=== PATIENT | male | born 1940 | race Caucasian/White ===

== ENCOUNTER 2017-02-28 23:51 | Inpatient (IN) | payer MEDICARE, BC ==
[2017-03-01] MEDS: Albuterol 0.083% 2.5 MG/3 ML Neb Soln NEB ONE ×2 (00:55→13:23)
[2017-03-01] MEDS ORDERED: cefTRIAXone 2 GM in Sodium Chloride 0.9% 100 ML IV ONE (03:12)
[2017-03-01] MEDS ORDERED: Sodium Chloride 0.9%, Bacteriostatic 10 ML MDV IV SCH (03:15)
[2017-03-01] MEDS ORDERED: methylPREDNISolone Sodium Succinate 125 MG/2 ML SDV IVPUSH SCH (03:15)
[2017-03-01] MEDS ORDERED: Sodium Chloride 0.9% 10 ML Syringe FLUSH PRN (03:36)
--- NOTE | 2017-03-01 04:22 | EDM.PDOC ---
ED HPI GENERAL MEDICAL PROBLEM - General Chief Complaint: General Stated Complaint: COPD Time Seen by Provider: 03/01/17 00:05 Source of Information: Reports: Patient, Family History Limitations: Reports: No Limitations - History of Present Illness INITIAL COMMENTS - FREE TEXT/NARRATIVE: Patient is a 76 year old patient of Dr. Davidson who has COPD. He was hospitalized for 4 days earlier this year with a COPD exacerbation and in the last 24 hours prior to coming to the ED he has had worsening cough symptoms and his lungs have become tighter and harder for him to breathe. He has no pain but he is short of breath. His nebs help but his daughter is afraid he may be in the early part of a URI or pneumonia that may keep him in the ED for a prolonged period like happened last time. 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 Back Pain Score (Numeric/FACES): 2 - Related Data Allergies Allergy/AdvReac Type Severity Reaction Status Date / Time No Known Allergies Allergy Verified 01/22/16 14:43 Home Meds: Home Meds Fluticasone/Salmeterol [Advair 250-50 Diskus] 1 puff INH BID 01/22/16 [History] Lisinopril 20 mg PO DAILY 01/22/16 [History] Simvastatin 40 mg PO DAILY 01/22/16 [History] Albuterol/Ipratropium [Combivent Respimat] 1 inh PO QID #28 01/24/16 [Rx] Prednisone [IJD: Prednisone] 10 mg PO ASDIRECTED #105 tab 01/24/16 [Rx] guaiFENesin [Robitussin] 600 mg PO Q12HR #28 cup 01/24/16 [Rx] Past Medical History HEENT History: Reports: Hard of Hearing Cardiovascular History: Reports: High Cholesterol, Hypertension Respiratory History: Reports: COPD, Pneumonia, Recurrent Musculoskeletal History: Reports: Arthritis, Back Pain, Chronic - Infectious Disease History Infectious Disease History: Reports: Chicken Pox, Measles, Mumps, Rubella Social & Family History - Family History Family Medical History: Unobtainable - Tobacco Use Smoking Status *Q: Current Every Day Smoker Years of Tobacco use: 45 Packs/Tins Daily: 2 Used Tobacco, but Quit: No Second Hand Smoke Exposure: Yes - Caffeine Use Caffeine Use: Reports: Coffee - Alcohol Use Days Per Week of Alcohol Use: 1 Number of Drinks Per Day: 4 Total Drinks Per Week: 4 - Recreational Drug Use Recreational Drug Use: No ED ROS GENERAL - Review of Systems Review Of Systems: See Below Constitutional: Reports: Other (Breathing problems.) HEENT: Reports: No Symptoms Respiratory: Reports: Shortness of Breath, Cough Cardiovascular: Reports: No Symptoms Endocrine: Reports: No Symptoms GI/Abdominal: Reports: No Symptoms : Reports: No Symptoms Musculoskeletal: Reports: No Symptoms Skin: Reports: No Symptoms Neurological: Reports: No Symptoms Psychiatric: Reports: No Symptoms Hematologic/Lymphatic: Reports: No Symptoms ED EXAM, GENERAL - Physical Exam Exam: See Below Exam Limited By: No Limitations General Appearance: Alert, WD/WN, Mild Distress Eye Exam: Bilateral Eye: Normal Fundi, Normal Inspection, PERRL Ears: Normal External Exam, Normal Canal, Hearing Grossly Normal, Normal TMs Ear Exam: Bilateral Ear: Auricle Normal, Canal Normal, TM normal Nose: Normal Inspection, Normal Mucosa, No Blood Throat/Mouth: Normal Inspection, Normal Lips, Normal Teeth, Normal Gums, Normal Oropharynx, Normal Voice, No Airway Compromise Head: Atraumatic, Normocephalic Neck: Normal Inspection, Supple, Non-Tender, Full Range of Motion Respiratory/Chest: Lungs Clear, No Accessory Muscle Use, Chest Non-Tender, Respiratory Distress, Decreased Breath Sounds, Other ( Lungs sound tight on auscultation.) Cardiovascular: Normal Peripheral Pulses, Regular Rate, Rhythm, No Edema, No Gallop, No JVD, No Murmur, No Rub Peripheral Pulses: 2+: Posterior Tibial (L), Posterior Tibial (R), Dorsalis Pedis (L), Dorsalis Pedis (R) GI/Abdominal: Normal Bowel Sounds, Soft, Non-Tender, No Organomegaly, No Distention, No Abnormal Bruit, No Mass Extremities: Normal Inspection Neurological: Alert, Oriented, CN II-XII Intact, Normal Cognition, Normal Gait, Normal Reflexes, No Motor/Sensory Deficits Psychiatric: Normal Affect Skin Exam: Warm, Dry, Intact, Normal Color, No Rash Lymphatic: No Adenopathy EKG INTERPRETATION EKG Date: 03/01/17 Rhythm: NSR [place]: Normal P-Wave: Present QRS: Normal ST-T: Normal QT: Normal Course - Vital Signs Text/Narrative:: Patient had an uneventful ED course. He was given an Albuterol neb and was breathing better, though, even after the neb and being on 2 liters of O2 by nasal cannula his Oxygen at times dropped to 88% on the 2 liters. His WBC was elevated and the CXR showed emphysematous changes. It was decided to admit him to observation to give more intensive treatments with nebs, IV solumedrol, IV Rocephin and IV Zithromax. Dr. Joseph will assume care in the morning. Please use this ED note as the Admit H and P. Last Recorded V/S: Last Vital Signs Temp Pulse Resp BP Pulse Ox 94 L 03/01/17 01:53 - Orders/Labs/Meds Orders: Active Orders 24 hr Category Date Time Status EKG Documentation Completion [RC] ASDIRECTED Care 03/01/17 00:48 Active RT Aerosol Therapy [RC] ASDIRECTED Care 03/01/17 00:51 Active Chest 1V Frontal [CR] Stat Exams 03/01/17 00:47 Taken Medication Orders Albuterol/Ipratropium (Duoneb 3.0-0.5 Mg/3 Ml) 3 ml NEB Q6H PRN PRN Reason: Dyspnea Azithromycin 500 mg/ Sodium (Chloride) 250 mls @ 250 mls/hr IV Q24H [facility] Methylprednisolone Sodium Succinate (Solu-Medrol) 125 mg IVPUSH Q12H [facility] Last Admin: 03/01/17 03:35 Dose: 125 mg Sodium Chloride (Sodium Chloride 0.9%) 100 ml IV ASDIRECTED [facility] Sodium Chloride (Saline Flush) 10 ml FLUSH BID PRN PRN Reason: Other Labs: Laboratory Tests 03/01/17 03/01/17 03/01/17 Range/Units 00:45 00:45 00:45 WBC 14.8 H (4.0-11.0) K/uL RBC 4.91 (4.50-6.50) M/uL Hgb 14.3 (13.0-18.0) g/dL Hct 44.8 (40.0-54.0) % MCV 91 (76-96) fL MCH 29.1 (27.0-32.0) pg MCHC 31.9 (31.0-35.0) g/dL RDW 16.0 (11.0-16.0) % Plt Count 167 (150-400) K/uL MPV 9.6 (6.0-10.0) fL Neut % (Auto) 78.9 H (45.0-70.0) % Lymph % (Auto) 10.6 L (20.0-40.0) % [place] % (Auto) 9.5 (3.0-10.0) % Eos % (Auto) 0.8 L (1.0-5.0) % Baso % (Auto) 0.2 (0.0-0.5) % Neut # (Auto) 11.65 H (2.00-7.50) K/uL Lymph # (Auto) 1.56 (1.50-4.00) K/uL [place] # (Auto) 1.41 H (0.20-0.80) K/uL Eos # (Auto) 0.12 (0.04-0.40) K/uL Baso # (Auto) 0.03 (0.02-0.10) K/uL Sodium 138 (136-145) mmol/L Potassium 3.8 D (3.5-5.1) mmol/L Chloride 101 (98-107) mmol/L Carbon Dioxide 30.6 (21.0-32.0) mmol/L Anion Gap 10.2 (5.0-15.0) mmol/L BUN 13 D (8-26) mg/dL Creatinine 0.94 D (0.70-1.30) mg/dL Est Cr Clr Drug Dosing TNP Estimated GFR (MDRD) > 60 (>60) MLS/MIN BUN/Creatinine Ratio 13.8 (6-25) Glucose 125 H (74-100) mg/dL Calcium 8.7 (8.5-10.1) mg/dL Total Bilirubin 1.2 H (0.0-1.0) mg/dL AST 15 (15-37) U/L ALT 13 (12-78) U/L Alkaline Phosphatase 59 (46-116) U/L Troponin I < 0.017 (0.000-0.060) ng/mL Total Protein 8.4 H (6.4-8.2) g/dL Albumin 3.8 (3.4-5.0) g/dL Globulin 4.6 H (2.2-4.2) g/dL Albumin/Globulin Ratio 0.8 (0.8-2.0) Meds: Medications Generic Name Dose Route Start Last Admin Trade Name Freq PRN Reason Stop Dose Admin Albuterol/Ipratropium 3 ml 03/01/17 03:10 Duoneb 3.0-0.5 Mg/3 Ml NEB Q6H PRN Dyspnea Azithromycin 500 mg/ Sodium 250 mls @ 250 mls/hr 03/01/17 04:30 Chloride IV Q24H [facility] Methylprednisolone Sodium Succinate 125 mg 03/01/17 03:15 03/01/17 03:35 Solu-Medrol IVPUSH 125 mg Q12H [facility] Administration Sodium Chloride 100 ml 03/01/17 03:15 Sodium Chloride 0.9% IV ASDIRECTED [facility] Sodium Chloride 10 ml 03/01/17 03:36 Saline Flush FLUSH BID PRN Other Discontinued Medications Generic Name Dose Route Start Last Admin Trade Name Freq PRN Reason Stop Dose Admin Albuterol 2.5 mg 03/01/17 00:50 Proventil Neb Soln NEB 03/01/17 00:51 ONETIME ONE Ceftriaxone Sodium 2 gm/ 100 mls @ 100 mls/hr 03/01/17 03:12 Sodium Chloride IV 03/01/17 04:11 ONETIME ONE Departure - Departure Time of Disposition: 03:06 Disposition: Refer to Observation Condition: Fair Clinical Impression: COPD exacerbation - Discharge Information - My Orders Last 24 Hours: My Active Orders 03/01/17 00:47 Chest 1V Frontal [CR] Stat 03/01/17 00:48 EKG Documentation Completion [RC] ASDIRECTED 03/01/17 00:51 RT Aerosol Therapy [RC] ASDIRECTED - Assessment/Plan Last 24 Hours: My Active Orders 03/01/17 00:47 Chest 1V Frontal [CR] Stat 03/01/17 00:48 EKG Documentation Completion [RC] ASDIRECTED 03/01/17 00:51 RT Aerosol Therapy [RC] ASDIRECTED
[2017-03-01] MEDS: Albuterol/Ipratropium 3.0-0.5 MG/3 ML Neb Soln NEB PRN ×2 (04:25→09:46)
[2017-03-01] MEDS: Azithromycin 500 MG in Sodium Chloride 0.9% 250 ML IV SCH (04:54)
[2017-03-01] MEDS ORDERED: Sodium Chloride 0.9% 1,000 ML IV SCH ×2 (09:15→19:30)
--- NOTE | 2017-03-01 09:58 | PCM.PN ---
- General Info Date of Service: 03/01/17 Subjective Update: This is a 76yo M who was placed in observation for a COPD exacerbation. Patient states he is feeling a little better and breathing somewhat better during his nebulizer treatments. Patient denies any fever or chills or increasing sob. - Review of Systems General: Reports: No Symptoms HEENT: Reports: No Symptoms Pulmonary: Reports: Shortness of Breath, Wheezing Cardiovascular: Reports: No Symptoms Gastrointestinal: Reports: No Symptoms Genitourinary: Reports: No Symptoms Musculoskeletal: Reports: No Symptoms Skin: Reports: No Symptoms Neurological: Reports: No Symptoms - Patient Data Vitals - most recent: Last Vital Signs Temp 35.7 C 03/01/17 03:33 Pulse 116 H 03/01/17 03:33 Resp 20 03/01/17 03:33 BP 142/74 H 03/01/17 03:33 Pulse Ox 90 L 03/01/17 03:33 Weight - most recent: 113.398 kg I&O - last 24 hours: Intake & Output 02/28/17 03/01/17 03/01/17 22:59 06:59 14:59 Intake Total 200 Output Total 150 Balance 50 Med Orders - Current: Current Medications Albuterol/Ipratropium (Duoneb 3.0-0.5 Mg/3 Ml) 3 ml NEB Q6H PRN PRN Reason: Dyspnea Last Admin: 03/01/17 09:46 Dose: 3 ml Azithromycin 500 mg/ Sodium (Chloride) 250 mls @ 250 mls/hr IV Q24H [facility] Last Admin: 03/01/17 04:54 Dose: 250 mls/hr Sodium Chloride (Normal Saline) 1,000 mls @ 100 mls/hr IV ASDIRECTED [facility] Sodium Chloride (Saline Flush) 10 ml FLUSH BID PRN PRN Reason: Other Discontinued Medications Albuterol (Proventil Neb Soln) 2.5 mg NEB ONETIME ONE Stop: 03/01/17 00:51 Last Admin: 03/01/17 00:55 Dose: 2.5 mg Ceftriaxone Sodium 2 gm/ (Sodium Chloride) 100 mls @ 100 mls/hr IV ONETIME ONE Stop: 03/01/17 04:11 Last Admin: 03/01/17 03:37 Dose: 100 mls/hr Methylprednisolone Sodium Succinate (Solu-Medrol) 125 mg IVPUSH Q12H [facility] Last Admin: 03/01/17 03:35 Dose: 125 mg - Exam Quality Assessment: supplemental oxygen General: alert, oriented, cooperative HEENT: Pupils equal, Pupils reactive, EOMI Neck: supple Lungs: Decreased Breath Sounds, Rhonchi, Wheezing Cardiovascular: Regular Rhythm, Tachycardia GI/Abdominal Exam: Normal Bowel Sounds, Soft, Non-Tender Back Exam: Normal Inspection Extremities: Normal Inspection Peripheral Pulses: 2+: Dorsalis Pedis (L), Dorsalis Pedis (R) Skin: warm, dry, intact Neurological: no new focal deficit - Problem List & Annotations (1) COPD exacerbation SNOMED Code(s): 072138096, 869703072 Code(s): J44.1 - CHRONIC OBSTRUCTIVE PULMONARY DISEASE W (ACUTE) EXACERBATION Status: Acute Current Visit: Yes (2) Exertional shortness of breath SNOMED Code(s): 79807115 Code(s): R06.02 - SHORTNESS OF BREATH Status: Acute Priority: High Current Visit: No Onset Date: 01/22/16 (3) Shortness of breath at rest SNOMED Code(s): 826618763 Code(s): R06.02 - SHORTNESS OF BREATH Status: Acute Priority: High Current Visit: No Onset Date: 01/22/16 (4) Tachycardia SNOMED Code(s): 8380675 Code(s): R00.0 - TACHYCARDIA, UNSPECIFIED Status: Chronic Priority: Medium Current Visit: No Onset Date: 01/22/16 - Problem List Review Problem List Initiated/Reviewed/Updated: Yes - My Orders Last 24 Hours: My Active Orders 03/01/17 07:55 BASIC METABOLIC PANEL,BMP [CHEM] Routine CBC WITH AUTO DIFF [HEME] Routine 03/01/17 10:00 methylPREDNISolone Sod Succ [Solu-MEDROL] 125 mg IVPUSH Q8H - Assessment Assessment:: Patient will continue on scheduled nebulizers as this has shown improvement with patient symptoms and oxygenation. We will increase frequency of Solumedrol at this time due to persistent effort of breathing seen from mild retractions despite symptomatic improvement. We will closely monitor and f/u as needed and as routine.
[2017-03-01] MEDS ORDERED: Albuterol/Ipratropium 3.0-0.5 MG/3 ML Neb Soln NEB SCH (10:00)
--- NOTE | 2017-03-01 12:16 | CR ---
DATE OF SERVICE: 03/01/2017 CLINICAL DATA: COPD exacerbation. AP CHEST Comparison made to a prior exam dated 01/22/2016. The heart size is normal. There is a mass like density superior and lateral to the right hilum that was not present on the prior exam. There is stranding of this mass to the right hilum and to the pleura peripherally. A pulmonary malignancy is suspected. Chest CT is recommended. There are mild interstitial changes throughout both lungs. I do not see any other significant findings. IMPRESSION: Abnormal exam. See above. Chest CT is recommended. [id number] [facility]
[2017-03-01] MEDS: methylPREDNISolone Sodium Succinate 125 MG/2 ML SDV IVPUSH SCH ×2 (13:22→18:23)
[2017-03-01] MEDS ORDERED: Sodium Chloride 0.9% 50 ML SDV FLUSH ONE (13:23)
[2017-03-01] MEDS ORDERED: Albuterol 0.083% 2.5 MG/3 ML Neb Soln NEB ONE (13:24)
[2017-03-01] MEDS ORDERED: Iopamidol 612 MG/ML 100 ML Bottle IV SCH (13:30)
[2017-03-01] MEDS ORDERED: Morphine 2 MG/ML Syringe IVPUSH ONE (13:47)
[2017-03-01] MEDS ORDERED: Albuterol/Ipratropium 3.0-0.5 MG/3 ML Neb Soln INH SCH (16:00)
[2017-03-01] MEDS ORDERED: ALBUTEROL PO SCH (16:00)
[2017-03-01] MEDS ORDERED: IPRATROPIUM PO SCH (16:00)
[2017-03-01] MEDS: Albuterol/Ipratropium 3.0-0.5 MG/3 ML Neb Soln NEB SCH ×2 (17:21→19:59)
[2017-03-01] MEDS ORDERED: Aspirin 325 MG Tab.EC PO PRN (17:57)
[2017-03-01] MEDS: Formoterol/Mometasone 200-5 MCG 8.8 GM Inhaler IH SCH (19:53)
[2017-03-01] MEDS: Fish Oil/Omega-3 Fatty Acids 1 Gm Cap PO SCH (19:54)
[2017-03-01] MEDS: Simvastatin 40 MG Tab PO SCH (19:54)
[2017-03-01] MEDS: guaiFENesin 100 MG/5 ML Soln 10 ML UD Cup PO SCH (19:58)
[2017-03-01] MEDS ORDERED: ASPIRIN PO SCH (20:00)
[2017-03-01] MEDS ORDERED: Fluticasone/Salmeterol 250-50 MCG Inhalation Powder 14/Diskus INH SCH (20:00)
[2017-03-02] MEDS: methylPREDNISolone Sodium Succinate 125 MG/2 ML SDV IVPUSH SCH ×3 (02:02→21:30)
[2017-03-02] MEDS: Azithromycin 500 MG in Sodium Chloride 0.9% 250 ML IV SCH ×3 (05:01→23:55)
--- NOTE | 2017-03-02 07:49 | CT ---
DATE OF SERVICE: 03/01/17 CLINICAL DATA: SOB, abnormal CXR with mass lesion ENHANCED CHEST CT: Multislice acquisition through the chest with IV contrast was performed. No priors. There is an elongated pleural-based mass-like structure involving the right upper lobe that lies adjacent to the major fissure. It measures greater than 6 cm in its maximum dimension. It is largely soft tissue in density. It does contain some entrapped lung. There is stranding from this mass to the right hilum and to the pleura peripherally. There is also thickening of the adjacent pleura in the right hemithorax laterally and within the major fissure. Although this may be related to an infectious or inflammatory process, a malignancy cannot be excluded. There are emphysematous changes throughout both lungs. There is linear densities in the left apex and left lung base consistent with linear atelectasis or fibrosis. The lungs are otherwise clear. No pleural effusions. No hilar or mediastinal adenopathy. The heart size is normal. There is a very small pericardial effusion. There are coronary artery calcifications. There is mild mural thickening throughout the cervical esophagus. Esophagitis should be considered. There is diffuse fatty infiltration of the liver. I do not see any other significant findings. No lytic or blastic bone lesions. The thyroid gland is enlarged. Thyroid ultrasound is recommended. IMPRESSION: Mass-like structure in right lung as discussed above. Rule out malignancy. Other findings as discussed above. See above recommendation. [id number] [facility]
[2017-03-02] MEDS: Fish Oil/Omega-3 Fatty Acids 1 Gm Cap PO SCH ×2 (08:20→20:12)
[2017-03-02] MEDS: Albuterol/Ipratropium 3.0-0.5 MG/3 ML Neb Soln NEB SCH ×4 (08:20→20:12)
[2017-03-02] MEDS: Lisinopril 20 MG Tab PO SCH (08:20)
[2017-03-02] MEDS: Formoterol/Mometasone 200-5 MCG 8.8 GM Inhaler IH SCH ×2 (08:20→20:12)
[2017-03-02] MEDS: guaiFENesin 100 MG/5 ML Soln 10 ML UD Cup PO SCH ×2 (08:21→20:12)
--- NOTE | 2017-03-02 08:43 | PCM.PN ---
- General Info Date of Service: 03/02/17 Functional Status: Reports: Tolerating Diet - Review of Systems General: Reports: No Symptoms HEENT: Reports: No Symptoms Pulmonary: Reports: Shortness of Breath, Wheezing Cardiovascular: Reports: No Symptoms Gastrointestinal: Reports: No Symptoms Genitourinary: Reports: No Symptoms Musculoskeletal: Reports: Shoulder Pain, Back Pain Skin: Reports: No Symptoms Neurological: Reports: No Symptoms Psychiatric: Reports: No Symptoms - Patient Data Vitals - Most Recent: Last Vital Signs Temp 36.6 C 03/01/17 19:37 Pulse 112 H 03/01/17 19:37 Resp 24 H 03/01/17 19:37 BP 112/70 03/02/17 08:20 Pulse Ox 93 L 03/01/17 19:37 Weight - Most Recent: 102.875 kg I&O - Last 24 Hours: Intake & Output 03/01/17 03/02/17 03/02/17 22:59 06:59 14:59 Intake Total 2670 870 Output Total 250 775 Balance 2420 95 Lab Results Last 24 Hours: Laboratory Results - last 24 hr 03/02/17 03/02/17 Range/Units 07:15 07:15 WBC 14.4 H (4.0-11.0) K/uL RBC 4.70 (4.50-6.50) M/uL Hgb 13.8 (13.0-18.0) g/dL Hct 43.0 (40.0-54.0) % MCV 92 (76-96) fL MCH 29.4 (27.0-32.0) pg MCHC 32.1 (31.0-35.0) g/dL RDW 15.8 (11.0-16.0) % Plt Count 183 (150-400) K/uL MPV 9.8 (6.0-10.0) fL Neut % (Auto) 88.6 H (45.0-70.0) % Lymph % (Auto) 7.4 L (20.0-40.0) % [place] % (Auto) 3.8 (3.0-10.0) % Eos % (Auto) 0.1 L (1.0-5.0) % Baso % (Auto) 0.1 (0.0-0.5) % Neut # (Auto) 12.77 H (2.00-7.50) K/uL Lymph # (Auto) 1.06 L (1.50-4.00) K/uL [place] # (Auto) 0.55 (0.20-0.80) K/uL Eos # (Auto) 0.01 L (0.04-0.40) K/uL Baso # (Auto) 0.02 (0.02-0.10) K/uL Sodium 143 (136-145) mmol/L Potassium 4.5 (3.5-5.1) mmol/L Chloride 104 (98-107) mmol/L Carbon Dioxide 31.6 (21.0-32.0) mmol/L Anion Gap 11.9 (5.0-15.0) mmol/L BUN 19 D (8-26) mg/dL Creatinine 1.01 (0.70-1.30) mg/dL Est Cr Clr Drug Dosing 62.08 mL/min Estimated GFR (MDRD) > 60 (>60) MLS/MIN BUN/Creatinine Ratio 18.8 (6-25) Glucose 177 H (74-100) mg/dL Calcium 8.9 (8.5-10.1) mg/dL Med Orders - Current: Current Medications Albuterol (Proventil Neb Soln) 2.5 mg NEB Q2H PRN PRN Reason: Dyspnea Albuterol/Ipratropium (Duoneb 3.0-0.5 Mg/3 Ml) 3 ml NEB QID [facility] Last Admin: 03/02/17 08:20 Dose: 3 ml Aspirin (Ecotrin) 650 mg PO BID PRN PRN Reason: Pain Fish Oil (Fish Oil) 1 gm PO BID [facility] Last Admin: 03/02/17 08:20 Dose: 1 gm Guaifenesin (Robitussin) 600 mg PO Q12HR [facility] Last Admin: 03/02/17 08:21 Dose: 600 mg Azithromycin 500 mg/ Sodium (Chloride) 250 mls @ 250 mls/hr IV Q24H [facility] Last Admin: 03/02/17 05:01 Dose: 250 mls/hr Sodium Chloride (Normal Saline) 1,000 mls @ 25 mls/hr IV ASDIRECTED [facility] Last Admin: 03/02/17 05:03 Dose: 25 mls/hr Iopamidol (Isovue-300 (61%)) 100 ml IV ASDIRECTED [facility] Lisinopril (Prinivil) 20 mg PO DAILY [facility] Last Admin: 03/02/17 08:20 Dose: 20 mg Mometasone Furoate/Formoterol Fumar (Dulera 200-5 Mcg) 2 puff IH BID [facility] Last Admin: 03/02/17 08:20 Dose: 2 puff Simvastatin (Zocor) 40 mg PO BEDTIME [facility] Last Admin: 03/01/17 19:54 Dose: 40 mg Sodium Chloride (Saline Flush) 10 ml FLUSH BID PRN PRN Reason: Other Discontinued Medications Albuterol (Proventil Neb Soln) 2.5 mg NEB ONETIME ONE Stop: 03/01/17 00:51 Last Admin: 03/01/17 13:23 Dose: 2.5 mg Albuterol (Proventil Neb Soln) 2.5 mg NEB ONETIME ONE Stop: 03/01/17 13:25 Last Admin: 03/01/17 14:50 Dose: Not Given Albuterol/Ipratropium (Duoneb 3.0-0.5 Mg/3 Ml) 3 ml NEB Q6H PRN PRN Reason: Dyspnea Last Admin: 03/01/17 09:46 Dose: 3 ml Albuterol/Ipratropium (Duoneb 3.0-0.5 Mg/3 Ml) 3 ml NEB Q6H [facility] Last Admin: 03/01/17 10:00 Dose: 3 ml Ceftriaxone Sodium 2 gm/ (Sodium Chloride) 100 mls @ 100 mls/hr IV ONETIME ONE Stop: 03/01/17 04:11 Last Admin: 03/01/17 03:37 Dose: 100 mls/hr Sodium Chloride (Normal Saline) 1,000 mls @ 100 mls/hr IV ASDIRECTED [facility] Methylprednisolone Sodium Succinate (Solu-Medrol) 125 mg IVPUSH Q12H [facility] Last Admin: 03/01/17 03:35 Dose: 125 mg Methylprednisolone Sodium Succinate (Solu-Medrol) 125 mg IVPUSH Q8H [facility] Last Admin: 03/02/17 02:02 Dose: 125 mg Morphine Sulfate (Morphine) 1 mg IVPUSH ONETIME ONE Stop: 03/01/17 13:48 Last Admin: 03/01/17 14:50 Dose: Not Given Non-Formulary Medication (Aspirin [Aspirin]) 650 mg PO BID [facility] Sodium Chloride (Normal Saline) 50 ml FLUSH ONETIME ONE Stop: 03/01/17 13:24 Last Admin: 03/01/17 14:49 Dose: Not Given - Exam General: Alert, Oriented, Cooperative HEENT: Pupils Equal, Pupils Reactive, EOMI Neck: Supple Lungs: Decreased Breath Sounds, Wheezing Cardiovascular: Regular Rate, Regular Rhythm GI/Abdominal Exam: Normal Bowel Sounds, Soft, Non-Tender Back Exam: Normal Inspection, Full Range of Motion Extremities: Normal Inspection, Normal Range of Motion Skin: Warm, Dry, Intact Neurological: No New Focal Deficit Psy/Mental Status: Alert, Normal Affect, Normal Mood - Problem List & Annotations (1) COPD exacerbation SNOMED Code(s): 550044668, 299954214 Code(s): J44.1 - CHRONIC OBSTRUCTIVE PULMONARY DISEASE W (ACUTE) EXACERBATION Status: Acute Current Visit: Yes (2) Exertional shortness of breath SNOMED Code(s): 06501383 Code(s): R06.02 - SHORTNESS OF BREATH Status: Acute Priority: High Current Visit: No Onset Date: 01/22/16 (3) Shortness of breath at rest SNOMED Code(s): 778908973 Code(s): R06.02 - SHORTNESS OF BREATH Status: Acute Priority: High Current Visit: No Onset Date: 01/22/16 (4) Tachycardia SNOMED Code(s): 5011179 Code(s): R00.0 - TACHYCARDIA, UNSPECIFIED Status: Chronic Priority: Medium Current Visit: No Onset Date: 01/22/16 - Problem List Review Problem List Initiated/Reviewed/Updated: Yes - My Orders Last 24 Hours: My Active Orders 03/01/17 14:55 CULTURE MRSA SURVEY [RM] Routine 03/01/17 16:00 Albuterol/Ipratropium [DuoNeb 3.0-0.5 MG/3 ML] 3 ml NEB QID 03/01/17 17:57 Aspirin [Ecotrin] 650 mg PO BID PRN 03/01/17 19:12 Albuterol [Proventil Neb Soln] 2.5 mg NEB Q2H PRN 03/01/17 19:30 Sodium Chloride 0.9% [Normal Saline] 1,000 ml IV ASDIRECTED 03/01/17 20:00 Fish Oil/Felch-3 Fatty Acids [Fish Oil] 1 gm PO BID Mometasone/Formoterol [Dulera 200-5 MCG] 2 puff IH BID Simvastatin [Zocor] 40 mg PO BEDTIME guaiFENesin [Robitussin] 600 mg PO Q12HR 03/02/17 08:00 Lisinopril [Prinivil] 20 mg PO DAILY 03/02/17 08:45 methylPREDNISolone Sod Succ [Solu-MEDROL] 125 mg IVPUSH Q12H 03/02/17 Breakfast Regular Diet [DIET] - Assessment Assessment:: Patient will continue on scheduled nebulizers as this has shown improvement with patient symptoms and oxygenation. We will increase frequency of Solumedrol at this time due to persistent effort of breathing seen from mild retractions despite symptomatic improvement. We will closely monitor and f/u as needed and as routine. - Plan Plan:: 03/02/17 Patient will be continued on current medications and management. We will taper Methylprednisolone to 125mg Q12. Discussed finding of mass lesion in right lung with patient and discussed differential including infectious/inflammatory/ malignant processes. Discussed f/u CT for resolution and workup as needed. Patient understands.
[2017-03-02] MEDS: Simvastatin 40 MG Tab PO SCH (20:12)
[2017-03-03] MEDS: Albuterol 0.083% 2.5 MG/3 ML Neb Soln NEB PRN ×2 (02:18→20:07)
[2017-03-03] MEDS: Azithromycin 500 MG in Sodium Chloride 0.9% 250 ML IV SCH ×2 (05:25→20:06)
[2017-03-03] MEDS: Albuterol/Ipratropium 3.0-0.5 MG/3 ML Neb Soln NEB SCH ×5 (07:42→20:30)
[2017-03-03] MEDS: guaiFENesin 100 MG/5 ML Soln 10 ML UD Cup PO SCH ×2 (07:45→20:07)
[2017-03-03] MEDS: Fish Oil/Omega-3 Fatty Acids 1 Gm Cap PO SCH ×2 (07:49→20:07)
[2017-03-03] MEDS: Formoterol/Mometasone 200-5 MCG 8.8 GM Inhaler IH SCH ×2 (07:50→20:06)
[2017-03-03] MEDS: Lisinopril 20 MG Tab PO SCH (07:58)
[2017-03-03] MEDS: methylPREDNISolone Sodium Succinate 125 MG/2 ML SDV IVPUSH SCH ×2 (08:15→20:05)
--- NOTE | 2017-03-03 09:14 | PCM.PN ---
- General Info Date of Service: 03/03/17 Functional Status: Reports: Pain Controlled, Tolerating Diet - Review of Systems General: Reports: Weakness, Fatigue HEENT: Reports: No Symptoms Pulmonary: Reports: Shortness of Breath, Wheezing Cardiovascular: Reports: No Symptoms Gastrointestinal: Reports: No Symptoms Genitourinary: Reports: No Symptoms Musculoskeletal: Reports: No Symptoms Skin: Reports: No Symptoms Neurological: Reports: No Symptoms Psychiatric: Reports: No Symptoms - Patient Data Vitals - Most Recent: Last Vital Signs Temp 36.9 C 03/02/17 20:00 Pulse 105 H 03/02/17 20:00 Resp 16 03/02/17 20:00 BP 125/57 L 03/03/17 07:58 Pulse Ox 96 03/02/17 20:00 Weight - Most Recent: 103.238 kg I&O - Last 24 Hours: Intake & Output 03/02/17 03/03/17 03/03/17 22:59 06:59 14:59 Intake Total 425 Output Total 250 Balance -250 425 Lab Results Last 24 Hours: Laboratory Results - last 24 hr 03/03/17 03/03/17 Range/Units 07:40 07:40 WBC 17.4 H D (4.0-11.0) K/uL RBC 4.67 (4.50-6.50) M/uL Hgb 13.7 (13.0-18.0) g/dL Hct 43.1 (40.0-54.0) % MCV 92 (76-96) fL MCH 29.3 (27.0-32.0) pg MCHC 31.8 (31.0-35.0) g/dL RDW 16.2 H (11.0-16.0) % Plt Count 226 D (150-400) K/uL MPV 9.5 (6.0-10.0) fL Neut % (Auto) 87.5 H (45.0-70.0) % Lymph % (Auto) 7.9 L (20.0-40.0) % [place] % (Auto) 4.5 (3.0-10.0) % Eos % (Auto) 0.0 L (1.0-5.0) % Baso % (Auto) 0.1 (0.0-0.5) % Neut # (Auto) 15.19 H (2.00-7.50) K/uL Lymph # (Auto) 1.38 L (1.50-4.00) K/uL [place] # (Auto) 0.79 (0.20-0.80) K/uL Eos # (Auto) 0.00 L (0.04-0.40) K/uL Baso # (Auto) 0.01 L (0.02-0.10) K/uL Sodium 146 H (136-145) mmol/L Potassium 4.6 (3.5-5.1) mmol/L Chloride 105 (98-107) mmol/L Carbon Dioxide 31.6 (21.0-32.0) mmol/L Anion Gap 14.0 (5.0-15.0) mmol/L BUN 23 D (8-26) mg/dL Creatinine 0.96 (0.70-1.30) mg/dL Est Cr Clr Drug Dosing 65.31 mL/min Estimated GFR (MDRD) > 60 (>60) MLS/MIN BUN/Creatinine Ratio 24.0 (6-25) Glucose 145 H (74-100) mg/dL Calcium 8.9 (8.5-10.1) mg/dL Total Bilirubin 0.3 D (0.0-1.0) mg/dL AST 19 (15-37) U/L ALT 19 (12-78) U/L Alkaline Phosphatase 48 (46-116) U/L Total Protein 7.8 (6.4-8.2) g/dL Albumin 3.5 (3.4-5.0) g/dL Globulin 4.3 H (2.2-4.2) g/dL Albumin/Globulin Ratio 0.8 (0.8-2.0) TSH, Ultra Sensitive 8.399 H (0.358-3.740) uIU/mL Elijah Results Last 24 Hours: Microbiology 03/01/17 14:55 MRSA Surveillance Culture - Final Nares, Unspecified NO MRSA ISOLATED Med Orders - Current: Current Medications Albuterol (Proventil Neb Soln) 2.5 mg NEB Q2H PRN PRN Reason: Dyspnea Last Admin: 03/03/17 02:18 Dose: 2.5 mg Albuterol/Ipratropium (Duoneb 3.0-0.5 Mg/3 Ml) 3 ml NEB QID [facility] Last Admin: 03/03/17 07:42 Dose: 3 ml Aspirin (Ecotrin) 650 mg PO BID PRN PRN Reason: Pain Fish Oil (Fish Oil) [address] [facility] Last Admin: 03/03/17 07:49 Dose: 1 gm Guaifenesin (Robitussin) [address] [facility] Last Admin: 03/03/17 07:45 Dose: 600 mg Azithromycin 500 mg/ Sodium (Chloride) 250 mls @ 250 mls/hr IV Q24H [facility] Last Admin: 03/03/17 05:25 Dose: Not Given Sodium Chloride (Normal Saline) 1,000 mls @ 25 mls/hr IV ASDIRECTED [facility] Last Admin: 03/02/17 05:03 Dose: 25 mls/hr Lisinopril (Prinivil) [address] [facility] Last Admin: 03/03/17 07:58 Dose: 20 mg Methylprednisolone Sodium Succinate (Solu-Medrol) [address] [facility] Last Admin: 03/03/17 08:15 Dose: 125 mg Mometasone Furoate/Formoterol Fumar (Dulera 200-5 Mcg) [address] [facility] Last Admin: 03/03/17 07:50 Dose: 2 puff Simvastatin (Zocor) [address] [facility] Last Admin: 03/02/17 20:12 Dose: 40 mg Sodium Chloride (Saline Flush) 10 ml FLUSH BID PRN PRN Reason: Other Last Admin: 03/03/17 01:53 Dose: 10 ml Discontinued Medications Albuterol (Proventil Neb Soln) 2.5 mg NEB ONETIME ONE Stop: 03/01/17 00:51 Last Admin: 03/01/17 13:23 Dose: 2.5 mg Albuterol (Proventil Neb Soln) 2.5 mg NEB ONETIME ONE Stop: 03/01/17 13:25 Last Admin: 03/01/17 14:50 Dose: Not Given Albuterol/Ipratropium (Duoneb 3.0-0.5 Mg/3 Ml) 3 ml NEB Q6H PRN PRN Reason: Dyspnea Last Admin: 03/01/17 09:46 Dose: 3 ml Albuterol/Ipratropium (Duoneb 3.0-0.5 Mg/3 Ml) 3 ml NEB Q6H [facility] Last Admin: 03/01/17 10:00 Dose: 3 ml Ceftriaxone Sodium 2 gm/ (Sodium Chloride) 100 mls @ 100 mls/hr IV ONETIME ONE Stop: 03/01/17 04:11 Last Admin: 03/01/17 03:37 Dose: 100 mls/hr Sodium Chloride (Normal Saline) 1,000 mls @ 100 mls/hr IV ASDIRECTED [facility] Iopamidol (Isovue-300 (61%)) [address] [facility] Stop: 03/02/17 13:31 Methylprednisolone Sodium Succinate (Solu-Medrol) [address] [facility] Last Admin: 03/01/17 03:35 Dose: 125 mg Methylprednisolone Sodium Succinate (Solu-Medrol) [address] [facility] Last Admin: 03/02/17 02:02 Dose: 125 mg Morphine Sulfate (Morphine) 1 mg IVPUSH ONETIME ONE Stop: 03/01/17 13:48 Last Admin: 03/01/17 14:50 Dose: Not Given Non-Formulary Medication (Aspirin [Aspirin]) [address] [facility] Sodium Chloride (Normal Saline) 50 ml FLUSH ONETIME ONE Stop: 03/01/17 13:24 Last Admin: 03/01/17 14:49 Dose: Not Given - Exam Quality Assessment: Supplemental Oxygen General: Alert, Oriented, Cooperative HEENT: Pupils Equal, Pupils Reactive, EOMI, Mucous Membr. Moist/Laura Lungs: Decreased Breath Sounds, Wheezing Cardiovascular: Regular Rate, Regular Rhythm GI/Abdominal Exam: Normal Bowel Sounds, Soft, Non-Tender Back Exam: Normal Inspection Extremities: Normal Inspection Peripheral Pulses: 2+: Dorsalis Pedis (L), Dorsalis Pedis (R) Skin: Warm, Dry, Intact - Problem List & Annotations (1) COPD exacerbation SNOMED Code(s): 245055402, 635213831 Code(s): J44.1 - CHRONIC OBSTRUCTIVE PULMONARY DISEASE W (ACUTE) EXACERBATION Status: Acute Current Visit: Yes (2) Exertional shortness of breath SNOMED Code(s): 13630814 Code(s): R06.02 - SHORTNESS OF BREATH Status: Acute Priority: High Current Visit: No Onset Date: 01/22/16 (3) Shortness of breath at rest SNOMED Code(s): 379326928 Code(s): R06.02 - SHORTNESS OF BREATH Status: Acute Priority: High Current Visit: No Onset Date: 01/22/16 (4) Tachycardia SNOMED Code(s): 4251420 Code(s): R00.0 - TACHYCARDIA, UNSPECIFIED Status: Chronic Priority: Medium Current Visit: No Onset Date: 01/22/16 - Problem List Review Problem List Initiated/Reviewed/Updated: Yes - My Orders Last 24 Hours: My Active Orders 03/02/17 08:45 methylPREDNISolone Sod Succ [Solu-MEDROL] 125 mg IVPUSH Q12H 03/03/17 07:40 FREE T3 [REF] Routine FREE T4 [REF] Routine 03/04/17 12:04 Head Neck Soft Tissue Bi [US] Routine - Assessment Assessment:: Patient will continue on scheduled nebulizers as this has shown improvement with patient symptoms and oxygenation. We will increase frequency of Solumedrol at this time due to persistent effort of breathing seen from mild retractions despite symptomatic improvement. We will closely monitor and f/u as needed and as routine. - Plan Plan:: 03/02/17 Patient will be continued on current medications and management. We will taper Methylprednisolone to 125mg Q12. Discussed finding of mass lesion in right lung with patient and discussed differential including infectious/inflammatory/ malignant processes. Discussed f/u CT for resolution and workup as needed. Patient understands. 03/03/17 We will taper solumedrol. Discussed continued breathing treatments. Patient has improved and states he is about 60-80% back to normal whereas yesterday he was only 40-60%. Will monitor another day due to continued sob from baseline. Pulmonology consult to be setup. F/u T4,T3.
[2017-03-03] MEDS ORDERED: methylPREDNISolone Sodium Succinate 40 MG/1 ML SDV ONE (19:59)
[2017-03-03] MEDS: Simvastatin 40 MG Tab PO SCH (20:08)
--- NOTE | 2017-03-04 07:58 | PCM.PN ---
- General Info Date of Service: 03/04/17 Functional Status: Reports: Incentive Spirometry - Review of Systems General: Reports: Weakness HEENT: Reports: No Symptoms Pulmonary: Reports: Shortness of Breath Cardiovascular: Reports: No Symptoms Gastrointestinal: Reports: No Symptoms Genitourinary: Reports: No Symptoms Musculoskeletal: Reports: No Symptoms Skin: Reports: No Symptoms Neurological: Reports: No Symptoms - Patient Data Vitals - Most Recent: Last Vital Signs Temp 36.6 C 03/03/17 20:23 Pulse 100 03/03/17 20:23 Resp 18 03/03/17 20:23 BP 118/60 03/03/17 20:23 Pulse Ox 93 L 03/04/17 06:00 Weight - Most Recent: 103.238 kg I&O - Last 24 Hours: Intake & Output 03/03/17 03/04/17 03/04/17 22:59 06:59 14:59 Intake Total 1411 1317 Output Total 425 325 Balance 986 992 Lab Results Last 24 Hours: Laboratory Results - last 24 hr 03/03/17 03/03/17 Range/Units 07:40 07:40 WBC 17.4 H D (4.0-11.0) K/uL RBC 4.67 (4.50-6.50) M/uL Hgb 13.7 (13.0-18.0) g/dL Hct 43.1 (40.0-54.0) % MCV 92 (76-96) fL MCH 29.3 (27.0-32.0) pg MCHC 31.8 (31.0-35.0) g/dL RDW 16.2 H (11.0-16.0) % Plt Count 226 D (150-400) K/uL MPV 9.5 (6.0-10.0) fL Neut % (Auto) 87.5 H (45.0-70.0) % Lymph % (Auto) 7.9 L (20.0-40.0) % [place] % (Auto) 4.5 (3.0-10.0) % Eos % (Auto) 0.0 L (1.0-5.0) % Baso % (Auto) 0.1 (0.0-0.5) % Neut # (Auto) 15.19 H (2.00-7.50) K/uL Lymph # (Auto) 1.38 L (1.50-4.00) K/uL [place] # (Auto) 0.79 (0.20-0.80) K/uL Eos # (Auto) 0.00 L (0.04-0.40) K/uL Baso # (Auto) 0.01 L (0.02-0.10) K/uL Sodium 146 H (136-145) mmol/L Potassium 4.6 (3.5-5.1) mmol/L Chloride 105 (98-107) mmol/L Carbon Dioxide 31.6 (21.0-32.0) mmol/L Anion Gap 14.0 (5.0-15.0) mmol/L BUN 23 D (8-26) mg/dL Creatinine 0.96 (0.70-1.30) mg/dL Est Cr Clr Drug Dosing 65.31 mL/min Estimated GFR (MDRD) > 60 (>60) MLS/MIN BUN/Creatinine Ratio 24.0 (6-25) Glucose 145 H (74-100) mg/dL Calcium 8.9 (8.5-10.1) mg/dL Total Bilirubin 0.3 D (0.0-1.0) mg/dL AST 19 (15-37) U/L ALT 19 (12-78) U/L Alkaline Phosphatase 48 (46-116) U/L Total Protein 7.8 (6.4-8.2) g/dL Albumin 3.5 (3.4-5.0) g/dL Globulin 4.3 H (2.2-4.2) g/dL Albumin/Globulin Ratio 0.8 (0.8-2.0) TSH, Ultra Sensitive 8.399 H (0.358-3.740) uIU/mL Med Orders - Current: Current Medications Albuterol (Proventil Neb Soln) 2.5 mg NEB Q2H PRN PRN Reason: Dyspnea Last Admin: 03/03/17 20:07 Dose: 2.5 mg Albuterol/Ipratropium (Duoneb 3.0-0.5 Mg/3 Ml) 3 ml NEB QID [facility] Last Admin: 03/03/17 20:30 Dose: 3 ml Aspirin (Ecotrin) 650 mg PO BID PRN PRN Reason: Pain Fish Oil (Fish Oil) 1 gm PO BID [facility] Last Admin: 03/03/17 20:07 Dose: 1 gm Guaifenesin (Robitussin) 600 mg PO Q12HR [facility] Last Admin: 03/03/17 20:07 Dose: 600 mg Azithromycin 500 mg/ Sodium (Chloride) 250 mls @ 250 mls/hr IV Q24H [facility] Last Admin: 03/03/17 20:06 Dose: 250 mls/hr Sodium Chloride (Normal Saline) 1,000 mls @ 25 mls/hr IV ASDIRECTED [facility] Last Admin: 03/02/17 05:03 Dose: 25 mls/hr Ceftriaxone Sodium 1 gm/ (Sodium Chloride) 50 mls @ 100 mls/hr IV Q24H [facility] Lisinopril (Prinivil) 20 mg PO DAILY [facility] Last Admin: 03/03/17 07:58 Dose: 20 mg Methylprednisolone Sodium Succinate (Solu-Medrol) 80 mg IVPUSH Q12H [facility] Last Admin: 03/03/17 20:05 Dose: 80 mg Mometasone Furoate/Formoterol Fumar (Dulera 200-5 Mcg) 2 puff IH BID [facility] Last Admin: 03/03/17 20:06 Dose: 2 puff Simvastatin (Zocor) 40 mg PO BEDTIME [facility] Last Admin: 03/03/17 20:08 Dose: 40 mg Sodium Chloride (Saline Flush) 10 ml FLUSH BID PRN PRN Reason: Other Last Admin: 03/03/17 01:53 Dose: 10 ml Discontinued Medications Albuterol (Proventil Neb Soln) 2.5 mg NEB ONETIME ONE Stop: 03/01/17 00:51 Last Admin: 03/01/17 13:23 Dose: 2.5 mg Albuterol (Proventil Neb Soln) 2.5 mg NEB ONETIME ONE Stop: 03/01/17 13:25 Last Admin: 03/01/17 14:50 Dose: Not Given Albuterol/Ipratropium (Duoneb 3.0-0.5 Mg/3 Ml) 3 ml NEB Q6H PRN PRN Reason: Dyspnea Last Admin: 03/01/17 09:46 Dose: 3 ml Albuterol/Ipratropium (Duoneb 3.0-0.5 Mg/3 Ml) 3 ml NEB Q6H [facility] Last Admin: 03/01/17 10:00 Dose: 3 ml Ceftriaxone Sodium 2 gm/ (Sodium Chloride) 100 mls @ 100 mls/hr IV ONETIME ONE Stop: 03/01/17 04:11 Last Admin: 03/01/17 03:37 Dose: 100 mls/hr Sodium Chloride (Normal Saline) 1,000 mls @ 100 mls/hr IV ASDIRECTED [facility] Iopamidol (Isovue-300 (61%)) 100 ml IV ASDIRECTED [facility] Stop: 03/02/17 13:31 Methylprednisolone Sodium Succinate (Solu-Medrol) 125 mg IVPUSH Q12H [facility] Last Admin: 03/01/17 03:35 Dose: 125 mg Methylprednisolone Sodium Succinate (Solu-Medrol) 125 mg IVPUSH Q8H [facility] Last Admin: 03/02/17 02:02 Dose: 125 mg Methylprednisolone Sodium Succinate (Solu-Medrol) 125 mg IVPUSH Q12H [facility] Last Admin: 03/03/17 08:15 Dose: 125 mg Methylprednisolone Sodium Succinate (Solu-Medrol) Confirm Administered Dose 80 mg .ROUTE .STK-MED ONE Stop: 03/03/17 20:00 Last Admin: 03/03/17 20:14 Dose: Not Given Morphine Sulfate (Morphine) 1 mg IVPUSH ONETIME ONE Stop: 03/01/17 13:48 Last Admin: 03/01/17 14:50 Dose: Not Given Non-Formulary Medication (Aspirin [Aspirin]) 650 mg PO BID [facility] Sodium Chloride (Normal Saline) 50 ml FLUSH ONETIME ONE Stop: 03/01/17 13:24 Last Admin: 03/01/17 14:49 Dose: Not Given - Exam General: Alert, Oriented, Cooperative HEENT: Pupils Equal, Pupils Reactive Neck: Supple Lungs: Decreased Breath Sounds, Wheezing Cardiovascular: Regular Rate, Regular Rhythm GI/Abdominal Exam: Normal Bowel Sounds Back Exam: Normal Inspection Extremities: Normal Inspection Skin: Warm, Dry, Intact - Problem List & Annotations (1) COPD exacerbation SNOMED Code(s): 447242245, 536673007 Code(s): J44.1 - CHRONIC OBSTRUCTIVE PULMONARY DISEASE W (ACUTE) EXACERBATION Status: Acute Current Visit: Yes (2) Exertional shortness of breath SNOMED Code(s): 48600987 Code(s): R06.02 - SHORTNESS OF BREATH Status: Acute Priority: High Current Visit: No Onset Date: 01/22/16 (3) Shortness of breath at rest SNOMED Code(s): 167086807 Code(s): R06.02 - SHORTNESS OF BREATH Status: Acute Priority: High Current Visit: No Onset Date: 01/22/16 (4) Tachycardia SNOMED Code(s): 0911038 Code(s): R00.0 - TACHYCARDIA, UNSPECIFIED Status: Chronic Priority: Medium Current Visit: No Onset Date: 01/22/16 - Problem List Review Problem List Initiated/Reviewed/Updated: Yes - My Orders Last 24 Hours: My Active Orders 03/03/17 07:40 FREE T3 [REF] Routine FREE T4 [REF] Routine 03/03/17 20:00 methylPREDNISolone Sod Succ [Solu-MEDROL] 80 mg IVPUSH Q12H 03/04/17 05:11 BASIC METABOLIC PANEL,BMP [CHEM] AM CBC WITH AUTO DIFF [HEME] AM 03/04/17 08:00 cefTRIAXone [Rocephin] 1 gm Sodium Chloride 0.9% [Normal Saline] 50 ml IV Q24H 03/04/17 12:04 Head Neck Soft Tissue Bi [US] Routine 03/05/17 05:11 BASIC METABOLIC PANEL,BMP [CHEM] AM CBC WITH AUTO DIFF [HEME] AM - Assessment Assessment:: Patient will continue on scheduled nebulizers as this has shown improvement with patient symptoms and oxygenation. We will increase frequency of Solumedrol at this time due to persistent effort of breathing seen from mild retractions despite symptomatic improvement. We will closely monitor and f/u as needed and as routine. - Plan Plan:: 03/02/17 Patient will be continued on current medications and management. We will taper Methylprednisolone to 125mg Q12. Discussed finding of mass lesion in right lung with patient and discussed differential including infectious/inflammatory/ malignant processes. Discussed f/u CT for resolution and workup as needed. Patient understands. 03/03/17 We will taper solumedrol. Discussed continued breathing treatments. Patient has improved and states he is about 60-80% back to normal whereas yesterday he was only 40-60%. Will monitor another day due to continued sob from baseline. Pulmonology consult to be setup. F/u T4,T3. 03/04/17 Patient counseled on continued antibiotics at this time. He has improved greatly but still not 100% per patient. We have been weaning off solumedrol. Counseled on discharge planning for tomorrow. We will repeat CXR today. Counseled on following up Lung lesion again and f/u with Pulmonology.
[2017-03-04] MEDS: Fish Oil/Omega-3 Fatty Acids 1 Gm Cap PO SCH ×2 (08:22→20:20)
[2017-03-04] MEDS: methylPREDNISolone Sodium Succinate 125 MG/2 ML SDV IVPUSH SCH (08:23)
[2017-03-04] MEDS: Lisinopril 20 MG Tab PO SCH (08:23)
[2017-03-04] MEDS: Albuterol/Ipratropium 3.0-0.5 MG/3 ML Neb Soln NEB SCH ×4 (08:27→20:20)
[2017-03-04] MEDS: cefTRIAXone 1 GM in Sodium Chloride 0.9% 50 ML IV SCH (08:28)
[2017-03-04] MEDS: Formoterol/Mometasone 200-5 MCG 8.8 GM Inhaler IH SCH ×2 (08:30→20:41)
[2017-03-04] MEDS: guaiFENesin 100 MG/5 ML Soln 10 ML UD Cup PO SCH ×2 (14:09→20:21)
[2017-03-04] MEDS ORDERED: Azithromycin 500 MG Tab PO ONE (18:11)
[2017-03-04] MEDS ORDERED: methylPREDNISolone Sodium Succinate 125 MG/2 ML SDV IM ONE (20:00)
[2017-03-04] MEDS: Simvastatin 40 MG Tab PO SCH (20:21)
[2017-03-04] MEDS ORDERED: Azithromycin 500 MG Tab ONE (20:25)
[2017-03-04] MEDS: Azithromycin 500 MG in Sodium Chloride 0.9% 250 ML IV SCH (22:47)
[2017-03-05] MEDS: Fish Oil/Omega-3 Fatty Acids 1 Gm Cap PO SCH (08:56)
[2017-03-05] MEDS: Albuterol/Ipratropium 3.0-0.5 MG/3 ML Neb Soln NEB SCH (08:57)
[2017-03-05] MEDS: Lisinopril 20 MG Tab PO SCH (08:57)
[2017-03-05] MEDS: Formoterol/Mometasone 200-5 MCG 8.8 GM Inhaler IH SCH (08:58)
--- NOTE | 2017-03-05 09:01 | US ---
DATE OF SERVICE: 03/04/17 CLINICAL DATA: thyroid enlargement THYROID ULTRASOUND: Real-time examination of the thyroid was performed. The right lobe measures 6.3 x 2.9 x 2.4 cm. The left lobe measures 5.2 x 2.2 x 2.1 cm. Both lobes have mildly heterogeneous echotexture. I do not see any masses. No abnormal fluid collections. The exam is otherwise unremarkable. [id number] [facility]
--- NOTE | 2017-03-05 09:09 | CR ---
DATE OF SERVICE: 03/04/17 CLINICAL DATA: SOB, lung lesion AP AND LATERAL CHEST: The heart size is stable. There is a persistent mass-like density superior and lateral to the right hilum. There is stranding from the mass to the pleura peripherally and to the hilum. Again, a malignancy is suspected. There are atelectatic changes in both lung bases. The lungs are otherwise clear. No pleural effusions. No pneumothorax. [id number] [facility]
[2017-03-05] MEDS: guaiFENesin 100 MG/5 ML Soln 10 ML UD Cup PO SCH (09:26)
[2017-03-05] MEDS: cefTRIAXone 1 GM in Sodium Chloride 0.9% 50 ML IV SCH (09:26)
[2017-03-05 09:30] VITALS: BP 143/101
[2017-03-05] MEDS ORDERED: methylPREDNISolone Sodium Succinate 40 MG/1 ML SDV IM ONE (09:38)
[2017-03-05] MEDS ORDERED: cefTRIAXone 1 GM Vial IM ONE (09:38)
--- NOTE | 2017-03-05 10:31 | PCM.DCSUM1 ---
Discharge Summary - Discharge Data Discharge Date: 03/05/17 Discharge Disposition: Home, Self-Care 01 Condition: Stable - Discharge Diagnosis/Problem(s) (1) COPD exacerbation SNOMED Code(s): 809975583, 114244273 ICD Code: J44.1 - CHRONIC OBSTRUCTIVE PULMONARY DISEASE W (ACUTE) EXACERBATION Status: Acute Current Visit: Yes (2) Exertional shortness of breath SNOMED Code(s): 41667744 ICD Code: R06.02 - SHORTNESS OF BREATH Status: Acute Priority: High Current Visit: No Onset Date: 01/22/16 (3) Shortness of breath at rest SNOMED Code(s): 036211010 ICD Code: R06.02 - SHORTNESS OF BREATH Status: Acute Priority: High Current Visit: No Onset Date: 01/22/16 (4) Tachycardia SNOMED Code(s): 6770191 ICD Code: R00.0 - TACHYCARDIA, UNSPECIFIED Status: Chronic Priority: Medium Current Visit: No Onset Date: 01/22/16 - Patient Instructions Diet: Heart Healthy Diet Driving: Do Not Drive - Discharge Plan Prescriptions/Med Rec: Levofloxacin 750 mg PO DAILY #7 tablet Prednisone [IJD: Prednisone] 10 mg PO ASDIRECTED #75 tab Home Medications: Home Meds Fluticasone/Salmeterol [Advair 250-50 Diskus] 1 puff INH BID 01/22/16 [History] Simvastatin 40 mg PO DAILY 01/22/16 [History] Albuterol/Ipratropium [Combivent Respimat] 1 inh PO QID #28 01/24/16 [Rx] guaiFENesin [Robitussin] 600 mg PO Q12HR #28 cup 01/24/16 [Rx] Aspirin 650 mg PO BID 03/01/17 [History] Albuterol/Ipratropium [DuoNeb 3.0-0.5 MG/3 ML] 3 ml NEB QID neb 03/05/17 [Rx] Aspirin [Ecotrin] 650 mg PO BID PRN #0 tab.ec 03/05/17 [Rx] Fish Oil/[place]-3 Fatty Acids [Fish Oil 1,000 MG] 1 gm PO BID cap 03/05/17 [Rx] Levofloxacin 750 mg PO DAILY #7 tablet 03/05/17 [Rx] Lisinopril [Prinivil] 20 mg PO DAILY tablet 03/05/17 [Rx] Mometasone/Formoterol [Dulera 200-5 MCG] 2 puff IH BID inhaler 03/05/17 [Rx] Prednisone [IJD: Prednisone] 10 mg PO ASDIRECTED #75 tab 03/05/17 [Rx] Patient Handouts: Chronic Obstructive Pulmonary Disease Exacerbation, Easy-to- Read, Azithromycin tablets Forms: ED Department Discharge Referrals: PCP,None [Primary Care Provider] - - Discharge Summary/Plan Comment DC Time >30 min.: Yes Discharge Summary/Plan Comment: Counseled on discharge plan. Discussed medications and they have been sent to [facility]. F/u in clinic as directed. Obtain air conditioner for humid and warm air at home. Counseled on supportive/conservative care. - Patient Data Vitals - Most Recent: Last Vital Signs Temp 36.6 C 03/03/17 20:23 Pulse 100 03/03/17 20:23 Resp 18 03/03/17 20:23 BP 143/101 H 03/05/17 08:57 Pulse Ox 93 L 03/04/17 06:00 Weight - Most Recent: 103.238 kg I&O - Last 24 hours: Intake & Output 03/04/17 03/05/17 03/05/17 22:59 06:59 14:59 Intake Total 680 Balance 680 Lab Results - Last 24 hrs: Laboratory Results - last 24 hr 03/03/17 03/05/17 03/05/17 Range/Units 07:40 07:10 07:10 WBC 9.5 D (4.0-11.0) K/uL RBC 4.67 (4.50-6.50) M/uL Hgb 13.5 (13.0-18.0) g/dL Hct 42.7 (40.0-54.0) % MCV 91 (76-96) fL MCH 28.9 (27.0-32.0) pg MCHC 31.6 (31.0-35.0) g/dL RDW 16.1 H (11.0-16.0) % Plt Count 232 (150-400) K/uL MPV 9.3 (6.0-10.0) fL Neut % (Auto) 79.6 H (45.0-70.0) % Lymph % (Auto) 14.0 L (20.0-40.0) % [place] % (Auto) 6.3 (3.0-10.0) % Eos % (Auto) 0.0 L (1.0-5.0) % Baso % (Auto) 0.1 (0.0-0.5) % Neut # (Auto) 7.55 H (2.00-7.50) K/uL Lymph # (Auto) 1.33 L (1.50-4.00) K/uL [place] # (Auto) 0.60 (0.20-0.80) K/uL Eos # (Auto) 0.00 L (0.04-0.40) K/uL Baso # (Auto) 0.01 L (0.02-0.10) K/uL Sodium 144 (136-145) mmol/L Potassium 4.4 (3.5-5.1) mmol/L Chloride 104 (98-107) mmol/L Carbon Dioxide 31.7 (21.0-32.0) mmol/L Anion Gap 12.7 (5.0-15.0) mmol/L BUN 23 (8-26) mg/dL Creatinine 0.91 (0.70-1.30) mg/dL Est Cr Clr Drug Dosing 68.90 mL/min Estimated GFR (MDRD) > 60 (>60) MLS/MIN BUN/Creatinine Ratio 25.3 H (6-25) Glucose 163 H D (74-100) mg/dL Calcium 8.9 (8.5-10.1) mg/dL Free T4 0.29 L (0.93-1.70) ng/dL Free T3 1.1 L (2.0-4.4) pg/mL Med Orders - Current: Current Medications Albuterol (Proventil Neb Soln) 2.5 mg NEB Q2H PRN PRN Reason: Dyspnea Last Admin: 03/03/17 20:07 Dose: 2.5 mg Albuterol/Ipratropium (Duoneb 3.0-0.5 Mg/3 Ml) 3 ml NEB QID [facility] Last Admin: 03/05/17 08:57 Dose: 3 ml Aspirin (Ecotrin) 650 mg PO BID PRN PRN Reason: Pain Fish Oil (Fish Oil) 1 gm PO BID [facility] Last Admin: 03/05/17 08:56 Dose: 1 gm Guaifenesin (Robitussin) 600 mg PO Q12HR [facility] Last Admin: 03/05/17 09:26 Dose: 600 mg Sodium Chloride (Normal Saline) 1,000 mls @ 25 mls/hr IV ASDIRECTED [facility] Last Admin: 03/02/17 05:03 Dose: 25 mls/hr Lisinopril (Prinivil) 20 mg PO DAILY [facility] Last Admin: 03/05/17 08:57 Dose: 20 mg Mometasone Furoate/Formoterol Fumar (Dulera 200-5 Mcg) 2 puff IH BID [facility] Last Admin: 03/05/17 08:58 Dose: 2 puff Simvastatin (Zocor) 40 mg PO BEDTIME [facility] Last Admin: 03/04/17 20:21 Dose: 40 mg Sodium Chloride (Saline Flush) 10 ml FLUSH BID PRN PRN Reason: Other Last Admin: 03/03/17 01:53 Dose: 10 ml Discontinued Medications Albuterol (Proventil Neb Soln) 2.5 mg NEB ONETIME ONE Stop: 03/01/17 00:51 Last Admin: 03/01/17 13:23 Dose: 2.5 mg Albuterol (Proventil Neb Soln) 2.5 mg NEB ONETIME ONE Stop: 03/01/17 13:25 Last Admin: 03/01/17 14:50 Dose: Not Given Albuterol/Ipratropium (Duoneb 3.0-0.5 Mg/3 Ml) 3 ml NEB Q6H PRN PRN Reason: Dyspnea Last Admin: 03/01/17 09:46 Dose: 3 ml Albuterol/Ipratropium (Duoneb 3.0-0.5 Mg/3 Ml) 3 ml NEB Q6H [facility] Last Admin: 03/01/17 10:00 Dose: 3 ml Azithromycin (Zithromax) 500 mg PO ONETIME ONE Stop: 03/04/17 18:12 Last Admin: 03/04/17 20:28 Dose: 500 mg Azithromycin (Zithromax) Confirm Administered Dose 500 mg .ROUTE .STK-MED ONE Stop: 03/04/17 20:26 Last Admin: 03/04/17 20:42 Dose: Not Given Ceftriaxone Sodium (Rocephin) 1 gm IM ONETIME ONE Stop: 03/05/17 09:39 Ceftriaxone Sodium 2 gm/ (Sodium Chloride) 100 mls @ 100 mls/hr IV ONETIME ONE Stop: 03/01/17 04:11 Last Admin: 03/01/17 03:37 Dose: 100 mls/hr Azithromycin 500 mg/ Sodium (Chloride) 250 mls @ 250 mls/hr IV Q24H [facility] Last Admin: 03/04/17 22:47 Dose: Not Given Sodium Chloride (Normal Saline) 1,000 mls @ 100 mls/hr IV ASDIRECTED [facility] Ceftriaxone Sodium 1 gm/ (Sodium Chloride) 50 mls @ 100 mls/hr IV Q24H [facility] Last Admin: 03/05/17 09:26 Dose: 100 mls/hr Iopamidol (Isovue-300 (61%)) 100 ml IV ASDIRECTED [facility] Stop: 03/02/17 13:31 Methylprednisolone Sodium Succinate (Solu-Medrol) 125 mg IVPUSH Q12H [facility] Last Admin: 03/01/17 03:35 Dose: 125 mg Methylprednisolone Sodium Succinate (Solu-Medrol) 125 mg IVPUSH Q8H [facility] Last Admin: 03/02/17 02:02 Dose: 125 mg Methylprednisolone Sodium Succinate (Solu-Medrol) 125 mg IVPUSH Q12H [facility] Last Admin: 03/03/17 08:15 Dose: 125 mg Methylprednisolone Sodium Succinate (Solu-Medrol) Confirm Administered Dose 80 mg .ROUTE .STK-MED ONE Stop: 03/03/17 20:00 Last Admin: 03/03/17 20:14 Dose: Not Given Methylprednisolone Sodium Succinate (Solu-Medrol) 80 mg IVPUSH Q12H [facility] Last Admin: 03/04/17 08:23 Dose: 80 mg Methylprednisolone Sodium Succinate (Solu-Medrol) 80 mg IM ONETIME ONE Stop: 03/04/17 20:01 Last Admin: 03/04/17 20:28 Dose: 80 mg Methylprednisolone Sodium Succinate (Solu-Medrol) 40 mg IM ONETIME ONE Stop: 03/05/17 09:39 Morphine Sulfate (Morphine) 1 mg IVPUSH ONETIME ONE Stop: 03/01/17 13:48 Last Admin: 03/01/17 14:50 Dose: Not Given Non-Formulary Medication (Aspirin [Aspirin]) 650 mg PO BID [facility] Sodium Chloride (Normal Saline) 50 ml FLUSH ONETIME ONE Stop: 03/01/17 13:24 Last Admin: 03/01/17 14:49 Dose: Not Given *Q Meaningful Use (DIS) - VTE *Q VTE Criteria *Q: - Stroke *Q Stroke Criteria *Q: - AMI *Q AMI Criteria *Q:
== END 2017-03-05 12:10 | disposition home or self-care (01) | DRG 192 ==
LOC: LB.ED 23:51 → LB.MS 03-01 03:06 → OBSVTOIN 03-01 13:40
PROVIDERS: ADMIT Family Medicine; ATTEND Family Medicine
DX: J44.1 Chronic obstructive pulmonary disease with (acute) exacerbation (principal); I10 Essential (primary) hypertension; F17.210 Nicotine dependence, cigarettes, uncomplicated; R00.0 Tachycardia, unspecified; R06.02 Shortness of breath; R05 Cough; M19.90 Unspecified osteoarthritis, unspecified site; Z87.01 Personal history of pneumonia (recurrent); E78.00 Pure hypercholesterolemia, unspecified; H91.90 Unspecified hearing loss, unspecified ear; Z79.82 Long term (current) use of aspirin; Z79.52 Long term (current) use of systemic steroids; R91.8 Other nonspecific abnormal finding of lung field; E04.9 Nontoxic goiter, unspecified
CPT/HCPCS: 36415; 71010; 80048; 80053; 84484; 85025 ×2; 93005; 96374; 96375; G0378 ×4; J0456; J0696; J2930 ×2; J7030; J7050; J7620 ×3; 71020; 71260; 76536-50; 84439; 84443; 84481; 96365; 96367; 99220; 99285-25; A9270-GY; J2920; J7040

== ENCOUNTER 2018-10-17 12:15 | Emergency (ER) | payer MEDICARE, OTHER ==
--- NOTE | 2018-10-18 07:35 | CR ---
DATE OF SERVICE: 10/17/18 CLINICAL DATA: Coughing up blood. PA AND LATERAL CHEST: Comparison made to a prior exam dated 07/23/18. The heart size is stable. There is a persistent mass in the right suprahilar region that has increased in size from the prior exam. There is also mass-like soft tissue fullness in the superior mediastinum. No other interval changes. [id number] [facility]
--- NOTE | 2018-10-18 17:59 | EDM.PDOC ---
ED HPI GENERAL MEDICAL PROBLEM - General Stated Complaint: COUGHING UP BLOOD Time Seen by Provider: 10/17/18 12:15 Source of Information: Reports: Patient, Family History Limitations: Reports: No Limitations - History of Present Illness INITIAL COMMENTS - FREE TEXT/NARRATIVE: This is a pleasant 77yo M here for coughing up blood. He has coughed up minimal amounts of blood for the past year but for the past week has coughed up more dark clotted blood than before. He has a lung mass that was to be biopsied in [place] but patient refuses to return for biopsy and does understand the significance of the lung mass that is likely cancer. He denies any worsening shortness of breath but states he is here for the recent increase in blood in his sputum. He denies any lightheadedness or dizziness. Onset: Gradual Duration: Week(s): - Related Data Allergies Allergy/AdvReac Type Severity Reaction Status Date / Time No Known Allergies Allergy Verified 05/24/18 13:01 Home Meds: Home Meds Simvastatin 40 mg PO DAILY 01/22/16 [History] Albuterol/Ipratropium [DuoNeb 3.0-0.5 MG/3 ML] 3 ml NEB QID neb 03/05/17 [Rx] Albuterol/Ipratropium [Combivent Respimat] 1 inh PO QID PRN 05/24/18 [History] Albuterol/Ipratropium [DuoNeb 3.0-0.5 MG/3 ML] 3 ml NEB Q4H PRN neb 05/24/18 [ Rx] Budesonide [Pulmicort] 0.5 mg NEB BID neb 05/24/18 [Rx] Cyclobenzaprine [Flexeril] 10 mg PO BEDTIME PRN tablet 05/24/18 [Rx] Levothyroxine Sodium 88 mcg PO DAILY #90 tablet 05/24/18 [Rx] guaiFENesin [Mucinex] 600 mg PO BID tab.er 05/24/18 [Rx] Lisinopril [Prinivil] 10 mg PO DAILY 10/17/18 [History] Past Medical History HEENT History: Reports: Hard of Hearing Cardiovascular History: Reports: High Cholesterol, Hypertension Respiratory History: Reports: COPD, Pneumonia, Recurrent Musculoskeletal History: Reports: Arthritis, Back Pain, Chronic Psychiatric History: Reports: Anxiety Endocrine/Metabolic History: Reports: Hypothyroidism Immunologic History: Reports: None Oncologic (Cancer) History: Reports: None - Infectious Disease History Infectious Disease History: Reports: Chicken Pox, Measles, Mumps, Rubella - Past Surgical History Head Surgeries/Procedures: Reports: None Social & Family History - Family History Family Medical History: Noncontributory - Caffeine Use Caffeine Use: Reports: Coffee ED ROS GENERAL - Review of Systems Review Of Systems: ROS reveals no pertinent complaints other than HPI. ED EXAM, GENERAL - Physical Exam Exam: See Below Exam Limited By: No Limitations General Appearance: Alert, WD/WN, No Apparent Distress Eye Exam: Bilateral Eye: EOMI, PERRL Ears: Normal External Exam Nose: Normal Inspection Throat/Mouth: Normal Inspection Head: Atraumatic, Normocephalic Neck: Normal Inspection, Supple, Non-Tender Respiratory/Chest: Decreased Breath Sounds, Rales, Rhonchi, Wheezing Cardiovascular: Normal Peripheral Pulses, Regular Rate, Rhythm Peripheral Pulses: 2+: Dorsalis Pedis (L), Dorsalis Pedis (R) GI/Abdominal: Normal Bowel Sounds, Soft, Non-Tender Extremities: Normal Inspection Neurological: Alert, Oriented, CN II-XII Intact Psychiatric: Normal Affect, Normal Mood Course - Vital Signs Last Recorded V/S: Last Vital Signs Temp Pulse Resp BP Pulse Ox 96 10/17/18 12:15 - Orders/Labs/Meds Labs: Laboratory Tests 10/17/18 10/17/18 10/17/18 Range/Units 12:50 12:50 12:50 WBC 10.7 (4.0-11.0) K/uL RBC 4.55 (4.50-6.50) M/uL Hgb 12.6 L (13.0-18.0) g/dL Hct 41.4 (40.0-54.0) % MCV 91 (76-96) fL MCH 27.7 (27.0-32.0) pg MCHC 30.4 L (31.0-35.0) g/dL RDW 14.3 (11.0-16.0) % Plt Count 271 (150-400) K/uL MPV 8.6 (6.0-10.0) fL Neut % (Auto) 78.2 H (45.0-70.0) % Lymph % (Auto) 11.7 L (20.0-40.0) % [place] % (Auto) 8.6 (3.0-10.0) % Eos % (Auto) 1.2 (1.0-5.0) % Baso % (Auto) 0.3 (0.0-0.5) % Neut # (Auto) 8.39 H (2.00-7.50) K/uL Lymph # (Auto) 1.25 L (1.50-4.00) K/uL [place] # (Auto) 0.92 H (0.20-0.80) K/uL Eos # (Auto) 0.13 (0.04-0.40) K/uL Baso # (Auto) 0.03 (0.02-0.10) K/uL PT 10.5 (9.0-11.5) sec INR 1.1 (1.0-3.5) VBG pH (7.31-7.41) Sodium 140 (136-145) mmol/L Potassium 4.3 (3.5-5.1) mmol/L Chloride 98 (98-107) mmol/L Carbon Dioxide 35.8 H (21.0-32.0) mmol/L Anion Gap 10.5 (5.0-15.0) mmol/L BUN 15 D (8-26) mg/dL Creatinine 0.80 D (0.70-1.30) mg/dL Est Cr Clr Drug Dosing TNP Estimated GFR (MDRD) > 60 (>60) MLS/MIN BUN/Creatinine Ratio 18.8 (6-25) Glucose 113 H (74-100) mg/dL Calcium 8.6 (8.5-10.1) mg/dL Total Bilirubin 0.6 (0.0-1.0) mg/dL AST 18 (15-37) U/L ALT 20 (12-78) U/L Alkaline Phosphatase 58 (46-116) U/L Troponin I < 0.017 (0.000-0.060) ng/mL B-Natriuretic Peptide 63 D (0-450) pg/mL Total Protein 8.1 (6.4-8.2) g/dL Albumin 3.5 (3.4-5.0) g/dL Globulin 4.6 H (2.2-4.2) g/dL Albumin/Globulin Ratio 0.8 (0.8-2.0) TSH, Ultra Sensitive 3.356 D (0.358-3.740) uIU/mL 10/17/18 Range/Units 12:50 WBC (4.0-11.0) K/uL RBC (4.50-6.50) M/uL Hgb (13.0-18.0) g/dL Hct (40.0-54.0) % MCV (76-96) fL MCH (27.0-32.0) pg MCHC (31.0-35.0) g/dL RDW (11.0-16.0) % Plt Count (150-400) K/uL MPV (6.0-10.0) fL Neut % (Auto) (45.0-70.0) % Lymph % (Auto) (20.0-40.0) % [place] % (Auto) (3.0-10.0) % Eos % (Auto) (1.0-5.0) % Baso % (Auto) (0.0-0.5) % Neut # (Auto) (2.00-7.50) K/uL Lymph # (Auto) (1.50-4.00) K/uL [place] # (Auto) (0.20-0.80) K/uL Eos # (Auto) (0.04-0.40) K/uL Baso # (Auto) (0.02-0.10) K/uL PT (9.0-11.5) sec INR (1.0-3.5) VBG pH 7.35 (7.31-7.41) Sodium (136-145) mmol/L Potassium (3.5-5.1) mmol/L Chloride (98-107) mmol/L Carbon Dioxide (21.0-32.0) mmol/L Anion Gap (5.0-15.0) mmol/L BUN (8-26) mg/dL Creatinine (0.70-1.30) mg/dL Est Cr Clr Drug Dosing Estimated GFR (MDRD) (>60) MLS/MIN BUN/Creatinine Ratio (6-25) Glucose (74-100) mg/dL Calcium (8.5-10.1) mg/dL Total Bilirubin (0.0-1.0) mg/dL AST (15-37) U/L ALT (12-78) U/L Alkaline Phosphatase (46-116) U/L Troponin I (0.000-0.060) ng/mL B-Natriuretic Peptide (0-450) pg/mL Total Protein (6.4-8.2) g/dL Albumin (3.4-5.0) g/dL Globulin (2.2-4.2) g/dL Albumin/Globulin Ratio (0.8-2.0) TSH, Ultra Sensitive (0.358-3.740) uIU/mL Departure - Departure Time of Disposition: 14:00 Disposition: Home, Self-Care 01 Condition: Poor Clinical Impression: Hemoptysis, Mass of lung, Shortness of breath at rest - Discharge Information Referrals: PCP,None [Primary Care Provider] - - Problem List & Annotations (1) Mass of lung SNOMED Code(s): 165943972 Code(s): R91.8 - OTHER NONSPECIFIC ABNORMAL FINDING OF LUNG FIELD Status: Chronic Priority: High Annotation/Comment:: Patient refuses further workup or referral to pulmonology. (2) Hemoptysis SNOMED Code(s): 73944709 Code(s): R04.2 - HEMOPTYSIS Status: Chronic Priority: High - Problem List Review Problem List Initiated/Reviewed/Updated: Yes - Assessment/Plan Plan: Counseled on chronic blood in sputum. Discussed prognosis of likely cancer of the lung and options for further care. Patient and daughter understand the nature of the lung mass and likely cancer and patient refuses for further workup or transfer. Patient discharged for further f/u in clinic or ER as needed. Counseled on supportive and conservative care and f/u.
== END 2018-10-17 14:00 | disposition home or self-care (01) ==
LOC: LB.ED 12:15
DX: R91.8 Other nonspecific abnormal finding of lung field (principal); R04.2 Hemoptysis; R06.02 Shortness of breath
CPT/HCPCS: 36415; 71045; 80053; 82800; 83880; 84443; 84484; 85025; 85610; 87070; 87077; 87186; 87205; 99284-25

== ENCOUNTER 2019-01-14 20:21 | Inpatient (IN) | payer MEDICARE, OTHER ==
[2019-01-14] MEDS ORDERED: Albuterol 0.083% 2.5 MG/3 ML Neb Soln NEB ONE (21:15)
[2019-01-14] MEDS ORDERED: Albuterol 0.083% 2.5 MG/3 ML Neb Soln ONE (21:20)
[2019-01-14] MEDS ORDERED: LORazepam 2 MG/ML SDV IVPUSH PRN (23:00)
[2019-01-14] MEDS: Sodium Chloride 0.9% 1,000 ML IV SCH (23:15)
[2019-01-14] MEDS ORDERED: LORazepam 2 MG/ML SDV ONE (23:24)
[2019-01-14] MEDS: methylPREDNISolone Sodium Succinate 125 MG/2 ML SDV IVPUSH SCH (23:27)
[2019-01-14] MEDS: Albuterol/Ipratropium 3.0-0.5 MG/3 ML Neb Soln NEB PRN (23:31)
--- NOTE | 2019-01-14 23:32 | PCM.HP ---
H&P History of Present Illness - General Date of Service: 01/14/19 Admit Problem/Dx: Admission Diagnosis/Problem Admission Diagnosis/Problem Respiratory failure Source of Information: Patient, Family History Limitations: Reports: Respiratory Distress - History of Present Illness Initial Comments - Free Text/Narative: This is a 78yo M here for shortness of breath and respiratory distress. He has been having increasing difficulty with breathing over the past 2-3 days. He appears slightly cyanotic and pale. He refuses any transfer and would like medical management and CPR if life saving with quality of life but no intubation. He would like everything done only if he will have a quality of life. He denies fever or shortness of breath but his house has been humid and warm with fans but no air conditioning. He has a history of a right upper lobe lung mass with hemoptysis occasionally. He understands that the lung lesion may be cancer but has decided not to further work up and treat the lung mass. Onset of Symptoms: Reports: Gradual Duration of Symptoms: Reports: Day(s):, Getting Worse Location: Reports: Chest Severity: Severe Improves with: Reports: None Worsens with: Reports: Movement Associated Symptoms: Reports: Shortness of Breath, Weakness - Related Data Allergies/Adverse Reactions: Allergies Allergy/AdvReac Type Severity Reaction Status Date / Time No Known Allergies Allergy Verified 05/24/18 13:01 Home Medications: Home Meds Simvastatin 40 mg PO DAILY 01/22/16 [History] Albuterol/Ipratropium [DuoNeb 3.0-0.5 MG/3 ML] 3 ml NEB QID neb 03/05/17 [Rx] Albuterol/Ipratropium [Combivent Respimat] 1 inh PO QID PRN 05/24/18 [History] Albuterol/Ipratropium [DuoNeb 3.0-0.5 MG/3 ML] 3 ml NEB Q4H PRN neb 05/24/18 [ Rx] Budesonide [Pulmicort] 0.5 mg NEB BID neb 05/24/18 [Rx] Cyclobenzaprine [Flexeril] 10 mg PO BEDTIME PRN tablet 05/24/18 [Rx] Levothyroxine Sodium 88 mcg PO DAILY #90 tablet 05/24/18 [Rx] guaiFENesin [Mucinex] 600 mg PO BID tab.er 05/24/18 [Rx] Lisinopril [Prinivil] 10 mg PO DAILY 10/17/18 [History] Past Medical History HEENT History: Reports: Hard of Hearing Cardiovascular History: Reports: High Cholesterol, Hypertension Respiratory History: Reports: COPD, Pneumonia, Recurrent Musculoskeletal History: Reports: Arthritis, Back Pain, Chronic Psychiatric History: Reports: Anxiety Endocrine/Metabolic History: Reports: Hypothyroidism Immunologic History: Reports: None Oncologic (Cancer) History: Reports: None - Infectious Disease History Infectious Disease History: Reports: Acinetobacter (MDRA), Chicken Pox, Measles , Mumps, Rubella - Past Surgical History Head Surgeries/Procedures: Reports: None Social & Family History - Family History Family Medical History: Noncontributory - Caffeine Use Caffeine Use: Reports: Coffee H&P Review of Systems - Review of Systems: Review Of Systems: ROS reveals no pertinent complaints other than HPI. Exam - Exam Exam: See Below - Exam Quality Assessment: Supplemental Oxygen General: Alert, Oriented, Cooperative, Moderate Distress HEENT: PERRLA, Conjunctiva Clear, EACs Clear, EOMI Neck: Supple, Trachea Midline Lungs: Decreased Breath Sounds, Rhonchi Cardiovascular: Regular Rhythm, Tachycardia GI/Abdominal Exam: Normal Bowel Sounds, Soft, Non-Tender Back Exam: Muscle Spasm, Paraspinal Tenderness Extremities: Normal Inspection, Normal Range of Motion Peripheral Pulses: 2+: Dorsalis Pedis (L), Dorsalis Pedis (R) Skin: Warm, Dry, Intact Neurological: Cranial Nerves Intact, Reflexes Equal Bilateral - Patient Data Lab Results Last 24 hrs: Laboratory Results - last 24 hr 01/14/19 01/14/19 01/14/19 Range/Units 21:15 21:15 21:15 WBC 16.8 H D (4.0-11.0) K/uL RBC 4.36 L (4.50-6.50) M/uL Hgb 11.7 L (13.0-18.0) g/dL Hct 37.5 L (40.0-54.0) % MCV 86 (76-96) fL MCH 26.8 L (27.0-32.0) pg MCHC 31.2 (31.0-35.0) g/dL RDW 15.4 (11.0-16.0) % Plt Count 402 H D (150-400) K/uL MPV 8.2 (6.0-10.0) fL Neut % (Auto) 86.8 H (45.0-70.0) % Lymph % (Auto) 4.8 L (20.0-40.0) % [place] % (Auto) 8.0 (3.0-10.0) % Eos % (Auto) 0.2 L (1.0-5.0) % Baso % (Auto) 0.2 (0.0-0.5) % Neut # (Auto) 14.56 H (2.00-7.50) K/uL Lymph # (Auto) 0.81 L (1.50-4.00) K/uL [place] # (Auto) 1.35 H (0.20-0.80) K/uL Eos # (Auto) 0.04 (0.04-0.40) K/uL Baso # (Auto) 0.03 (0.02-0.10) K/uL VBG pH 7.53 H* (7.31-7.41) Sodium 133 L (136-145) mmol/L Potassium 4.3 (3.5-5.1) mmol/L Chloride 95 L (98-107) mmol/L Carbon Dioxide 31.9 (21.0-32.0) mmol/L Anion Gap 10.4 (5.0-15.0) mmol/L BUN 16 (8-26) mg/dL Creatinine 0.99 D (0.70-1.30) mg/dL Est Cr Clr Drug Dosing TNP Estimated GFR (MDRD) > 60 (>60) MLS/MIN BUN/Creatinine Ratio 16.2 (6-25) Glucose 145 H (74-100) mg/dL Calcium 8.8 (8.5-10.1) mg/dL Total Bilirubin 1.1 H D (0.0-1.0) mg/dL AST 39 H (15-37) U/L ALT 48 (12-78) U/L Alkaline Phosphatase 146 H (46-116) U/L Total Protein 7.5 (6.4-8.2) g/dL Albumin 2.4 L (3.4-5.0) g/dL Globulin 5.1 H (2.2-4.2) g/dL Albumin/Globulin Ratio 0.5 L (0.8-2.0) Result Diagrams: 01/14/19 21:15 01/14/19 21:15 - Problem List (1) Respiratory failure SNOMED Code(s): 721006033 ICD Code: J96.90 - RESPIRATORY FAILURE, UNSP, UNSP W HYPOXIA OR HYPERCAPNIA Status: Acute Priority: High Current Visit: Yes Qualifiers: Chronicity: acute on chronic (2) COPD exacerbation SNOMED Code(s): 232672363, 835641851 ICD Code: J44.1 - CHRONIC OBSTRUCTIVE PULMONARY DISEASE W (ACUTE) EXACERBATION Status: Acute Priority: High Current Visit: Yes (3) Shortness of breath at rest SNOMED Code(s): 476554575 ICD Code: R06.02 - SHORTNESS OF BREATH Status: Acute Priority: High Current Visit: Yes Onset Date: 01/22/16 (4) Weakness SNOMED Code(s): 04105275 ICD Code: R53.1 - WEAKNESS Status: Acute Priority: [facility] Current Visit: Yes (5) Mass of lung SNOMED Code(s): 578017336 ICD Code: R91.8 - OTHER NONSPECIFIC ABNORMAL FINDING OF LUNG FIELD Status: Chronic Priority: High Current Visit: Yes Problem Details: Patient refuses further workup or referral to pulmonology. (6) Tachycardia SNOMED Code(s): 5609030 ICD Code: R00.0 - TACHYCARDIA, UNSPECIFIED Status: Chronic Priority: High Current Visit: Yes Onset Date: 01/22/16 (7) Palliative care patient SNOMED Code(s): 693183821 ICD Code: Z51.5 - ENCOUNTER FOR PALLIATIVE CARE Status: Acute Current Visit: Yes (8) Elevated WBC count SNOMED Code(s): 337477261, 840675488 ICD Code: D72.829 - ELEVATED WHITE BLOOD CELL COUNT, UNSPECIFIED Status: Acute Current Visit: Yes (9) Fever SNOMED Code(s): 481171726 ICD Code: R50.9 - FEVER, UNSPECIFIED Status: Acute Current Visit: Yes (10) SIRS (systemic inflammatory response syndrome) SNOMED Code(s): 523254898 ICD Code: R65.10 - SIRS OF NON-INFECTIOUS ORIGIN W/O ACUTE ORGAN DYSFUNCTION Status: Acute Current Visit: Yes Problem List Initiated/Reviewed/Updated: Yes Orders Last 24hrs: Active Orders 24 hr Category Date Time Status Patient Status [ADT] Routine ADT 01/14/19 21:49 Active EKG Documentation Completion [RC] ASDIRECTED Care 01/14/19 21:07 Active Oxygen Therapy [RC] PRN Care 01/14/19 21:49 Active RT Aerosol Therapy [RC] ASDIRECTED Care 01/14/19 21:47 Active Vital Signs [RC] Q4H Care 01/14/19 21:49 Active Chest 1V Frontal [CR] Stat Exams 01/14/19 21:06 Taken BASIC METABOLIC PANEL,BMP [CHEM] AM Lab 01/15/19 05:11 Ordered BASIC METABOLIC PANEL,BMP [CHEM] AM Lab 01/16/19 05:11 Ordered BASIC METABOLIC PANEL,BMP [CHEM] AM Lab 01/17/19 05:11 Ordered CBC WITH AUTO DIFF [HEME] AM Lab 01/15/19 05:11 Ordered CBC WITH AUTO DIFF [HEME] AM Lab 01/16/19 05:11 Ordered CBC WITH AUTO DIFF [HEME] AM Lab 01/17/19 05:11 Ordered CBC WITH AUTO DIFF [HEME] AM Lab 01/18/19 05:11 Ordered CBC WITH AUTO DIFF [HEME] AM Lab 01/19/19 05:11 Ordered CBC WITH AUTO DIFF [HEME] AM Lab 01/20/19 05:11 Ordered Albuterol/Ipratropium [DuoNeb 3.0-0.5 MG/3 ML] Med 01/14/19 21:47 Active 3 ml NEB Q2H PRN Sodium Chloride 0.9% [Normal Saline] 1,000 ml Med 01/14/19 22:00 Active IV ASDIRECTED Sodium Chloride 0.9% [Saline Flush] Med 01/14/19 21:47 Active 10 ml FLUSH ASDIRECTED PRN methylPREDNISolone Sod Succ [Solu-MEDROL] Med 01/14/19 22:00 Active 125 mg IVPUSH Q12H Peripheral IV Insertion Adult [OM.PC] Routine Oth 01/14/19 21:47 Ordered Medication Orders Albuterol/Ipratropium (Duoneb 3.0-0.5 Mg/3 Ml) 3 ml NEB Q2H PRN PRN Reason: Shortness of Breath Sodium Chloride (Normal Saline) 1,000 mls @ 150 mls/hr IV ASDIRECTED SAMMY Last Admin: 01/14/19 23:15 Dose: 150 mls/hr Methylprednisolone Sodium Succinate (Solu-Medrol) 125 mg IVPUSH Q12H SAMMY Sodium Chloride (Saline Flush) 10 ml FLUSH ASDIRECTED PRN PRN Reason: Keep Vein Open Assessment/Plan Comment:: Patient will be admitted for respiratory failure and management of COPD exacerbation. He is palliative care status due to the lung mass as well. Patient to be started on solumedrol 125mg q12 and duoneb q2prn but prefer at q4. He is on 2-3 L at home all the time. We will continue at that rate once his oxygen saturation stabilizes. He did respond to albuterol nebs and supportive care. We will order PT/OT for his extreme weakness. He is unable to move without feeling very weak and very short of breath. There are multiple factors regarding his weakness which makes this patient complicated. He has an elevated WBC. His last prednisone use was 2 weeks ago per patient. Recheck labs in AM. We will start IVF and antibiotics for his elevated WBC and COPD exacerbation/ SIRS.
[2019-01-14] MEDS ORDERED: Azithromycin 500 MG AdvVial IV SCH (23:45)
[2019-01-15] MEDS: Azithromycin 500 MG in Sodium Chloride 0.9% 250 ML IV SCH ×2 (00:45→23:13)
[2019-01-15] MEDS: cefTRIAXone 1 GM in Sodium Chloride 0.9% 50 ML IV SCH (01:56)
[2019-01-15] MEDS: Levothyroxine 88 MCG Tab PO SCH (06:48)
[2019-01-15] MEDS: Sodium Chloride 0.9% 1,000 ML IV SCH (07:12)
[2019-01-15] MEDS: Lisinopril 10 MG Tab PO SCH (08:44)
[2019-01-15] MEDS: Albuterol/Ipratropium 3.0-0.5 MG/3 ML Neb Soln NEB PRN ×5 (08:44→23:13)
[2019-01-15] MEDS: methylPREDNISolone Sodium Succinate 125 MG/2 ML SDV IVPUSH SCH ×2 (09:34→21:30)
--- NOTE | 2019-01-15 15:39 | PCM.PN ---
- General Info Date of Service: 01/15/19 Subjective Update: Patient continues to have severe shortness of breath but does feel some improvement. He has difficulty with movement as he does get very short of breath with minimal movement. He is unable to get out of bed at this time due to multiple factors including breathing with shortness of breath, back pain, leg inability to move and weakness. Functional Status: Reports: Tolerating Diet. Denies: Ambulating - Review of Systems General: Reports: Weakness, Fatigue HEENT: Reports: No Symptoms Pulmonary: Reports: Shortness of Breath, Wheezing Cardiovascular: Reports: No Symptoms Gastrointestinal: Reports: No Symptoms Musculoskeletal: Reports: Back Pain, Leg Pain Skin: Reports: No Symptoms Neurological: Reports: Weakness Psychiatric: Reports: No Symptoms - Patient Data Vitals - Most Recent: Last Vital Signs Temp 36.5 C 01/15/19 12:00 Pulse 113 H 01/15/19 12:00 Resp 17 01/15/19 06:44 BP 109/55 L 01/15/19 12:00 Pulse Ox 94 L 01/15/19 12:00 I&O - Last 24 Hours: Intake & Output 01/15/19 01/15/19 01/15/19 06:59 14:59 22:59 Intake Total 2625 Output Total 850 Balance 1775 Lab Results Last 24 Hours: Laboratory Results - last 24 hr 01/14/19 01/14/19 01/14/19 Range/Units 21:15 21:15 21:15 WBC 16.8 H D (4.0-11.0) K/uL RBC 4.36 L (4.50-6.50) M/uL Hgb 11.7 L (13.0-18.0) g/dL Hct 37.5 L (40.0-54.0) % MCV 86 (76-96) fL MCH 26.8 L (27.0-32.0) pg MCHC 31.2 (31.0-35.0) g/dL RDW 15.4 (11.0-16.0) % Plt Count 402 H D (150-400) K/uL MPV 8.2 (6.0-10.0) fL Neut % (Auto) 86.8 H (45.0-70.0) % Lymph % (Auto) 4.8 L (20.0-40.0) % [place] % (Auto) 8.0 (3.0-10.0) % Eos % (Auto) 0.2 L (1.0-5.0) % Baso % (Auto) 0.2 (0.0-0.5) % Neut # (Auto) 14.56 H (2.00-7.50) K/uL Lymph # (Auto) 0.81 L (1.50-4.00) K/uL [place] # (Auto) 1.35 H (0.20-0.80) K/uL Eos # (Auto) 0.04 (0.04-0.40) K/uL Baso # (Auto) 0.03 (0.02-0.10) K/uL VBG pH 7.53 H* (7.31-7.41) Sodium 133 L (136-145) mmol/L Potassium 4.3 (3.5-5.1) mmol/L Chloride 95 L (98-107) mmol/L Carbon Dioxide 31.9 (21.0-32.0) mmol/L Anion Gap 10.4 (5.0-15.0) mmol/L BUN 16 (8-26) mg/dL Creatinine 0.99 D (0.70-1.30) mg/dL Est Cr Clr Drug Dosing TNP Estimated GFR (MDRD) > 60 (>60) MLS/MIN BUN/Creatinine Ratio 16.2 (6-25) Glucose 145 H (74-100) mg/dL Calcium 8.8 (8.5-10.1) mg/dL Total Bilirubin 1.1 H D (0.0-1.0) mg/dL AST 39 H (15-37) U/L ALT 48 (12-78) U/L Alkaline Phosphatase 146 H (46-116) U/L Total Protein 7.5 (6.4-8.2) g/dL Albumin 2.4 L (3.4-5.0) g/dL Globulin 5.1 H (2.2-4.2) g/dL Albumin/Globulin Ratio 0.5 L (0.8-2.0) 01/15/19 01/15/19 Range/Units 09:45 09:45 WBC 18.2 H (4.0-11.0) K/uL RBC 4.34 L (4.50-6.50) M/uL Hgb 11.7 L (13.0-18.0) g/dL Hct 37.9 L (40.0-54.0) % MCV 87 (76-96) fL MCH 27.0 (27.0-32.0) pg MCHC 30.9 L (31.0-35.0) g/dL RDW 15.4 (11.0-16.0) % Plt Count 379 (150-400) K/uL MPV 8.4 (6.0-10.0) fL Neut % (Auto) 92.6 H (45.0-70.0) % Lymph % (Auto) 4.5 L (20.0-40.0) % [place] % (Auto) 2.8 L (3.0-10.0) % Eos % (Auto) 0.0 L (1.0-5.0) % Baso % (Auto) 0.1 (0.0-0.5) % Neut # (Auto) 16.83 H (2.00-7.50) K/uL Lymph # (Auto) 0.82 L (1.50-4.00) K/uL [place] # (Auto) 0.50 (0.20-0.80) K/uL Eos # (Auto) 0.00 L (0.04-0.40) K/uL Baso # (Auto) 0.02 (0.02-0.10) K/uL VBG pH (7.31-7.41) Sodium 137 (136-145) mmol/L Potassium 4.5 (3.5-5.1) mmol/L Chloride 98 (98-107) mmol/L Carbon Dioxide 32.7 H (21.0-32.0) mmol/L Anion Gap 10.8 (5.0-15.0) mmol/L BUN 17 (8-26) mg/dL Creatinine 0.97 (0.70-1.30) mg/dL Est Cr Clr Drug Dosing TNP Estimated GFR (MDRD) > 60 (>60) MLS/MIN BUN/Creatinine Ratio 17.5 (6-25) Glucose 248 H D (74-100) mg/dL Calcium 9.0 (8.5-10.1) mg/dL Total Bilirubin (0.0-1.0) mg/dL AST (15-37) U/L ALT (12-78) U/L Alkaline Phosphatase (46-116) U/L Total Protein (6.4-8.2) g/dL Albumin (3.4-5.0) g/dL Globulin (2.2-4.2) g/dL Albumin/Globulin Ratio (0.8-2.0) Med Orders - Current: Current Medications Albuterol/Ipratropium (Duoneb 3.0-0.5 Mg/3 Ml) 3 ml NEB Q2H PRN PRN Reason: Shortness of Breath Last Admin: 01/15/19 12:54 Dose: 3 ml Sodium Chloride (Normal Saline) 1,000 mls @ 150 mls/hr IV ASDIRECTED SAMMY Last Admin: 01/15/19 07:12 Dose: 150 mls/hr Ceftriaxone Sodium 1 gm/ (Sodium Chloride) 50 mls @ 200 mls/hr IV Q24H SAMMY Last Admin: 01/15/19 01:56 Dose: 200 mls/hr Azithromycin 500 mg/ Sodium (Chloride) 250 mls @ 250 mls/hr IV Q24H SAMMY Last Admin: 01/15/19 00:45 Dose: 250 mls/hr Levothyroxine Sodium (Synthroid) 88 mcg PO DAILY SAMMY Last Admin: 01/15/19 06:48 Dose: 88 mcg Lisinopril (Prinivil) 10 mg PO DAILY [facility] Last Admin: 01/15/19 08:44 Dose: 10 mg Lorazepam (Ativan) 0.5 mg IVPUSH Q4H PRN PRN Reason: Anxiety Methylprednisolone Sodium Succinate (Solu-Medrol) 125 mg IVPUSH Q12H [facility] Last Admin: 01/15/19 09:34 Dose: 125 mg Simvastatin (Zocor) 40 mg PO BEDTIME [facility] Sodium Chloride (Saline Flush) 10 ml FLUSH ASDIRECTED PRN PRN Reason: Keep Vein Open Discontinued Medications Albuterol (Proventil Neb Soln) 2.5 mg NEB ONETIME ONE Stop: 01/14/19 21:16 Last Admin: 01/14/19 21:23 Dose: 2.5 mg Lorazepam (Ativan) Confirm Administered Dose 2 mg .ROUTE .STK-MED ONE Stop: 01/14/19 23:25 Last Admin: 01/14/19 23:46 Dose: Not Given - Exam Quality Assessment: Supplemental Oxygen General: Alert, Oriented, Cooperative HEENT: Pupils Equal, Pupils Reactive, EOMI Neck: Supple Lungs: Normal Respiratory Effort, Decreased Breath Sounds, Rales, Wheezing Cardiovascular: Regular Rhythm, Tachycardia GI/Abdominal Exam: Normal Bowel Sounds, Soft, Non-Tender Extremities: Leg Pain, Other (difficulty with knees and movement) - Problem List & Annotations (1) Respiratory failure SNOMED Code(s): 677172559 Code(s): J96.90 - RESPIRATORY FAILURE, UNSP, UNSP W HYPOXIA OR HYPERCAPNIA Status: Acute Priority: High Current Visit: Yes Qualifiers: Chronicity: acute on chronic (2) COPD exacerbation SNOMED Code(s): 730891758, 666364463 Code(s): J44.1 - CHRONIC OBSTRUCTIVE PULMONARY DISEASE W (ACUTE) EXACERBATION Status: Acute Priority: High Current Visit: Yes (3) Shortness of breath at rest SNOMED Code(s): 206305194 Code(s): R06.02 - SHORTNESS OF BREATH Status: Acute Priority: High Current Visit: Yes Onset Date: 01/22/16 (4) Weakness SNOMED Code(s): 54185386 Code(s): R53.1 - WEAKNESS Status: Acute Priority: High Current Visit: Yes (5) Mass of lung SNOMED Code(s): 191371081 Code(s): R91.8 - OTHER NONSPECIFIC ABNORMAL FINDING OF LUNG FIELD Status: Chronic Priority: High Current Visit: Yes Annotation/Comment:: Patient refuses further workup or referral to pulmonology. (6) Tachycardia SNOMED Code(s): 3512628 Code(s): R00.0 - TACHYCARDIA, UNSPECIFIED Status: Chronic Priority: High Current Visit: Yes Onset Date: 01/22/16 (7) Palliative care patient SNOMED Code(s): 607523763 Code(s): Z51.5 - ENCOUNTER FOR PALLIATIVE CARE Status: Acute Current Visit: Yes (8) Elevated WBC count SNOMED Code(s): 951115878, 411574521 Code(s): D72.829 - ELEVATED WHITE BLOOD CELL COUNT, UNSPECIFIED Status: Acute Current Visit: Yes (9) Fever SNOMED Code(s): 589255929 Code(s): R50.9 - FEVER, UNSPECIFIED Status: Acute Current Visit: Yes (10) SIRS (systemic inflammatory response syndrome) SNOMED Code(s): 613087733 Code(s): R65.10 - SIRS OF NON-INFECTIOUS ORIGIN W/O ACUTE ORGAN DYSFUNCTION Status: Acute Current Visit: Yes - Problem List Review Problem List Initiated/Reviewed/Updated: Yes - My Orders Last 24 Hours: My Active Orders 01/14/19 21:06 Chest 1V Frontal [CR] Stat 01/14/19 21:47 RT Aerosol Therapy [RC] ASDIRECTED Albuterol/Ipratropium [DuoNeb 3.0-0.5 MG/3 ML] 3 ml NEB Q2H PRN Sodium Chloride 0.9% [Saline Flush] 10 ml FLUSH ASDIRECTED PRN Peripheral IV Insertion Adult [OM.PC] Routine 01/14/19 21:49 Patient Status [ADT] Routine Oxygen Therapy [RC] 2200 Vital Signs [RC] Q4H 01/14/19 22:00 Insert Urinary Catheter [OM.PC] Q24H Urinary Catheter Assessment [RC] 18 Sodium Chloride 0.9% [Normal Saline] 1,000 ml IV ASDIRECTED methylPREDNISolone Sod Succ [Solu-MEDROL] 125 mg IVPUSH Q12H 01/14/19 23:00 Azithromycin [Zithromax] 500 mg Sodium Chloride 0.9% [Normal Saline] 250 ml IV Q24H LORazepam [Ativan] 0.5 mg IVPUSH Q4H PRN 01/14/19 23:38 Consult to Occupational Therapy [OT Evaluation and Treatment] [CONS] Routine Consult to Physical Therapy [PT Evaluation and Treatment] [CONS] Routine 01/15/19 00:00 cefTRIAXone [Rocephin] 1 gm Sodium Chloride 0.9% [Normal Saline] 50 ml IV Q24H 01/15/19 07:00 Levothyroxine [Synthroid] 88 mcg PO DAILY 01/15/19 08:00 Lisinopril [Prinivil] 10 mg PO DAILY 01/15/19 20:00 Simvastatin [Zocor] 40 mg PO BEDTIME 01/15/19 Breakfast Heart Healthy Diet [DIET] 01/16/19 05:11 BASIC METABOLIC PANEL,BMP [CHEM] AM CBC WITH AUTO DIFF [HEME] AM 01/17/19 05:11 BASIC METABOLIC PANEL,BMP [CHEM] AM CBC WITH AUTO DIFF [HEME] AM 01/18/19 05:11 CBC WITH AUTO DIFF [HEME] AM 01/19/19 05:11 CBC WITH AUTO DIFF [HEME] AM 01/20/19 05:11 CBC WITH AUTO DIFF [HEME] AM - Plan Plan:: Patient will be admitted for respiratory failure and management of COPD exacerbation. He is palliative care status due to the lung mass as well. Patient to be started on solumedrol 125mg q12 and duoneb q2prn but prefer at q4. He is on 2-3 L at home all the time. We will continue at that rate once his oxygen saturation stabilizes. He did respond to albuterol nebs and supportive care. We will order PT/OT for his extreme weakness. He is unable to move without feeling very weak and very short of breath. There are multiple factors regarding his weakness which makes this patient complicated. He has an elevated WBC. His last prednisone use was 2 weeks ago per patient. Recheck labs in AM. We will start IVF and antibiotics for his elevated WBC and COPD exacerbation/ SIRS. 01/15/19 Patient will continue current medications and breathing treatments. Patient is stable and we will continue solumedrol at 125 q12. Pending PT/OT on Wednesday for ambulation and strength. He will be a difficult case as he cannot even move out of bed himself. We have discussed his code status and we will agree to try everything but if he will not recover or have a quality of life then he does not want any further CPR or interventions.
[2019-01-15] MEDS: Simvastatin 40 MG Tab PO SCH (19:17)
[2019-01-15] MEDS: Sodium Chloride 0.9% 10 ML Syringe FLUSH PRN (19:25)
[2019-01-15] MEDS: Methocarbamol 500 MG Tab PO PRN (21:17)
[2019-01-15] MEDS: Ondansetron 4 MG/2 ML SDV IVPUSH SCH (23:12)
[2019-01-16] MEDS: cefTRIAXone 1 GM in Sodium Chloride 0.9% 50 ML IV SCH (00:24)
--- NOTE | 2019-01-16 00:56 | CR ---
DATE OF SERVICE: 01/14/2019 CLINICAL DATA: Chest pain and shortness of breath. AP PORTABLE CHEST: Comparison is made to a prior exam dated 10/17/18. 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 It has increased in size from the prior study. There is adjacent infiltrate and consolidation within the right upper lobe. Pneumonia should be considered. The left lung remains clear. The exam is otherwise unchanged from the prior. [id number] [facility]
[2019-01-16] MEDS: Ondansetron 4 MG/2 ML SDV IVPUSH SCH (04:06)
[2019-01-16] MEDS ORDERED: Ondansetron 4 MG/2 ML SDV IVPUSH PRN (04:08)
[2019-01-16] MEDS: Levothyroxine 88 MCG Tab PO SCH (07:22)
[2019-01-16] MEDS: Lisinopril 10 MG Tab PO SCH (07:28)
[2019-01-16] MEDS ORDERED: Azithromycin 500 MG in Sodium Chloride 0.9% 250 ML IV SCH (08:27)
[2019-01-16] MEDS ORDERED: cefTRIAXone 1 GM in Sodium Chloride 0.9% 50 ML IV SCH (09:00)
[2019-01-16] MEDS: methylPREDNISolone Sodium Succinate 125 MG/2 ML SDV IVPUSH SCH (10:28)
[2019-01-16] MEDS ORDERED: Levofloxacin/Dextrose 5%-Water 750 MG in Premix Bag 1 BAG IV SCH (10:30)
[2019-01-16] MEDS: LORazepam 0.5 MG Tab PO PRN ×2 (11:36→20:56)
--- NOTE | 2019-01-16 11:55 | CR ---
DATE OF SERVICE: 01/16/19 CLINICAL DATA: PAIN IN LOWER LUMBAR REGION OF BACK LUMBAR SPINE: No priors. There is diffuse osteopenia. The vertebral bodies are of average height and in good alignment. No acute fracture or dislocation. No lytic or blastic bone lesions. There are disc margin spurs throughout the lumbar spine. The disc spaces are relatively intact. There is mild facet joint hypertrophy in the lower lumbar spine. There is calcification of the abdominal aorta. There is a large amount of gas and stool present in the visualized colon. [id number] [facility]
[2019-01-16] MEDS ORDERED: Levofloxacin/Dextrose 5%-Water 150 ML IV ONE (13:43)
--- NOTE | 2019-01-16 13:53 | PCM.PN ---
- General Info Date of Service: 01/16/19 Subjective Update: Patient has some improvement in breathing. He remains very weak and short of breath. He denies any fever or chills but has a history of A Baumanii. Patient unable to expectorate sputum at this time. Functional Status: Reports: Pain Controlled, Tolerating Diet - Review of Systems General: Reports: Weakness HEENT: Reports: No Symptoms Pulmonary: Reports: Shortness of Breath, Cough Cardiovascular: Reports: No Symptoms Gastrointestinal: Reports: No Symptoms Musculoskeletal: Reports: No Symptoms Skin: Reports: No Symptoms Neurological: Reports: Weakness - Patient Data Vitals - Most Recent: Last Vital Signs Temp 36.9 C 01/16/19 11:00 Pulse 86 01/16/19 11:00 Resp 16 01/16/19 11:00 BP 102/62 01/16/19 11:00 Pulse Ox 95 01/16/19 11:00 Weight - Most Recent: 95.889 kg I&O - Last 24 Hours: Intake & Output 01/15/19 01/16/19 01/16/19 22:59 06:59 14:59 Intake Total 2100 900 Output Total 950 775 Balance 1150 125 Lab Results Last 24 Hours: Laboratory Results - last 24 hr 01/16/19 01/16/19 Range/Units 07:20 07:20 WBC 22.5 H* D (4.0-11.0) K/uL RBC 3.85 L (4.50-6.50) M/uL Hgb 10.4 L (13.0-18.0) g/dL Hct 34.2 L (40.0-54.0) % MCV 89 (76-96) fL MCH 27.0 (27.0-32.0) pg MCHC 30.4 L (31.0-35.0) g/dL RDW 15.5 (11.0-16.0) % Plt Count 397 (150-400) K/uL MPV 8.6 (6.0-10.0) fL Neut % (Auto) 91.1 H (45.0-70.0) % Lymph % (Auto) 3.6 L (20.0-40.0) % [place] % (Auto) 5.2 (3.0-10.0) % Eos % (Auto) 0.0 L (1.0-5.0) % Baso % (Auto) 0.1 (0.0-0.5) % Neut # (Auto) 20.49 H (2.00-7.50) K/uL Lymph # (Auto) 0.82 L (1.50-4.00) K/uL [place] # (Auto) 1.17 H (0.20-0.80) K/uL Eos # (Auto) 0.00 L (0.04-0.40) K/uL Baso # (Auto) 0.02 (0.02-0.10) K/uL Sodium 140 (136-145) mmol/L Potassium 4.7 (3.5-5.1) mmol/L Chloride 100 (98-107) mmol/L Carbon Dioxide 33.4 H (21.0-32.0) mmol/L Anion Gap 11.3 (5.0-15.0) mmol/L BUN 21 D (8-26) mg/dL Creatinine 0.77 D (0.70-1.30) mg/dL Est Cr Clr Drug Dosing 78.96 mL/min Estimated GFR (MDRD) > 60 (>60) MLS/MIN BUN/Creatinine Ratio 27.3 H (6-25) Glucose 173 H D (74-100) mg/dL Calcium 8.7 (8.5-10.1) mg/dL Elijah Results Last 24 Hours: Microbiology 01/14/19 09:45 MRSA Surveillance Culture - Final Nares, Left NO MRSA ISOLATED Med Orders - Current: Current Medications Albuterol/Ipratropium (Duoneb 3.0-0.5 Mg/3 Ml) 3 ml NEB Q2H PRN PRN Reason: Shortness of Breath Last Admin: 01/15/19 23:13 Dose: 3 ml Levofloxacin/Dextrose 750 mg/ (Premix) 150 mls @ 100 mls/hr IV Q24H [facility] Meropenem 1 gm/ Sodium (Chloride) 100 mls @ 33 mls/hr IV Q8H [facility] Levothyroxine Sodium (Synthroid) 88 mcg PO DAILY [facility] Last Admin: 01/16/19 07:22 Dose: 88 mcg Lisinopril (Prinivil) 10 mg PO DAILY [facility] Last Admin: 01/16/19 07:28 Dose: 10 mg Lorazepam (Ativan) 0.5 mg PO Q4H PRN PRN Reason: Anxiety Last Admin: 01/16/19 11:36 Dose: 0.5 mg Methocarbamol (Robaxin) 500 mg PO TID PRN PRN Reason: Spasms Last Admin: 01/15/19 21:17 Dose: 500 mg Methylprednisolone Sodium Succinate (Solu-Medrol) 125 mg IVPUSH DAILY [facility] Ondansetron HCl (Zofran) 4 mg IVPUSH Q4H PRN PRN Reason: Nausea Simvastatin (Zocor) 40 mg PO BEDTIME [facility] Last Admin: 01/15/19 19:17 Dose: 40 mg Sodium Chloride (Saline Flush) 10 ml FLUSH ASDIRECTED PRN PRN Reason: Keep Vein Open Last Admin: 01/15/19 19:25 Dose: 10 ml Discontinued Medications Albuterol (Proventil Neb Soln) 2.5 mg NEB ONETIME ONE Stop: 01/14/19 21:16 Last Admin: 01/14/19 21:23 Dose: 2.5 mg Albuterol (Proventil Neb Soln) 2.5 mg .ROUTE .STK-MED ONE Stop: 01/14/19 21:21 Sodium Chloride (Normal Saline) 1,000 mls @ 150 mls/hr IV ASDIRECTED [facility] Last Admin: 01/15/19 07:12 Dose: 150 mls/hr Ceftriaxone Sodium 1 gm/ (Sodium Chloride) 50 mls @ 200 mls/hr IV Q24H [facility] Last Admin: 01/16/19 00:24 Dose: 200 mls/hr Azithromycin 500 mg/ Sodium (Chloride) 250 mls @ 250 mls/hr IV Q24H [facility] Last Admin: 01/15/19 23:13 Dose: 250 mls/hr Azithromycin 500 mg/ Sodium (Chloride) 250 mls @ 250 mls/hr IV Q24H [facility] Ceftriaxone Sodium 1 gm/ (Sodium Chloride) 50 mls @ 200 mls/hr IV Q24H [facility] Levofloxacin/Dextrose (Levaquin In D5w 750 Mg/150 Ml) Confirm Administered Dose 150 mls @ as directed IV .STK-MED ONE Stop: 01/16/19 13:44 Lorazepam (Ativan) Confirm Administered Dose 2 mg .ROUTE .STK-MED ONE Stop: 01/14/19 23:25 Last Admin: 01/14/19 23:46 Dose: Not Given Lorazepam (Ativan) 0.5 mg IVPUSH Q4H PRN PRN Reason: Anxiety Last Admin: 01/15/19 21:30 Dose: 0.5 mg Methylprednisolone Sodium Succinate (Solu-Medrol) 125 mg IVPUSH Q12H [facility] Last Admin: 01/16/19 10:28 Dose: 125 mg Ondansetron HCl (Zofran) 4 mg IVPUSH Q4H [facility] Last Admin: 01/16/19 04:06 Dose: Not Given - Exam Quality Assessment: Supplemental Oxygen General: Alert, Oriented, Cooperative HEENT: Pupils Equal, Pupils Reactive, EOMI Neck: Supple Lungs: Decreased Breath Sounds, Rales, Rhonchi Cardiovascular: Regular Rate, Regular Rhythm GI/Abdominal Exam: Normal Bowel Sounds, Soft, Non-Tender Back Exam: Paraspinal Tenderness, Vertebral Tenderness Extremities: Normal Inspection, Normal Range of Motion, Joint Swelling, Leg Pain Peripheral Pulses: 2+: Dorsalis Pedis (L), Dorsalis Pedis (R) Skin: Warm, Dry, Intact Neurological: No New Focal Deficit, Cranial Nerves Intact Psy/Mental Status: Alert, Normal Affect, Normal Mood - Problem List & Annotations (1) Respiratory failure SNOMED Code(s): 180635032 Code(s): J96.90 - RESPIRATORY FAILURE, UNSP, UNSP W HYPOXIA OR HYPERCAPNIA Status: Acute Priority: High Current Visit: Yes Qualifiers: Chronicity: acute on chronic (2) COPD exacerbation SNOMED Code(s): 892901449, 249243418 Code(s): J44.1 - CHRONIC OBSTRUCTIVE PULMONARY DISEASE W (ACUTE) EXACERBATION Status: Acute Priority: High Current Visit: Yes (3) Shortness of breath at rest SNOMED Code(s): 718860321 Code(s): R06.02 - SHORTNESS OF BREATH Status: Acute Priority: High Current Visit: Yes Onset Date: 01/22/16 (4) Weakness SNOMED Code(s): 39845147 Code(s): R53.1 - WEAKNESS Status: Acute Priority: High Current Visit: Yes (5) Mass of lung SNOMED Code(s): 951807080 Code(s): R91.8 - OTHER NONSPECIFIC ABNORMAL FINDING OF LUNG FIELD Status: Chronic Priority: High Current Visit: Yes Annotation/Comment:: Patient refuses further workup or referral to pulmonology. (6) Tachycardia SNOMED Code(s): 5507879 Code(s): R00.0 - TACHYCARDIA, UNSPECIFIED Status: Chronic Priority: High Current Visit: Yes Onset Date: 01/22/16 (7) Palliative care patient SNOMED Code(s): 248354715 Code(s): Z51.5 - ENCOUNTER FOR PALLIATIVE CARE Status: Acute Current Visit: Yes (8) Elevated WBC count SNOMED Code(s): 764990844, 505509393 Code(s): D72.829 - ELEVATED WHITE BLOOD CELL COUNT, UNSPECIFIED Status: Acute Current Visit: Yes (9) Fever SNOMED Code(s): 601683681 Code(s): R50.9 - FEVER, UNSPECIFIED Status: Acute Current Visit: Yes (10) SIRS (systemic inflammatory response syndrome) SNOMED Code(s): 453168839 Code(s): R65.10 - SIRS OF NON-INFECTIOUS ORIGIN W/O ACUTE ORGAN DYSFUNCTION Status: Acute Current Visit: Yes (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 SNOMED Code(s): 226982085 Code(s): Z86.19 - PERSONAL HISTORY OF OTHER INFECTIOUS AND PARASITIC DISEASES Status: Suspected Priority: High Current Visit: Yes - Problem List Review Problem List Initiated/Reviewed/Updated: Yes - My Orders Last 24 Hours: My Active Orders 01/15/19 20:00 Simvastatin [Zocor] 40 mg PO BEDTIME 01/15/19 20:49 Methocarbamol [Robaxin] 500 mg PO TID PRN 01/15/19 21:01 Cooling Warming Measures [RC] ASDIRECTED Ice Pack [Ice Therapy] [OM.PC] Routine 01/15/19 23:53 Resuscitation Status Routine 01/16/19 04:08 Ondansetron [Zofran] 4 mg IVPUSH Q4H PRN 01/16/19 10:30 Levofloxacin/Dextrose 5%-Water [Levaquin in D5W 750 MG/150 ML] 750 mg Premix Bag 1 bag IV Q24H 01/16/19 10:47 LORazepam [Ativan] 0.5 mg PO Q4H PRN 01/16/19 11:30 CULTURE SPUTUM + SMEAR [RM] Stat 01/16/19 12:10 CULTURE BLOOD [BC] Routine 01/16/19 13:45 Meropenem [Merrem] 1 gm Sodium Chloride 0.9% [Normal Saline] 100 ml IV Q8H 01/17/19 05:11 BASIC METABOLIC PANEL,BMP [CHEM] AM CBC WITH AUTO DIFF [HEME] AM 01/17/19 08:00 methylPREDNISolone Sod Succ [Solu-MEDROL] 125 mg IVPUSH DAILY 01/18/19 05:11 CBC WITH AUTO DIFF [HEME] AM 01/19/19 05:11 CBC WITH AUTO DIFF [HEME] AM 01/20/19 05:11 CBC WITH AUTO DIFF [HEME] AM - Plan Plan:: Patient will be admitted for respiratory failure and management of COPD exacerbation. He is palliative care status due to the lung mass as well. Patient to be started on solumedrol 125mg q12 and duoneb q2prn but prefer at q4. He is on 2-3 L at home all the time. We will continue at that rate once his oxygen saturation stabilizes. He did respond to albuterol nebs and supportive care. We will order PT/OT for his extreme weakness. He is unable to move without feeling very weak and very short of breath. There are multiple factors regarding his weakness which makes this patient complicated. He has an elevated WBC. His last prednisone use was 2 weeks ago per patient. Recheck labs in AM. We will start IVF and antibiotics for his elevated WBC and COPD exacerbation/ SIRS. 01/15/19 Patient will continue current medications and breathing treatments. Patient is stable and we will continue solumedrol at 125 q12. Pending PT/OT on Wednesday for ambulation and strength. He will be a difficult case as he cannot even move out of bed himself. We have discussed his code status and we will agree to try everything but if he will not recover or have a quality of life then he does not want any further CPR or interventions. 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 Due to current SIRS and possible reinfection we will start Levofloxacin and Meropenum for coverage and repeat labs in am. Patient counseled on antibiotics and agrees with plan of care. He refuses to go anywhere else and would rather go comfort cares here in [place]. He is currently full code but refuses intubation. Solumedrol decreased to daily.
[2019-01-16] MEDS: Meropenem 1 GM in Sodium Chloride 0.9% 100 ML IV SCH ×2 (14:25→22:19)
[2019-01-16] MEDS: Levofloxacin/Dextrose 5%-Water 750 MG in Premix Bag 1 BAG IV SCH (17:20)
[2019-01-16] MEDS: Simvastatin 40 MG Tab PO SCH (20:54)
[2019-01-16] MEDS: Methocarbamol 500 MG Tab PO PRN (20:55)
[2019-01-16] MEDS: Albuterol/Ipratropium 3.0-0.5 MG/3 ML Neb Soln NEB PRN ×2 (20:55→23:03)
[2019-01-17] MEDS: Albuterol/Ipratropium 3.0-0.5 MG/3 ML Neb Soln NEB PRN ×5 (05:42→20:54)
[2019-01-17] MEDS: Methocarbamol 500 MG Tab PO PRN ×2 (07:11→20:54)
[2019-01-17] MEDS: Meropenem 1 GM in Sodium Chloride 0.9% 100 ML IV SCH ×3 (07:33→22:24)
[2019-01-17] MEDS: Levothyroxine 88 MCG Tab PO SCH (07:42)
[2019-01-17] MEDS: Lisinopril 10 MG Tab PO SCH (07:43)
[2019-01-17] MEDS: methylPREDNISolone Sodium Succinate 125 MG/2 ML SDV IVPUSH SCH (07:44)
[2019-01-17] MEDS ORDERED: Sodium Chloride 0.9% 50 ML SDV FLUSH ONE (11:44)
[2019-01-17] MEDS ORDERED: Iopamidol 612 MG/ML 100 ML Bottle IV SCH (11:45)
[2019-01-17] MEDS: Levofloxacin/Dextrose 5%-Water 750 MG in Premix Bag 1 BAG IV SCH (17:43)
--- NOTE | 2019-01-17 19:44 | PCM.PN ---
- General Info Date of Service: 01/17/19 Subjective Update: Patient has seen some improvement in breathing. He does continue to cough regularly and deep. He has coughed up sputum in the past few days. He is working with physical therapy and with assistance he is able to transfer and get out of bed. He feels ok today but continues to have shortness of breath that is worse than his baseline. Functional Status: Reports: Pain Controlled, Tolerating Diet - Review of Systems General: Reports: Weakness HEENT: Reports: No Symptoms Pulmonary: Reports: Shortness of Breath Cardiovascular: Reports: No Symptoms Gastrointestinal: Reports: No Symptoms Genitourinary: Reports: Frequency Musculoskeletal: Reports: Back Pain, Joint Pain Skin: Reports: No Symptoms Neurological: Reports: Weakness Psychiatric: Reports: No Symptoms - Patient Data Vitals - Most Recent: Last Vital Signs Temp 36.9 C 01/17/19 12:35 Pulse 118 H 01/17/19 12:35 Resp 24 H 01/17/19 12:35 BP 132/67 01/17/19 12:35 Pulse Ox 94 L 01/17/19 16:00 Weight - Most Recent: 95.889 kg I&O - Last 24 Hours: Intake & Output 01/17/19 01/17/19 01/17/19 06:59 14:59 22:59 Intake Total 610 0814 Output Total 4788 73690 Balance -3920 -11763 Lab Results Last 24 Hours: Laboratory Results - last 24 hr 01/17/19 01/17/19 Range/Units 07:55 07:55 WBC 19.1 H (4.0-11.0) K/uL RBC 3.86 L (4.50-6.50) M/uL Hgb 10.4 L (13.0-18.0) g/dL Hct 34.8 L (40.0-54.0) % MCV 90 (76-96) fL MCH 26.9 L (27.0-32.0) pg MCHC 29.9 L (31.0-35.0) g/dL RDW 15.8 (11.0-16.0) % Plt Count 475 H (150-400) K/uL MPV 8.5 (6.0-10.0) fL Neut % (Auto) 85.5 H (45.0-70.0) % Lymph % (Auto) 7.2 L (20.0-40.0) % [place] % (Auto) 7.2 (3.0-10.0) % Eos % (Auto) 0.0 L (1.0-5.0) % Baso % (Auto) 0.1 (0.0-0.5) % Neut # (Auto) 16.33 H (2.00-7.50) K/uL Lymph # (Auto) 1.38 L (1.50-4.00) K/uL [place] # (Auto) 1.37 H (0.20-0.80) K/uL Eos # (Auto) 0.00 L (0.04-0.40) K/uL Baso # (Auto) 0.01 L (0.02-0.10) K/uL Sodium 143 (136-145) mmol/L Potassium 4.2 (3.5-5.1) mmol/L Chloride 100 (98-107) mmol/L Carbon Dioxide 38.7 H (21.0-32.0) mmol/L Anion Gap 8.5 (5.0-15.0) mmol/L BUN 18 (8-26) mg/dL Creatinine 0.78 (0.70-1.30) mg/dL Est Cr Clr Drug Dosing 77.95 mL/min Estimated GFR (MDRD) > 60 (>60) MLS/MIN BUN/Creatinine Ratio 23.1 (6-25) Glucose 137 H (74-100) mg/dL Calcium 8.4 L (8.5-10.1) mg/dL Elijah Results Last 24 Hours: Microbiology 01/16/19 12:10 Aerobic Blood Culture - Preliminary Blood NO GROWTH AFTER 1 DAY Anaerobic Blood Culture - Preliminary NO GROWTH AFTER 1 DAY 01/16/19 11:30 Gram Stain - Final Sputum - Expectorated Med Orders - Current: Current Medications Albuterol/Ipratropium (Duoneb 3.0-0.5 Mg/3 Ml) 3 ml NEB Q2H PRN PRN Reason: Shortness of Breath Last Admin: 01/17/19 18:36 Dose: 3 ml Meropenem 1 gm/ Sodium (Chloride) 100 mls @ 33 mls/hr IV Q8H [facility] Last Admin: 01/17/19 14:38 Dose: 33 mls/hr Levofloxacin/Dextrose 750 mg/ (Premix) 150 mls @ 100 mls/hr IV Q24H [facility] Last Admin: 01/17/19 17:43 Dose: 100 mls/hr Iopamidol (Isovue-300 (61%)) 100 ml IV ASDIRECTED [facility] Stop: 01/17/19 23:59 Levothyroxine Sodium (Synthroid) 88 mcg PO DAILY [facility] Last Admin: 01/17/19 07:42 Dose: 88 mcg Lisinopril (Prinivil) 10 mg PO DAILY [facility] Last Admin: 01/17/19 07:43 Dose: 10 mg Lorazepam (Ativan) 0.5 mg PO Q4H PRN PRN Reason: Anxiety Last Admin: 01/16/19 20:56 Dose: 0.5 mg Methocarbamol (Robaxin) 500 mg PO TID PRN PRN Reason: Spasms Last Admin: 01/17/19 07:11 Dose: 500 mg Methylprednisolone Sodium Succinate (Solu-Medrol) 125 mg IVPUSH DAILY [facility] Last Admin: 01/17/19 07:44 Dose: 125 mg Ondansetron HCl (Zofran) 4 mg IVPUSH Q4H PRN PRN Reason: Nausea Simvastatin (Zocor) 40 mg PO BEDTIME [facility] Last Admin: 01/16/19 20:54 Dose: 40 mg Sodium Chloride (Saline Flush) 10 ml FLUSH ASDIRECTED PRN PRN Reason: Keep Vein Open Last Admin: 01/15/19 19:25 Dose: 10 ml Discontinued Medications Albuterol (Proventil Neb Soln) 2.5 mg NEB ONETIME ONE Stop: 01/14/19 21:16 Last Admin: 01/14/19 21:23 Dose: 2.5 mg Albuterol (Proventil Neb Soln) 2.5 mg .ROUTE .STK-MED ONE Stop: 01/14/19 21:21 Sodium Chloride (Normal Saline) 1,000 mls @ 150 mls/hr IV ASDIRECTED [facility] Last Admin: 01/15/19 07:12 Dose: 150 mls/hr Ceftriaxone Sodium 1 gm/ (Sodium Chloride) 50 mls @ 200 mls/hr IV Q24H [facility] Last Admin: 01/16/19 00:24 Dose: 200 mls/hr Azithromycin 500 mg/ Sodium (Chloride) 250 mls @ 250 mls/hr IV Q24H [facility] Last Admin: 01/15/19 23:13 Dose: 250 mls/hr Azithromycin 500 mg/ Sodium (Chloride) 250 mls @ 250 mls/hr IV Q24H [facility] Ceftriaxone Sodium 1 gm/ (Sodium Chloride) 50 mls @ 200 mls/hr IV Q24H [facility] Levofloxacin/Dextrose 750 mg/ (Premix) 150 mls @ 100 mls/hr IV Q24H [facility] Levofloxacin/Dextrose (Levaquin In D5w 750 Mg/150 Ml) Confirm Administered Dose 150 mls @ as directed IV .STK-MED ONE Stop: 01/16/19 13:44 Last Admin: 01/16/19 20:55 Dose: Not Given Lorazepam (Ativan) Confirm Administered Dose 2 mg .ROUTE .STK-MED ONE Stop: 01/14/19 23:25 Last Admin: 01/14/19 23:46 Dose: Not Given Lorazepam (Ativan) 0.5 mg IVPUSH Q4H PRN PRN Reason: Anxiety Last Admin: 01/15/19 21:30 Dose: 0.5 mg Methylprednisolone Sodium Succinate (Solu-Medrol) 125 mg IVPUSH Q12H [facility] Last Admin: 01/16/19 10:28 Dose: 125 mg Ondansetron HCl (Zofran) 4 mg IVPUSH Q4H [facility] Last Admin: 01/16/19 04:06 Dose: Not Given Sodium Chloride (Normal Saline) 50 ml FLUSH ONETIME ONE Stop: 01/17/19 11:45 Last Admin: 01/17/19 14:25 Dose: 50 ml - Exam Quality Assessment: Supplemental Oxygen General: Alert, Oriented, Cooperative HEENT: Pupils Equal, Pupils Reactive, EOMI, Mucous Membr. Moist/[place] Neck: Supple Lungs: Decreased Breath Sounds, Rhonchi, Wheezing Cardiovascular: Regular Rhythm, Tachycardia GI/Abdominal Exam: Normal Bowel Sounds, Soft, Non-Tender Extremities: Normal Inspection Peripheral Pulses: 2+: Dorsalis Pedis (L), Dorsalis Pedis (R) Skin: Warm, Dry, Intact Neurological: No New Focal Deficit Psy/Mental Status: Alert, Normal Affect, Normal Mood - Problem List & Annotations (1) Respiratory failure SNOMED Code(s): 481476506 Code(s): J96.90 - RESPIRATORY FAILURE, UNSP, UNSP W HYPOXIA OR HYPERCAPNIA Status: Acute Priority: High Current Visit: Yes Qualifiers: Chronicity: acute on chronic (2) COPD exacerbation SNOMED Code(s): 317261930, 988133225 Code(s): J44.1 - CHRONIC OBSTRUCTIVE PULMONARY DISEASE W (ACUTE) EXACERBATION Status: Acute Priority: High Current Visit: Yes (3) Shortness of breath at rest SNOMED Code(s): 444610903 Code(s): R06.02 - SHORTNESS OF BREATH Status: Acute Priority: High Current Visit: Yes Onset Date: 01/22/16 (4) Weakness SNOMED Code(s): 09531173 Code(s): R53.1 - WEAKNESS Status: Acute Priority: High Current Visit: Yes (5) Mass of lung SNOMED Code(s): 442676716 Code(s): R91.8 - OTHER NONSPECIFIC ABNORMAL FINDING OF LUNG FIELD Status: Chronic Priority: High Current Visit: Yes Annotation/Comment:: Patient refuses further workup or referral to pulmonology. (6) Tachycardia SNOMED Code(s): 5715533 Code(s): R00.0 - TACHYCARDIA, UNSPECIFIED Status: Chronic Priority: High Current Visit: Yes Onset Date: 01/22/16 (7) Palliative care patient SNOMED Code(s): 138919791 Code(s): Z51.5 - ENCOUNTER FOR PALLIATIVE CARE Status: Acute Current Visit: Yes (8) Elevated WBC count SNOMED Code(s): 185024723, 162903642 Code(s): D72.829 - ELEVATED WHITE BLOOD CELL COUNT, UNSPECIFIED Status: Acute Current Visit: Yes (9) Fever SNOMED Code(s): 420460456 Code(s): R50.9 - FEVER, UNSPECIFIED Status: Acute Current Visit: Yes (10) SIRS (systemic inflammatory response syndrome) SNOMED Code(s): 265878646 Code(s): R65.10 - SIRS OF NON-INFECTIOUS ORIGIN W/O ACUTE ORGAN DYSFUNCTION Status: Acute Current Visit: Yes (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 SNOMED Code(s): 415124245 Code(s): Z86.19 - PERSONAL HISTORY OF OTHER INFECTIOUS AND PARASITIC DISEASES Status: Suspected Priority: High Current Visit: Yes (12) Mass of right lung SNOMED Code(s): 318804331 Code(s): R91.8 - OTHER NONSPECIFIC ABNORMAL FINDING OF LUNG FIELD Status: Acute Current Visit: Yes - Problem List Review Problem List Initiated/Reviewed/Updated: Yes - My Orders Last 24 Hours: My Active Orders 01/17/19 08:00 methylPREDNISolone Sod Succ [Solu-MEDROL] 125 mg IVPUSH DAILY 01/17/19 09:54 Chest w wo Cont [CT] Routine 01/17/19 11:45 Iopamidol [Isovue-300 (61%)] 100 ml IV ASDIRECTED 01/18/19 05:11 CBC WITH AUTO DIFF [HEME] AM 01/19/19 05:11 CBC WITH AUTO DIFF [HEME] AM 01/20/19 05:11 CBC WITH AUTO DIFF [HEME] AM - Plan Plan:: Patient will be admitted for respiratory failure and management of COPD exacerbation. He is palliative care status due to the lung mass as well. Patient to be started on solumedrol 125mg q12 and duoneb q2prn but prefer at q4. He is on 2-3 L at home all the time. We will continue at that rate once his oxygen saturation stabilizes. He did respond to albuterol nebs and supportive care. We will order PT/OT for his extreme weakness. He is unable to move without feeling very weak and very short of breath. There are multiple factors regarding his weakness which makes this patient complicated. He has an elevated WBC. His last prednisone use was 2 weeks ago per patient. Recheck labs in AM. We will start IVF and antibiotics for his elevated WBC and COPD exacerbation/ SIRS. 01/15/19 Patient will continue current medications and breathing treatments. Patient is stable and we will continue solumedrol at 125 q12. Pending PT/OT on Wednesday for ambulation and strength. He will be a difficult case as he cannot even move out of bed himself. We have discussed his code status and we will agree to try everything but if he will not recover or have a quality of life then he does not want any further CPR or interventions. 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 Due to current SIRS and possible reinfection we will start Levofloxacin and Meropenum for coverage and repeat labs in am. Patient counseled on antibiotics and agrees with plan of care. He refuses to go anywhere else and would rather go comfort cares here in [place]. He is currently full code but refuses intubation. Solumedrol decreased to daily. 01/17/19 Patient WBC improve slightly. 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 Patient understands that cancer is the most likely diagnosis but refuses any transfer or other treatment at this time. He would like to stay at this facility or at home only. There are no other options the patient would agree to. We will continue course of antibiotics and f/u labs in am.
[2019-01-17] MEDS: Simvastatin 40 MG Tab PO SCH (20:54)
[2019-01-17] MEDS: LORazepam 0.5 MG Tab PO PRN (20:54)
[2019-01-18] MEDS: Albuterol/Ipratropium 3.0-0.5 MG/3 ML Neb Soln NEB PRN ×7 (01:00→19:17)
[2019-01-18] MEDS: Meropenem 1 GM in Sodium Chloride 0.9% 100 ML IV SCH ×3 (05:51→22:34)
[2019-01-18] MEDS: Lisinopril 10 MG Tab PO SCH (07:49)
[2019-01-18] MEDS: Levothyroxine 88 MCG Tab PO SCH (07:50)
[2019-01-18] MEDS: Sodium Chloride 0.9% 10 ML Syringe FLUSH PRN ×4 (07:55→22:28)
[2019-01-18] MEDS: methylPREDNISolone Sodium Succinate 125 MG/2 ML SDV IVPUSH SCH (07:56)
[2019-01-18] MEDS: LORazepam 0.5 MG Tab PO PRN (09:29)
--- NOTE | 2019-01-18 10:06 | CT ---
Date of Service: 01/17/19 Clinical Data: lung mass UNENHANCED CHEST CT: Multislice acquisition through the chest without and with IV contrast was performed. Comparison is made to a prior unenhanced chest CT dated 05/27/18. 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 It has significantly increased in size from the prior study. It measures greater than 6 cm in its maximal axial dimension. It also contains gas and fluid density consistent with tumor necrosis or abscess. It does encase and markedly compresses the right upper lobe bronchus. There is extensive infiltrate and consolidation within the right upper lobe most likely representing post-obstructive pneumonia. Addition tumor within the right upper lobe cannot be excluded. There is also a mass like area of consolidation within the right middle lobe anteriorly and medially. There is a 7 mm pleural based nodule adjacent to the major fissure on the right and another 8 mm pleural based nodule in the right middle lobe on the right. These were not present on the prior exam and metastatic disease should be considered. The left lung is clear. No mediastinal adenopathy. The remainder of the exam is unchanged from the prior. [id number] [facility]
--- NOTE | 2019-01-18 10:48 | PCM.PN ---
- General Info Date of Service: 01/18/19 Subjective Update: Patient feeling increasing shortness of breath this am. He denies any fever or chills but notes he feels like he needs a breathing treatment. He is trying to move and transfer out of bed but still requires assistance. Functional Status: Reports: Pain Controlled, Tolerating Diet - Review of Systems General: Reports: Weakness HEENT: Reports: No Symptoms Pulmonary: Reports: Shortness of Breath, Wheezing Cardiovascular: Reports: Other (tachycardia) Gastrointestinal: Reports: No Symptoms Genitourinary: Reports: No Symptoms Musculoskeletal: Reports: No Symptoms Skin: Reports: No Symptoms Neurological: Reports: Weakness Psychiatric: Reports: No Symptoms - Patient Data Vitals - Most Recent: Last Vital Signs Temp 36.9 C 01/18/19 08:00 Pulse 124 H 01/18/19 08:00 Resp 18 01/18/19 04:00 BP 118/68 01/18/19 08:00 Pulse Ox 95 01/18/19 04:00 Weight - Most Recent: 95.889 kg I&O - Last 24 Hours: Intake & Output 01/17/19 01/18/19 01/18/19 22:59 06:59 14:59 Intake Total 2514 400 Output Total 33898 1000 Balance -31651 -600 Lab Results Last 24 Hours: Laboratory Results - last 24 hr 01/18/19 Range/Units 07:20 WBC 15.8 H (4.0-11.0) K/uL RBC 4.16 L (4.50-6.50) M/uL Hgb 11.1 L (13.0-18.0) g/dL Hct 36.9 L (40.0-54.0) % MCV 89 (76-96) fL MCH 26.7 L (27.0-32.0) pg MCHC 30.1 L (31.0-35.0) g/dL RDW 15.9 (11.0-16.0) % Plt Count 496 H (150-400) K/uL MPV 8.1 (6.0-10.0) fL Neut % (Auto) 81.9 H (45.0-70.0) % Lymph % (Auto) 10.7 L (20.0-40.0) % [place] % (Auto) 7.2 (3.0-10.0) % Eos % (Auto) 0.1 L (1.0-5.0) % Baso % (Auto) 0.1 (0.0-0.5) % Neut # (Auto) 12.91 H (2.00-7.50) K/uL Lymph # (Auto) 1.69 (1.50-4.00) K/uL [place] # (Auto) 1.14 H (0.20-0.80) K/uL Eos # (Auto) 0.02 L (0.04-0.40) K/uL Baso # (Auto) 0.02 (0.02-0.10) K/uL Elijah Results Last 24 Hours: Microbiology 01/16/19 12:10 Aerobic Blood Culture - Preliminary Blood NO GROWTH AFTER 1 DAY Anaerobic Blood Culture - Preliminary NO GROWTH AFTER 1 DAY 01/16/19 11:30 Gram Stain - Final Sputum - Expectorated Med Orders - Current: Current Medications Albuterol/Ipratropium (Duoneb 3.0-0.5 Mg/3 Ml) 3 ml NEB Q2H PRN PRN Reason: Shortness of Breath Last Admin: 01/18/19 10:06 Dose: 3 ml Meropenem 1 gm/ Sodium (Chloride) 100 mls @ 33 mls/hr IV Q8H [facility] Last Admin: 01/18/19 05:51 Dose: 33 mls/hr Levofloxacin/Dextrose 750 mg/ (Premix) 150 mls @ 100 mls/hr IV Q24H [facility] Last Admin: 01/17/19 17:43 Dose: 100 mls/hr Levothyroxine Sodium (Synthroid) 88 mcg PO DAILY [facility] Last Admin: 01/18/19 07:50 Dose: 88 mcg Lisinopril (Prinivil) 10 mg PO DAILY [facility] Last Admin: 01/18/19 07:49 Dose: 10 mg Lorazepam (Ativan) 0.5 mg PO Q4H PRN PRN Reason: Anxiety Last Admin: 01/18/19 09:29 Dose: 0.5 mg Methocarbamol (Robaxin) 500 mg PO TID PRN PRN Reason: Spasms Last Admin: 01/17/19 20:54 Dose: 500 mg Methylprednisolone Sodium Succinate (Solu-Medrol) 125 mg IVPUSH DAILY [facility] Last Admin: 01/18/19 07:56 Dose: 125 mg Ondansetron HCl (Zofran) 4 mg IVPUSH Q4H PRN PRN Reason: Nausea Simvastatin (Zocor) 40 mg PO BEDTIME [facility] Last Admin: 01/17/19 20:54 Dose: 40 mg Sodium Chloride (Saline Flush) 10 ml FLUSH ASDIRECTED PRN PRN Reason: Keep Vein Open Last Admin: 01/15/19 19:25 Dose: 10 ml Discontinued Medications Albuterol (Proventil Neb Soln) 2.5 mg NEB ONETIME ONE Stop: 01/14/19 21:16 Last Admin: 01/14/19 21:23 Dose: 2.5 mg Albuterol (Proventil Neb Soln) 2.5 mg .ROUTE .STK-MED ONE Stop: 01/14/19 21:21 Sodium Chloride (Normal Saline) 1,000 mls @ 150 mls/hr IV ASDIRECTED [facility] Last Admin: 01/15/19 07:12 Dose: 150 mls/hr Ceftriaxone Sodium 1 gm/ (Sodium Chloride) 50 mls @ 200 mls/hr IV Q24H [facility] Last Admin: 01/16/19 00:24 Dose: 200 mls/hr Azithromycin 500 mg/ Sodium (Chloride) 250 mls @ 250 mls/hr IV Q24H [facility] Last Admin: 01/15/19 23:13 Dose: 250 mls/hr Azithromycin 500 mg/ Sodium (Chloride) 250 mls @ 250 mls/hr IV Q24H [facility] Last Admin: 01/18/19 01:00 Dose: Not Given Ceftriaxone Sodium 1 gm/ (Sodium Chloride) 50 mls @ 200 mls/hr IV Q24H [facility] Last Admin: 01/18/19 01:00 Dose: Not Given Levofloxacin/Dextrose 750 mg/ (Premix) 150 mls @ 100 mls/hr IV Q24H [facility] Last Admin: 01/18/19 01:00 Dose: Not Given Levofloxacin/Dextrose (Levaquin In D5w 750 Mg/150 Ml) Confirm Administered Dose 150 mls @ as directed IV .STK-MED ONE Stop: 01/16/19 13:44 Last Admin: 01/16/19 20:55 Dose: Not Given Iopamidol (Isovue-300 (61%)) 100 ml IV ASDIRECTED [facility] Stop: 01/17/19 23:59 Lorazepam (Ativan) Confirm Administered Dose 2 mg .ROUTE .STK-MED ONE Stop: 01/14/19 23:25 Last Admin: 01/14/19 23:46 Dose: Not Given Lorazepam (Ativan) 0.5 mg IVPUSH Q4H PRN PRN Reason: Anxiety Last Admin: 01/15/19 21:30 Dose: 0.5 mg Methylprednisolone Sodium Succinate (Solu-Medrol) 125 mg IVPUSH Q12H [facility] Last Admin: 01/16/19 10:28 Dose: 125 mg Ondansetron HCl (Zofran) 4 mg IVPUSH Q4H [facility] Last Admin: 01/16/19 04:06 Dose: Not Given Sodium Chloride (Normal Saline) 50 ml FLUSH ONETIME ONE Stop: 01/17/19 11:45 Last Admin: 01/17/19 14:25 Dose: 50 ml - Exam Quality Assessment: Supplemental Oxygen General: Alert, Oriented, Cooperative HEENT: Pupils Equal, Pupils Reactive, EOMI Neck: Supple Lungs: Decreased Breath Sounds, Wheezing GI/Abdominal Exam: Normal Bowel Sounds, Soft, Non-Tender Extremities: Normal Inspection Peripheral Pulses: 2+: Dorsalis Pedis (L), Dorsalis Pedis (R) Skin: Warm, Dry, Intact Neurological: No New Focal Deficit - Problem List & Annotations (1) Respiratory failure SNOMED Code(s): 759020904 Code(s): J96.90 - RESPIRATORY FAILURE, UNSP, UNSP W HYPOXIA OR HYPERCAPNIA Status: Acute Priority: High Current Visit: Yes Qualifiers: Chronicity: acute on chronic (2) COPD exacerbation SNOMED Code(s): 103811292, 381484389 Code(s): J44.1 - CHRONIC OBSTRUCTIVE PULMONARY DISEASE W (ACUTE) EXACERBATION Status: Acute Priority: High Current Visit: Yes (3) Shortness of breath at rest SNOMED Code(s): 672431023 Code(s): R06.02 - SHORTNESS OF BREATH Status: Acute Priority: High Current Visit: Yes Onset Date: 01/22/16 (4) Weakness SNOMED Code(s): 17696190 Code(s): R53.1 - WEAKNESS Status: Acute Priority: High Current Visit: Yes (5) Mass of lung SNOMED Code(s): 409534128 Code(s): R91.8 - OTHER NONSPECIFIC ABNORMAL FINDING OF LUNG FIELD Status: Chronic Priority: High Current Visit: Yes Annotation/Comment:: Patient refuses further workup or referral to pulmonology. (6) Tachycardia SNOMED Code(s): 6766242 Code(s): R00.0 - TACHYCARDIA, UNSPECIFIED Status: Chronic Priority: High Current Visit: Yes Onset Date: 01/22/16 (7) Palliative care patient SNOMED Code(s): 195959419 Code(s): Z51.5 - ENCOUNTER FOR PALLIATIVE CARE Status: Acute Current Visit: Yes (8) Elevated WBC count SNOMED Code(s): 179128760, 101447954 Code(s): D72.829 - ELEVATED WHITE BLOOD CELL COUNT, UNSPECIFIED Status: Acute Current Visit: Yes (9) Fever SNOMED Code(s): 748204931 Code(s): R50.9 - FEVER, UNSPECIFIED Status: Acute Current Visit: Yes (10) SIRS (systemic inflammatory response syndrome) SNOMED Code(s): 108029207 Code(s): R65.10 - SIRS OF NON-INFECTIOUS ORIGIN W/O ACUTE ORGAN DYSFUNCTION Status: Acute Current Visit: Yes (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 SNOMED Code(s): 096188133 Code(s): Z86.19 - PERSONAL HISTORY OF OTHER INFECTIOUS AND PARASITIC DISEASES Status: Suspected Priority: High Current Visit: Yes (12) Mass of right lung SNOMED Code(s): 713879363 Code(s): R91.8 - OTHER NONSPECIFIC ABNORMAL FINDING OF LUNG FIELD Status: Acute Current Visit: Yes - Problem List Review Problem List Initiated/Reviewed/Updated: Yes - My Orders Last 24 Hours: My Active Orders 01/19/19 05:11 CBC WITH AUTO DIFF [HEME] AM 01/20/19 05:11 CBC WITH AUTO DIFF [HEME] AM - Plan Plan:: Patient will be admitted for respiratory failure and management of COPD exacerbation. He is palliative care status due to the lung mass as well. Patient to be started on solumedrol 125mg q12 and duoneb q2prn but prefer at q4. He is on 2-3 L at home all the time. We will continue at that rate once his oxygen saturation stabilizes. He did respond to albuterol nebs and supportive care. We will order PT/OT for his extreme weakness. He is unable to move without feeling very weak and very short of breath. There are multiple factors regarding his weakness which makes this patient complicated. He has an elevated WBC. His last prednisone use was 2 weeks ago per patient. Recheck labs in AM. We will start IVF and antibiotics for his elevated WBC and COPD exacerbation/ SIRS. 01/15/19 Patient will continue current medications and breathing treatments. Patient is stable and we will continue solumedrol at 125 q12. Pending PT/OT on Wednesday for ambulation and strength. He will be a difficult case as he cannot even move out of bed himself. We have discussed his code status and we will agree to try everything but if he will not recover or have a quality of life then he does not want any further CPR or interventions. 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 Due to current SIRS and possible reinfection we will start Levofloxacin and Meropenum for coverage and repeat labs in am. Patient counseled on antibiotics and agrees with plan of care. He refuses to go anywhere else and would rather go comfort cares here in [place]. He is currently full code but refuses intubation. Solumedrol decreased to daily. 01/17/19 Patient WBC improve slightly. 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 Patient understands that cancer is the most likely diagnosis but refuses any transfer or other treatment at this time. He would like to stay at this facility or at home only. There are no other options the patient would agree to. We will continue course of antibiotics and f/u labs in am. 01/18/19 Patient has consistent improvement of his WBC. He remains very short of breath and is adjusted between 2-3 L - we will try to maintain his oxygen at 2 L. Repeat labs in am and f/u wbc. Will repeat lactic acid and venous pH. Continue current nebs as scheduled. We will adjust solumedrol to BID but lower doses from 125 to 80. F/u in AM for improvements/changes. Patient remains complicated with his lung mass, superimposed lung infection with likely resistant Acinetobacter, severe COPD, severe body deconditioning and dependent oxygen from respiratory failure.
[2019-01-18] MEDS ORDERED: Furosemide 20 MG/2 ML VIAL IVPUSH ONE (13:39)
[2019-01-18] MEDS ORDERED: Furosemide 40 MG/4 ML VIAL ONE (13:43)
[2019-01-18] MEDS: Levofloxacin/Dextrose 5%-Water 750 MG in Premix Bag 1 BAG IV SCH (17:12)
[2019-01-18] MEDS: Simvastatin 40 MG Tab PO SCH (19:19)
[2019-01-18] MEDS ORDERED: methylPREDNISolone Sodium Succinate 125 MG/2 ML SDV IVPUSH SCH (20:00)
[2019-01-18] MEDS: Methocarbamol 500 MG Tab PO PRN (21:06)
[2019-01-19] MEDS: LORazepam 0.5 MG Tab PO PRN ×2 (00:49→22:00)
[2019-01-19] MEDS: Albuterol/Ipratropium 3.0-0.5 MG/3 ML Neb Soln NEB PRN ×6 (00:51→19:17)
[2019-01-19] MEDS: Sodium Chloride 0.9% 10 ML Syringe FLUSH PRN ×2 (05:45→19:19)
[2019-01-19] MEDS: Meropenem 1 GM in Sodium Chloride 0.9% 100 ML IV SCH ×3 (05:48→21:44)
[2019-01-19] MEDS: Levothyroxine 88 MCG Tab PO SCH (06:13)
[2019-01-19] MEDS: Lisinopril 10 MG Tab PO SCH (08:38)
[2019-01-19] MEDS: methylPREDNISolone Sodium Succinate 40 MG/1 ML SDV IV SCH ×2 (08:39→19:31)
--- NOTE | 2019-01-19 10:50 | CR ---
Date of Service: 01/19/19 Clinical Data: lung mass with superimposed infection AP PORTABLE CHEST: Comparison is made to a prior exam dated 01/14/19. 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 The extensive infiltrate and consolidation within the adjacent right upper lobe has improved. The exam is otherwise unchanged. No new abnormalities. [id number] [facility]
--- NOTE | 2019-01-19 13:41 | PCM.PN ---
- General Info Date of Service: 01/19/19 Subjective Update: Patient is slightly improved. He continues to require assistance with transfers but able to do more himself daily. He still feels short of breath and congested. He continues to cough and feel that there is phlegm present that can' t be expectorated. He denies any fever or chills. Denies any chest pain. - Review of Systems General: Reports: Weakness HEENT: Reports: No Symptoms Pulmonary: Reports: Shortness of Breath, Wheezing Cardiovascular: Reports: No Symptoms Gastrointestinal: Reports: No Symptoms Genitourinary: Reports: No Symptoms Musculoskeletal: Reports: Back Pain, Joint Pain Skin: Reports: No Symptoms Neurological: Reports: Weakness Psychiatric: Reports: No Symptoms - Patient Data Vitals - Most Recent: Last Vital Signs Temp 36.4 C 01/19/19 08:00 Pulse 117 H 01/19/19 08:00 Resp 18 01/19/19 04:00 BP 119/68 01/19/19 08:38 Pulse Ox 93 L 01/19/19 08:00 Weight - Most Recent: 209.8 kg I&O - Last 24 Hours: Intake & Output 01/18/19 01/19/19 01/19/19 22:59 06:59 14:59 Intake Total 1650 880 Output Total 2100 1900 Balance -450 -1020 Lab Results Last 24 Hours: Laboratory Results - last 24 hr 01/19/19 01/19/19 Range/Units 07:45 07:45 WBC 15.5 H (4.0-11.0) K/uL RBC 4.17 L (4.50-6.50) M/uL Hgb 11.2 L (13.0-18.0) g/dL Hct 36.9 L (40.0-54.0) % MCV 89 (76-96) fL MCH 26.9 L (27.0-32.0) pg MCHC 30.4 L (31.0-35.0) g/dL RDW 16.2 H (11.0-16.0) % Plt Count 540 H (150-400) K/uL MPV 8.5 (6.0-10.0) fL Neut % (Auto) 86.8 H (45.0-70.0) % Lymph % (Auto) 7.0 L (20.0-40.0) % [place] % (Auto) 6.0 (3.0-10.0) % Eos % (Auto) 0.1 L (1.0-5.0) % Baso % (Auto) 0.1 (0.0-0.5) % Neut # (Auto) 13.47 H (2.00-7.50) K/uL Lymph # (Auto) 1.08 L (1.50-4.00) K/uL [place] # (Auto) 0.93 H (0.20-0.80) K/uL Eos # (Auto) 0.01 L (0.04-0.40) K/uL Baso # (Auto) 0.02 (0.02-0.10) K/uL Sodium 140 (136-145) mmol/L Potassium 5.0 (3.5-5.1) mmol/L Chloride 98 (98-107) mmol/L Carbon Dioxide 39.8 H (21.0-32.0) mmol/L Anion Gap 7.2 (5.0-15.0) mmol/L BUN 17 (8-26) mg/dL Creatinine 0.85 (0.70-1.30) mg/dL Est Cr Clr Drug Dosing 71.53 mL/min Estimated GFR (MDRD) > 60 (>60) MLS/MIN BUN/Creatinine Ratio 20.0 (6-25) Glucose 203 H D (74-100) mg/dL Calcium 8.6 (8.5-10.1) mg/dL Elijah Results Last 24 Hours: Microbiology 01/16/19 12:10 Aerobic Blood Culture - Preliminary Blood NO GROWTH AFTER 3 DAYS Anaerobic Blood Culture - Preliminary NO GROWTH AFTER 3 DAYS 01/16/19 11:30 Gram Stain - Final Sputum - Expectorated Sputum Culture - Final Acinetobacter Lwoffii Group Med Orders - Current: Current Medications Albuterol/Ipratropium (Duoneb 3.0-0.5 Mg/3 Ml) 3 ml NEB Q2H PRN PRN Reason: Shortness of Breath Last Admin: 01/19/19 09:28 Dose: 3 ml Meropenem 1 gm/ Sodium (Chloride) 100 mls @ 33 mls/hr IV Q8H [facility] Last Admin: 01/19/19 05:48 Dose: 33 mls/hr Levofloxacin/Dextrose 750 mg/ (Premix) 150 mls @ 100 mls/hr IV Q24H [facility] Last Admin: 01/18/19 17:12 Dose: 100 mls/hr Levothyroxine Sodium (Synthroid) 88 mcg PO 0700 [facility] Last Admin: 01/19/19 06:13 Dose: 88 mcg Lisinopril (Prinivil) 10 mg PO DAILY [facility] Last Admin: 01/19/19 08:38 Dose: 10 mg Lorazepam (Ativan) 0.5 mg PO Q4H PRN PRN Reason: Anxiety Last Admin: 01/19/19 00:49 Dose: 0.5 mg Methocarbamol (Robaxin) 500 mg PO TID PRN PRN Reason: Spasms Last Admin: 01/18/19 21:06 Dose: 500 mg Methylprednisolone Sodium Succinate (Solu-Medrol) 80 mg IV BID [facility] Stop: 01/23/19 08:01 Last Admin: 01/19/19 08:39 Dose: 80 mg Ondansetron HCl (Zofran) 4 mg IVPUSH Q4H PRN PRN Reason: Nausea Simvastatin (Zocor) 40 mg PO BEDTIME [facility] Last Admin: 01/18/19 19:19 Dose: 40 mg Sodium Chloride (Saline Flush) 10 ml FLUSH ASDIRECTED PRN PRN Reason: Keep Vein Open Last Admin: 01/19/19 05:45 Dose: 10 ml Discontinued Medications Albuterol (Proventil Neb Soln) 2.5 mg NEB ONETIME ONE Stop: 01/14/19 21:16 Last Admin: 01/14/19 21:23 Dose: 2.5 mg Albuterol (Proventil Neb Soln) 2.5 mg .ROUTE .STK-MED ONE Stop: 01/14/19 21:21 Furosemide (Lasix) 20 mg IVPUSH ONETIME ONE Stop: 01/18/19 13:40 Last Admin: 01/18/19 14:00 Dose: 20 mg Furosemide (Lasix) Confirm Administered Dose 40 mg .ROUTE .STK-MED ONE Stop: 01/18/19 13:44 Last Admin: 01/18/19 13:55 Dose: Not Given Sodium Chloride (Normal Saline) 1,000 mls @ 150 mls/hr IV ASDIRECTED [facility] Last Admin: 01/15/19 07:12 Dose: 150 mls/hr Ceftriaxone Sodium 1 gm/ (Sodium Chloride) 50 mls @ 200 mls/hr IV Q24H [facility] Last Admin: 01/16/19 00:24 Dose: 200 mls/hr Azithromycin 500 mg/ Sodium (Chloride) 250 mls @ 250 mls/hr IV Q24H [facility] Last Admin: 01/15/19 23:13 Dose: 250 mls/hr Azithromycin 500 mg/ Sodium (Chloride) 250 mls @ 250 mls/hr IV Q24H [facility] Last Admin: 01/18/19 01:00 Dose: Not Given Ceftriaxone Sodium 1 gm/ (Sodium Chloride) 50 mls @ 200 mls/hr IV Q24H [facility] Last Admin: 01/18/19 01:00 Dose: Not Given Levofloxacin/Dextrose 750 mg/ (Premix) 150 mls @ 100 mls/hr IV Q24H [facility] Last Admin: 01/18/19 01:00 Dose: Not Given Levofloxacin/Dextrose (Levaquin In D5w 750 Mg/150 Ml) Confirm Administered Dose 150 mls @ as directed IV .STK-MED [facility] Stop: 01/16/19 13:44 Last Admin: 01/16/19 20:55 Dose: Not Given Iopamidol (Isovue-300 (61%)) 100 ml IV ASDIRECTED [facility] Stop: 01/17/19 23:59 Levothyroxine Sodium (Synthroid) 88 mcg PO DAILY [facility] Last Admin: 01/18/19 07:50 Dose: 88 mcg Lorazepam (Ativan) Confirm Administered Dose 2 mg .ROUTE .STK-MED ONE Stop: 01/14/19 23:25 Last Admin: 01/14/19 23:46 Dose: Not Given Lorazepam (Ativan) 0.5 mg IVPUSH Q4H PRN PRN Reason: Anxiety Last Admin: 01/15/19 21:30 Dose: 0.5 mg Methylprednisolone Sodium Succinate (Solu-Medrol) 125 mg IVPUSH Q12H [facility] Last Admin: 01/16/19 10:28 Dose: 125 mg Methylprednisolone Sodium Succinate (Solu-Medrol) 125 mg IVPUSH DAILY [facility] Last Admin: 01/18/19 07:56 Dose: 125 mg Methylprednisolone Sodium Succinate (Solu-Medrol) 80 mg IVPUSH BID [facility] Stop: 01/23/19 08:01 Last Admin: 01/18/19 19:26 Dose: 80 mg Ondansetron HCl (Zofran) 4 mg IVPUSH Q4H [facility] Last Admin: 01/16/19 04:06 Dose: Not Given Sodium Chloride (Normal Saline) 50 ml FLUSH ONETIME ONE Stop: 01/17/19 11:45 Last Admin: 01/17/19 14:25 Dose: 50 ml - Exam Quality Assessment: Supplemental Oxygen General: Alert, Oriented, Cooperative HEENT: Pupils Equal, Pupils Reactive, EOMI Neck: Supple Lungs: Decreased Breath Sounds, Wheezing Cardiovascular: Regular Rhythm, Tachycardia GI/Abdominal Exam: Normal Bowel Sounds, Soft, Non-Tender Back Exam: Paraspinal Tenderness, Vertebral Tenderness Extremities: Normal Inspection Peripheral Pulses: 2+: Dorsalis Pedis (L), Dorsalis Pedis (R) Skin: Warm, Dry, Intact Neurological: No New Focal Deficit Psy/Mental Status: Alert, Normal Affect, Normal Mood - Problem List & Annotations (1) Respiratory failure SNOMED Code(s): 101094171 Code(s): J96.90 - RESPIRATORY FAILURE, UNSP, UNSP W HYPOXIA OR HYPERCAPNIA Status: Acute Priority: High Current Visit: Yes Qualifiers: Chronicity: acute on chronic (2) COPD exacerbation SNOMED Code(s): 453388476, 733580838 Code(s): J44.1 - CHRONIC OBSTRUCTIVE PULMONARY DISEASE W (ACUTE) EXACERBATION Status: Acute Priority: High Current Visit: Yes (3) Shortness of breath at rest SNOMED Code(s): 212551558 Code(s): R06.02 - SHORTNESS OF BREATH Status: Acute Priority: High Current Visit: Yes Onset Date: 01/22/16 (4) Weakness SNOMED Code(s): 54180842 Code(s): R53.1 - WEAKNESS Status: Acute Priority: High Current Visit: Yes (5) Mass of lung SNOMED Code(s): 526488555 Code(s): R91.8 - OTHER NONSPECIFIC ABNORMAL FINDING OF LUNG FIELD Status: Chronic Priority: High Current Visit: Yes Annotation/Comment:: Patient refuses further workup or referral to pulmonology. (6) Tachycardia SNOMED Code(s): 1601815 Code(s): R00.0 - TACHYCARDIA, UNSPECIFIED Status: Chronic Priority: High Current Visit: Yes Onset Date: 01/22/16 (7) Palliative care patient SNOMED Code(s): 447603476 Code(s): Z51.5 - ENCOUNTER FOR PALLIATIVE CARE Status: Acute Current Visit: Yes (8) Elevated WBC count SNOMED Code(s): 628769319, 918866527 Code(s): D72.829 - ELEVATED WHITE BLOOD CELL COUNT, UNSPECIFIED Status: Acute Current Visit: Yes (9) Fever SNOMED Code(s): 905067031 Code(s): R50.9 - FEVER, UNSPECIFIED Status: Acute Current Visit: Yes (10) SIRS (systemic inflammatory response syndrome) SNOMED Code(s): 832318017 Code(s): R65.10 - SIRS OF NON-INFECTIOUS ORIGIN W/O ACUTE ORGAN DYSFUNCTION Status: Acute Current Visit: Yes (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 SNOMED Code(s): 766435738 Code(s): Z86.19 - PERSONAL HISTORY OF OTHER INFECTIOUS AND PARASITIC DISEASES Status: Suspected Priority: High Current Visit: Yes (12) Mass of right lung SNOMED Code(s): 730280255 Code(s): R91.8 - OTHER NONSPECIFIC ABNORMAL FINDING OF LUNG FIELD Status: Acute Current Visit: Yes - Problem List Review Problem List Initiated/Reviewed/Updated: Yes - My Orders Last 24 Hours: My Active Orders 01/19/19 07:00 Levothyroxine [Synthroid] 88 mcg PO 0700 01/19/19 08:00 methylPREDNISolone Sod Succ [Solu-MEDROL] 80 mg IV BID 01/20/19 05:11 CBC WITH AUTO DIFF [HEME] AM - Plan Plan:: Patient will be admitted for respiratory failure and management of COPD exacerbation. He is palliative care status due to the lung mass as well. Patient to be started on solumedrol 125mg q12 and duoneb q2prn but prefer at q4. He is on 2-3 L at home all the time. We will continue at that rate once his oxygen saturation stabilizes. He did respond to albuterol nebs and supportive care. We will order PT/OT for his extreme weakness. He is unable to move without feeling very weak and very short of breath. There are multiple factors regarding his weakness which makes this patient complicated. He has an elevated WBC. His last prednisone use was 2 weeks ago per patient. Recheck labs in AM. We will start IVF and antibiotics for his elevated WBC and COPD exacerbation/ SIRS. 01/15/19 Patient will continue current medications and breathing treatments. Patient is stable and we will continue solumedrol at 125 q12. Pending PT/OT on Wednesday for ambulation and strength. He will be a difficult case as he cannot even move out of bed himself. We have discussed his code status and we will agree to try everything but if he will not recover or have a quality of life then he does not want any further CPR or interventions. 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 Due to current SIRS and possible reinfection we will start Levofloxacin and Meropenum for coverage and repeat labs in am. Patient counseled on antibiotics and agrees with plan of care. He refuses to go anywhere else and would rather go comfort cares here in [place]. He is currently full code but refuses intubation. Solumedrol decreased to daily. 01/17/19 Patient WBC improve slightly. 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 Patient understands that cancer is the most likely diagnosis but refuses any transfer or other treatment at this time. He would like to stay at this facility or at home only. There are no other options the patient would agree to. We will continue course of antibiotics and f/u labs in am. 01/18/19 Patient has consistent improvement of his WBC. He remains very short of breath and is adjusted between 2-3 L - we will try to maintain his oxygen at 2 L. Repeat labs in am and f/u wbc. Will repeat lactic acid and venous pH. Continue current nebs as scheduled. We will adjust solumedrol to BID but lower doses from 125 to 80. F/u in AM for improvements/changes. Patient remains complicated with his lung mass, superimposed lung infection with likely resistant Acinetobacter, severe COPD, severe body deconditioning and dependent oxygen from respiratory failure. 01/19/19 Patient has a slightly improve WBC. We have lowered his oxygen to baseline at 2L at home. He continues to be very short of breath and congested with wheezing which is abnormal for him being all the time but we are able to taper to 2L which is an improvement. Patient will likely require IV antibiotics for multiple weeks due to concerns of a resistant bacterial abscess/infection of the right lung that is superimposed on his lung mass. Patient stable but continues to be very complicated and fragile. We will continue to monitor his vitals and symptoms closely.F/u labs in am. Start guaifenesin for chest sputum build up.
[2019-01-19] MEDS ORDERED: Furosemide 40 MG/4 ML VIAL IVPUSH ONE (15:47)
[2019-01-19] MEDS ORDERED: Levofloxacin/Dextrose 5%-Water 150 ML IV ONE (17:36)
[2019-01-19] MEDS: Levofloxacin/Dextrose 5%-Water 750 MG in Premix Bag 1 BAG IV SCH (18:30)
[2019-01-19] MEDS: guaiFENesin 600 MG Tab.ER PO SCH (19:16)
[2019-01-19] MEDS: Simvastatin 40 MG Tab PO SCH (19:16)
[2019-01-20] MEDS: Albuterol/Ipratropium 3.0-0.5 MG/3 ML Neb Soln NEB PRN ×5 (01:56→20:27)
[2019-01-20] MEDS: Meropenem 1 GM in Sodium Chloride 0.9% 100 ML IV SCH ×5 (06:03→22:33)
[2019-01-20] MEDS: Pantoprazole 40 MG Tab.CR PO SCH (06:07)
[2019-01-20] MEDS: Levothyroxine 88 MCG Tab PO SCH (06:08)
[2019-01-20] MEDS: methylPREDNISolone Sodium Succinate 40 MG/1 ML SDV IV SCH ×2 (07:43→19:45)
[2019-01-20] MEDS: guaiFENesin 600 MG Tab.ER PO SCH ×2 (07:44→19:46)
[2019-01-20] MEDS: Lisinopril 10 MG Tab PO SCH (07:44)
--- NOTE | 2019-01-20 15:04 | PCM.PN ---
- General Info Date of Service: 01/20/19 Subjective Update: Patient has improvement of breathing likely due to increasing Solumedrol again. He states he feels that he is breathing better and working with Physical therapy has improved his strength a little. He continues to have severe short of breath but is down to his 2L oxygen all the time. He continues to cough but denies any sputum production at this time. Functional Status: Reports: Pain Controlled, Tolerating Diet - Review of Systems General: Reports: Weakness HEENT: Reports: No Symptoms Pulmonary: Reports: Shortness of Breath Cardiovascular: Reports: No Symptoms Gastrointestinal: Reports: No Symptoms Genitourinary: Reports: No Symptoms Musculoskeletal: Reports: Back Pain Skin: Reports: No Symptoms Neurological: Reports: Weakness Psychiatric: Reports: No Symptoms - Patient Data Vitals - Most Recent: Last Vital Signs Temp 36.8 C 01/20/19 11:39 Pulse 113 H 01/20/19 11:39 Resp 22 H 01/20/19 11:39 BP 108/55 L 01/20/19 11:39 Pulse Ox 96 01/20/19 11:39 Weight - Most Recent: 93.44 kg I&O - Last 24 Hours: Intake & Output 01/19/19 01/20/19 01/20/19 22:59 06:59 14:59 Intake Total 1000 580 Output Total 2700 1250 Balance -1700 -670 Lab Results Last 24 Hours: Laboratory Results - last 24 hr 01/20/19 Range/Units 07:15 WBC 19.0 H D (4.0-11.0) K/uL RBC 4.51 (4.50-6.50) M/uL Hgb 12.0 L (13.0-18.0) g/dL Hct 39.3 L (40.0-54.0) % MCV 87 (76-96) fL MCH 26.6 L (27.0-32.0) pg MCHC 30.5 L (31.0-35.0) g/dL RDW 16.3 H (11.0-16.0) % Plt Count 601 H* (150-400) K/uL MPV 8.6 (6.0-10.0) fL Neut % (Auto) 85.4 H (45.0-70.0) % Lymph % (Auto) 8.7 L (20.0-40.0) % [place] % (Auto) 5.7 (3.0-10.0) % Eos % (Auto) 0.1 L (1.0-5.0) % Baso % (Auto) 0.1 (0.0-0.5) % Neut # (Auto) 16.26 H (2.00-7.50) K/uL Lymph # (Auto) 1.66 (1.50-4.00) K/uL [place] # (Auto) 1.09 H (0.20-0.80) K/uL Eos # (Auto) 0.01 L (0.04-0.40) K/uL Baso # (Auto) 0.02 (0.02-0.10) K/uL [place] Results Last 24 Hours: Microbiology 01/16/19 12:10 Aerobic Blood Culture - Preliminary Blood NO GROWTH AFTER 4 DAYS Anaerobic Blood Culture - Preliminary NO GROWTH AFTER 4 DAYS 01/16/19 11:30 Gram Stain - Final Sputum - Expectorated Sputum Culture - Final Acinetobacter Lwoffii Group Med Orders - Current: Current Medications Albuterol/Ipratropium (Duoneb 3.0-0.5 Mg/3 Ml) 3 ml NEB Q2H PRN PRN Reason: Shortness of Breath Last Admin: 01/20/19 11:15 Dose: 3 ml Guaifenesin (Mucinex) 600 mg PO BID [facility] Last Admin: 01/20/19 07:44 Dose: 600 mg Levofloxacin/Dextrose 750 mg/ (Premix) 150 mls @ 100 mls/hr IV Q24H [facility] Last Admin: 01/19/19 18:30 Dose: 100 mls/hr Meropenem 1 gm/ Sodium (Chloride) 100 mls @ 33 mls/hr IV DAILY@0600,1400,2200 [facility] Last Admin: 01/20/19 13:59 Dose: 33 mls/hr Levothyroxine Sodium (Synthroid) 88 mcg PO 0700 [facility] Last Admin: 01/20/19 06:08 Dose: 88 mcg Lisinopril (Prinivil) 10 mg PO DAILY [facility] Last Admin: 01/20/19 07:44 Dose: 10 mg Lorazepam (Ativan) 0.5 mg PO Q4H PRN PRN Reason: Anxiety Last Admin: 01/19/19 22:00 Dose: 0.5 mg Methocarbamol (Robaxin) 500 mg PO TID PRN PRN Reason: Spasms Last Admin: 01/18/19 21:06 Dose: 500 mg Methylprednisolone Sodium Succinate (Solu-Medrol) 80 mg IV BID [facility] Stop: 01/23/19 08:01 Last Admin: 01/20/19 07:43 Dose: 80 mg Ondansetron HCl (Zofran) 4 mg IVPUSH Q4H PRN PRN Reason: Nausea Pantoprazole Sodium (Protonix) 40 mg PO ACBREAKFAST [facility] Last Admin: 01/20/19 06:07 Dose: 40 mg Simvastatin (Zocor) 40 mg PO BEDTIME [facility] Last Admin: 01/19/19 19:16 Dose: 40 mg Sodium Chloride (Saline Flush) 10 ml FLUSH ASDIRECTED PRN PRN Reason: Keep Vein Open Last Admin: 01/19/19 19:19 Dose: 10 ml Discontinued Medications Albuterol (Proventil Neb Soln) 2.5 mg NEB ONETIME ONE Stop: 01/14/19 21:16 Last Admin: 01/14/19 21:23 Dose: 2.5 mg Albuterol (Proventil Neb Soln) 2.5 mg .ROUTE .STK-MED ONE Stop: 01/14/19 21:21 Furosemide (Lasix) 20 mg IVPUSH ONETIME ONE Stop: 01/18/19 13:40 Last Admin: 01/18/19 14:00 Dose: 20 mg Furosemide (Lasix) Confirm Administered Dose 40 mg .ROUTE .STK-MED ONE Stop: 01/18/19 13:44 Last Admin: 01/18/19 13:55 Dose: Not Given Furosemide (Lasix) 20 mg IVPUSH NOW ONE Stop: 01/19/19 15:48 Last Admin: 01/19/19 16:12 Dose: 20 mg Sodium Chloride (Normal Saline) 1,000 mls @ 150 mls/hr IV ASDIRECTED [facility] Last Admin: 01/15/19 07:12 Dose: 150 mls/hr Ceftriaxone Sodium 1 gm/ (Sodium Chloride) 50 mls @ 200 mls/hr IV Q24H [facility] Last Admin: 01/16/19 00:24 Dose: 200 mls/hr Azithromycin 500 mg/ Sodium (Chloride) 250 mls @ 250 mls/hr IV Q24H [facility] Last Admin: 01/15/19 23:13 Dose: 250 mls/hr Azithromycin 500 mg/ Sodium (Chloride) 250 mls @ 250 mls/hr IV Q24H [facility] Last Admin: 01/18/19 01:00 Dose: Not Given Ceftriaxone Sodium 1 gm/ (Sodium Chloride) 50 mls @ 200 mls/hr IV Q24H [facility] Last Admin: 01/18/19 01:00 Dose: Not Given Levofloxacin/Dextrose 750 mg/ (Premix) 150 mls @ 100 mls/hr IV Q24H [facility] Last Admin: 01/18/19 01:00 Dose: Not Given Meropenem 1 gm/ Sodium (Chloride) 100 mls @ 33 mls/hr IV Q8H [facility] Last Admin: 01/20/19 06:03 Dose: 33.3 mls/hr Levofloxacin/Dextrose (Levaquin In D5w 750 Mg/150 Ml) Confirm Administered Dose 150 mls @ as directed IV .STK-MED ONE Stop: 01/16/19 13:44 Last Admin: 01/16/19 20:55 Dose: Not Given Levofloxacin/Dextrose (Levaquin In D5w 750 Mg/150 Ml) Confirm Administered Dose 150 mls @ as directed IV .STK-MED ONE Stop: 01/19/19 17:37 Last Admin: 01/19/19 17:42 Dose: 100 mls/hr Meropenem 1 gm/ Sodium (Chloride) 100 mls @ 33 mls/hr IV Q8H [facility] Last Admin: 01/20/19 14:09 Dose: Not Given Iopamidol (Isovue-300 (61%)) 100 ml IV ASDIRECTED [facility] Stop: 01/17/19 23:59 Levothyroxine Sodium (Synthroid) 88 mcg PO DAILY [facility] Last Admin: 01/18/19 07:50 Dose: 88 mcg Lorazepam (Ativan) Confirm Administered Dose 2 mg .ROUTE .STK-MED ONE Stop: 01/14/19 23:25 Last Admin: 01/14/19 23:46 Dose: Not Given Lorazepam (Ativan) 0.5 mg IVPUSH Q4H PRN PRN Reason: Anxiety Last Admin: 01/15/19 21:30 Dose: 0.5 mg Methylprednisolone Sodium Succinate (Solu-Medrol) 125 mg IVPUSH Q12H [facility] Last Admin: 01/16/19 10:28 Dose: 125 mg Methylprednisolone Sodium Succinate (Solu-Medrol) 125 mg IVPUSH DAILY [facility] Last Admin: 01/18/19 07:56 Dose: 125 mg Methylprednisolone Sodium Succinate (Solu-Medrol) 80 mg IVPUSH BID [facility] Stop: 01/23/19 08:01 Last Admin: 01/18/19 19:26 Dose: 80 mg Ondansetron HCl (Zofran) 4 mg IVPUSH Q4H [facility] Last Admin: 01/16/19 04:06 Dose: Not Given Sodium Chloride (Normal Saline) 50 ml FLUSH ONETIME ONE Stop: 01/17/19 11:45 Last Admin: 01/17/19 14:25 Dose: 50 ml - Exam Quality Assessment: Supplemental Oxygen General: Alert, Oriented, Cooperative HEENT: Pupils Equal, Pupils Reactive, EOMI, Mucous Membr. Moist/[place] Neck: Supple Lungs: Decreased Breath Sounds, Wheezing Cardiovascular: Regular Rhythm, Tachycardia GI/Abdominal Exam: Normal Bowel Sounds, Soft, Non-Tender Back Exam: Normal Inspection Extremities: Normal Inspection Peripheral Pulses: 2+: Dorsalis Pedis (L), Dorsalis Pedis (R) Skin: Warm, Dry, Intact Neurological: No New Focal Deficit Psy/Mental Status: Alert, Normal Affect, Normal Mood - Problem List & Annotations (1) Respiratory failure SNOMED Code(s): 877543580 Code(s): J96.90 - RESPIRATORY FAILURE, UNSP, UNSP W HYPOXIA OR HYPERCAPNIA Status: Acute Priority: High Current Visit: Yes Qualifiers: Chronicity: acute on chronic (2) COPD exacerbation SNOMED Code(s): 978501723, 214597295 Code(s): J44.1 - CHRONIC OBSTRUCTIVE PULMONARY DISEASE W (ACUTE) EXACERBATION Status: Acute Priority: High Current Visit: Yes (3) Shortness of breath at rest SNOMED Code(s): 362809766 Code(s): R06.02 - SHORTNESS OF BREATH Status: Acute Priority: High Current Visit: Yes Onset Date: 01/22/16 (4) Weakness SNOMED Code(s): 24166939 Code(s): R53.1 - WEAKNESS Status: Acute Priority: High Current Visit: Yes (5) Mass of lung SNOMED Code(s): 477086232 Code(s): R91.8 - OTHER NONSPECIFIC ABNORMAL FINDING OF LUNG FIELD Status: Chronic Priority: High Current Visit: Yes Annotation/Comment:: Patient refuses further workup or referral to pulmonology. (6) Tachycardia SNOMED Code(s): 5812477 Code(s): R00.0 - TACHYCARDIA, UNSPECIFIED Status: Chronic Priority: High Current Visit: Yes Onset Date: 01/22/16 (7) Palliative care patient SNOMED Code(s): 435667267 Code(s): Z51.5 - ENCOUNTER FOR PALLIATIVE CARE Status: Acute Current Visit: Yes (8) Elevated WBC count SNOMED Code(s): 912590659, 064049085 Code(s): D72.829 - ELEVATED WHITE BLOOD CELL COUNT, UNSPECIFIED Status: Acute Current Visit: Yes (9) Fever SNOMED Code(s): 411804337 Code(s): R50.9 - FEVER, UNSPECIFIED Status: Resolved Current Visit: Yes (10) SIRS (systemic inflammatory response syndrome) SNOMED Code(s): 415738078 Code(s): R65.10 - SIRS OF NON-INFECTIOUS ORIGIN W/O ACUTE ORGAN DYSFUNCTION Status: Acute Current Visit: Yes (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 SNOMED Code(s): 123499708 Code(s): Z86.19 - PERSONAL HISTORY OF OTHER INFECTIOUS AND PARASITIC DISEASES Status: Suspected Priority: High Current Visit: Yes (12) Mass of right lung SNOMED Code(s): 418119867 Code(s): R91.8 - OTHER NONSPECIFIC ABNORMAL FINDING OF LUNG FIELD Status: Acute Current Visit: Yes - Problem List Review Problem List Initiated/Reviewed/Updated: Yes - My Orders Last 24 Hours: My Active Orders 01/19/19 20:00 guaiFENesin [Mucinex] 600 mg PO BID 01/20/19 07:00 Pantoprazole [ProTONIX] 40 mg PO ACBREAKFAST 01/20/19 14:00 Meropenem [Merrem] 1 gm Sodium Chloride 0.9% [Normal Saline] 100 ml IV DAILY@ 0600,1400,2200 - Plan Plan:: Patient will be admitted for respiratory failure and management of COPD exacerbation. He is palliative care status due to the lung mass as well. Patient to be started on solumedrol 125mg q12 and duoneb q2prn but prefer at q4. He is on 2-3 L at home all the time. We will continue at that rate once his oxygen saturation stabilizes. He did respond to albuterol nebs and supportive care. We will order PT/OT for his extreme weakness. He is unable to move without feeling very weak and very short of breath. There are multiple factors regarding his weakness which makes this patient complicated. He has an elevated WBC. His last prednisone use was 2 weeks ago per patient. Recheck labs in AM. We will start IVF and antibiotics for his elevated WBC and COPD exacerbation/ SIRS. 01/15/19 Patient will continue current medications and breathing treatments. Patient is stable and we will continue solumedrol at 125 q12. Pending PT/OT on Wednesday for ambulation and strength. He will be a difficult case as he cannot even move out of bed himself. We have discussed his code status and we will agree to try everything but if he will not recover or have a quality of life then he does not want any further CPR or interventions. 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 Due to current SIRS and possible reinfection we will start Levofloxacin and Meropenum for coverage and repeat labs in am. Patient counseled on antibiotics and agrees with plan of care. He refuses to go anywhere else and would rather go comfort cares here in [place]. He is currently full code but refuses intubation. Solumedrol decreased to daily. 01/17/19 Patient WBC improve slightly. 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 Patient understands that cancer is the most likely diagnosis but refuses any transfer or other treatment at this time. He would like to stay at this facility or at home only. There are no other options the patient would agree to. We will continue course of antibiotics and f/u labs in am. 01/18/19 Patient has consistent improvement of his WBC. He remains very short of breath and is adjusted between 2-3 L - we will try to maintain his oxygen at 2 L. Repeat labs in am and f/u wbc. Will repeat lactic acid and venous pH. Continue current nebs as scheduled. We will adjust solumedrol to BID but lower doses from 125 to 80. F/u in AM for improvements/changes. Patient remains complicated with his lung mass, superimposed lung infection with likely resistant Acinetobacter, severe COPD, severe body deconditioning and dependent oxygen from respiratory failure. 01/19/19 Patient has a slightly improve WBC. We have lowered his oxygen to baseline at 2L at home. He continues to be very short of breath and congested with wheezing which is abnormal for him being all the time but we are able to taper to 2L which is an improvement. Patient will likely require IV antibiotics for multiple weeks due to concerns of a resistant bacterial abscess/infection of the right lung that is superimposed on his lung mass. Patient stable but continues to be very complicated and fragile. We will continue to monitor his vitals and symptoms closely.F/u labs in am. Start guaifenesin for chest sputum build up. 01/20/19 Patient's WBC elevated today. We will need to monitor for sensitivities of meropenum. If not sensitive we should switch to bactrim. Patient overall has improved greatly but still very short of breath and the concern of worsening infection is very high. He needs continued IV antibiotics and management daily. We can consider swing bed if he will continue to receive his antibiotics. Physical therapy and Occupational therapy are improving his ADL's and strength for ambulation gradually and he could benefit greatly if continued.
[2019-01-20] MEDS ORDERED: Levofloxacin/Dextrose 5%-Water 150 ML IV ONE (16:04)
[2019-01-20] MEDS: Levofloxacin/Dextrose 5%-Water 750 MG in Premix Bag 1 BAG IV SCH (17:13)
[2019-01-20] MEDS: Methocarbamol 500 MG Tab PO PRN (18:02)
[2019-01-20] MEDS: Simvastatin 40 MG Tab PO SCH (19:44)
[2019-01-20] MEDS: LORazepam 0.5 MG Tab PO PRN (22:45)
[2019-01-21] MEDS: Methocarbamol 500 MG Tab PO PRN ×2 (02:43→20:34)
[2019-01-21] MEDS: Pantoprazole 40 MG Tab.CR PO SCH (06:23)
[2019-01-21] MEDS: Levothyroxine 88 MCG Tab PO SCH (06:23)
[2019-01-21] MEDS: Meropenem 1 GM in Sodium Chloride 0.9% 100 ML IV SCH ×3 (06:24→22:19)
[2019-01-21] MEDS: Albuterol/Ipratropium 3.0-0.5 MG/3 ML Neb Soln NEB PRN ×4 (06:31→20:07)
[2019-01-21] MEDS: methylPREDNISolone Sodium Succinate 40 MG/1 ML SDV IV SCH ×2 (08:30→20:08)
[2019-01-21] MEDS: guaiFENesin 600 MG Tab.ER PO SCH ×2 (08:30→20:06)
[2019-01-21] MEDS: Lisinopril 10 MG Tab PO SCH (08:30)
--- NOTE | 2019-01-21 12:47 | PCM.PN ---
- General Info Date of Service: 01/21/19 Subjective Update: Pt claims he feels better today. HAs been coughing and gets very minimal sputum and sometimes there is streaks of blood in the sputum. No fever or chills. No concerns from patient. Functional Status: Reports: Pain Controlled, Tolerating Diet, Ambulating, Urinating - Review of Systems General: Denies: Fever, Weakness, Fatigue HEENT: Denies: Headaches, Sinus Congestion Pulmonary: Reports: Cough, Sputum, Hemoptysis. Denies: Shortness of Breath, Wheezing Cardiovascular: Denies: Chest Pain, Lightheadedness Gastrointestinal: Denies: Abdominal Pain, Melena, Nausea, Vomiting Genitourinary: Denies: Dysuria, Frequency Musculoskeletal: Denies: Joint Pain, Joint Swelling Skin: Denies: Bruising, Pruritis, Rash Neurological: Denies: Dizziness, Headache, Numbness Psychiatric: Denies: Confusion, Depression - Patient Data Vitals - Most Recent: Last Vital Signs Temp 97.3 F 01/21/19 08:00 Pulse 110 H 01/21/19 08:00 Resp 18 01/21/19 08:00 BP 119/69 01/21/19 08:30 Pulse Ox 95 01/21/19 08:00 Weight - Most Recent: 203 kg I&O - Last 24 Hours: Intake & Output 01/20/19 01/21/19 01/21/19 22:59 06:59 14:59 Intake Total 700 950 Output Total 1700 2000 Balance -1000 -1050 Elijah Results Last 24 Hours: Microbiology 01/16/19 12:10 Aerobic Blood Culture - Final Blood NO GROWTH AFTER 5 DAYS Anaerobic Blood Culture - Final NO GROWTH AFTER 5 DAYS Med Orders - Current: Current Medications Albuterol/Ipratropium (Duoneb 3.0-0.5 Mg/3 Ml) 3 ml NEB Q2H PRN PRN Reason: Shortness of Breath Last Admin: 01/21/19 10:54 Dose: 3 ml Guaifenesin (Mucinex) 600 mg PO BID [facility] Last Admin: 01/21/19 08:30 Dose: 600 mg Levofloxacin/Dextrose 750 mg/ (Premix) 150 mls @ 100 mls/hr IV Q24H [facility] Last Admin: 01/20/19 17:13 Dose: 100 mls/hr Meropenem 1 gm/ Sodium (Chloride) 100 mls @ 33 mls/hr IV DAILY@0600,1400,2200 [facility] Last Admin: 01/21/19 06:24 Dose: 33 mls/hr Levothyroxine Sodium (Synthroid) 88 mcg PO 0700 [facility] Last Admin: 01/21/19 06:23 Dose: 88 mcg Lisinopril (Prinivil) 10 mg PO DAILY [facility] Last Admin: 01/21/19 08:30 Dose: 10 mg Lorazepam (Ativan) 0.5 mg PO Q4H PRN PRN Reason: Anxiety Last Admin: 01/20/19 22:45 Dose: 0.5 mg Methocarbamol (Robaxin) 500 mg PO TID PRN PRN Reason: Spasms Last Admin: 01/21/19 02:43 Dose: 500 mg Methylprednisolone Sodium Succinate (Solu-Medrol) 80 mg IV BID [facility] Stop: 01/23/19 08:01 Last Admin: 01/21/19 08:30 Dose: 80 mg Ondansetron HCl (Zofran) 4 mg IVPUSH Q4H PRN PRN Reason: Nausea Pantoprazole Sodium (Protonix) 40 mg PO ACBREAKFAST [facility] Last Admin: 01/21/19 06:23 Dose: 40 mg Simvastatin (Zocor) 40 mg PO BEDTIME [facility] Last Admin: 01/20/19 19:44 Dose: 40 mg Sodium Chloride (Saline Flush) 10 ml FLUSH ASDIRECTED PRN PRN Reason: Keep Vein Open Last Admin: 01/19/19 19:19 Dose: 10 ml Discontinued Medications Albuterol (Proventil Neb Soln) 2.5 mg NEB ONETIME ONE Stop: 01/14/19 21:16 Last Admin: 01/14/19 21:23 Dose: 2.5 mg Albuterol (Proventil Neb Soln) 2.5 mg .ROUTE .STK-MED ONE Stop: 01/14/19 21:21 Furosemide (Lasix) 20 mg IVPUSH ONETIME ONE Stop: 01/18/19 13:40 Last Admin: 01/18/19 14:00 Dose: 20 mg Furosemide (Lasix) Confirm Administered Dose 40 mg .ROUTE .STK-MED ONE Stop: 01/18/19 13:44 Last Admin: 01/18/19 13:55 Dose: Not Given Furosemide (Lasix) 20 mg IVPUSH NOW ONE Stop: 01/19/19 15:48 Last Admin: 01/19/19 16:12 Dose: 20 mg Sodium Chloride (Normal Saline) 1,000 mls @ 150 mls/hr IV ASDIRECTED [facility] Last Admin: 01/15/19 07:12 Dose: 150 mls/hr Ceftriaxone Sodium 1 gm/ (Sodium Chloride) 50 mls @ 200 mls/hr IV Q24H [facility] Last Admin: 01/16/19 00:24 Dose: 200 mls/hr Azithromycin 500 mg/ Sodium (Chloride) 250 mls @ 250 mls/hr IV Q24H [facility] Last Admin: 01/15/19 23:13 Dose: 250 mls/hr Azithromycin 500 mg/ Sodium (Chloride) 250 mls @ 250 mls/hr IV Q24H [facility] Last Admin: 01/18/19 01:00 Dose: Not Given Ceftriaxone Sodium 1 gm/ (Sodium Chloride) 50 mls @ 200 mls/hr IV Q24H [facility] Last Admin: 01/18/19 01:00 Dose: Not Given Levofloxacin/Dextrose 750 mg/ (Premix) 150 mls @ 100 mls/hr IV Q24H [facility] Last Admin: 01/18/19 01:00 Dose: Not Given Meropenem 1 gm/ Sodium (Chloride) 100 mls @ 33 mls/hr IV Q8H [facility] Last Admin: 01/20/19 06:03 Dose: 33.3 mls/hr Levofloxacin/Dextrose (Levaquin In D5w 750 Mg/150 Ml) Confirm Administered Dose 150 mls @ as directed IV .STK-MED ONE Stop: 01/16/19 13:44 Last Admin: 01/16/19 20:55 Dose: Not Given Levofloxacin/Dextrose (Levaquin In D5w 750 Mg/150 Ml) Confirm Administered Dose 150 mls @ as directed IV .STK-MED ONE Stop: 01/19/19 17:37 Last Admin: 01/19/19 17:42 Dose: 100 mls/hr Meropenem 1 gm/ Sodium (Chloride) 100 mls @ 33 mls/hr IV Q8H [facility] Last Admin: 01/20/19 14:09 Dose: Not Given Levofloxacin/Dextrose (Levaquin In D5w 750 Mg/150 Ml) Confirm Administered Dose 150 mls @ as directed IV .STK-MED ONE Stop: 01/20/19 16:05 Last Admin: 01/20/19 18:18 Dose: Not Given Iopamidol (Isovue-300 (61%)) 100 ml IV ASDIRECTED [facility] Stop: 01/17/19 23:59 Levothyroxine Sodium (Synthroid) 88 mcg PO DAILY [facility] Last Admin: 01/18/19 07:50 Dose: 88 mcg Lorazepam (Ativan) Confirm Administered Dose 2 mg .ROUTE .STK-MED ONE Stop: 01/14/19 23:25 Last Admin: 01/14/19 23:46 Dose: Not Given Lorazepam (Ativan) 0.5 mg IVPUSH Q4H PRN PRN Reason: Anxiety Last Admin: 01/15/19 21:30 Dose: 0.5 mg Methylprednisolone Sodium Succinate (Solu-Medrol) 125 mg IVPUSH Q12H [facility] Last Admin: 01/16/19 10:28 Dose: 125 mg Methylprednisolone Sodium Succinate (Solu-Medrol) 125 mg IVPUSH DAILY [facility] Last Admin: 01/18/19 07:56 Dose: 125 mg Methylprednisolone Sodium Succinate (Solu-Medrol) 80 mg IVPUSH BID [facility] Stop: 01/23/19 08:01 Last Admin: 01/18/19 19:26 Dose: 80 mg Ondansetron HCl (Zofran) 4 mg IVPUSH Q4H [facility] Last Admin: 01/16/19 04:06 Dose: Not Given Sodium Chloride (Normal Saline) 50 ml FLUSH ONETIME ONE Stop: 01/17/19 11:45 Last Admin: 01/17/19 14:25 Dose: 50 ml - Exam Quality Assessment: Urine Catheter (miramontes in place) General: Alert, Oriented HEENT: Pupils Equal, Pupils Reactive, EOMI, Mucous Membr. Moist/[place] Neck: Supple Lungs: Decreased Breath Sounds (b/l , few scatterred rales heard) Cardiovascular: Regular Rate, Regular Rhythm GI/Abdominal Exam: Normal Bowel Sounds, Soft, Non-Tender, No Organomegaly, No Distention, No Abnormal Bruit, No Mass, Pelvis Stable Extremities: Normal Inspection, Normal Range of Motion, Non-Tender, No Pedal Edema, Normal Capillary Refill Skin: Warm, Intact Neurological: No New Focal Deficit - Problem List & Annotations (1) COPD exacerbation SNOMED Code(s): 168038338, 414003929 Code(s): J44.1 - CHRONIC OBSTRUCTIVE PULMONARY DISEASE W (ACUTE) EXACERBATION Status: Chronic Priority: High Current Visit: No Onset Date : 01/22/16 (2) Mass of right lung SNOMED Code(s): 068131850 Code(s): R91.8 - OTHER NONSPECIFIC ABNORMAL FINDING OF LUNG FIELD Status: Acute Current Visit: Yes - Problem List Review Problem List Initiated/Reviewed/Updated: Yes - My Orders Last 24 Hours: My Active Orders 01/21/19 12:28 CBC WITH AUTO DIFF [HEME] Stat - Plan Plan:: Patient will be admitted for respiratory failure and management of COPD exacerbation. He is palliative care status due to the lung mass as well. Patient to be started on solumedrol 125mg q12 and duoneb q2prn but prefer at q4. He is on 2-3 L at home all the time. We will continue at that rate once his oxygen saturation stabilizes. He did respond to albuterol nebs and supportive care. We will order PT/OT for his extreme weakness. He is unable to move without feeling very weak and very short of breath. There are multiple factors regarding his weakness which makes this patient complicated. He has an elevated WBC. His last prednisone use was 2 weeks ago per patient. Recheck labs in AM. We will start IVF and antibiotics for his elevated WBC and COPD exacerbation/ SIRS. 01/15/19 Patient will continue current medications and breathing treatments. Patient is stable and we will continue solumedrol at 125 q12. Pending PT/OT on Wednesday for ambulation and strength. He will be a difficult case as he cannot even move out of bed himself. We have discussed his code status and we will agree to try everything but if he will not recover or have a quality of life then he does not want any further CPR or interventions. 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 Due to current SIRS and possible reinfection we will start Levofloxacin and Meropenum for coverage and repeat labs in am. Patient counseled on antibiotics and agrees with plan of care. He refuses to go anywhere else and would rather go comfort cares here in [place]. He is currently full code but refuses intubation. Solumedrol decreased to daily. 01/17/19 Patient WBC improve slightly. 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 Patient understands that cancer is the most likely diagnosis but refuses any transfer or other treatment at this time. He would like to stay at this facility or at home only. There are no other options the patient would agree to. We will continue course of antibiotics and f/u labs in am. 01/18/19 Patient has consistent improvement of his WBC. He remains very short of breath and is adjusted between 2-3 L - we will try to maintain his oxygen at 2 L. Repeat labs in am and f/u wbc. Will repeat lactic acid and venous pH. Continue current nebs as scheduled. We will adjust solumedrol to BID but lower doses from 125 to 80. F/u in AM for improvements/changes. Patient remains complicated with his lung mass, superimposed lung infection with likely resistant Acinetobacter, severe COPD, severe body deconditioning and dependent oxygen from respiratory failure. 01/19/19 Patient has a slightly improve WBC. We have lowered his oxygen to baseline at 2L at home. He continues to be very short of breath and congested with wheezing which is abnormal for him being all the time but we are able to taper to 2L which is an improvement. Patient will likely require IV antibiotics for multiple weeks due to concerns of a resistant bacterial abscess/infection of the right lung that is superimposed on his lung mass. Patient stable but continues to be very complicated and fragile. We will continue to monitor his vitals and symptoms closely.F/u labs in am. Start guaifenesin for chest sputum build up. 01/20/19 Patient's WBC elevated today. We will need to monitor for sensitivities of meropenum. If not sensitive we should switch to bactrim. Patient overall has improved greatly but still very short of breath and the concern of worsening infection is very high. He needs continued IV antibiotics and management daily. We can consider swing bed if he will continue to receive his antibiotics. Physical therapy and Occupational therapy are improving his ADL's and strength for ambulation gradually and he could benefit greatly if continued. 01/21/19 Pt claims he has been feeling better then yesterday. He is not short of breath. Feels more energetic. Tolerating diet well. His CBC has not been done today. I have ordered BC , will followup with the results. His elevated White count might be related to his Daily solumedrol induced inflammatory response. He is afebrile.Will keep him on present medication regime.Appears from discussing with nursing staff, pt has very minimal mobility and is not motivated to do much. I have talked to him. he does prefer to try Physical therapy.
[2019-01-21] MEDS ORDERED: Levofloxacin/Dextrose 5%-Water 150 ML IV ONE (16:47)
[2019-01-21] MEDS: Levofloxacin/Dextrose 5%-Water 750 MG in Premix Bag 1 BAG IV SCH (16:51)
[2019-01-21] MEDS: Simvastatin 40 MG Tab PO SCH (20:06)
[2019-01-21] MEDS: LORazepam 0.5 MG Tab PO PRN (22:18)
[2019-01-22] MEDS: Albuterol/Ipratropium 3.0-0.5 MG/3 ML Neb Soln NEB PRN ×6 (00:08→20:07)
[2019-01-22] MEDS: LORazepam 0.5 MG Tab PO PRN ×2 (02:40→22:11)
[2019-01-22] MEDS: Levothyroxine 88 MCG Tab PO SCH (06:06)
[2019-01-22] MEDS: Pantoprazole 40 MG Tab.CR PO SCH (06:06)
[2019-01-22] MEDS: Meropenem 1 GM in Sodium Chloride 0.9% 100 ML IV SCH ×3 (06:08→22:11)
[2019-01-22] MEDS: guaiFENesin 600 MG Tab.ER PO SCH ×2 (07:45→20:06)
[2019-01-22] MEDS: Lisinopril 10 MG Tab PO SCH (07:46)
[2019-01-22] MEDS: methylPREDNISolone Sodium Succinate 40 MG/1 ML SDV IV SCH (07:46)
--- NOTE | 2019-01-22 10:41 | PCM.PN ---
- General Info Date of Service: 01/22/19 Subjective Update: Pt claims he is feeling better today. He claims he has been coughing a lot and coughed all night yesterday. No bloody sputum. HE claims he get very little sputum. Good Appetite. HE is still on IV solumedrol BID. On IV meropenem and Levaquin. Functional Status: Reports: Pain Controlled, Tolerating Diet, Ambulating, Urinating, Incentive Spirometry - Review of Systems General: Reports: Weakness. Denies: Fever, Chills HEENT: Denies: Ear Pain, Headaches, Sore Throat Pulmonary: Reports: Cough, Sputum. Denies: Shortness of Breath, Hemoptysis Cardiovascular: Denies: Chest Pain, Lightheadedness Gastrointestinal: Denies: Abdominal Pain, Nausea, Vomiting Genitourinary: Denies: Burning, Urgency Musculoskeletal: Denies: Joint Pain, Joint Swelling Skin: Denies: Bruising, Pruritis, Rash Neurological: Reports: No Symptoms - Patient Data Vitals - Most Recent: Last Vital Signs Temp 98.3 F 01/22/19 08:01 Pulse 116 H 01/22/19 08:01 Resp 20 01/22/19 08:01 BP 116/89 01/22/19 08:01 Pulse Ox 95 01/22/19 08:01 Weight - Most Recent: 203.8 kg I&O - Last 24 Hours: Intake & Output 01/21/19 01/22/19 01/22/19 22:59 06:59 14:59 Intake Total 100 850 Output Total 500 1000 Balance -400 -150 Lab Results Last 24 Hours: Laboratory Results - last 24 hr 01/21/19 Range/Units 17:00 WBC 20.3 H* (4.0-11.0) K/uL RBC 4.56 (4.50-6.50) M/uL Hgb 12.3 L (13.0-18.0) g/dL Hct 39.8 L (40.0-54.0) % MCV 87 (76-96) fL MCH 27.0 (27.0-32.0) pg MCHC 30.9 L (31.0-35.0) g/dL RDW 16.1 H (11.0-16.0) % Plt Count 606 H* (150-400) K/uL MPV 8.6 (6.0-10.0) fL Neut % (Auto) 88.7 H (45.0-70.0) % Lymph % (Auto) 6.2 L (20.0-40.0) % [place] % (Auto) 5.1 (3.0-10.0) % Eos % (Auto) 0.0 L (1.0-5.0) % Baso % (Auto) 0.0 (0.0-0.5) % Neut # (Auto) 17.97 H (2.00-7.50) K/uL Lymph # (Auto) 1.25 L (1.50-4.00) K/uL [place] # (Auto) 1.04 H (0.20-0.80) K/uL Eos # (Auto) 0.01 L (0.04-0.40) K/uL Baso # (Auto) 0.01 L (0.02-0.10) K/uL [place] Results Last 24 Hours: Microbiology 01/16/19 12:10 Aerobic Blood Culture - Final Blood NO GROWTH AFTER 5 DAYS Anaerobic Blood Culture - Final NO GROWTH AFTER 5 DAYS Med Orders - Current: Current Medications Albuterol/Ipratropium (Duoneb 3.0-0.5 Mg/3 Ml) 3 ml NEB Q2H PRN PRN Reason: Shortness of Breath Last Admin: 01/22/19 09:37 Dose: 3 ml Guaifenesin (Mucinex) 600 mg PO BID [facility] Last Admin: 01/22/19 07:45 Dose: 600 mg Levofloxacin/Dextrose 750 mg/ (Premix) 150 mls @ 100 mls/hr IV Q24H [facility] Last Admin: 01/21/19 16:51 Dose: 100 mls/hr Meropenem 1 gm/ Sodium (Chloride) 100 mls @ 33 mls/hr IV DAILY@0600,1400,2200 [facility] Last Admin: 01/22/19 06:08 Dose: 33 mls/hr Levothyroxine Sodium (Synthroid) 88 mcg PO 0700 [facility] Last Admin: 01/22/19 06:06 Dose: 88 mcg Lisinopril (Prinivil) 10 mg PO DAILY [facility] Last Admin: 01/22/19 07:46 Dose: 10 mg Lorazepam (Ativan) 0.5 mg PO Q4H PRN PRN Reason: Anxiety Last Admin: 01/22/19 02:40 Dose: 0.5 mg Methocarbamol (Robaxin) 500 mg PO TID PRN PRN Reason: Spasms Last Admin: 01/21/19 20:34 Dose: 500 mg Methylprednisolone Sodium Succinate (Solu-Medrol) 80 mg IV BID [facility] Stop: 01/23/19 08:01 Last Admin: 01/22/19 07:46 Dose: 80 mg Ondansetron HCl (Zofran) 4 mg IVPUSH Q4H PRN PRN Reason: Nausea Pantoprazole Sodium (Protonix) 40 mg PO ACBREAKFAST [facility] Last Admin: 01/22/19 06:06 Dose: 40 mg Simvastatin (Zocor) 40 mg PO BEDTIME [facility] Last Admin: 01/21/19 20:06 Dose: 40 mg Sodium Chloride (Saline Flush) 10 ml FLUSH ASDIRECTED PRN PRN Reason: Keep Vein Open Last Admin: 01/19/19 19:19 Dose: 10 ml Discontinued Medications Albuterol (Proventil Neb Soln) 2.5 mg NEB ONETIME ONE Stop: 01/14/19 21:16 Last Admin: 01/14/19 21:23 Dose: 2.5 mg Albuterol (Proventil Neb Soln) 2.5 mg .ROUTE .STK-MED ONE Stop: 01/14/19 21:21 Furosemide (Lasix) 20 mg IVPUSH ONETIME ONE Stop: 01/18/19 13:40 Last Admin: 01/18/19 14:00 Dose: 20 mg Furosemide (Lasix) Confirm Administered Dose 40 mg .ROUTE .STK-MED ONE Stop: 01/18/19 13:44 Last Admin: 01/18/19 13:55 Dose: Not Given Furosemide (Lasix) 20 mg IVPUSH NOW ONE Stop: 01/19/19 15:48 Last Admin: 01/19/19 16:12 Dose: 20 mg Sodium Chloride (Normal Saline) 1,000 mls @ 150 mls/hr IV ASDIRECTED SAMMY Last Admin: 01/15/19 07:12 Dose: 150 mls/hr Ceftriaxone Sodium 1 gm/ (Sodium Chloride) 50 mls @ 200 mls/hr IV Q24H [facility] Last Admin: 01/16/19 00:24 Dose: 200 mls/hr Azithromycin 500 mg/ Sodium (Chloride) 250 mls @ 250 mls/hr IV Q24H [facility] Last Admin: 01/15/19 23:13 Dose: 250 mls/hr Azithromycin 500 mg/ Sodium (Chloride) 250 mls @ 250 mls/hr IV Q24H [facility] Last Admin: 01/18/19 01:00 Dose: Not Given Ceftriaxone Sodium 1 gm/ (Sodium Chloride) 50 mls @ 200 mls/hr IV Q24H [facility] Last Admin: 01/18/19 01:00 Dose: Not Given Levofloxacin/Dextrose 750 mg/ (Premix) 150 mls @ 100 mls/hr IV Q24H [facility] Last Admin: 01/18/19 01:00 Dose: Not Given Meropenem 1 gm/ Sodium (Chloride) 100 mls @ 33 mls/hr IV Q8H [facility] Last Admin: 01/20/19 06:03 Dose: 33.3 mls/hr Levofloxacin/Dextrose (Levaquin In D5w 750 Mg/150 Ml) Confirm Administered Dose 150 mls @ as directed IV .STK-MED ONE Stop: 01/16/19 13:44 Last Admin: 01/16/19 20:55 Dose: Not Given Levofloxacin/Dextrose (Levaquin In D5w 750 Mg/150 Ml) Confirm Administered Dose 150 mls @ as directed IV .STK-MED ONE Stop: 01/19/19 17:37 Last Admin: 01/19/19 17:42 Dose: 100 mls/hr Meropenem 1 gm/ Sodium (Chloride) 100 mls @ 33 mls/hr IV Q8H [facility] Last Admin: 01/20/19 14:09 Dose: Not Given Levofloxacin/Dextrose (Levaquin In D5w 750 Mg/150 Ml) Confirm Administered Dose 150 mls @ as directed IV .STK-MED ONE Stop: 01/20/19 16:05 Last Admin: 01/20/19 18:18 Dose: Not Given Levofloxacin/Dextrose (Levaquin In D5w 750 Mg/150 Ml) Confirm Administered Dose 150 mls @ as directed IV .STK-MED ONE Stop: 01/21/19 16:48 Last Admin: 01/21/19 16:52 Dose: Not Given Iopamidol (Isovue-300 (61%)) 100 ml IV ASDIRECTED [facility] Stop: 01/17/19 23:59 Levothyroxine Sodium (Synthroid) 88 mcg PO DAILY [facility] Last Admin: 01/18/19 07:50 Dose: 88 mcg Lorazepam (Ativan) Confirm Administered Dose 2 mg .ROUTE .STK-MED ONE Stop: 01/14/19 23:25 Last Admin: 01/14/19 23:46 Dose: Not Given Lorazepam (Ativan) 0.5 mg IVPUSH Q4H PRN PRN Reason: Anxiety Last Admin: 01/15/19 21:30 Dose: 0.5 mg Methylprednisolone Sodium Succinate (Solu-Medrol) 125 mg IVPUSH Q12H [facility] Last Admin: 01/16/19 10:28 Dose: 125 mg Methylprednisolone Sodium Succinate (Solu-Medrol) 125 mg IVPUSH DAILY [facility] Last Admin: 01/18/19 07:56 Dose: 125 mg Methylprednisolone Sodium Succinate (Solu-Medrol) 80 mg IVPUSH BID [facility] Stop: 01/23/19 08:01 Last Admin: 01/18/19 19:26 Dose: 80 mg Ondansetron HCl (Zofran) 4 mg IVPUSH Q4H [facility] Last Admin: 01/16/19 04:06 Dose: Not Given Sodium Chloride (Normal Saline) 50 ml FLUSH ONETIME ONE Stop: 01/17/19 11:45 Last Admin: 01/17/19 14:25 Dose: 50 ml - Exam General: Alert, Oriented HEENT: Pupils Equal, Pupils Reactive, EOMI, Mucous Membr. Moist/[place] Neck: Supple Lungs: Normal Respiratory Effort, Decreased Breath Sounds Cardiovascular: Regular Rate, Regular Rhythm GI/Abdominal Exam: Normal Bowel Sounds, Soft, Non-Tender, No Organomegaly, No Distention, No Abnormal Bruit, No Mass, Pelvis Stable - Problem List & Annotations (1) COPD exacerbation SNOMED Code(s): 146781394, 753276760 Code(s): J44.1 - CHRONIC OBSTRUCTIVE PULMONARY DISEASE W (ACUTE) EXACERBATION Status: Chronic Priority: High Current Visit: No Onset Date : 01/22/16 (2) Mass of right lung SNOMED Code(s): 388939511 Code(s): R91.8 - OTHER NONSPECIFIC ABNORMAL FINDING OF LUNG FIELD Status: Acute Current Visit: Yes - Problem List Review Problem List Initiated/Reviewed/Updated: Yes - My Orders Last 24 Hours: My Active Orders 01/22/19 10:30 CBC WITH AUTO DIFF [HEME] Routine - Plan Plan:: Patient will be admitted for respiratory failure and management of COPD exacerbation. He is palliative care status due to the lung mass as well. Patient to be started on solumedrol 125mg q12 and duoneb q2prn but prefer at q4. He is on 2-3 L at home all the time. We will continue at that rate once his oxygen saturation stabilizes. He did respond to albuterol nebs and supportive care. We will order PT/OT for his extreme weakness. He is unable to move without feeling very weak and very short of breath. There are multiple factors regarding his weakness which makes this patient complicated. He has an elevated WBC. His last prednisone use was 2 weeks ago per patient. Recheck labs in AM. We will start IVF and antibiotics for his elevated WBC and COPD exacerbation/ SIRS. 01/15/19 Patient will continue current medications and breathing treatments. Patient is stable and we will continue solumedrol at 125 q12. Pending PT/OT on Wednesday for ambulation and strength. He will be a difficult case as he cannot even move out of bed himself. We have discussed his code status and we will agree to try everything but if he will not recover or have a quality of life then he does not want any further CPR or interventions. 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 Due to current SIRS and possible reinfection we will start Levofloxacin and Meropenum for coverage and repeat labs in am. Patient counseled on antibiotics and agrees with plan of care. He refuses to go anywhere else and would rather go comfort cares here in [place]. He is currently full code but refuses intubation. Solumedrol decreased to daily. 01/17/19 Patient WBC improve slightly. 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 Patient understands that cancer is the most likely diagnosis but refuses any transfer or other treatment at this time. He would like to stay at this facility or at home only. There are no other options the patient would agree to. We will continue course of antibiotics and f/u labs in am. 01/18/19 Patient has consistent improvement of his WBC. He remains very short of breath and is adjusted between 2-3 L - we will try to maintain his oxygen at 2 L. Repeat labs in am and f/u wbc. Will repeat lactic acid and venous pH. Continue current nebs as scheduled. We will adjust solumedrol to BID but lower doses from 125 to 80. F/u in AM for improvements/changes. Patient remains complicated with his lung mass, superimposed lung infection with likely resistant Acinetobacter, severe COPD, severe body deconditioning and dependent oxygen from respiratory failure. 01/19/19 Patient has a slightly improve WBC. We have lowered his oxygen to baseline at 2L at home. He continues to be very short of breath and congested with wheezing which is abnormal for him being all the time but we are able to taper to 2L which is an improvement. Patient will likely require IV antibiotics for multiple weeks due to concerns of a resistant bacterial abscess/infection of the right lung that is superimposed on his lung mass. Patient stable but continues to be very complicated and fragile. We will continue to monitor his vitals and symptoms closely.F/u labs in am. Start guaifenesin for chest sputum build up. 01/20/19 Patient's WBC elevated today. We will need to monitor for sensitivities of meropenum. If not sensitive we should switch to bactrim. Patient overall has improved greatly but still very short of breath and the concern of worsening infection is very high. He needs continued IV antibiotics and management daily. We can consider swing bed if he will continue to receive his antibiotics. Physical therapy and Occupational therapy are improving his ADL's and strength for ambulation gradually and he could benefit greatly if continued. 01/21/19 Pt claims he has been feeling better then yesterday. He is not short of breath. Feels more energetic. Tolerating diet well. His CBC has not been done today. I have ordered BC , will followup with the results. His elevated White count might be related to his Daily solumedrol induced inflammatory response. He is afebrile.Will keep him on present medication regime.Appears from discussing with nursing staff, pt has very minimal mobility and is not motivated to do much. I have talked to him. he does prefer to try Physical therapy. 01/22/19 Pt has been on meropenem and levaquin since 01/16/19 for possible A Baumanii infection, but not confirmed with cultures. Today patient claims he feels better and has been coughing sputum. tolerating diet well. The cavitary lesion might have opened into the bronchus and draining in the form of cough( my assumption). His CBC show white count of 20K. Unchanged form yesterday. Pt is afebrile and doing well, no physical complaints form him He is on palliative care. I do not know if there is any reason to repeat Ct chest on him, as even if the tumour has increased in size or the pneumonia has increased in size, there might not be much option here other then keeping the patient comfortable, and presently patient is not in any discomfort. Will repeat CBC in Am. Also will start OT and PT to work with patient to get strength to do his ADls. I have discontinue IV soluemdrol and started patient on prednisone 40mg daily for his COPD.
[2019-01-22] MEDS ORDERED: predniSONE 20 MG Tab ONE (10:51)
[2019-01-22] MEDS: predniSONE 20 MG Tab PO SCH (10:55)
[2019-01-22] MEDS ORDERED: Levofloxacin/Dextrose 5%-Water 150 ML IV ONE (16:58)
[2019-01-22] MEDS: Levofloxacin/Dextrose 5%-Water 750 MG in Premix Bag 1 BAG IV SCH (17:01)
[2019-01-22] MEDS: Simvastatin 40 MG Tab PO SCH (20:06)
[2019-01-23] MEDS: Albuterol/Ipratropium 3.0-0.5 MG/3 ML Neb Soln NEB PRN ×6 (00:22→16:49)
[2019-01-23] MEDS: predniSONE 20 MG Tab PO SCH (06:25)
[2019-01-23] MEDS: Pantoprazole 40 MG Tab.CR PO SCH (06:25)
[2019-01-23] MEDS: Levothyroxine 88 MCG Tab PO SCH (06:25)
[2019-01-23] MEDS: Meropenem 1 GM in Sodium Chloride 0.9% 100 ML IV SCH ×2 (06:26→14:02)
[2019-01-23] MEDS: guaiFENesin 600 MG Tab.ER PO SCH (07:26)
[2019-01-23] MEDS: Lisinopril 10 MG Tab PO SCH (07:26)
[2019-01-23] MEDS ORDERED: Non-Formulary Medication 1 Each TOP PRN ×2 (14:19→14:21)
[2019-01-23 16:49] VITALS: BP 123/71
[2019-01-23] MEDS ORDERED: Levofloxacin/Dextrose 5%-Water 100 ML IV ONE (16:54)
--- NOTE | 2019-01-23 17:01 | PCM.DCSUM1 ---
Discharge Summary - Hospital Course Free Text/Narrative:: Pt is a 78 year old male with right lung mass, presented with acute respiratory distress. Pt was diagnosed with COPD exacerbation with post obstructive pneumonia. He was started on Solumedrol and duonebs and also as he has had previous Acinetobacter infection, started on meropenem and Levaquin IV. Pt has had elevated whit count on and off , but his breathing has improved. Over the past 2 days his breathing has improved and is not Short of breath, and also has been having increased cough and clearing up his airway. Pt's white count today is down form 20.6K to 16K. Pt is clinically improving. Pt is on palliative care as far as his lung mass is concerned. He is not interested in any further workup. His sputum culture does show Acinetobacter sensitive to Bactrim and Levaquin. His blood pressure has been slightly on the lower end, will hold of his lisinopril and see if he really need the medication, if his BP raises over 140/90mmhg, will restart the medications. Pt over the period of his hospital stay gone fatigue and tired. HE does need significant help with his general care and mobility. Unfortunately we do not have home health service or hospice in our community. Plan is to change patient to swing bed as there is nothing much to offer other than antibiotic therapy for his post obstructive pneumonia. Will have him on IV levaquin 500mg daily and bactrim DS 800mg BID. Will have OT and PT consult for strengthening and to see if he can get strong enough to do his ADLS with minimal help. Kindly use this as H&P for Swing bed admission. Diagnosis: Stroke: No - Discharge Data Discharge Date: 01/23/19 Discharge Disposition: Home, Self-Care 01 Condition: Fair - Discharge Diagnosis/Problem(s) (1) COPD exacerbation SNOMED Code(s): 883888113, 056223305 ICD Code: J44.1 - CHRONIC OBSTRUCTIVE PULMONARY DISEASE W (ACUTE) EXACERBATION Status: Chronic Priority: High Current Visit: No Onset Date : 01/22/16 (2) Mass of right lung SNOMED Code(s): 579616695 ICD Code: R91.8 - OTHER NONSPECIFIC ABNORMAL FINDING OF LUNG FIELD Status: Acute Current Visit: Yes - Patient Summary/Data Consults: Consultations 01/14/19 23:38 Consult to Occupational Therapy [OT Evaluation and Treatment] [CONS] Routine Please Evaluate and Treat. OT Reason for Consult: ADL's This query below is only for informational purposes and is not editable. Admission Diagnosis/Problem: Respiratory failure Consult to Physical Therapy [PT Evaluation and Treatment] [CONS] Routine Please Evaluate and Treat. PT Reason for Consult: Strengthening This query below is only for informational purposes and is not editable. Admission Diagnosis/Problem: Respiratory failure - Patient Instructions Diet: Regular Diet as Tolerated Fluid Restriction: 1500 mL Activity: As Tolerated Showering/Bathing: May Shower - Discharge Plan *PRESCRIPTION DRUG MONITORING PROGRAM REVIEWED*: Not Applicable *COPY OF PRESCRIPTION DRUG MONITORING REPORT IN PATIENT TRISTAN: Not Applicable Home Medications: Home Meds Simvastatin 40 mg PO DAILY 01/22/16 [History] Albuterol/Ipratropium [DuoNeb 3.0-0.5 MG/3 ML] 3 ml NEB Q4H PRN neb 05/24/18 [ Rx] Levothyroxine Sodium 88 mcg PO DAILY #90 tablet 05/24/18 [Rx] Albuterol/Ipratropium [Combivent Respimat] 1 puff INH BID 01/15/19 [History] Fluticasone/Salmeterol [Advair 500-50] 1 puff INH DAILY 01/15/19 [History] Tiotropium [Spiriva Handihaler] 1 puff INH DAILY 01/15/19 [History] Albuterol/Ipratropium [DuoNeb 3.0-0.5 MG/3 ML] 3 ml NEB Q2H PRN neb 01/23/19 [ Rx] Methocarbamol [Robaxin] 500 mg PO TID PRN tablet 01/23/19 [Rx] Ondansetron [Zofran] 4 mg IVPUSH Q4H PRN vial 01/23/19 [Rx] Pantoprazole [ProTONIX] 40 mg PO ACBREAKFAST tab.cr 01/23/19 [Rx] guaiFENesin [Mucinex] 600 mg PO BID tab.er 01/23/19 [Rx] predniSONE 40 mg PO WITHBREAKFAST tablet 01/23/19 [Rx] Oxygen Therapy Mode: Nasal Cannula Oxygen Flow Rate (L/min): 2 Forms: ED Department Discharge Referrals: PCP,None [Primary Care Provider] - - Discharge Summary/Plan Comment DC Time >30 min.: Yes - General Info Date of Service: 01/23/19 Subjective Update: Pt claims he feels better, has been coughing, breathing has improved. He does have good appetite. White count is down to 16K. No complaints form patient. Functional Status: Reports: Pain Controlled, Tolerating Diet, Ambulating, Urinating - Review of Systems General: Denies: Fever, Weakness HEENT: Denies: Sore Throat, Rhinitis Pulmonary: Reports: Cough, Sputum. Denies: Shortness of Breath, Hemoptysis Cardiovascular: Denies: Chest Pain, Lightheadedness Gastrointestinal: Denies: Abdominal Pain, Nausea, Vomiting Genitourinary: Denies: Dysuria, Frequency Musculoskeletal: Denies: Joint Pain, Joint Swelling Skin: Denies: Bruising, Pruritis, Rash - Patient Data Vitals - Most Recent: Last Vital Signs Temp 97.5 F 01/23/19 08:05 Pulse 117 H 01/23/19 16:00 Resp 22 H 01/23/19 08:05 BP 123/71 01/23/19 16:00 Pulse Ox 97 01/23/19 16:00 Weight - Most Recent: 92.986 kg I&O - Last 24 hours: Intake & Output 01/23/19 01/23/19 01/23/19 06:59 14:59 22:59 Intake Total 500 Output Total 1650 Balance -1150 Lab Results - Last 24 hrs: Laboratory Results - last 24 hr 01/23/19 Range/Units 07:15 WBC 16.8 H (4.0-11.0) K/uL RBC 4.45 L (4.50-6.50) M/uL Hgb 11.8 L (13.0-18.0) g/dL Hct 38.8 L (40.0-54.0) % MCV 87 (76-96) fL MCH 26.5 L (27.0-32.0) pg MCHC 30.4 L (31.0-35.0) g/dL RDW 16.2 H (11.0-16.0) % Plt Count 525 H (150-400) K/uL MPV 8.4 (6.0-10.0) fL Neut % (Auto) 78.8 H (45.0-70.0) % Lymph % (Auto) 13.4 L (20.0-40.0) % [place] % (Auto) 7.5 (3.0-10.0) % Eos % (Auto) 0.1 L (1.0-5.0) % Baso % (Auto) 0.2 (0.0-0.5) % Neut # (Auto) 13.28 H (2.00-7.50) K/uL Lymph # (Auto) 2.25 (1.50-4.00) K/uL [place] # (Auto) 1.27 H (0.20-0.80) K/uL Eos # (Auto) 0.01 L (0.04-0.40) K/uL Baso # (Auto) 0.03 (0.02-0.10) K/uL Med Orders - Current: Current Medications Albuterol/Ipratropium (Duoneb 3.0-0.5 Mg/3 Ml) 3 ml NEB Q2H PRN PRN Reason: Shortness of Breath Last Admin: 01/23/19 14:16 Dose: 3 ml Guaifenesin (Mucinex) 600 mg PO BID [facility] Last Admin: 01/23/19 07:26 Dose: 600 mg Levothyroxine Sodium (Synthroid) 88 mcg PO 0700 [facility] Last Admin: 01/23/19 06:25 Dose: 88 mcg Lisinopril (Prinivil) 10 mg PO DAILY [facility] Last Admin: 01/23/19 07:26 Dose: 10 mg Lorazepam (Ativan) 0.5 mg PO Q4H PRN PRN Reason: Anxiety Last Admin: 01/22/19 22:11 Dose: 0.5 mg Methocarbamol (Robaxin) 500 mg PO TID PRN PRN Reason: Spasms Last Admin: 01/21/19 20:34 Dose: 500 mg Non-Formulary Medication (Nf Drug) 1 each TOP QID PRN PRN Reason: pain Non-Formulary Medication (Nf Drug) 1 each TOP QID PRN PRN Reason: Pain Ondansetron HCl (Zofran) 4 mg IVPUSH Q4H PRN PRN Reason: Nausea Pantoprazole Sodium (Protonix) 40 mg PO ACBREAKFAST [facility] Last Admin: 01/23/19 06:25 Dose: 40 mg Prednisone (Prednisone) 40 mg PO WITHBREAKFAST [facility] Last Admin: 01/23/19 06:25 Dose: 40 mg Simvastatin (Zocor) 40 mg PO BEDTIME [facility] Last Admin: 01/22/19 20:06 Dose: 40 mg Sodium Chloride (Saline Flush) 10 ml FLUSH ASDIRECTED PRN PRN Reason: Keep Vein Open Last Admin: 01/19/19 19:19 Dose: 10 ml Discontinued Medications Albuterol (Proventil Neb Soln) 2.5 mg NEB ONETIME ONE Stop: 01/14/19 21:16 Last Admin: 01/14/19 21:23 Dose: 2.5 mg Albuterol (Proventil Neb Soln) 2.5 mg .ROUTE .STK-MED ONE Stop: 01/14/19 21:21 Furosemide (Lasix) 20 mg IVPUSH ONETIME ONE Stop: 01/18/19 13:40 Last Admin: 01/18/19 14:00 Dose: 20 mg Furosemide (Lasix) Confirm Administered Dose 40 mg .ROUTE .STK-MED ONE Stop: 01/18/19 13:44 Last Admin: 01/18/19 13:55 Dose: Not Given Furosemide (Lasix) 20 mg IVPUSH NOW ONE Stop: 01/19/19 15:48 Last Admin: 01/19/19 16:12 Dose: 20 mg Sodium Chloride (Normal Saline) 1,000 mls @ 150 mls/hr IV ASDIRECTED [facility] Last Admin: 01/15/19 07:12 Dose: 150 mls/hr Ceftriaxone Sodium 1 gm/ (Sodium Chloride) 50 mls @ 200 mls/hr IV Q24H [facility] Last Admin: 01/16/19 00:24 Dose: 200 mls/hr Azithromycin 500 mg/ Sodium (Chloride) 250 mls @ 250 mls/hr IV Q24H [facility] Last Admin: 01/15/19 23:13 Dose: 250 mls/hr Azithromycin 500 mg/ Sodium (Chloride) 250 mls @ 250 mls/hr IV Q24H [facility] Last Admin: 01/18/19 01:00 Dose: Not Given Ceftriaxone Sodium 1 gm/ (Sodium Chloride) 50 mls @ 200 mls/hr IV Q24H [facility] Last Admin: 01/18/19 01:00 Dose: Not Given Levofloxacin/Dextrose 750 mg/ (Premix) 150 mls @ 100 mls/hr IV Q24H [facility] Last Admin: 01/18/19 01:00 Dose: Not Given Meropenem 1 gm/ Sodium (Chloride) 100 mls @ 33 mls/hr IV Q8H [facility] Last Admin: 01/20/19 06:03 Dose: 33.3 mls/hr Levofloxacin/Dextrose (Levaquin In D5w 750 Mg/150 Ml) Confirm Administered Dose 150 mls @ as directed IV .STK-MED ONE Stop: 01/16/19 13:44 Last Admin: 01/16/19 20:55 Dose: Not Given Levofloxacin/Dextrose 750 mg/ (Premix) 150 mls @ 100 mls/hr IV Q24H [facility] Last Admin: 01/22/19 17:01 Dose: 100 mls/hr Levofloxacin/Dextrose (Levaquin In D5w 750 Mg/150 Ml) Confirm Administered Dose 150 mls @ as directed IV .STK-MED ONE Stop: 01/19/19 17:37 Last Admin: 01/19/19 17:42 Dose: 100 mls/hr Meropenem 1 gm/ Sodium (Chloride) 100 mls @ 33 mls/hr IV Q8H [facility] Last Admin: 01/20/19 14:09 Dose: Not Given Meropenem 1 gm/ Sodium (Chloride) 100 mls @ 33 mls/hr IV DAILY@0600,1400,2200 [facility] Last Admin: 01/23/19 14:02 Dose: Not Given Levofloxacin/Dextrose (Levaquin In D5w 750 Mg/150 Ml) Confirm Administered Dose 150 mls @ as directed IV .STK-MED ONE Stop: 01/20/19 16:05 Last Admin: 01/20/19 18:18 Dose: Not Given Levofloxacin/Dextrose (Levaquin In D5w 750 Mg/150 Ml) Confirm Administered Dose 150 mls @ as directed IV .STK-MED ONE Stop: 01/21/19 16:48 Last Admin: 01/21/19 16:52 Dose: Not Given Levofloxacin/Dextrose (Levaquin In D5w 750 Mg/150 Ml) Confirm Administered Dose 150 mls @ as directed IV .STK-MED ONE Stop: 01/22/19 16:59 Last Admin: 01/22/19 18:05 Dose: Not Given Iopamidol (Isovue-300 (61%)) 100 ml IV ASDIRECTED [facility] Stop: 01/17/19 23:59 Levothyroxine Sodium (Synthroid) 88 mcg PO DAILY [facility] Last Admin: 01/18/19 07:50 Dose: 88 mcg Lorazepam (Ativan) Confirm Administered Dose 2 mg .ROUTE .STK-MED ONE Stop: 01/14/19 23:25 Last Admin: 01/14/19 23:46 Dose: Not Given Lorazepam (Ativan) 0.5 mg IVPUSH Q4H PRN PRN Reason: Anxiety Last Admin: 01/15/19 21:30 Dose: 0.5 mg Methylprednisolone Sodium Succinate (Solu-Medrol) 125 mg IVPUSH Q12H [facility] Last Admin: 01/16/19 10:28 Dose: 125 mg Methylprednisolone Sodium Succinate (Solu-Medrol) 125 mg IVPUSH DAILY [facility] Last Admin: 01/18/19 07:56 Dose: 125 mg Methylprednisolone Sodium Succinate (Solu-Medrol) 80 mg IVPUSH BID [facility] Stop: 01/23/19 08:01 Last Admin: 01/18/19 19:26 Dose: 80 mg Methylprednisolone Sodium Succinate (Solu-Medrol) 80 mg IV BID [facility] Stop: 01/23/19 08:01 Last Admin: 01/22/19 07:46 Dose: 80 mg Ondansetron HCl (Zofran) 4 mg IVPUSH Q4H [facility] Last Admin: 01/16/19 04:06 Dose: Not Given Prednisone (Prednisone) Confirm Administered Dose 40 mg .ROUTE .STK-MED ONE Stop: 01/22/19 10:52 Last Admin: 01/22/19 11:01 Dose: Not Given Sodium Chloride (Normal Saline) 50 ml FLUSH ONETIME ONE Stop: 01/17/19 11:45 Last Admin: 01/17/19 14:25 Dose: 50 ml - Exam General: Reports: Alert, Oriented HEENT: Reports: Pupils Equal, Pupils Reactive, EOMI, Mucous Membr. Moist/[place] Neck: Reports: Supple Lungs: Reports: Decreased Breath Sounds (b/l , significant decrease in right upper lobe) Cardiovascular: Reports: Regular Rate, Regular Rhythm GI/Abdominal Exam: Normal Bowel Sounds, Soft, Non-Tender, No Organomegaly, No Distention, No Abnormal Bruit, No Mass, Pelvis Stable Back Exam: Reports: Normal Inspection, Full Range of Motion Skin: Reports: Warm, Intact
[2019-01-24] MEDS ORDERED: Sulfamethoxazole/Trimethoprim 800-160 MG Tab ONE (00:40)
== END 2019-01-23 16:30 | disposition swing bed (61) | DRG 189 ==
LOC: LB.ED 20:21 → LB.MS 21:49 → UNDOADMIN 22:10
PROVIDERS: ADMIT Family Medicine; ATTEND Family Medicine
DX: J96.20 Acute and chronic respiratory failure, unspecified whether with hypoxia or hypercapnia (principal); R65.11 Systemic inflammatory response syndrome (SIRS) of non-infectious origin with acute organ dysfunction; J18.8 Other pneumonia, unspecified organism; R06.02 Shortness of breath; J44.0 Chronic obstructive pulmonary disease with (acute) lower respiratory infection; J44.1 Chronic obstructive pulmonary disease with (acute) exacerbation; R04.2 Hemoptysis; C34.91 Malignant neoplasm of unspecified part of right bronchus or lung; C78.00 Secondary malignant neoplasm of unspecified lung; Z51.5 Encounter for palliative care; I10 Essential (primary) hypertension; Z87.01 Personal history of pneumonia (recurrent); E03.9 Hypothyroidism, unspecified; R91.8 Other nonspecific abnormal finding of lung field; R53.1 Weakness; R00.0 Tachycardia, unspecified; D72.829 Elevated white blood cell count, unspecified; Z86.19 Personal history of other infectious and parasitic diseases; Z99.81 Dependence on supplemental oxygen; H91.90 Unspecified hearing loss, unspecified ear; E78.00 Pure hypercholesterolemia, unspecified; M19.90 Unspecified osteoarthritis, unspecified site; M54.5 Low back pain; G89.29 Other chronic pain; F41.9 Anxiety disorder, unspecified
CPT/HCPCS: 36415; 71045; 80053; 82800; 85025; 93005; 99285; A0425; A0429; 51702; 71270; 72100; 80048; 87040; 87070; 87186; 87205; 97110-GO; 97110-GP; 97161-GP; 97165-GO; 97530-GO; 97530-GP; 97535-GO; A9270-GY; J0456; J0696; J1940; J1956; J2060; J2185; J2405; J2920; J2930; J7030; J7050; J7620-GY

== ENCOUNTER 2019-01-23 09:41 | Inpatient (IN) | payer MEDICARE ==
[2019-01-23] MEDS ORDERED: Tuberculin, PPD 5 Units/0.1 ML 1 ML MDV IDERM ONE (16:41)
[2019-01-23] MEDS ORDERED: Levofloxacin/Dextrose 5%-Water 500 MG in Premix Bag 1 BAG IV ONE (16:45)
[2019-01-23] MEDS: Albuterol/Ipratropium 3.0-0.5 MG/3 ML Neb Soln INH SCH (19:42)
[2019-01-23] MEDS: Simvastatin 40 MG Tab PO SCH (20:00)
[2019-01-23] MEDS: LORazepam 0.5 MG Tab PO PRN (22:00)
[2019-01-23] MEDS: Albuterol/Ipratropium 3.0-0.5 MG/3 ML Neb Soln NEB PRN (22:00)
[2019-01-23] MEDS: Sulfamethoxazole/Trimethoprim 800-160 MG Tab PO SCH (23:05)
[2019-01-24] MEDS: LORazepam 0.5 MG Tab PO PRN ×2 (02:35→22:12)
[2019-01-24] MEDS: Albuterol/Ipratropium 3.0-0.5 MG/3 ML Neb Soln NEB PRN ×4 (04:00→18:46)
[2019-01-24] MEDS: Levothyroxine 88 MCG Tab PO SCH (06:11)
[2019-01-24] MEDS ORDERED: predniSONE 20 MG Tab PO SCH (07:00)
[2019-01-24] MEDS: Formoterol/Mometasone 200-5 MCG 8.8 GM Inhaler IH SCH (07:56)
[2019-01-24] MEDS: Albuterol/Ipratropium 3.0-0.5 MG/3 ML Neb Soln INH SCH ×4 (07:56→20:15)
[2019-01-24] MEDS: Tiotropium Inhaler 18 MCG Inhalation Powder Cap Kit of 5 INH SCH (07:56)
[2019-01-24] MEDS: guaiFENesin 600 MG Tab.ER PO SCH ×2 (07:57→20:14)
[2019-01-24] MEDS: Sulfamethoxazole/Trimethoprim 800-160 MG Tab PO SCH ×2 (07:57→20:15)
[2019-01-24] MEDS ORDERED: Lisinopril 10 MG Tab PO SCH (08:00)
[2019-01-24] MEDS ORDERED: Pantoprazole 40 MG Tab.CR PO SCH (08:00)
[2019-01-24] MEDS ORDERED: [UNRECOGNIZED DRUG - OTHER] TOP PRN (08:00)
[2019-01-24] MEDS: BIOFREEZE TOPICAL TOP PRN ×2 (08:30→22:08)
[2019-01-24] MEDS: Levofloxacin/Dextrose 5%-Water 500 MG in Premix Bag 1 BAG IV SCH (16:52)
[2019-01-24] MEDS: Simvastatin 40 MG Tab PO SCH (20:15)
[2019-01-24] MEDS: Sodium Chloride 0.9% 10 ML Syringe FLUSH SCH (20:45)
[2019-01-25] MEDS: LORazepam 0.5 MG Tab PO PRN ×3 (02:57→22:24)
[2019-01-25] MEDS: Albuterol/Ipratropium 3.0-0.5 MG/3 ML Neb Soln NEB PRN ×3 (02:58→13:58)
[2019-01-25] MEDS: Pantoprazole 40 MG Tab.CR PO SCH (06:07)
[2019-01-25] MEDS: Levothyroxine 88 MCG Tab PO SCH (06:07)
[2019-01-25] MEDS: predniSONE 20 MG Tab PO SCH (07:22)
[2019-01-25] MEDS: Albuterol/Ipratropium 3.0-0.5 MG/3 ML Neb Soln INH SCH ×4 (07:22→19:26)
[2019-01-25] MEDS: Formoterol/Mometasone 200-5 MCG 8.8 GM Inhaler IH SCH (07:23)
[2019-01-25] MEDS: Sulfamethoxazole/Trimethoprim 800-160 MG Tab PO SCH ×2 (07:23→19:25)
[2019-01-25] MEDS: guaiFENesin 600 MG Tab.ER PO SCH ×2 (07:23→19:24)
[2019-01-25] MEDS: Tiotropium Inhaler 18 MCG Inhalation Powder Cap Kit of 5 INH SCH (07:23)
[2019-01-25] MEDS: Sodium Chloride 0.9% 10 ML Syringe FLUSH SCH ×2 (07:26→19:25)
[2019-01-25] MEDS ORDERED: Levofloxacin/Dextrose 5%-Water 100 ML IV ONE (16:52)
[2019-01-25] MEDS: Levofloxacin/Dextrose 5%-Water 500 MG in Premix Bag 1 BAG IV SCH (16:58)
[2019-01-25] MEDS: Simvastatin 40 MG Tab PO SCH (19:25)
[2019-01-26] MEDS: Albuterol/Ipratropium 3.0-0.5 MG/3 ML Neb Soln NEB PRN ×2 (02:45→06:13)
[2019-01-26] MEDS: Pantoprazole 40 MG Tab.CR PO SCH (06:13)
[2019-01-26] MEDS: Levothyroxine 88 MCG Tab PO SCH (06:13)
[2019-01-26] MEDS: Albuterol/Ipratropium 3.0-0.5 MG/3 ML Neb Soln INH SCH ×4 (07:50→20:27)
[2019-01-26] MEDS: Sodium Chloride 0.9% 10 ML Syringe FLUSH SCH ×2 (07:59→20:35)
[2019-01-26] MEDS: guaiFENesin 600 MG Tab.ER PO SCH ×2 (07:59→20:28)
[2019-01-26] MEDS: Formoterol/Mometasone 200-5 MCG 8.8 GM Inhaler IH SCH (07:59)
[2019-01-26] MEDS: predniSONE 20 MG Tab PO SCH (07:59)
[2019-01-26] MEDS: Sulfamethoxazole/Trimethoprim 800-160 MG Tab PO SCH ×2 (07:59→20:27)
[2019-01-26] MEDS: Tiotropium Inhaler 18 MCG Inhalation Powder Cap Kit of 5 INH SCH (08:00)
[2019-01-26] MEDS: Levofloxacin/Dextrose 5%-Water 500 MG in Premix Bag 1 BAG IV SCH (18:14)
[2019-01-26] MEDS: Simvastatin 40 MG Tab PO SCH (20:27)
[2019-01-26] MEDS: LORazepam 0.5 MG Tab PO PRN (23:50)
[2019-01-27] MEDS: Albuterol/Ipratropium 3.0-0.5 MG/3 ML Neb Soln INH SCH ×6 (02:15→20:41)
[2019-01-27] MEDS: Levothyroxine 88 MCG Tab PO SCH (06:38)
[2019-01-27] MEDS: Pantoprazole 40 MG Tab.CR PO SCH (06:38)
[2019-01-27] MEDS: Formoterol/Mometasone 200-5 MCG 8.8 GM Inhaler IH SCH (07:44)
[2019-01-27] MEDS: guaiFENesin 600 MG Tab.ER PO SCH ×2 (07:45→20:41)
[2019-01-27] MEDS: predniSONE 20 MG Tab PO SCH (07:45)
[2019-01-27] MEDS: Sodium Chloride 0.9% 10 ML Syringe FLUSH SCH ×2 (07:45→20:42)
[2019-01-27] MEDS: Tiotropium Inhaler 18 MCG Inhalation Powder Cap Kit of 5 INH SCH (07:45)
[2019-01-27] MEDS: Sulfamethoxazole/Trimethoprim 800-160 MG Tab PO SCH ×2 (07:45→20:41)
[2019-01-27] MEDS: Albuterol/Ipratropium 3.0-0.5 MG/3 ML Neb Soln NEB PRN (09:17)
[2019-01-27] MEDS: BIOFREEZE TOPICAL TOP PRN (11:30)
--- NOTE | 2019-01-27 11:52 | PCM.PN ---
- General Info Date of Service: 01/27/19 Subjective Update: Pt claims he feels fine. He does have mild cough which has been persistent. No fever or chills. No loss of appetite. He does get short of breath with exertion. Can walk about 15-20 feet with walker. No chest pain, of chest discomfort. Functional Status: Reports: Pain Controlled, Tolerating Diet, Ambulating, Urinating - Review of Systems General: Denies: Fever, Weakness, Appetite HEENT: Denies: Headaches, Sore Throat Pulmonary: Reports: Shortness of Breath, Cough, Sputum. Denies: Hemoptysis, Wheezing Cardiovascular: Denies: Chest Pain, Lightheadedness Gastrointestinal: Denies: Abdominal Pain, Diarrhea, Nausea, Vomiting Genitourinary: Denies: Dysuria, Frequency Musculoskeletal: Denies: Joint Pain, Joint Swelling Skin: Denies: Bruising, Pruritis, Rash Neurological: Denies: Confusion, Dizziness, Headache, Numbness, Tingling - Patient Data Vitals - Most Recent: Last Vital Signs Temp 98.3 F 01/27/19 08:00 Pulse 106 H 01/27/19 08:00 Resp 24 H 01/27/19 08:00 BP 115/68 01/27/19 08:00 Pulse Ox 94 L 01/27/19 08:00 Weight - Most Recent: 92.986 kg Lab Results Last 24 Hours: Laboratory Results - last 24 hr 01/27/19 Range/Units 07:20 WBC 16.6 H (4.0-11.0) K/uL RBC 4.17 L (4.50-6.50) M/uL Hgb 11.0 L (13.0-18.0) g/dL Hct 35.6 L (40.0-54.0) % MCV 85 (76-96) fL MCH 26.4 L (27.0-32.0) pg MCHC 30.9 L (31.0-35.0) g/dL RDW 16.2 H (11.0-16.0) % Plt Count 332 D (150-400) K/uL MPV 9.3 (6.0-10.0) fL Neut % (Auto) 77.0 H (45.0-70.0) % Lymph % (Auto) 14.3 L (20.0-40.0) % [place] % (Auto) 8.3 (3.0-10.0) % Eos % (Auto) 0.2 L (1.0-5.0) % Baso % (Auto) 0.2 (0.0-0.5) % Neut # (Auto) 12.74 H (2.00-7.50) K/uL Lymph # (Auto) 2.36 (1.50-4.00) K/uL [place] # (Auto) 1.37 H (0.20-0.80) K/uL Eos # (Auto) 0.04 (0.04-0.40) K/uL Baso # (Auto) 0.04 (0.02-0.10) K/uL Med Orders - Current: Current Medications Albuterol/Ipratropium (Duoneb 3.0-0.5 Mg/3 Ml) 3 ml INH QID [facility] Last Admin: 01/27/19 08:19 Dose: Not Given Albuterol/Ipratropium (Duoneb 3.0-0.5 Mg/3 Ml) 3 ml NEB Q4H PRN PRN Reason: Shortness of Breath Last Admin: 01/27/19 09:17 Dose: 3 ml Guaifenesin (Mucinex) 600 mg PO BID [facility] Last Admin: 01/27/19 07:45 Dose: 600 mg Levofloxacin/Dextrose 500 mg/ (Premix) 100 mls @ 100 mls/hr IV Q24H [facility] Stop: 01/30/19 18:00 Last Admin: 01/26/19 18:14 Dose: 100 mls/hr Levothyroxine Sodium (Synthroid) 88 mcg PO ACBREAKFAST [facility] Last Admin: 01/27/19 06:38 Dose: 88 mcg Lisinopril (Prinivil) 10 mg PO DAILY [facility] Last Admin: 01/24/19 08:30 Dose: Not Given Lorazepam (Ativan) 0.5 mg PO Q4H PRN PRN Reason: Anxiety Last Admin: 01/26/19 23:50 Dose: 0.5 mg Mometasone Furoate/Formoterol Fumar (Dulera 200-5 Mcg) 1 puff IH DAILY [facility] Last Admin: 01/27/19 07:44 Dose: 1 puff Biofreeze Topical 1 each TOP QID PRN PRN Reason: BACK PAIN Last Admin: 01/24/19 22:08 Dose: 1 each [place] 1 each TOP QID PRN PRN Reason: KNEE PAIN Pantoprazole Sodium (Protonix) 40 mg PO DAILY@0700 [facility] Last Admin: 01/27/19 06:38 Dose: 40 mg Prednisone (Prednisone) 40 mg PO DAILY [facility] Last Admin: 01/27/19 07:45 Dose: 40 mg Simvastatin (Zocor) 40 mg PO BEDTIME [facility] Last Admin: 01/26/19 20:27 Dose: 40 mg Sodium Chloride (Saline Flush) 10 ml FLUSH BID [facility] Last Admin: 01/27/19 07:45 Dose: 10 ml Tiotropium [place] (Spiriva Handihaler) 18 mcg INH DAILY [facility] Last Admin: 01/27/19 07:45 Dose: 18 mcg Trimethoprim/Sulfamethoxazole (Septra Ds) 1 tab PO BID [facility] Last Admin: 01/27/19 07:45 Dose: 1 tab Discontinued Medications Levofloxacin/Dextrose 500 mg/ (Premix) 100 mls @ 100 mls/hr IV ONETIME ONE Stop: 01/23/19 17:44 Last Admin: 01/23/19 17:30 Dose: 100 mls/hr Levofloxacin/Dextrose (Levaquin In D5w 500 Mg/100 Ml) Confirm Administered Dose 100 mls @ as directed IV .STK-MED ONE Stop: 01/25/19 16:53 Last Admin: 01/25/19 17:04 Dose: Not Given Pantoprazole Sodium (Protonix) 40 mg PO DAILY [facility] Last Admin: 01/24/19 08:31 Dose: 40 mg Prednisone (Prednisone) 40 mg PO WITHBREAKFAST [facility] Last Admin: 01/24/19 08:31 Dose: 40 mg Tuberculin PPD (Aplisol) 5 unit IDERM ONETIME ONE Stop: 01/23/19 16:42 Last Admin: 01/24/19 18:02 Dose: 5 unit - Exam General: Alert, Oriented, Cooperative HEENT: Pupils Equal, Pupils Reactive, EOMI, Mucous Membr. Moist/[place] Neck: Supple Lungs: Decreased Breath Sounds (B/l , more so in the right infraclavicular region) Cardiovascular: Regular Rhythm, Tachycardia GI/Abdominal Exam: Normal Bowel Sounds, Soft, Non-Tender, No Distention Extremities: Normal Inspection, Normal Range of Motion, Non-Tender, No Pedal Edema, Normal Capillary Refill Peripheral Pulses: 2+: Radial (L), Radial (R), Femoral (L), Femoral (R) Skin: Warm, Intact - Problem List & Annotations (1) Pneumonia SNOMED Code(s): 811885942 Code(s): J18.9 - PNEUMONIA, UNSPECIFIED ORGANISM Status: Acute Current Visit: Yes (2) COPD (chronic obstructive pulmonary disease) SNOMED Code(s): 31089929 Code(s): J44.9 - CHRONIC OBSTRUCTIVE PULMONARY DISEASE, UNSPECIFIED Status : Acute Current Visit: No - Problem List Review Problem List Initiated/Reviewed/Updated: Yes - Assessment Assessment:: 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 He was started on meropenem and Levaquin for Acinetobacter infection initially , which he has had for 7 days , once the culture results were available, antibiotic was changed to Bactrim DS PO bid and IV Levaquin on 01/24/19. Pt 's white count was 16K on Wednesday and has remained the same today. Clinically there is no deterioration in patient condition over the past 3 days. His CBC today is 16 K. His stable elevated white count is related to his high dose prednisone therapy for his COPD. I have contacted ID specialist, Dr Hunter, And the ID pharmacist was consulted to check on the length of therapy. Dr. Hunter recommendation if total of 2 wks of antibiotics, should be good enough to treat Acinetobacter infection. He does agree with elevated white count is probably steroid induced leucocytosis, and not form infection as clinically patient's condition has not deteriorated. Coming to his mobility. Patient claims that he could only walk 25 feet at a time at home using his crutches. He uses crutches because he gets better support of his body with crutches then walker as he has truncal obesity. Presently he can walk 15-20 feet according to patient. Which is close to his baseline. Therapy does want to try crutches before sending patient home. I do agree with therapy, to make sure that there is no risk of fall and he has enough mobility to ADLs in the house, once discharged. Also patient does understand that his lung or pulmonary symptoms are only going to get worse as the lung mass disease process progresses in future. He might be a candidate for home health set up.
[2019-01-27] MEDS: Levofloxacin/Dextrose 5%-Water 500 MG in Premix Bag 1 BAG IV SCH (16:46)
[2019-01-27] MEDS: Simvastatin 40 MG Tab PO SCH (20:41)
[2019-01-27] MEDS: LORazepam 0.5 MG Tab PO PRN (22:37)
[2019-01-28] MEDS: Albuterol/Ipratropium 3.0-0.5 MG/3 ML Neb Soln INH SCH ×5 (04:44→20:15)
[2019-01-28] MEDS: Albuterol/Ipratropium 3.0-0.5 MG/3 ML Neb Soln NEB PRN (04:45)
[2019-01-28] MEDS: Levothyroxine 88 MCG Tab PO SCH (06:58)
[2019-01-28] MEDS: Pantoprazole 40 MG Tab.CR PO SCH (06:59)
[2019-01-28] MEDS: Sulfamethoxazole/Trimethoprim 800-160 MG Tab PO SCH ×2 (07:49→20:14)
[2019-01-28] MEDS: predniSONE 20 MG Tab PO SCH (07:49)
[2019-01-28] MEDS: guaiFENesin 600 MG Tab.ER PO SCH ×2 (07:49→20:15)
[2019-01-28] MEDS: Tiotropium Inhaler 18 MCG Inhalation Powder Cap Kit of 5 INH SCH (07:50)
[2019-01-28] MEDS: Formoterol/Mometasone 200-5 MCG 8.8 GM Inhaler IH SCH (07:50)
[2019-01-28] MEDS: Sodium Chloride 0.9% 10 ML Syringe FLUSH SCH (08:06)
[2019-01-28] MEDS: LORazepam 0.5 MG Tab PO PRN (13:41)
[2019-01-28] MEDS ORDERED: Morphine 10 MG/ML Syringe ONE (15:09)
[2019-01-28] MEDS: Morphine 2 MG/ML Syringe IM PRN (15:12)
[2019-01-28] MEDS ORDERED: LORazepam 2 MG/ML SDV IM PRN (15:44)
--- NOTE | 2019-01-28 16:09 | PCM.PN ---
- General Info Date of Service: 01/28/19 Subjective Update: Nurse called around 3 pm, as patient breathing has got worse and has been having some distress with breathing. No fever or chills. Pt is slightly short of breath even at rest and minimal activity. But his breathing has got faster. He is very anxious. Pt claims any time her tries to urinate, even the act of urination makes him get short of breath. Functional Status: Reports: Pain Controlled, Tolerating Diet, Ambulating, Urinating - Review of Systems General: Denies: Fever, Weakness HEENT: Denies: Headaches, Sore Throat, Rhinitis Pulmonary: Reports: Shortness of Breath, Cough, Sputum, Hemoptysis Cardiovascular: Denies: Chest Pain, Lightheadedness Gastrointestinal: Denies: Abdominal Pain, Nausea, Vomiting Genitourinary: Denies: Dysuria, Frequency Musculoskeletal: Denies: Joint Pain, Joint Swelling Skin: Denies: Bruising, Pruritis, Rash Neurological: Denies: Confusion, Dizziness Psychiatric: Reports: Anxiety. Denies: Confusion - Patient Data Vitals - Most Recent: Last Vital Signs Temp 98.3 F 01/28/19 08:00 Pulse 102 H 01/28/19 08:00 Resp 24 H 01/28/19 08:00 BP 113/71 01/28/19 08:00 Pulse Ox 95 01/28/19 08:00 Weight - Most Recent: 92.986 kg Med Orders - Current: Current Medications Albuterol/Ipratropium (Duoneb 3.0-0.5 Mg/3 Ml) 3 ml INH QID [facility] Last Admin: 01/28/19 12:33 Dose: 3 ml Albuterol/Ipratropium (Duoneb 3.0-0.5 Mg/3 Ml) 3 ml NEB Q4H PRN PRN Reason: Shortness of Breath Last Admin: 01/28/19 04:45 Dose: 3 ml Guaifenesin (Mucinex) 600 mg PO BID [facility] Last Admin: 01/28/19 07:49 Dose: 600 mg Levofloxacin (Levaquin) 500 mg PO 1700 [facility] Stop: 01/30/19 23:59 Levothyroxine Sodium (Synthroid) 88 mcg PO ACBREAKFAST [facility] Last Admin: 01/28/19 06:58 Dose: 88 mcg Lisinopril (Prinivil) 10 mg PO DAILY [facility] Last Admin: 01/24/19 08:30 Dose: Not Given Lorazepam (Ativan) 0.5 mg IM Q6H PRN PRN Reason: Anxiety Mometasone Furoate/Formoterol Fumar (Dulera 200-5 Mcg) 1 puff IH DAILY [facility] Last Admin: 01/28/19 07:50 Dose: 1 puff Morphine Sulfate (Morphine) 2 - 4 mg IM Q6H PRN PRN Reason: Shortness of Breath Biofreeze Topical 1 each TOP QID PRN PRN Reason: BACK PAIN Last Admin: 01/27/19 11:30 Dose: 1 each [place] 1 each TOP QID PRN PRN Reason: KNEE PAIN Pantoprazole Sodium (Protonix) 40 mg PO DAILY@0700 [facility] Last Admin: 01/28/19 06:59 Dose: 40 mg Prednisone (Prednisone) 40 mg PO DAILY [facility] Last Admin: 01/28/19 07:49 Dose: 40 mg Simvastatin (Zocor) 40 mg PO BEDTIME [facility] Last Admin: 01/27/19 20:41 Dose: 40 mg Tiotropium [place] (Spiriva Handihaler) 18 mcg INH DAILY [facility] Last Admin: 01/28/19 07:50 Dose: 18 mcg Trimethoprim/Sulfamethoxazole (Septra Ds) 1 tab PO BID [facility] Stop: 01/30/19 23:59 Last Admin: 01/28/19 07:49 Dose: 1 tab Discontinued Medications Levofloxacin/Dextrose 500 mg/ (Premix) 100 mls @ 100 mls/hr IV ONETIME ONE Stop: 01/23/19 17:44 Last Admin: 01/23/19 17:30 Dose: 100 mls/hr Levofloxacin/Dextrose 500 mg/ (Premix) 100 mls @ 100 mls/hr IV Q24H [facility] Stop: 01/30/19 18:00 Last Admin: 01/27/19 16:46 Dose: 100 mls/hr Levofloxacin/Dextrose (Levaquin In D5w 500 Mg/100 Ml) Confirm Administered Dose 100 mls @ as directed IV .STK-MED ONE Stop: 01/25/19 16:53 Last Admin: 01/25/19 17:04 Dose: Not Given Lorazepam (Ativan) 0.5 mg PO Q4H PRN PRN Reason: Anxiety Last Admin: 01/28/19 13:41 Dose: 0.5 mg Morphine Sulfate (Morphine) Confirm Administered Dose 10 mg .ROUTE .STK-MED ONE Stop: 01/28/19 15:10 Last Admin: 01/28/19 15:47 Dose: Not Given Pantoprazole Sodium (Protonix) 40 mg PO DAILY [facility] Last Admin: 01/24/19 08:31 Dose: 40 mg Prednisone (Prednisone) 40 mg PO WITHBREAKFAST [facility] Last Admin: 01/24/19 08:31 Dose: 40 mg Sodium Chloride (Saline Flush) 10 ml FLUSH BID [facility] Last Admin: 01/28/19 08:06 Dose: Not Given Tuberculin PPD (Aplisol) 5 unit IDERM ONETIME ONE Stop: 01/23/19 16:42 Last Admin: 01/24/19 18:02 Dose: 5 unit - Exam General: Alert, Oriented, Other (very anxious) HEENT: Pupils Equal, Pupils Reactive, EOMI, Mucous Membr. Moist/[place] Neck: Supple Lungs: Decreased Breath Sounds (in the right hemithorax), Crackles (heard all over the lung howell) Cardiovascular: Regular Rhythm, Tachycardia GI/Abdominal Exam: Normal Bowel Sounds, Soft, Non-Tender, No Organomegaly, No Distention, No Abnormal Bruit, No Mass, Pelvis Stable Psy/Mental Status: Alert, Anxious - Problem List & Annotations (1) Pneumonia SNOMED Code(s): 031383898 Code(s): J18.9 - PNEUMONIA, UNSPECIFIED ORGANISM Status: Acute Current Visit: Yes (2) COPD (chronic obstructive pulmonary disease) SNOMED Code(s): 60290528 Code(s): J44.9 - CHRONIC OBSTRUCTIVE PULMONARY DISEASE, UNSPECIFIED Status : Acute Current Visit: No - Problem List Review Problem List Initiated/Reviewed/Updated: Yes - My Orders Last 24 Hours: My Active Orders 01/28/19 15:43 CXR [Chest 1V Frontal] [CR] Routine 01/28/19 15:44 LORazepam [Ativan] 0.5 mg IM Q6H PRN 01/28/19 15:45 Morphine 2 - 4 mg IM Q6H PRN 01/28/19 17:00 levoFLOXacin [Levaquin] 500 mg PO 1700 - Assessment Assessment:: Chronic COPD O2 dependent Right lung mas on palliative therapy Post obstructive pneumonia Acinetobacter infection Anxiety associated with end stage disease - Plan Plan:: Pt has been on day 11 on his antibiotic therapy. He was started on meropenem and Levaquin for Acinetobacter infection initially , which he has had for 7 days , once the culture results were available, antibiotic was changed to Bactrim DS PO bid and IV Levaquin on 01/24/19. Pt 's white count was 16K on Wednesday and has remained the same today. Clinically there is no deterioration in patient condition over the past 3 days. His CBC today is 16 K. His stable elevated white count is related to his high dose prednisone therapy for his COPD. I have contacted ID specialist, Dr Hunter, And the ID pharmacist was consulted to check on the length of therapy. Dr. Hunter recommendation if total of 2 wks of antibiotics, should be good enough to treat Acinetobacter infection. He does agree with elevated white count is probably steroid induced leucocytosis, and not form infection as clinically patient's condition has not deteriorated. Coming to his mobility. Patient claims that he could only walk 25 feet at a time at home using his crutches. He uses crutches because he gets better support of his body with crutches then walker as he has truncal obesity. Presently he can walk 15-20 feet according to patient. Which is close to his baseline. Therapy does want to try crutches before sending patient home. I do agree with therapy, to make sure that there is no risk of fall and he has enough mobility to ADLs in the house, once discharged. Also patient does understand that his lung or pulmonary symptoms are only going to get worse as the lung mass disease process progresses in future. He might be a candidate for home health set up. 01/28/19 Apparently patient appears in respiratory distress breath very hard and using accessory muscles of neck. His SPO2 was down into 78% on oxygen. Plan was made to start Bipap to help with oxygenation. Morphine 4 mg was given, which did help with anxiety and also helped his breathing. Pt's rate settled down and his SPO2 improved to 94-95%. Apparently patient tried to urinate and had another similar episode. I did repeat Chest xray,which does show opacification of the right upper and middle lobe. Also patient gets short of breath when he needs to urinate. So I have requested Vines catheter to prevent him from straining to urinate frequently. I is on palliative care at this point. There is not much to offer other than keeping him comfortable. I have changed his Ativan from oral to IM 0.5mg every 6 hrs. also have started him on MSO4 2-4mg every 6 hrs for anxiety. Will continue present management. If his breathing gets worse, will try Bipap. Pt and family wants CPR, if patient stops breathing. Will respect his decision.
[2019-01-28] MEDS: Levofloxacin 500 MG Tab PO SCH (16:52)
[2019-01-28] MEDS: Simvastatin 40 MG Tab PO SCH (20:15)
[2019-01-28] MEDS ORDERED: LORazepam 0.5 MG Tab ONE (23:42)
[2019-01-29] MEDS: Albuterol/Ipratropium 3.0-0.5 MG/3 ML Neb Soln NEB PRN ×2 (03:45→14:37)
[2019-01-29] MEDS: Morphine 2 MG/ML Syringe IM PRN ×3 (04:56→20:24)
[2019-01-29] MEDS: Albuterol/Ipratropium 3.0-0.5 MG/3 ML Neb Soln INH SCH ×4 (07:52→19:54)
[2019-01-29] MEDS: Tiotropium Inhaler 18 MCG Inhalation Powder Cap Kit of 5 INH SCH (07:53)
[2019-01-29] MEDS: Levothyroxine 88 MCG Tab PO SCH (07:54)
[2019-01-29] MEDS: Sulfamethoxazole/Trimethoprim 800-160 MG Tab PO SCH ×2 (07:54→19:55)
[2019-01-29] MEDS: Formoterol/Mometasone 200-5 MCG 8.8 GM Inhaler IH SCH (07:54)
[2019-01-29] MEDS: Pantoprazole 40 MG Tab.CR PO SCH (07:54)
[2019-01-29] MEDS: predniSONE 20 MG Tab PO SCH (07:54)
[2019-01-29] MEDS: guaiFENesin 600 MG Tab.ER PO SCH ×2 (07:54→19:54)
[2019-01-29] MEDS: BIOFREEZE TOPICAL TOP PRN (11:29)
[2019-01-29] MEDS ORDERED: Morphine Oral Concentrate 20 MG/ML 30 ML Bottle ONE (11:46)
[2019-01-29] MEDS: Morphine Oral Concentrate 20 MG/ML 30 ML Bottle SL PRN (11:50)
[2019-01-29] MEDS ORDERED: LORazepam 0.5 MG Tab ONE (15:22)
[2019-01-29] MEDS: Levofloxacin 500 MG Tab PO SCH (17:00)
--- NOTE | 2019-01-29 17:02 | CR ---
Date of Service: 01/28/19 Clinical Data: sob AP PORTABLE CHEST: Comparison made to a prior exam dated 01/19/19. 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 It does appear more prominent than on the prior exam. There is progressive atelectasis and consolidation of the right upper lobe. The left lung remains clear. The exam is otherwise unchanged. [id number] [facility]
[2019-01-29] MEDS: Simvastatin 40 MG Tab PO SCH (19:54)
[2019-01-30] MEDS: LORazepam 0.5 MG Tab PO PRN ×5 (00:12→23:56)
[2019-01-30] MEDS: Albuterol/Ipratropium 3.0-0.5 MG/3 ML Neb Soln NEB PRN (02:17)
[2019-01-30] MEDS: Morphine 2 MG/ML Syringe IM PRN ×2 (02:50→20:22)
[2019-01-30] MEDS: Levothyroxine 88 MCG Tab PO SCH (06:25)
[2019-01-30] MEDS: Pantoprazole 40 MG Tab.CR PO SCH (06:25)
[2019-01-30] MEDS: guaiFENesin 600 MG Tab.ER PO SCH ×2 (07:48→19:57)
[2019-01-30] MEDS: Albuterol/Ipratropium 3.0-0.5 MG/3 ML Neb Soln INH SCH ×4 (07:48→19:56)
[2019-01-30] MEDS: predniSONE 20 MG Tab PO SCH (07:48)
[2019-01-30] MEDS: Sulfamethoxazole/Trimethoprim 800-160 MG Tab PO SCH ×2 (07:48→19:56)
[2019-01-30] MEDS: Formoterol/Mometasone 200-5 MCG 8.8 GM Inhaler IH SCH (07:48)
[2019-01-30] MEDS: Tiotropium Inhaler 18 MCG Inhalation Powder Cap Kit of 5 INH SCH (07:49)
[2019-01-30] MEDS: Morphine Oral Concentrate 20 MG/ML 30 ML Bottle SL PRN (11:36)
[2019-01-30] MEDS ORDERED: Morphine Oral Concentrate 20 MG/ML 30 ML Bottle SL ONE (12:30)
[2019-01-30] MEDS ORDERED: Morphine Oral Concentrate 20 MG/ML 30 ML Bottle SL PRN (13:07)
[2019-01-30] MEDS: Levofloxacin 500 MG Tab PO SCH (17:02)
[2019-01-30] MEDS: Simvastatin 40 MG Tab PO SCH (19:57)
[2019-01-31] MEDS: Albuterol/Ipratropium 3.0-0.5 MG/3 ML Neb Soln NEB PRN ×3 (00:42→10:01)
[2019-01-31] MEDS: Morphine 2 MG/ML Syringe IM PRN (02:43)
[2019-01-31] MEDS: Pantoprazole 40 MG Tab.CR PO SCH (07:10)
[2019-01-31] MEDS: Albuterol/Ipratropium 3.0-0.5 MG/3 ML Neb Soln INH SCH ×4 (07:10→20:04)
[2019-01-31] MEDS: predniSONE 20 MG Tab PO SCH (07:11)
[2019-01-31] MEDS: guaiFENesin 600 MG Tab.ER PO SCH ×2 (07:11→20:03)
[2019-01-31] MEDS: Levothyroxine 88 MCG Tab PO SCH (07:14)
[2019-01-31] MEDS: Tiotropium Inhaler 18 MCG Inhalation Powder Cap Kit of 5 INH SCH (07:19)
[2019-01-31] MEDS: Formoterol/Mometasone 200-5 MCG 8.8 GM Inhaler IH SCH (07:19)
[2019-01-31] MEDS ORDERED: Morphine 2 MG/ML Syringe IM PRN (09:00)
[2019-01-31] MEDS: LORazepam 0.5 MG Tab PO PRN ×3 (09:33→20:03)
[2019-01-31] MEDS: Morphine Oral Concentrate 20 MG/ML 30 ML Bottle SL PRN ×3 (12:09→17:46)
[2019-01-31] MEDS: Simvastatin 40 MG Tab PO SCH (20:03)
[2019-01-31] MEDS: LORazepam 0.5 MG Tab PO SCH (20:04)
[2019-02-01] MEDS: Morphine Oral Concentrate 20 MG/ML 30 ML Bottle SL PRN ×7 (02:00→21:26)
[2019-02-01] MEDS: LORazepam 0.5 MG Tab PO PRN ×3 (03:18→22:31)
[2019-02-01] MEDS: Albuterol/Ipratropium 3.0-0.5 MG/3 ML Neb Soln NEB PRN (03:18)
[2019-02-01] MEDS: Levothyroxine 88 MCG Tab PO SCH (07:13)
[2019-02-01] MEDS: guaiFENesin 600 MG Tab.ER PO SCH ×2 (07:13→19:52)
[2019-02-01] MEDS: Pantoprazole 40 MG Tab.CR PO SCH (07:13)
[2019-02-01] MEDS: predniSONE 20 MG Tab PO SCH (07:14)
[2019-02-01] MEDS: Formoterol/Mometasone 200-5 MCG 8.8 GM Inhaler IH SCH ×2 (07:14→19:50)
[2019-02-01] MEDS: Tiotropium Inhaler 18 MCG Inhalation Powder Cap Kit of 5 INH SCH (07:17)
[2019-02-01] MEDS: Albuterol/Ipratropium 3.0-0.5 MG/3 ML Neb Soln INH SCH ×4 (07:17→19:54)
[2019-02-01 08:41] VITALS: BP 117/65
--- NOTE | 2019-02-01 08:52 | PCM.PN ---
- General Info Date of Service: 02/01/19 Subjective Update: Patient denies any concerns today. He remains weak and short of breath which is considered near his baseline. He has shown some improvement with therapy but also his CXR does show progression of his lung mass. Denies any current chest pain and states his appetite has decreased from last week. - Review of Systems General: Reports: Weakness HEENT: Reports: No Symptoms Pulmonary: Reports: Shortness of Breath Cardiovascular: Reports: No Symptoms Gastrointestinal: Reports: No Symptoms Genitourinary: Reports: No Symptoms Musculoskeletal: Reports: Back Pain Skin: Reports: No Symptoms Neurological: Reports: Weakness - Patient Data Vitals - Most Recent: Last Vital Signs Temp 37.1 C 02/01/19 08:00 Pulse 110 H 02/01/19 08:00 Resp 24 H 02/01/19 08:00 BP 117/65 02/01/19 08:00 Pulse Ox 93 L 02/01/19 08:00 Weight - Most Recent: 90.378 kg I&O - Last 24 Hours: Intake & Output 01/31/19 02/01/19 02/01/19 22:59 06:59 14:59 Intake Total 600 Output Total 850 950 Balance -250 -950 Med Orders - Current: Current Medications Albuterol/Ipratropium (Duoneb 3.0-0.5 Mg/3 Ml) 3 ml INH QID [facility] Last Admin: 02/01/19 07:17 Dose: 3 ml Albuterol/Ipratropium (Duoneb 3.0-0.5 Mg/3 Ml) 3 ml NEB Q4H PRN PRN Reason: Shortness of Breath Last Admin: 02/01/19 03:18 Dose: 3 ml Guaifenesin (Mucinex) 600 mg PO BID [facility] Last Admin: 02/01/19 07:13 Dose: 600 mg Levothyroxine Sodium (Synthroid) 88 mcg PO ACBREAKFAST [facility] Last Admin: 02/01/19 07:13 Dose: 88 mcg Lisinopril (Prinivil) 10 mg PO DAILY [facility] Last Admin: 01/24/19 08:30 Dose: Not Given Lorazepam (Ativan) 0.5 mg IM Q6H PRN PRN Reason: Anxiety Lorazepam (Ativan) 0.5 mg PO Q6H PRN PRN Reason: Anxiety Last Admin: 02/01/19 03:18 Dose: 0.5 mg Lorazepam (Ativan) 0.5 mg PO BEDTIME [facility] Last Admin: 01/31/19 20:04 Dose: 0.5 mg Mometasone Furoate/Formoterol Fumar (Dulera 200-5 Mcg) 1 puff IH DAILY [facility] Last Admin: 02/01/19 07:14 Dose: 1 puff Morphine Sulfate (Morphine 20 Mg/Ml Soln) 2 mg SL Q2H PRN PRN Reason: PAIN Last Admin: 02/01/19 07:15 Dose: 2 mg Morphine Sulfate (Morphine) 2 mg IM Q2H PRN PRN Reason: PAIN Biofreeze Topical 1 each TOP QID PRN PRN Reason: BACK PAIN Last Admin: 01/29/19 11:29 Dose: 1 each [place] 1 each TOP QID PRN PRN Reason: KNEE PAIN Pantoprazole Sodium (Protonix) 40 mg PO DAILY@0700 [facility] Last Admin: 02/01/19 07:13 Dose: 40 mg Prednisone (Prednisone) 40 mg PO DAILY [facility] Last Admin: 02/01/19 07:14 Dose: 40 mg Senna/Docusate Sodium (Senna Plus) 1 tab PO DAILY [facility] Last Admin: 02/01/19 07:13 Dose: 1 tab Simvastatin (Zocor) 40 mg PO BEDTIME [facility] Last Admin: 01/31/19 20:03 Dose: 40 mg Tiotropium [place] (Spiriva Handihaler) 18 mcg INH DAILY [facility] Last Admin: 02/01/19 07:17 Dose: 18 mcg Discontinued Medications Levofloxacin/Dextrose 500 mg/ (Premix) 100 mls @ 100 mls/hr IV ONETIME ONE Stop: 01/23/19 17:44 Last Admin: 01/23/19 17:30 Dose: 100 mls/hr Levofloxacin/Dextrose 500 mg/ (Premix) 100 mls @ 100 mls/hr IV Q24H [facility] Stop: 01/30/19 18:00 Last Admin: 01/27/19 16:46 Dose: 100 mls/hr Levofloxacin/Dextrose (Levaquin In D5w 500 Mg/100 Ml) Confirm Administered Dose 100 mls @ as directed IV .STK-MED ONE Stop: 01/25/19 16:53 Last Admin: 01/25/19 17:04 Dose: Not Given Levofloxacin (Levaquin) 500 mg PO 1700 [facility] Stop: 01/30/19 23:59 Last Admin: 01/30/19 17:02 Dose: 500 mg Lorazepam (Ativan) 0.5 mg PO Q4H PRN PRN Reason: Anxiety Last Admin: 01/28/19 13:41 Dose: 0.5 mg Lorazepam (Ativan) Confirm Administered Dose 0.5 mg .ROUTE .STK-MED ONE Stop: 01/28/19 23:43 Last Admin: 01/28/19 23:48 Dose: 0.5 mg Lorazepam (Ativan) Confirm Administered Dose 0.5 mg .ROUTE .STK-MED ONE Stop: 01/29/19 15:23 Last Admin: 01/29/19 15:35 Dose: Not Given Morphine Sulfate (Morphine) Confirm Administered Dose 10 mg .ROUTE .STK-MED ONE Stop: 01/28/19 15:10 Last Admin: 01/28/19 15:47 Dose: Not Given Morphine Sulfate (Morphine) 2 - 4 mg IM Q6H PRN PRN Reason: Anxiety Last Admin: 01/31/19 02:43 Dose: 4 mg Morphine Sulfate (Morphine 20 Mg/Ml Soln) Confirm Administered Dose 600 mg .ROUTE .STK-MED ONE Stop: 01/29/19 11:47 Last Admin: 01/29/19 13:32 Dose: Not Given Morphine Sulfate (Morphine 20 Mg/Ml Soln) 2 - 4 mg SL Q6H PRN PRN Reason: Anxiety Last Admin: 01/30/19 11:36 Dose: 0.2 ml Morphine Sulfate (Morphine 20 Mg/Ml Soln) 2 mg SL ONETIME ONE Stop: 01/30/19 12:31 Last Admin: 01/30/19 12:59 Dose: 2 mg Morphine Sulfate (Morphine 20 Mg/Ml Soln) 2 - 4 mg SL Q6H PRN PRN Reason: PAIN Last Admin: 01/31/19 06:59 Dose: 4 mg Pantoprazole Sodium (Protonix) 40 mg PO DAILY [facility] Last Admin: 01/24/19 08:31 Dose: 40 mg Prednisone (Prednisone) 40 mg PO WITHBREAKFAST [facility] Last Admin: 01/24/19 08:31 Dose: 40 mg Senna/Docusate Sodium (Senna Plus) 1 tab PO BEDTIME [facility] Sodium Chloride (Saline Flush) 10 ml FLUSH BID [facility] Last Admin: 01/28/19 08:06 Dose: Not Given Trimethoprim/Sulfamethoxazole (Septra Ds) 1 tab PO BID [facility] Stop: 01/30/19 23:59 Last Admin: 01/30/19 19:56 Dose: 1 tab Tuberculin PPD (Aplisol) 5 unit IDERM ONETIME ONE Stop: 01/23/19 16:42 Last Admin: 01/24/19 18:02 Dose: 5 unit - Exam Quality Assessment: Supplemental Oxygen General: Alert, Oriented, Cooperative HEENT: Pupils Equal, Pupils Reactive, EOMI Neck: Supple Lungs: Decreased Breath Sounds, Wheezing Cardiovascular: Regular Rate, Regular Rhythm GI/Abdominal Exam: Normal Bowel Sounds, Soft, Non-Tender Back Exam: Paraspinal Tenderness Neurological: No New Focal Deficit - Problem List & Annotations (1) Pneumonia SNOMED Code(s): 992149231 Code(s): J18.9 - PNEUMONIA, UNSPECIFIED ORGANISM Status: Acute Current Visit: Yes (2) COPD (chronic obstructive pulmonary disease) SNOMED Code(s): 09395124 Code(s): J44.9 - CHRONIC OBSTRUCTIVE PULMONARY DISEASE, UNSPECIFIED Status : Acute Current Visit: No (3) Exertional shortness of breath SNOMED Code(s): 82942440 Code(s): R06.02 - SHORTNESS OF BREATH Status: Acute Priority: High Current Visit: No Onset Date: 01/22/16 (4) Mass of right lung SNOMED Code(s): 791811427 Code(s): R91.8 - OTHER NONSPECIFIC ABNORMAL FINDING OF LUNG FIELD Status: Acute Current Visit: No (5) Palliative care patient SNOMED Code(s): 798269492 Code(s): Z51.5 - ENCOUNTER FOR PALLIATIVE CARE Status: Acute Current Visit: No (6) Weakness SNOMED Code(s): 01613963 Code(s): R53.1 - WEAKNESS Status: Acute Priority: High Current Visit: No (7) COPD exacerbation SNOMED Code(s): 677740760, 669865044 Code(s): J44.1 - CHRONIC OBSTRUCTIVE PULMONARY DISEASE W (ACUTE) EXACERBATION Status: Chronic Priority: High Current Visit: No Onset Date : 01/22/16 - Problem List Review Problem List Initiated/Reviewed/Updated: Yes - Assessment Assessment:: Chronic COPD O2 dependent Right lung mas on palliative therapy Post obstructive pneumonia Acinetobacter infection Anxiety associated with end stage disease - Plan Plan:: Pt has been on day 11 on his antibiotic therapy. He was started on meropenem and Levaquin for Acinetobacter infection initially , which he has had for 7 days , once the culture results were available, antibiotic was changed to Bactrim DS PO bid and IV Levaquin on 01/24/19. Pt 's white count was 16K on Wednesday and has remained the same today. Clinically there is no deterioration in patient condition over the past 3 days. His CBC today is 16 K. His stable elevated white count is related to his high dose prednisone therapy for his COPD. I have contacted ID specialist, Dr Hunter, And the ID pharmacist was consulted to check on the length of therapy. Dr. Hunter recommendation if total of 2 wks of antibiotics, should be good enough to treat Acinetobacter infection. He does agree with elevated white count is probably steroid induced leucocytosis, and not form infection as clinically patient's condition has not deteriorated. Coming to his mobility. Patient claims that he could only walk 25 feet at a time at home using his crutches. He uses crutches because he gets better support of his body with crutches then walker as he has truncal obesity. Presently he can walk 15-20 feet according to patient. Which is close to his baseline. Therapy does want to try crutches before sending patient home. I do agree with therapy, to make sure that there is no risk of fall and he has enough mobility to ADLs in the house, once discharged. Also patient does understand that his lung or pulmonary symptoms are only going to get worse as the lung mass disease process progresses in future. He might be a candidate for home health set up. 01/28/19 Apparently patient appears in respiratory distress breath very hard and using accessory muscles of neck. His SPO2 was down into 78% on oxygen. Plan was made to start Bipap to help with oxygenation. Morphine 4 mg was given, which did help with anxiety and also helped his breathing. Pt's rate settled down and his SPO2 improved to 94-95%. Apparently patient tried to urinate and had another similar episode. I did repeat Chest xray,which does show opacification of the right upper and middle lobe. Also patient gets short of breath when he needs to urinate. So I have requested Vines catheter to prevent him from straining to urinate frequently. I is on palliative care at this point. There is not much to offer other than keeping him comfortable. I have changed his Ativan from oral to IM 0.5mg every 6 hrs. also have started him on MSO4 2-4mg every 6 hrs for anxiety. Will continue present management. If his breathing gets worse, will try Bipap. Pt and family wants CPR, if patient stops breathing. Will respect his decision. 02/01/19 Patient stable. We will continue supportive care and therapy. Home health to be setup with [facility].
[2019-02-01] MEDS: LORazepam 0.5 MG Tab PO SCH (19:52)
[2019-02-01] MEDS: Simvastatin 40 MG Tab PO SCH (19:52)
[2019-02-02] MEDS: Albuterol/Ipratropium 3.0-0.5 MG/3 ML Neb Soln NEB PRN ×2 (03:30→14:12)
[2019-02-02] MEDS: Morphine Oral Concentrate 20 MG/ML 30 ML Bottle SL PRN ×3 (03:40→11:43)
[2019-02-02] MEDS: LORazepam 0.5 MG Tab PO PRN ×2 (04:25→14:35)
[2019-02-02] MEDS: BIOFREEZE TOPICAL TOP PRN (05:12)
[2019-02-02] MEDS: Levothyroxine 88 MCG Tab PO SCH (06:17)
[2019-02-02] MEDS: Pantoprazole 40 MG Tab.CR PO SCH (06:17)
[2019-02-02] MEDS: Formoterol/Mometasone 200-5 MCG 8.8 GM Inhaler IH SCH (08:32)
[2019-02-02] MEDS: Albuterol/Ipratropium 3.0-0.5 MG/3 ML Neb Soln INH SCH ×2 (08:32→14:13)
[2019-02-02] MEDS: Tiotropium Inhaler 18 MCG Inhalation Powder Cap Kit of 5 INH SCH (08:32)
[2019-02-02] MEDS: guaiFENesin 600 MG Tab.ER PO SCH (08:33)
[2019-02-02] MEDS: predniSONE 20 MG Tab PO SCH (08:33)
--- NOTE | 2019-02-02 16:31 | PCM.DCSUM1 ---
Discharge Summary - Discharge Data Discharge Date: 02/02/19 Discharge Disposition: Home, Self-Care 01 Condition: Good - Discharge Diagnosis/Problem(s) (1) Pneumonia SNOMED Code(s): 294994711 ICD Code: J18.9 - PNEUMONIA, UNSPECIFIED ORGANISM Status: Resolved Current Visit: Yes (2) COPD (chronic obstructive pulmonary disease) SNOMED Code(s): 95401605 ICD Code: J44.9 - CHRONIC OBSTRUCTIVE PULMONARY DISEASE, UNSPECIFIED Status : Chronic Current Visit: No (3) Exertional shortness of breath SNOMED Code(s): 59518211 ICD Code: R06.02 - SHORTNESS OF BREATH Status: Chronic Priority: High Current Visit: No Onset Date: 01/22/16 (4) Mass of right lung SNOMED Code(s): 271631737 ICD Code: R91.8 - OTHER NONSPECIFIC ABNORMAL FINDING OF LUNG FIELD Status: Chronic Current Visit: Yes (5) Palliative care patient SNOMED Code(s): 101696111 ICD Code: Z51.5 - ENCOUNTER FOR PALLIATIVE CARE Status: Acute Current Visit: Yes (6) Weakness SNOMED Code(s): 90910404 ICD Code: R53.1 - WEAKNESS Status: Acute Priority: High Current Visit: Yes (7) COPD exacerbation SNOMED Code(s): 991437662, 876352806 ICD Code: J44.1 - CHRONIC OBSTRUCTIVE PULMONARY DISEASE W (ACUTE) EXACERBATION Status: Chronic Priority: High Current Visit: Yes Onset Date: 01/22/16 - Patient Summary/Data Consults: Consultations 01/23/19 16:41 OT Evaluation and Treatment [CONS] Routine Please Evaluate and Treat. OT Reason for Consult: ADL's This query below is only for informational purposes and is not editable. Admission Diagnosis/Problem: Pain management PT Evaluation and Treatment [CONS] Routine Please Evaluate and Treat. PT Reason for Consult: Strengthening This query below is only for informational purposes and is not editable. Admission Diagnosis/Problem: Pain management - Discharge Plan Prescriptions/Med Rec: LORazepam 0.5 mg PO Q6H #120 tab Morphine [Morphine 20 MG/ML Soln] 2 mg SL Q2H PRN #30 bottle PRN Reason: PAIN Home Medications: Home Meds Simvastatin 40 mg PO DAILY 01/22/16 [History] Levothyroxine Sodium 88 mcg PO DAILY #90 tablet 05/24/18 [Rx] Tiotropium [Spiriva Handihaler] 1 puff INH DAILY 01/15/19 [History] guaiFENesin [Mucinex] 600 mg PO BID tab.er 01/23/19 [Rx] Albuterol/Ipratropium [DuoNeb 3.0-0.5 MG/3 ML] 3 ml NEB QID 02/02/19 [History] LORazepam 0.5 mg PO Q6H #120 tab 02/02/19 [Rx] Morphine [Morphine 20 MG/ML Soln] 2 mg SL Q2H PRN #30 bottle 02/02/19 [Rx] Pantoprazole [ProTONIX] 40 mg PO DAILY@0700 tab.cr 02/02/19 [Rx] predniSONE 40 mg PO DAILY tablet 02/02/19 [Rx] Patient Handouts: Chronic Obstructive Pulmonary Disease Exacerbation, Easy-to- Read, Fall Prevention in the Home, Adult, [id number], Preventing Waterborne Illness, Home Oxygen Use, Adult, Pursed Lip Breathing - Discharge Summary/Plan Comment DC Time >30 min.: Yes Discharge Summary/Plan Comment: Patient discharged. Counseled on shortness of breath, severe copd and lung mass. F/u in clinic in 2-3 weeks and as needed for f/u CXR and medications. - General Info Date of Service: 02/02/19 Functional Status: Reports: Tolerating Diet - Review of Systems General: Reports: Weakness HEENT: Reports: No Symptoms Pulmonary: Reports: Shortness of Breath Cardiovascular: Reports: No Symptoms Gastrointestinal: Reports: No Symptoms Genitourinary: Reports: No Symptoms Musculoskeletal: Reports: No Symptoms - Patient Data Vitals - Most Recent: Last Vital Signs Temp 37.1 C 02/01/19 08:00 Pulse 110 H 02/01/19 08:00 Resp 24 H 02/01/19 08:00 BP 117/65 02/01/19 08:00 Pulse Ox 93 L 02/01/19 08:00 Weight - Most Recent: 90.378 kg I&O - Last 24 hours: Intake & Output 02/02/19 02/02/19 02/02/19 06:59 14:59 22:59 Intake Total 420 Output Total 375 Balance 45 Med Orders - Current: Current Medications Albuterol/Ipratropium (Duoneb 3.0-0.5 Mg/3 Ml) 3 ml INH QID [facility] Last Admin: 02/02/19 08:32 Dose: 3 ml Albuterol/Ipratropium (Duoneb 3.0-0.5 Mg/3 Ml) 3 ml NEB Q4H PRN PRN Reason: Shortness of Breath Last Admin: 02/02/19 14:12 Dose: 3 ml Guaifenesin (Mucinex) 600 mg PO BID [facility] Last Admin: 02/02/19 08:33 Dose: 600 mg Levothyroxine Sodium (Synthroid) 88 mcg PO ACBREAKFAST [facility] Last Admin: 02/02/19 06:17 Dose: 88 mcg Lisinopril (Prinivil) 10 mg PO DAILY [facility] Last Admin: 01/24/19 08:30 Dose: Not Given Lorazepam (Ativan) 0.5 mg IM Q6H PRN PRN Reason: Anxiety Last Admin: 02/02/19 11:43 Dose: 0.5 mg Lorazepam (Ativan) 0.5 mg PO Q6H PRN PRN Reason: Anxiety Last Admin: 02/02/19 04:25 Dose: 0.5 mg Lorazepam (Ativan) 0.5 mg PO BEDTIME [facility] Last Admin: 02/01/19 19:52 Dose: 0.5 mg Mometasone Furoate/Formoterol Fumar (Dulera 200-5 Mcg) 1 puff IH BID [facility] Last Admin: 02/02/19 08:32 Dose: 1 puff Morphine Sulfate (Morphine 20 Mg/Ml Soln) 2 mg SL Q2H PRN PRN Reason: PAIN Last Admin: 02/02/19 11:43 Dose: 2 mg Morphine Sulfate (Morphine) 2 mg IM Q2H PRN PRN Reason: PAIN Biofreeze Topical 1 each TOP QID PRN PRN Reason: BACK PAIN Last Admin: 02/02/19 05:12 Dose: 1 each [place] 1 each TOP QID PRN PRN Reason: KNEE PAIN Pantoprazole Sodium (Protonix) 40 mg PO DAILY@0700 [facility] Last Admin: 02/02/19 06:17 Dose: 40 mg Prednisone (Prednisone) 40 mg PO DAILY [facility] Last Admin: 02/02/19 08:33 Dose: 40 mg Senna/Docusate Sodium (Senna Plus) 1 tab PO DAILY [facility] Last Admin: 02/02/19 08:33 Dose: 1 tab Simvastatin (Zocor) 40 mg PO BEDTIME [facility] Last Admin: 02/01/19 19:52 Dose: 40 mg Tiotropium [place] (Spiriva Handihaler) 18 mcg INH DAILY [facility] Last Admin: 02/02/19 08:32 Dose: 18 mcg Discontinued Medications Levofloxacin/Dextrose 500 mg/ (Premix) 100 mls @ 100 mls/hr IV ONETIME ONE Stop: 01/23/19 17:44 Last Admin: 01/23/19 17:30 Dose: 100 mls/hr Levofloxacin/Dextrose 500 mg/ (Premix) 100 mls @ 100 mls/hr IV Q24H [facility] Stop: 01/30/19 18:00 Last Admin: 01/27/19 16:46 Dose: 100 mls/hr Levofloxacin/Dextrose (Levaquin In D5w 500 Mg/100 Ml) Confirm Administered Dose 100 mls @ as directed IV .STK-MED ONE Stop: 01/25/19 16:53 Last Admin: 01/25/19 17:04 Dose: Not Given Levofloxacin (Levaquin) 500 mg PO 1700 [facility] Stop: 01/30/19 23:59 Last Admin: 01/30/19 17:02 Dose: 500 mg Lorazepam (Ativan) 0.5 mg PO Q4H PRN PRN Reason: Anxiety Last Admin: 01/28/19 13:41 Dose: 0.5 mg Lorazepam (Ativan) Confirm Administered Dose 0.5 mg .ROUTE .STK-MED ONE Stop: 01/28/19 23:43 Last Admin: 01/28/19 23:48 Dose: 0.5 mg Lorazepam (Ativan) Confirm Administered Dose 0.5 mg .ROUTE .STK-MED ONE Stop: 01/29/19 15:23 Last Admin: 01/29/19 15:35 Dose: Not Given Mometasone Furoate/Formoterol Fumar (Dulera 200-5 Mcg) 1 puff IH DAILY [facility] Last Admin: 02/01/19 07:14 Dose: 1 puff Morphine Sulfate (Morphine) Confirm Administered Dose 10 mg .ROUTE .STK-MED ONE Stop: 01/28/19 15:10 Last Admin: 01/28/19 15:47 Dose: Not Given Morphine Sulfate (Morphine) 2 - 4 mg IM Q6H PRN PRN Reason: Anxiety Last Admin: 01/31/19 02:43 Dose: 4 mg Morphine Sulfate (Morphine 20 Mg/Ml Soln) Confirm Administered Dose 600 mg .ROUTE .STK-MED ONE Stop: 01/29/19 11:47 Last Admin: 01/29/19 13:32 Dose: Not Given Morphine Sulfate (Morphine 20 Mg/Ml Soln) 2 - 4 mg SL Q6H PRN PRN Reason: Anxiety Last Admin: 01/30/19 11:36 Dose: 0.2 ml Morphine Sulfate (Morphine 20 Mg/Ml Soln) 2 mg SL ONETIME ONE Stop: 01/30/19 12:31 Last Admin: 01/30/19 12:59 Dose: 2 mg Morphine Sulfate (Morphine 20 Mg/Ml Soln) 2 - 4 mg SL Q6H PRN PRN Reason: PAIN Last Admin: 01/31/19 06:59 Dose: 4 mg Pantoprazole Sodium (Protonix) 40 mg PO DAILY [facility] Last Admin: 01/24/19 08:31 Dose: 40 mg Prednisone (Prednisone) 40 mg PO WITHBREAKFAST [facility] Last Admin: 01/24/19 08:31 Dose: 40 mg Senna/Docusate Sodium (Senna Plus) 1 tab PO BEDTIME [facility] Sodium Chloride (Saline Flush) 10 ml FLUSH BID [facility] Last Admin: 01/28/19 08:06 Dose: Not Given Trimethoprim/Sulfamethoxazole (Septra Ds) 1 tab PO BID [facility] Stop: 01/30/19 23:59 Last Admin: 01/30/19 19:56 Dose: 1 tab Tuberculin PPD (Aplisol) 5 unit IDERM ONETIME ONE Stop: 01/23/19 16:42 Last Admin: 01/24/19 18:02 Dose: 5 unit - Exam Quality Assessment: Reports: Supplemental Oxygen General: Reports: Alert, Oriented, Cooperative HEENT: Reports: Pupils Equal, Pupils Reactive Neck: Reports: Supple Lungs: Reports: Rhonchi Cardiovascular: Reports: Regular Rate, Regular Rhythm GI/Abdominal Exam: Normal Bowel Sounds, Soft, Non-Tender Back Exam: Reports: Normal Inspection Extremities: Normal Inspection Neurological: Reports: No New Focal Deficit Psy/Mental Status: Reports: Alert, Normal Affect, Normal Mood
[2019-02-02] MEDS ORDERED: guaiFENesin 600 MG Tab.ER PO SCH (20:00)
[2019-02-02] MEDS ORDERED: Albuterol/Ipratropium 3.0-0.5 MG/3 ML Neb Soln NEB SCH (20:00)
== END 2019-02-02 16:43 | disposition home or self-care (01) | DRG 178 ==
LOC: LB.MS 16:41
PROVIDERS: ADMIT Family Medicine; ATTEND Family Medicine
DX: J15.6 Pneumonia due to other Gram-negative bacteria (principal); J44.1 Chronic obstructive pulmonary disease with (acute) exacerbation; J44.0 Chronic obstructive pulmonary disease with (acute) lower respiratory infection; Z51.5 Encounter for palliative care; J44.9 Chronic obstructive pulmonary disease, unspecified; R91.8 Other nonspecific abnormal finding of lung field; F06.4 Anxiety disorder due to known physiological condition; Z99.81 Dependence on supplemental oxygen; R06.03 Acute respiratory distress; Z11.1 Encounter for screening for respiratory tuberculosis; R53.1 Weakness; Z79.52 Long term (current) use of systemic steroids; E66.8 Other obesity; R06.02 Shortness of breath
CPT/HCPCS: 36415; 51701; 51702; 71045; 80048; 85025; 86580; 97110-GO; 97110-GP; 97530-GO; 97530-GP; A9270-GY; J1956; J2060; J2270; J7620-GY

== ENCOUNTER 2019-02-13 14:48 | Inpatient (IN) | payer MEDICARE ==
[2019-02-13] MEDS: Albuterol/Ipratropium 3.0-0.5 MG/3 ML Neb Soln NEB PRN ×2 (14:50→15:21)
[2019-02-13] MEDS: Albuterol/Ipratropium 3.0-0.5 MG/3 ML Neb Soln NEB SCH ×3 (14:53→20:01)
[2019-02-13] MEDS: LORazepam 0.5 MG Tab PO SCH ×3 (15:00→23:58)
[2019-02-13] MEDS ORDERED: LORazepam 2 MG/ML SDV ONE (15:06)
[2019-02-13] MEDS ORDERED: methylPREDNISolone Sodium Succinate 125 MG/2 ML SDV ONE (15:51)
[2019-02-13] MEDS ORDERED: Morphine 2 MG/ML Syringe ONE (15:52)
--- NOTE | 2019-02-13 15:59 | CR ---
DATE OF SERVICE: 02/13/2019 CLINICAL DATA: Shortness of breath. PORTABLE AP CHEST: Comparison is made to a prior exam dated 01/28/2019. 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 It does not appear significantly unchanged in size on the prior study. The adjacent lung infiltrate or consolidation has improved. The left lung remains clear. The heart size is stable. No pneumothorax. No pleural effusions. [id number] [facility]
[2019-02-13] MEDS: Sodium Chloride 0.9% 1,000 ML IV SCH (17:00)
--- NOTE | 2019-02-13 17:03 | PCM.HP ---
H&P History of Present Illness - General Date of Service: 02/13/19 Admit Problem/Dx: Admission Diagnosis/Problem Admission Diagnosis/Problem COPD, Severe chronic obstructive pulmonary disease Source of Information: Patient, Family History Limitations: Reports: Respiratory Distress - History of Present Illness Initial Comments - Free Text/Narative: This is a 78yo M with a progressive right lung lesion (suspected carcinoma) here for increasing shortness of breath and pain. He has trouble speaking due to the shortness of breath. He has been end stage COPD for many years and on 24/ 7 oxygen between 2-3 L all the time. The daughter has been taking care of him but states he doesn't listen to her all the time for her to take care of him. Daughter mention that he has been complaining of testicular and urethral pain for the past few days. She notes some blood at the meatus and discharge for the past couple days. Onset of Symptoms: Reports: Gradual Duration of Symptoms: Reports: Day(s):, Getting Worse Location: Reports: Chest, Back Quality: Reports: Sharp Severity: Severe Improves with: Reports: None Worsens with: Reports: Movement Associated Symptoms: Reports: Diaphoresis, Shortness of Breath, Weakness - Related Data Allergies/Adverse Reactions: Allergies Allergy/AdvReac Type Severity Reaction Status Date / Time No Known Allergies Allergy Verified 02/01/19 18:03 Home Medications: Home Meds Simvastatin 40 mg PO DAILY 01/22/16 [History] Levothyroxine Sodium 88 mcg PO DAILY #90 tablet 05/24/18 [Rx] Tiotropium [Spiriva Handihaler] 1 puff INH DAILY 01/15/19 [History] guaiFENesin [Mucinex] 600 mg PO BID tab.er 01/23/19 [Rx] Albuterol/Ipratropium [DuoNeb 3.0-0.5 MG/3 ML] 3 ml NEB QID 02/02/19 [History] LORazepam 0.5 mg PO Q6H #120 tab 02/02/19 [Rx] Levofloxacin [Levaquin] 750 mg PO DAILY #14 tablet 02/02/19 [Rx] Morphine [Morphine 20 MG/ML Soln] 2 mg SL Q2H PRN #30 bottle 02/02/19 [Rx] Non-Formulary Medication [NF Drug] 1 each TOP QID PRN each 02/02/19 [Rx] Non-Formulary Medication [NF Drug] 1 each TOP QID PRN each 02/02/19 [Rx] Pantoprazole [ProTONIX] 40 mg PO DAILY@0700 tab.cr 02/02/19 [Rx] predniSONE 40 mg PO DAILY tablet 02/02/19 [Rx] Past Medical History HEENT History: Reports: Hard of Hearing, Impaired Vision Cardiovascular History: Reports: Aneurysm, High Cholesterol, Hypertension Respiratory History: Reports: COPD, Pneumonia, Recurrent, Other (See Below) Other Respiratory History: Lung CA Musculoskeletal History: Reports: Arthritis, Back Pain, Chronic Psychiatric History: Reports: Anxiety Endocrine/Metabolic History: Reports: Hypothyroidism Immunologic History: Reports: None Oncologic (Cancer) History: Reports: Lung - Infectious Disease History Infectious Disease History: Reports: Acinetobacter (MDRA), Chicken Pox, Influenza, Measles, Mumps, Rubella - Past Surgical History Head Surgeries/Procedures: Reports: None Social & Family History - Family History Family Medical History: Noncontributory - Caffeine Use Caffeine Use: Reports: Coffee H&P Review of Systems - Review of Systems: Review Of Systems: ROS reveals no pertinent complaints other than HPI. Exam - Exam Exam: See Below - Vital Signs Vital Signs: Last Vital Signs Temp 36.6 C 02/13/19 14:50 Pulse 140 H 02/13/19 14:50 Resp 28 H 02/13/19 14:50 BP 162/80 H 02/13/19 14:50 Pulse Ox Weight: 90.446 kg - Exam Quality Assessment: Supplemental Oxygen General: Alert, Oriented, Moderate Distress HEENT: PERRLA, Conjunctiva Clear, EACs Clear Neck: Supple, Trachea Midline Lungs: Decreased Breath Sounds, Stridor, Wheezing Cardiovascular: Tachycardia GI/Abdominal Exam: Normal Bowel Sounds (Male) Exam: Urethral Discharge (minimal blood from meatus) Back Exam: Paraspinal Tenderness Extremities: Normal Inspection, Normal Range of Motion Peripheral Pulses: 1+: Dorsalis Pedis (L), Dorsalis Pedis (R) Skin: Intact, Cool, Moist - Patient Data Lab Results Last 24 hrs: Laboratory Results - last 24 hr 02/13/19 02/13/19 Range/Units 15:15 15:15 WBC 13.0 H D (4.0-11.0) K/uL RBC 4.68 (4.50-6.50) M/uL Hgb 12.5 L (13.0-18.0) g/dL Hct 40.2 (40.0-54.0) % MCV 86 (76-96) fL MCH 26.7 L (27.0-32.0) pg MCHC 31.1 (31.0-35.0) g/dL RDW 16.3 H (11.0-16.0) % Plt Count 341 (150-400) K/uL MPV 7.9 (6.0-10.0) fL Neut % (Auto) 74.5 H (45.0-70.0) % Lymph % (Auto) 13.9 L (20.0-40.0) % Piatt % (Auto) 10.7 H (3.0-10.0) % Eos % (Auto) 0.7 L (1.0-5.0) % Baso % (Auto) 0.2 (0.0-0.5) % Neut # (Auto) 9.67 H (2.00-7.50) K/uL Lymph # (Auto) 1.81 (1.50-4.00) K/uL Piatt # (Auto) 1.39 H (0.20-0.80) K/uL Eos # (Auto) 0.09 (0.04-0.40) K/uL Baso # (Auto) 0.03 (0.02-0.10) K/uL Sodium 137 (136-145) mmol/L Potassium 4.8 (3.5-5.1) mmol/L Chloride 96 L (98-107) mmol/L Carbon Dioxide 33.4 H (21.0-32.0) mmol/L Anion Gap 12.4 (5.0-15.0) mmol/L BUN 13 D (8-26) mg/dL Creatinine 0.88 (0.70-1.30) mg/dL Est Cr Clr Drug Dosing TNP Estimated GFR (MDRD) > 60 (>60) MLS/MIN BUN/Creatinine Ratio 14.8 (6-25) Glucose 130 H D (74-100) mg/dL Calcium 9.1 (8.5-10.1) mg/dL Total Bilirubin 0.5 D (0.0-1.0) mg/dL AST 15 (15-37) U/L ALT 14 (12-78) U/L Alkaline Phosphatase 82 (46-116) U/L Total Protein 7.4 (6.4-8.2) g/dL Albumin 2.6 L (3.4-5.0) g/dL Globulin 4.8 H (2.2-4.2) g/dL Albumin/Globulin Ratio 0.5 L (0.8-2.0) Result Diagrams: 02/13/19 15:15 02/13/19 15:15 - Problem List (1) COPD exacerbation SNOMED Code(s): 330695992, 161571270 ICD Code: J44.1 - CHRONIC OBSTRUCTIVE PULMONARY DISEASE W (ACUTE) EXACERBATION Status: Chronic Priority: High Current Visit: Yes Onset Date: 01/22/16 (2) Tachycardia SNOMED Code(s): 1286015 ICD Code: R00.0 - TACHYCARDIA, UNSPECIFIED Status: Chronic Priority: High Current Visit: Yes Onset Date: 01/22/16 (3) Exertional shortness of breath SNOMED Code(s): 90924734 ICD Code: R06.02 - SHORTNESS OF BREATH Status: Chronic Priority: High Current Visit: Yes Onset Date: 01/22/16 (4) Shortness of breath at rest SNOMED Code(s): 783814052 ICD Code: R06.02 - SHORTNESS OF BREATH Status: Acute Priority: High Current Visit: Yes Onset Date: 01/22/16 (5) Diaphoresis SNOMED Code(s): 53237520 ICD Code: R61 - GENERALIZED HYPERHIDROSIS Status: Chronic Priority: Low Current Visit: Yes Onset Date: 01/22/16 (6) Mass of lung SNOMED Code(s): 706658512 ICD Code: R91.8 - OTHER NONSPECIFIC ABNORMAL FINDING OF LUNG FIELD Status: Chronic Priority: High Current Visit: Yes Problem Details: Patient refuses further workup or referral to pulmonology. (7) Respiratory failure SNOMED Code(s): 384031652 ICD Code: J96.90 - RESPIRATORY FAILURE, UNSP, UNSP W HYPOXIA OR HYPERCAPNIA Status: Acute Priority: High Current Visit: Yes Qualifiers: Chronicity: acute on chronic (8) Palliative care patient SNOMED Code(s): 269742423 ICD Code: Z51.5 - ENCOUNTER FOR PALLIATIVE CARE Status: Acute Priority: High Current Visit: Yes (9) UTI (urinary tract infection) SNOMED Code(s): 50861461 ICD Code: N39.0 - URINARY TRACT INFECTION, SITE NOT SPECIFIED Status: Acute Current Visit: Yes Qualifiers: Urinary tract infection type: acute cystitis Hematuria presence: with hematuria Qualified Code(s): N30.01 - Acute cystitis with hematuria Problem List Initiated/Reviewed/Updated: Yes Orders Last 24hrs: Active Orders 24 hr Category Date Time Status Patient Status [ADT] Routine ADT 02/13/19 16:37 Active RT Aerosol Therapy [RC] ASDIRECTED Care 02/13/19 15:11 Active UA RFX SUSANA AND CULT IF INDIC [URIN] Stat Lab 02/13/19 16:51 Ordered Albuterol/Ipratropium [DuoNeb 3.0-0.5 MG/3 ML] Med 02/13/19 14:50 Active 3 ml NEB Q2H PRN Medication Orders Albuterol/Ipratropium (Duoneb 3.0-0.5 Mg/3 Ml) 3 ml NEB Q2H PRN PRN Reason: Shortness of Breath Assessment/Plan Comment:: Patient will be admitted for COPD exacerbation, Respiratory failure, Weakness, UTI and deconditioning. Duoneb treatments to be scheduled. Solumedrol started. Morphine as scheduled. Oxygen 24hrs. Start on antibiotics for UTI. PT/OT for deconditioning - start when more stable in 2-3 days. F/u labs in AM. F/u Urine culture.
[2019-02-13] MEDS ORDERED: BIOFREEZE GEL TOP PRN (17:12)
[2019-02-13] MEDS ORDERED: Non-Formulary Medication 1 Each TOP PRN (17:12)
[2019-02-13] MEDS: guaiFENesin 600 MG Tab.ER PO SCH (19:56)
[2019-02-13] MEDS: Morphine Oral Concentrate 20 MG/ML 30 ML Bottle SL PRN (20:11)
[2019-02-13] MEDS ORDERED: Sodium Chloride 0.9% 500 ML IV ONE (23:58)
[2019-02-14] MEDS ORDERED: Sodium Chloride 0.9% 500 ML IV ONE (00:35)
[2019-02-14] MEDS: Sodium Chloride 0.9% 1,000 ML IV SCH ×2 (00:35→09:22)
[2019-02-14] MEDS: Morphine Oral Concentrate 20 MG/ML 30 ML Bottle SL PRN ×5 (04:08→22:39)
[2019-02-14] MEDS: LORazepam 0.5 MG Tab PO SCH ×4 (04:33→22:38)
[2019-02-14] MEDS: Albuterol/Ipratropium 3.0-0.5 MG/3 ML Neb Soln NEB PRN ×2 (04:58→06:14)
[2019-02-14] MEDS: Pantoprazole 40 MG Tab.CR PO SCH (06:43)
[2019-02-14] MEDS: Levothyroxine 88 MCG Tab PO SCH (06:43)
[2019-02-14] MEDS: Albuterol/Ipratropium 3.0-0.5 MG/3 ML Neb Soln NEB SCH ×4 (07:31→19:31)
[2019-02-14] MEDS: Tiotropium Inhaler 18 MCG Inhalation Powder Cap Kit of 5 INH SCH (07:31)
[2019-02-14] MEDS: Levofloxacin 750 MG Tab PO SCH (07:31)
[2019-02-14] MEDS: methylPREDNISolone Sodium Succinate 125 MG/2 ML SDV IVPUSH SCH (07:31)
[2019-02-14] MEDS: guaiFENesin 600 MG Tab.ER PO SCH ×2 (07:31→19:31)
[2019-02-14] MEDS: Simvastatin 40 MG Tab PO SCH (07:31)
--- NOTE | 2019-02-14 11:03 | PCM.PN ---
- General Info Date of Service: 02/14/19 Subjective Update: Patient continues to be diaphoretic and short of breath. He has difficulty with movement in bed and has to sit upright at all times or he will get increased shortness of breath. He has back pain which has been increasing the past month. He remains on 5L oxygen to maintain 91% oxygen saturation. He is unable to get comfortable and does need continuous pain management and breathing management. - Review of Systems General: Reports: Weakness HEENT: Reports: No Symptoms Pulmonary: Reports: Shortness of Breath, Wheezing Cardiovascular: Reports: No Symptoms Gastrointestinal: Reports: Decreased Appetite Genitourinary: Reports: Frequency, Hematuria Musculoskeletal: Reports: Back Pain Skin: Reports: Diaphoresis Neurological: Reports: Difficulty Walking, Weakness Psychiatric: Reports: Anxiety - Patient Data Vitals - Most Recent: Last Vital Signs Temp 35.1 C L 02/14/19 08:00 Pulse 117 H 02/14/19 08:00 Resp 20 02/14/19 08:00 BP 93/60 02/14/19 08:00 Pulse Ox 95 02/14/19 08:00 Weight - Most Recent: 90.446 kg I&O - Last 24 Hours: Intake & Output 02/13/19 02/14/19 02/14/19 22:59 06:59 14:59 Intake Total 50 1847 Output Total 3 120 Balance 47 1727 Lab Results Last 24 Hours: Laboratory Results - last 24 hr 02/13/19 02/13/19 02/13/19 Range/Units 15:15 15:15 16:51 WBC 13.0 H D (4.0-11.0) K/uL RBC 4.68 (4.50-6.50) M/uL Hgb 12.5 L (13.0-18.0) g/dL Hct 40.2 (40.0-54.0) % MCV 86 (76-96) fL MCH 26.7 L (27.0-32.0) pg MCHC 31.1 (31.0-35.0) g/dL RDW 16.3 H (11.0-16.0) % Plt Count 341 (150-400) K/uL MPV 7.9 (6.0-10.0) fL Neut % (Auto) 74.5 H (45.0-70.0) % Lymph % (Auto) 13.9 L (20.0-40.0) % [place] % (Auto) 10.7 H (3.0-10.0) % Eos % (Auto) 0.7 L (1.0-5.0) % Baso % (Auto) 0.2 (0.0-0.5) % Neut # (Auto) 9.67 H (2.00-7.50) K/uL Lymph # (Auto) 1.81 (1.50-4.00) K/uL [place] # (Auto) 1.39 H (0.20-0.80) K/uL Eos # (Auto) 0.09 (0.04-0.40) K/uL Baso # (Auto) 0.03 (0.02-0.10) K/uL Sodium 137 (136-145) mmol/L Potassium 4.8 (3.5-5.1) mmol/L Chloride 96 L (98-107) mmol/L Carbon Dioxide 33.4 H (21.0-32.0) mmol/L Anion Gap 12.4 (5.0-15.0) mmol/L BUN 13 D (8-26) mg/dL Creatinine 0.88 (0.70-1.30) mg/dL Est Cr Clr Drug Dosing TNP Estimated GFR (MDRD) > 60 (>60) MLS/MIN BUN/Creatinine Ratio 14.8 (6-25) Glucose 130 H D (74-100) mg/dL Calcium 9.1 (8.5-10.1) mg/dL Total Bilirubin 0.5 D (0.0-1.0) mg/dL AST 15 (15-37) U/L ALT 14 (12-78) U/L Alkaline Phosphatase 82 (46-116) U/L Total Protein 7.4 (6.4-8.2) g/dL Albumin 2.6 L (3.4-5.0) g/dL Globulin 4.8 H (2.2-4.2) g/dL Albumin/Globulin Ratio 0.5 L (0.8-2.0) Urine Color Red Urine Appearance Cloudy (CLEAR) Urine pH 7.5 (5.0-8.0) Ur Specific [place] 1.025 (1.003-1.030) Urine Protein >=300 H (NEGATIVE) mg/dL Urine Glucose (UA) Negative (NEGATIVE) mg/dL Urine Ketones 15 H (NEGATIVE) mg/dL Urine Occult Blood Large H (NEGATIVE) Urine Nitrite Negative (NEGATIVE) Urine Bilirubin Small H (NEGATIVE) Urine Urobilinogen 1.0 (0.2-1.0) E.U./dL Ur Leukocyte Esterase Negative (NEGATIVE) Urine RBC >100 H /HPF Urine WBC 0-5 H /HPF Ur Squamous Epith Cells Few /HPF 02/14/19 02/14/19 Range/Units 07:15 07:15 WBC 8.5 D (4.0-11.0) K/uL RBC 4.26 L (4.50-6.50) M/uL Hgb 11.4 L (13.0-18.0) g/dL Hct 36.8 L (40.0-54.0) % MCV 86 (76-96) fL MCH 26.8 L (27.0-32.0) pg MCHC 31.0 (31.0-35.0) g/dL RDW 16.3 H (11.0-16.0) % Plt Count 325 (150-400) K/uL MPV 8.2 (6.0-10.0) fL Neut % (Auto) 87.9 H (45.0-70.0) % Lymph % (Auto) 8.7 L (20.0-40.0) % [place] % (Auto) 3.3 (3.0-10.0) % Eos % (Auto) 0.0 L (1.0-5.0) % Baso % (Auto) 0.1 (0.0-0.5) % Neut # (Auto) 7.49 (2.00-7.50) K/uL Lymph # (Auto) 0.74 L (1.50-4.00) K/uL [place] # (Auto) 0.28 (0.20-0.80) K/uL Eos # (Auto) 0.00 L (0.04-0.40) K/uL Baso # (Auto) 0.01 L (0.02-0.10) K/uL Sodium 136 (136-145) mmol/L Potassium 4.7 (3.5-5.1) mmol/L Chloride 97 L (98-107) mmol/L Carbon Dioxide 32.6 H (21.0-32.0) mmol/L Anion Gap 11.1 (5.0-15.0) mmol/L BUN 24 D (8-26) mg/dL Creatinine 1.72 H D (0.70-1.30) mg/dL Est Cr Clr Drug Dosing 34.16 Estimated GFR (MDRD) 39 L (>60) MLS/MIN BUN/Creatinine Ratio 14.0 (6-25) Glucose 164 H (74-100) mg/dL Calcium 8.5 (8.5-10.1) mg/dL Total Bilirubin 0.4 (0.0-1.0) mg/dL AST 13 L (15-37) U/L ALT 12 (12-78) U/L Alkaline Phosphatase 71 (46-116) U/L Total Protein 6.9 (6.4-8.2) g/dL Albumin 2.4 L (3.4-5.0) g/dL Globulin 4.5 H (2.2-4.2) g/dL Albumin/Globulin Ratio 0.5 L (0.8-2.0) Urine Color Urine Appearance (CLEAR) Urine pH (5.0-8.0) Ur Specific [place] (1.003-1.030) Urine Protein (NEGATIVE) mg/dL Urine Glucose (UA) (NEGATIVE) mg/dL Urine Ketones (NEGATIVE) mg/dL Urine Occult Blood (NEGATIVE) Urine Nitrite (NEGATIVE) Urine Bilirubin (NEGATIVE) Urine Urobilinogen (0.2-1.0) E.U./dL Ur Leukocyte Esterase (NEGATIVE) Urine RBC /HPF Urine WBC /HPF Ur Squamous Epith Cells /HPF Med Orders - Current: Current Medications Albuterol/Ipratropium (Duoneb 3.0-0.5 Mg/3 Ml) 3 ml NEB Q2H PRN PRN Reason: Shortness of Breath Last Admin: 02/14/19 06:14 Dose: 3 ml Albuterol/Ipratropium (Duoneb 3.0-0.5 Mg/3 Ml) 3 ml NEB QID [facility] Last Admin: 02/14/19 07:31 Dose: 3 ml Ciprofloxacin (Ciprofloxacin Hcl) 500 mg PO BID [facility] Stop: 02/18/19 20:01 Guaifenesin (Mucinex) 600 mg PO BID [facility] Last Admin: 02/14/19 07:31 Dose: 600 mg Sodium Chloride (Normal Saline) 1,000 mls @ 50 mls/hr IV ASDIRECTED [facility] Last Infusion: 02/14/19 10:01 Dose: 100 mls/hr Levofloxacin (Levaquin) 750 mg PO DAILY [facility] Last Admin: 02/14/19 07:31 Dose: 750 mg Levothyroxine Sodium (Synthroid) 88 mcg PO DAILY@0700 [facility] Last Admin: 02/14/19 06:43 Dose: 88 mcg Lorazepam (Ativan) 0.5 mg PO Q6H [facility] Last Admin: 02/14/19 04:33 Dose: 0.5 mg Methylprednisolone Sodium Succinate (Solu-Medrol) 125 mg IVPUSH DAILY [facility] Last Admin: 02/14/19 07:31 Dose: 125 mg Morphine Sulfate (Morphine 20 Mg/Ml Soln) 2 mg SL Q2H PRN PRN Reason: PAIN Last Admin: 02/14/19 10:45 Dose: 0.1 ml Non-Formulary Medication (Nf Drug) 1 each TOP QID PRN PRN Reason: BACK PAIN Non-Formulary Medication (Nf Drug) 1 each TOP QID PRN PRN Reason: KNEE PAIN Pantoprazole Sodium (Protonix) 40 mg PO DAILY@0700 [facility] Last Admin: 02/14/19 06:43 Dose: 40 mg Senna/Docusate Sodium (Senna Plus) 1 tab PO BID [facility] Last Admin: 02/14/19 07:31 Dose: 1 tab Simvastatin (Zocor) 40 mg PO DAILY [facility] Last Admin: 02/14/19 07:31 Dose: 40 mg Tiotropium [place] (Spiriva Handihaler) 0 mcg INH DAILY [facility] Last Admin: 02/14/19 07:31 Dose: 18 mcg Discontinued Medications Sodium Chloride (Normal Saline) 500 mls @ 999 mls/hr IV .BOLUS ONE Stop: 02/14/19 00:28 Last Admin: 02/13/19 23:58 Dose: 999 mls/hr Sodium Chloride (Normal Saline) 500 mls @ 999 mls/hr IV .BOLUS ONE Stop: 02/14/19 01:05 Last Admin: 02/14/19 00:35 Dose: 999 mls/hr Lorazepam (Ativan) Confirm Administered Dose 2 mg .ROUTE .STK-MED ONE Stop: 02/13/19 15:07 Last Admin: 02/13/19 20:04 Dose: Not Given Methylprednisolone Sodium Succinate (Solu-Medrol) Confirm Administered Dose 125 mg .ROUTE .STK-MED ONE Stop: 02/13/19 15:52 Last Admin: 02/13/19 14:50 Dose: 125 mg Morphine Sulfate (Morphine) Confirm Administered Dose 2 mg .ROUTE .STK-MED ONE Stop: 02/13/19 15:53 Last Admin: 02/13/19 14:52 Dose: 1 mg - Exam Quality Assessment: Supplemental Oxygen General: Alert, Oriented, Moderate Distress HEENT: Pupils Equal, Pupils Reactive, EOMI Neck: Supple Lungs: Decreased Breath Sounds, Crackles, Rales, Wheezing Cardiovascular: Tachycardia GI/Abdominal Exam: Normal Bowel Sounds, Soft, Non-Tender Back Exam: Paraspinal Tenderness Peripheral Pulses: 1+: Dorsalis Pedis (L), Dorsalis Pedis (R) Skin: Intact, Cool, Moist Neurological: No New Focal Deficit Psy/Mental Status: Alert, Anxious - Problem List & Annotations (1) COPD exacerbation SNOMED Code(s): 344051747, 040767972 Code(s): J44.1 - CHRONIC OBSTRUCTIVE PULMONARY DISEASE W (ACUTE) EXACERBATION Status: Chronic Priority: High Current Visit: Yes Onset Date: 01/22/16 (2) Tachycardia SNOMED Code(s): 3114955 Code(s): R00.0 - TACHYCARDIA, UNSPECIFIED Status: Chronic Priority: High Current Visit: Yes Onset Date: 01/22/16 (3) Exertional shortness of breath SNOMED Code(s): 76853653 Code(s): R06.02 - SHORTNESS OF BREATH Status: Chronic Priority: High Current Visit: Yes Onset Date: 01/22/16 (4) Shortness of breath at rest SNOMED Code(s): 679346263 Code(s): R06.02 - SHORTNESS OF BREATH Status: Acute Priority: High Current Visit: Yes Onset Date: 01/22/16 (5) Diaphoresis SNOMED Code(s): 02430965 Code(s): R61 - GENERALIZED HYPERHIDROSIS Status: Chronic Priority: Low Current Visit: Yes Onset Date: 01/22/16 (6) Mass of lung SNOMED Code(s): 998584665 Code(s): R91.8 - OTHER NONSPECIFIC ABNORMAL FINDING OF LUNG FIELD Status: Chronic Priority: High Current Visit: Yes Annotation/Comment:: Patient refuses further workup or referral to pulmonology. (7) Respiratory failure SNOMED Code(s): 787572174 Code(s): J96.90 - RESPIRATORY FAILURE, UNSP, UNSP W HYPOXIA OR HYPERCAPNIA Status: Acute Priority: High Current Visit: Yes Qualifiers: Chronicity: acute on chronic (8) Palliative care patient SNOMED Code(s): 133303115 Code(s): Z51.5 - ENCOUNTER FOR PALLIATIVE CARE Status: Acute Priority: High Current Visit: Yes (9) UTI (urinary tract infection) SNOMED Code(s): 67906342 Code(s): N39.0 - URINARY TRACT INFECTION, SITE NOT SPECIFIED Status: Acute Current Visit: Yes Qualifiers: Urinary tract infection type: acute cystitis Hematuria presence: with hematuria Qualified Code(s): N30.01 - Acute cystitis with hematuria - Problem List Review Problem List Initiated/Reviewed/Updated: Yes - My Orders Last 24 Hours: My Active Orders 02/13/19 14:50 Albuterol/Ipratropium [DuoNeb 3.0-0.5 MG/3 ML] 3 ml NEB Q2H PRN 02/13/19 15:11 RT Aerosol Therapy [RC] ASDIRECTED 02/13/19 16:37 Patient Status [ADT] Routine 02/13/19 17:11 Code Status [Resuscitation Status] Routine 02/13/19 17:12 Morphine [Morphine 20 MG/ML Soln] 2 mg SL Q2H PRN Non-Formulary Medication [NF Drug] 1 each TOP QID PRN Non-Formulary Medication [NF Drug] 1 each TOP QID PRN 02/13/19 17:15 LORazepam [Ativan] 0.5 mg PO Q6H 02/13/19 19:15 Sodium Chloride 0.9% [Normal Saline] 1,000 ml IV ASDIRECTED 02/13/19 20:00 Albuterol/Ipratropium [DuoNeb 3.0-0.5 MG/3 ML] 3 ml NEB QID guaiFENesin [Mucinex] 600 mg PO BID 02/14/19 04:28 CULTURE MRSA SURVEY [RM] Routine 02/14/19 07:00 Levothyroxine [Synthroid] 88 mcg PO DAILY@0700 Pantoprazole [ProTONIX] 40 mg PO DAILY@0700 02/14/19 08:00 Docusate Sodium/Sennosides [Senna Plus] 1 tab PO BID Simvastatin [Zocor] 40 mg PO DAILY [place] [Spiriva HandiHaler] 0 mcg INH DAILY levoFLOXacin [Levaquin] 750 mg PO DAILY methylPREDNISolone Sod Succ [Solu-MEDROL] 125 mg IVPUSH DAILY 02/14/19 08:45 Ciprofloxacin [Ciprofloxacin HCl] 500 mg PO BID 02/14/19 Breakfast Heart Healthy Diet [DIET] 02/15/19 05:11 CBC WITH AUTO DIFF [HEME] AM COMPREHENSIVE METABOLIC PN,CMP [CHEM] AM 02/16/19 05:11 CBC WITH AUTO DIFF [HEME] AM COMPREHENSIVE METABOLIC PN,CMP [CHEM] AM - Plan Plan:: Patient will be admitted for COPD exacerbation, Respiratory failure, Weakness, UTI and deconditioning. Duoneb treatments to be scheduled. Solumedrol started. Morphine as scheduled. Oxygen 24hrs. Start on antibiotics for UTI. PT/OT for deconditioning - start when more stable in 2-3 days. F/u labs in AM. F/u Urine culture. 02/14/19 Patient to be monitored frequently for breathing, vitals. He had low BP last night which required fluid bolus twice. He remains on 5L oxygen and will likely need planning for swing bed rehabilitation if we are able to continue to stabilize his breathing. He is palliative care due to suspected metastatic lung carcinoma. He refuses transfer to any other facility and would like all care done here that is possible. We plan for either discharge home with home health care when he has improved or place in swing bed if he is too weak to care for himself.
[2019-02-14] MEDS: Ciprofloxacin 500 MG Tab PO SCH ×2 (11:35→19:31)
[2019-02-15] MEDS: Albuterol/Ipratropium 3.0-0.5 MG/3 ML Neb Soln NEB PRN ×2 (01:13→05:52)
[2019-02-15] MEDS: Morphine Oral Concentrate 20 MG/ML 30 ML Bottle SL PRN ×7 (01:21→22:44)
[2019-02-15] MEDS: Sodium Chloride 0.9% 1,000 ML IV SCH ×2 (03:19→22:03)
[2019-02-15] MEDS: LORazepam 0.5 MG Tab PO SCH ×4 (04:47→22:42)
[2019-02-15] MEDS: Pantoprazole 40 MG Tab.CR PO SCH (07:04)
[2019-02-15] MEDS: Levothyroxine 88 MCG Tab PO SCH (07:04)
[2019-02-15] MEDS: methylPREDNISolone Sodium Succinate 125 MG/2 ML SDV IVPUSH SCH (11:37)
[2019-02-15] MEDS: Tiotropium Inhaler 18 MCG Inhalation Powder Cap Kit of 5 INH SCH (11:41)
[2019-02-15] MEDS: Ciprofloxacin 500 MG Tab PO SCH ×2 (11:42→19:44)
[2019-02-15] MEDS: guaiFENesin 600 MG Tab.ER PO SCH ×2 (11:42→19:44)
[2019-02-15] MEDS: Levofloxacin 750 MG Tab PO SCH (11:42)
[2019-02-15] MEDS: Simvastatin 40 MG Tab PO SCH (11:43)
[2019-02-15] MEDS: Albuterol/Ipratropium 3.0-0.5 MG/3 ML Neb Soln NEB SCH ×5 (11:43→19:44)
--- NOTE | 2019-02-15 14:18 | PCM.PN ---
- General Info Date of Service: 02/15/19 Subjective Update: Patient is chronically in respiratory failure. At rest he currently requires 5L oxygen to maintain above 90% saturation and with any slight movement especially going to the bathroom and taking breaks the whole time he will drop despite being on 5L of oxygen. He is pale, diaphoretic when movement. Functional Status: Reports: Tolerating Diet - Review of Systems General: Reports: Weakness HEENT: Reports: No Symptoms Pulmonary: Reports: Shortness of Breath Cardiovascular: Reports: Dyspnea on Exertion Gastrointestinal: Reports: No Symptoms Genitourinary: Reports: Frequency Musculoskeletal: Reports: Back Pain Skin: Reports: No Symptoms Neurological: Reports: Difficulty Walking, Weakness - Patient Data Vitals - Most Recent: Last Vital Signs Temp 36.4 C 02/15/19 11:47 Pulse 118 H 02/15/19 11:47 Resp 30 H 02/15/19 11:47 BP 117/66 02/15/19 11:47 Pulse Ox 85 L 02/15/19 11:47 Weight - Most Recent: 90.446 kg I&O - Last 24 Hours: Intake & Output 02/14/19 02/15/19 02/15/19 22:59 06:59 14:59 Intake Total 1155 750 Output Total 1050 1200 1500 Balance 105 -450 -1500 Lab Results Last 24 Hours: Laboratory Results - last 24 hr 02/15/19 02/15/19 Range/Units 07:20 07:20 WBC 12.6 H D (4.0-11.0) K/uL RBC 4.46 L (4.50-6.50) M/uL Hgb 11.9 L (13.0-18.0) g/dL Hct 37.9 L (40.0-54.0) % MCV 85 (76-96) fL MCH 26.7 L (27.0-32.0) pg MCHC 31.4 (31.0-35.0) g/dL RDW 16.4 H (11.0-16.0) % Plt Count 342 (150-400) K/uL MPV 8.1 (6.0-10.0) fL Neut % (Auto) 80.9 H (45.0-70.0) % Lymph % (Auto) 10.4 L (20.0-40.0) % [place] % (Auto) 8.6 (3.0-10.0) % Eos % (Auto) 0.0 L (1.0-5.0) % Baso % (Auto) 0.1 (0.0-0.5) % Neut # (Auto) 10.17 H (2.00-7.50) K/uL Lymph # (Auto) 1.30 L (1.50-4.00) K/uL [place] # (Auto) 1.08 H (0.20-0.80) K/uL Eos # (Auto) 0.00 L (0.04-0.40) K/uL Baso # (Auto) 0.01 L (0.02-0.10) K/uL Sodium 139 (136-145) mmol/L Potassium 4.3 (3.5-5.1) mmol/L Chloride 99 (98-107) mmol/L Carbon Dioxide 34.7 H (21.0-32.0) mmol/L Anion Gap 9.6 (5.0-15.0) mmol/L BUN 27 H (8-26) mg/dL Creatinine 1.04 D (0.70-1.30) mg/dL Est Cr Clr Drug Dosing 56.50 mL/min Estimated GFR (MDRD) > 60 (>60) MLS/MIN BUN/Creatinine Ratio 26.0 H (6-25) Glucose 117 H (74-100) mg/dL Calcium 8.7 (8.5-10.1) mg/dL Total Bilirubin 0.2 D (0.0-1.0) mg/dL AST 19 (15-37) U/L ALT 15 (12-78) U/L Alkaline Phosphatase 67 (46-116) U/L Total Protein 6.9 (6.4-8.2) g/dL Albumin 2.4 L (3.4-5.0) g/dL Globulin 4.5 H (2.2-4.2) g/dL Albumin/Globulin Ratio 0.5 L (0.8-2.0) Elijha Results Last 24 Hours: Microbiology 02/14/19 04:28 MRSA Surveillance Culture - Final Nares, Right NO MRSA ISOLATED Med Orders - Current: Current Medications Albuterol/Ipratropium (Duoneb 3.0-0.5 Mg/3 Ml) 3 ml NEB Q2H PRN PRN Reason: Shortness of Breath Last Admin: 02/15/19 05:52 Dose: 3 ml Albuterol/Ipratropium (Duoneb 3.0-0.5 Mg/3 Ml) 3 ml NEB QID [facility] Last Admin: 02/15/19 11:44 Dose: 3 ml Ciprofloxacin (Ciprofloxacin Hcl) 500 mg PO BID [facility] Stop: 02/18/19 20:01 Last Admin: 02/15/19 11:42 Dose: 500 mg Guaifenesin (Mucinex) 600 mg PO BID [facility] Last Admin: 02/15/19 11:42 Dose: 600 mg Sodium Chloride (Normal Saline) 1,000 mls @ 50 mls/hr IV ASDIRECTED [facility] Last Admin: 02/15/19 03:19 Dose: 50 mls/hr Levofloxacin (Levaquin) 750 mg PO DAILY [facility] Last Admin: 02/15/19 11:42 Dose: 750 mg Levothyroxine Sodium (Synthroid) 88 mcg PO DAILY@0700 [facility] Last Admin: 02/15/19 07:04 Dose: 88 mcg Lorazepam (Ativan) 0.5 mg PO Q6H [facility] Last Admin: 02/15/19 11:29 Dose: 0.5 mg Methylprednisolone Sodium Succinate (Solu-Medrol) 125 mg IVPUSH DAILY [facility] Last Admin: 02/15/19 11:37 Dose: 125 mg Morphine Sulfate (Morphine 20 Mg/Ml Soln) 2 mg SL Q2H PRN PRN Reason: PAIN Last Admin: 02/15/19 11:35 Dose: 0.1 ml Biofreeze Gel 1 each TOP QID PRN PRN Reason: BACK PAIN Pantoprazole Sodium (Protonix) 40 mg PO DAILY@0700 [facility] Last Admin: 02/15/19 07:04 Dose: 40 mg Senna/Docusate Sodium (Senna Plus) 1 tab PO BID [facility] Last Admin: 02/15/19 11:43 Dose: 1 tab Simvastatin (Zocor) 40 mg PO DAILY [facility] Last Admin: 02/15/19 11:43 Dose: 40 mg Tiotropium [place] (Spiriva Handihaler) 0 mcg INH DAILY [facility] Last Admin: 02/15/19 11:41 Dose: 18 mcg Discontinued Medications Sodium Chloride (Normal Saline) 500 mls @ 999 mls/hr IV .BOLUS ONE Stop: 02/14/19 00:28 Last Admin: 02/13/19 23:58 Dose: 999 mls/hr Sodium Chloride (Normal Saline) 500 mls @ 999 mls/hr IV .BOLUS ONE Stop: 02/14/19 01:05 Last Admin: 02/14/19 00:35 Dose: 999 mls/hr Lorazepam (Ativan) Confirm Administered Dose 2 mg .ROUTE .STK-MED ONE Stop: 02/13/19 15:07 Last Admin: 02/13/19 20:04 Dose: Not Given Methylprednisolone Sodium Succinate (Solu-Medrol) Confirm Administered Dose 125 mg .ROUTE .STK-MED ONE Stop: 02/13/19 15:52 Last Admin: 02/13/19 14:50 Dose: 125 mg Morphine Sulfate (Morphine) Confirm Administered Dose 2 mg .ROUTE .STK-MED ONE Stop: 02/13/19 15:53 Last Admin: 02/13/19 14:52 Dose: 1 mg - Exam Quality Assessment: Supplemental Oxygen General: Alert, Oriented, Cooperative HEENT: Pupils Equal, Pupils Reactive, EOMI Neck: Supple Lungs: Decreased Breath Sounds, Rhonchi, Wheezing Cardiovascular: Regular Rhythm, Tachycardia GI/Abdominal Exam: Normal Bowel Sounds, Soft, Non-Tender Back Exam: Paraspinal Tenderness Extremities: Pedal Edema - Problem List & Annotations (1) COPD exacerbation SNOMED Code(s): 374599976, 678567765 Code(s): J44.1 - CHRONIC OBSTRUCTIVE PULMONARY DISEASE W (ACUTE) EXACERBATION Status: Chronic Priority: High Current Visit: Yes Onset Date: 01/22/16 (2) Tachycardia SNOMED Code(s): 4976821 Code(s): R00.0 - TACHYCARDIA, UNSPECIFIED Status: Chronic Priority: High Current Visit: Yes Onset Date: 01/22/16 (3) Exertional shortness of breath SNOMED Code(s): 65289546 Code(s): R06.02 - SHORTNESS OF BREATH Status: Chronic Priority: High Current Visit: Yes Onset Date: 01/22/16 (4) Shortness of breath at rest SNOMED Code(s): 020418810 Code(s): R06.02 - SHORTNESS OF BREATH Status: Acute Priority: High Current Visit: Yes Onset Date: 06/15/16 (5) Diaphoresis SNOMED Code(s): 29564386 Code(s): R61 - GENERALIZED HYPERHIDROSIS Status: Chronic Priority: Low Current Visit: Yes Onset Date: 01/22/16 (6) Mass of lung SNOMED Code(s): 388997995 Code(s): R91.8 - OTHER NONSPECIFIC ABNORMAL FINDING OF LUNG FIELD Status: Chronic Priority: High Current Visit: Yes Annotation/Comment:: Patient refuses further workup or referral to pulmonology. (7) Respiratory failure SNOMED Code(s): 576042643 Code(s): J96.90 - RESPIRATORY FAILURE, UNSP, UNSP W HYPOXIA OR HYPERCAPNIA Status: Acute Priority: High Current Visit: Yes Qualifiers: Chronicity: acute on chronic (8) Palliative care patient SNOMED Code(s): 237185757 Code(s): Z51.5 - ENCOUNTER FOR PALLIATIVE CARE Status: Acute Priority: High Current Visit: Yes (9) UTI (urinary tract infection) SNOMED Code(s): 50709827 Code(s): N39.0 - URINARY TRACT INFECTION, SITE NOT SPECIFIED Status: Acute Current Visit: Yes Qualifiers: Urinary tract infection type: acute cystitis Hematuria presence: with hematuria Qualified Code(s): N30.01 - Acute cystitis with hematuria - Problem List Review Problem List Initiated/Reviewed/Updated: Yes - My Orders Last 24 Hours: My Active Orders 02/16/19 05:11 CBC WITH AUTO DIFF [HEME] AM COMPREHENSIVE METABOLIC PN,CMP [CHEM] AM - Plan Plan:: Patient will be admitted for COPD exacerbation, Respiratory failure, Weakness, UTI and deconditioning. Duoneb treatments to be scheduled. Solumedrol started. Morphine as scheduled. Oxygen 24hrs. Start on antibiotics for UTI. PT/OT for deconditioning - start when more stable in 2-3 days. F/u labs in AM. F/u Urine culture. 02/14/19 Patient to be monitored frequently for breathing, vitals. He had low BP last night which required fluid bolus twice. He remains on 5L oxygen and will likely need planning for swing bed rehabilitation if we are able to continue to stabilize his breathing. He is palliative care due to suspected metastatic lung carcinoma. He refuses transfer to any other facility and would like all care done here that is possible. We plan for either discharge home with home health care when he has improved or place in swing bed if he is too weak to care for himself. 02/15/19 Patient continues to have extreme shortness of breath with any movement. We will closely monitor breathing and vitals. He did require a 500mL bolus to maintain blood pressure this am. Patient requires full assistance for transfers, ambulation and getting out of bed. PT/OT f/u for his condition and ADLs. Continue supportive medications for pain management. Continue all breathing treatments scheduled. Patient will require some form of rehabilitation /swing bed care.
[2019-02-16] MEDS: Morphine Oral Concentrate 20 MG/ML 30 ML Bottle SL PRN ×6 (01:09→23:37)
[2019-02-16] MEDS: Albuterol/Ipratropium 3.0-0.5 MG/3 ML Neb Soln NEB PRN (01:48)
[2019-02-16] MEDS: Pantoprazole 40 MG Tab.CR PO SCH (05:10)
[2019-02-16] MEDS: Levothyroxine 88 MCG Tab PO SCH (05:10)
[2019-02-16] MEDS: LORazepam 0.5 MG Tab PO SCH ×4 (05:10→23:37)
[2019-02-16] MEDS: methylPREDNISolone Sodium Succinate 125 MG/2 ML SDV IVPUSH SCH (08:11)
[2019-02-16] MEDS: Tiotropium Inhaler 18 MCG Inhalation Powder Cap Kit of 5 INH SCH (08:12)
[2019-02-16] MEDS: Albuterol/Ipratropium 3.0-0.5 MG/3 ML Neb Soln NEB SCH ×4 (09:18→20:00)
[2019-02-16] MEDS ORDERED: LORazepam 0.5 MG Tab PO ONE ×2 (09:20→20:00)
[2019-02-16] MEDS: Ciprofloxacin 500 MG Tab PO SCH ×2 (12:03→19:50)
[2019-02-16] MEDS: Levofloxacin 750 MG Tab PO SCH (12:03)
[2019-02-16] MEDS: Simvastatin 40 MG Tab PO SCH (12:04)
[2019-02-16] MEDS: guaiFENesin 600 MG Tab.ER PO SCH ×2 (12:04→19:50)
--- NOTE | 2019-02-16 13:08 | PCM.PN ---
- General Info Date of Service: 02/16/19 Subjective Update: Patient appears stable with acute on chronic respiratory symptoms. He is more short of breath than his baseline but improved from the past few days. He continues to have great difficulty maintaining his oxygen saturation with movement or ambulation. His oxygen drops the instant he tries to shift in bed or get out of bed. Patient is more comfortable today. He remains on 5L oxygen and unable to be tapered at this time (tapering has failed). Functional Status: Reports: Pain Controlled, Tolerating Diet, Incentive Spirometry - Review of Systems General: Reports: Weakness HEENT: Reports: No Symptoms Pulmonary: Reports: Shortness of Breath, Wheezing Cardiovascular: Reports: Dyspnea on Exertion, Lightheadedness Gastrointestinal: Reports: No Symptoms Genitourinary: Reports: Frequency Musculoskeletal: Reports: Back Pain Skin: Reports: No Symptoms Neurological: Reports: Weakness - Patient Data Vitals - Most Recent: Last Vital Signs Temp 36.7 C 02/16/19 07:26 Pulse 105 H 02/16/19 07:26 Resp 18 02/16/19 07:26 BP 119/79 02/16/19 07:26 Pulse Ox 95 02/16/19 07:26 Weight - Most Recent: 90.265 kg I&O - Last 24 Hours: Intake & Output 02/15/19 02/16/19 02/16/19 22:59 06:59 14:59 Intake Total 921 747 Output Total 450 500 Balance 471 247 Lab Results Last 24 Hours: Laboratory Results - last 24 hr 02/16/19 02/16/19 Range/Units 07:10 07:10 WBC 11.1 H (4.0-11.0) K/uL RBC 4.19 L (4.50-6.50) M/uL Hgb 11.1 L (13.0-18.0) g/dL Hct 35.7 L (40.0-54.0) % MCV 85 (76-96) fL MCH 26.5 L (27.0-32.0) pg MCHC 31.1 (31.0-35.0) g/dL RDW 16.5 H (11.0-16.0) % Plt Count 335 (150-400) K/uL MPV 8.2 (6.0-10.0) fL Neut % (Auto) 76.3 H (45.0-70.0) % Lymph % (Auto) 12.9 L (20.0-40.0) % [place] % (Auto) 10.7 H (3.0-10.0) % Eos % (Auto) 0.0 L (1.0-5.0) % Baso % (Auto) 0.1 (0.0-0.5) % Neut # (Auto) 8.49 H (2.00-7.50) K/uL Lymph # (Auto) 1.44 L (1.50-4.00) K/uL [place] # (Auto) 1.19 H (0.20-0.80) K/uL Eos # (Auto) 0.00 L (0.04-0.40) K/uL Baso # (Auto) 0.01 L (0.02-0.10) K/uL Sodium 141 (136-145) mmol/L Potassium 4.1 (3.5-5.1) mmol/L Chloride 103 (98-107) mmol/L Carbon Dioxide 33.5 H (21.0-32.0) mmol/L Anion Gap 8.6 (5.0-15.0) mmol/L BUN 26 (8-26) mg/dL Creatinine 0.90 (0.70-1.30) mg/dL Est Cr Clr Drug Dosing 65.28 mL/min Estimated GFR (MDRD) > 60 (>60) MLS/MIN BUN/Creatinine Ratio 28.9 H (6-25) Glucose 91 (74-100) mg/dL Calcium 8.4 L (8.5-10.1) mg/dL Total Bilirubin 0.3 D (0.0-1.0) mg/dL AST 17 (15-37) U/L ALT 16 (12-78) U/L Alkaline Phosphatase 61 (46-116) U/L Total Protein 6.3 L (6.4-8.2) g/dL Albumin 2.3 L (3.4-5.0) g/dL Globulin 4.0 (2.2-4.2) g/dL Albumin/Globulin Ratio 0.6 L (0.8-2.0) Elijah Results Last 24 Hours: Microbiology 02/14/19 04:28 MRSA Surveillance Culture - Final Nares, Right NO MRSA ISOLATED Med Orders - Current: Current Medications Albuterol/Ipratropium (Duoneb 3.0-0.5 Mg/3 Ml) 3 ml NEB Q2H PRN PRN Reason: Shortness of Breath Last Admin: 02/16/19 01:48 Dose: 3 ml Albuterol/Ipratropium (Duoneb 3.0-0.5 Mg/3 Ml) 3 ml NEB QID [facility] Last Admin: 02/16/19 09:18 Dose: 3 ml Ciprofloxacin (Ciprofloxacin Hcl) 500 mg PO BID [facility] Stop: 02/18/19 20:01 Last Admin: 02/16/19 12:03 Dose: 500 mg Guaifenesin (Mucinex) 600 mg PO BID [facility] Last Admin: 02/16/19 12:04 Dose: 600 mg Sodium Chloride (Normal Saline) 1,000 mls @ 50 mls/hr IV ASDIRECTED [facility] Last Admin: 02/15/19 22:03 Dose: 50 mls/hr Levofloxacin (Levaquin) 750 mg PO DAILY [facility] Last Admin: 02/16/19 12:03 Dose: 750 mg Levothyroxine Sodium (Synthroid) 88 mcg PO DAILY@0700 [facility] Last Admin: 02/16/19 05:10 Dose: 88 mcg Lorazepam (Ativan) 0.5 mg PO Q6H [facility] Last Admin: 02/16/19 11:58 Dose: 0.5 mg Lorazepam (Ativan) 0.5 mg PO ONETIME ONE Stop: 02/16/19 09:21 Methylprednisolone Sodium Succinate (Solu-Medrol) 125 mg IVPUSH DAILY [facility] Last Admin: 02/16/19 08:11 Dose: 125 mg Morphine Sulfate (Morphine 20 Mg/Ml Soln) 2 mg SL Q2H PRN PRN Reason: PAIN Last Admin: 02/16/19 08:17 Dose: 0.1 ml Biofreeze Gel 1 each TOP QID PRN PRN Reason: BACK PAIN Pantoprazole Sodium (Protonix) 40 mg PO DAILY@0700 [facility] Last Admin: 02/16/19 05:10 Dose: 40 mg Senna/Docusate Sodium (Senna Plus) 1 tab PO BID [facility] Last Admin: 02/16/19 12:03 Dose: 1 tab Simvastatin (Zocor) 40 mg PO DAILY [facility] Last Admin: 02/16/19 12:04 Dose: 40 mg Tiotropium [place] (Spiriva Handihaler) 0 mcg INH DAILY [facility] Last Admin: 02/16/19 08:12 Dose: 118 mcg Discontinued Medications Sodium Chloride (Normal Saline) 500 mls @ 999 mls/hr IV .BOLUS ONE Stop: 02/14/19 00:28 Last Admin: 02/13/19 23:58 Dose: 999 mls/hr Sodium Chloride (Normal Saline) 500 mls @ 999 mls/hr IV .BOLUS ONE Stop: 02/14/19 01:05 Last Admin: 02/14/19 00:35 Dose: 999 mls/hr Lorazepam (Ativan) Confirm Administered Dose 2 mg .ROUTE .STK-MED ONE Stop: 02/13/19 15:07 Last Admin: 02/13/19 20:04 Dose: Not Given Lorazepam (Ativan) 0.5 mg PO ONETIME ONE Stop: 02/16/19 20:01 Methylprednisolone Sodium Succinate (Solu-Medrol) Confirm Administered Dose 125 mg .ROUTE .STK-MED ONE Stop: 02/13/19 15:52 Last Admin: 02/13/19 14:50 Dose: 125 mg Morphine Sulfate (Morphine) Confirm Administered Dose 2 mg .ROUTE .STK-MED ONE Stop: 02/13/19 15:53 Last Admin: 02/13/19 14:52 Dose: 1 mg - Exam Quality Assessment: Supplemental Oxygen General: Alert, Oriented, Cooperative HEENT: Pupils Equal, Pupils Reactive, EOMI Neck: Supple Lungs: Decreased Breath Sounds, Rhonchi, Wheezing Cardiovascular: Regular Rhythm, Tachycardia GI/Abdominal Exam: Normal Bowel Sounds, Soft, Non-Tender Back Exam: Paraspinal Tenderness Extremities: Normal Inspection, Pedal Edema Peripheral Pulses: 2+: Dorsalis Pedis (L), Dorsalis Pedis (R) Skin: Warm, Dry, Intact Neurological: No New Focal Deficit Psy/Mental Status: Alert, Normal Affect, Normal Mood - Problem List & Annotations (1) COPD exacerbation SNOMED Code(s): 680929951, 187242489 Code(s): J44.1 - CHRONIC OBSTRUCTIVE PULMONARY DISEASE W (ACUTE) EXACERBATION Status: Chronic Priority: High Current Visit: Yes Onset Date: 01/22/16 (2) Tachycardia SNOMED Code(s): 7000962 Code(s): R00.0 - TACHYCARDIA, UNSPECIFIED Status: Chronic Priority: High Current Visit: Yes Onset Date: 01/22/16 (3) Exertional shortness of breath SNOMED Code(s): 06181008 Code(s): R06.02 - SHORTNESS OF BREATH Status: Chronic Priority: High Current Visit: Yes Onset Date: 01/22/16 (4) Shortness of breath at rest SNOMED Code(s): 394155277 Code(s): R06.02 - SHORTNESS OF BREATH Status: Acute Priority: High Current Visit: Yes Onset Date: 01/22/16 (5) Diaphoresis SNOMED Code(s): 68338879 Code(s): R61 - GENERALIZED HYPERHIDROSIS Status: Chronic Priority: Low Current Visit: Yes Onset Date: 01/22/16 (6) Mass of lung SNOMED Code(s): 760644233 Code(s): R91.8 - OTHER NONSPECIFIC ABNORMAL FINDING OF LUNG FIELD Status: Chronic Priority: High Current Visit: Yes Annotation/Comment:: Patient refuses further workup or referral to pulmonology. (7) Respiratory failure SNOMED Code(s): 317371557 Code(s): J96.90 - RESPIRATORY FAILURE, UNSP, UNSP W HYPOXIA OR HYPERCAPNIA Status: Acute Priority: High Current Visit: Yes Qualifiers: Chronicity: acute on chronic (8) Palliative care patient SNOMED Code(s): 825530458 Code(s): Z51.5 - ENCOUNTER FOR PALLIATIVE CARE Status: Acute Priority: High Current Visit: Yes (9) UTI (urinary tract infection) SNOMED Code(s): 87396412 Code(s): N39.0 - URINARY TRACT INFECTION, SITE NOT SPECIFIED Status: Acute Current Visit: Yes Qualifiers: Urinary tract infection type: acute cystitis Hematuria presence: with hematuria Qualified Code(s): N30.01 - Acute cystitis with hematuria - Problem List Review Problem List Initiated/Reviewed/Updated: Yes - My Orders Last 24 Hours: My Active Orders 02/16/19 09:20 LORazepam [Ativan] 0.5 mg PO ONETIME ONE 02/17/19 05:11 BASIC METABOLIC PANEL,BMP [CHEM] AM CBC WITH AUTO DIFF [HEME] AM 02/18/19 05:11 BASIC METABOLIC PANEL,BMP [CHEM] AM CBC WITH AUTO DIFF [HEME] AM 02/19/19 05:11 BASIC METABOLIC PANEL,BMP [CHEM] AM CBC WITH AUTO DIFF [HEME] AM 02/20/19 05:11 BASIC METABOLIC PANEL,BMP [CHEM] AM CBC WITH AUTO DIFF [HEME] AM - Plan Plan:: Patient will be admitted for COPD exacerbation, Respiratory failure, Weakness, UTI and deconditioning. Duoneb treatments to be scheduled. Solumedrol started. Morphine as scheduled. Oxygen 24hrs. Start on antibiotics for UTI. PT/OT for deconditioning - start when more stable in 2-3 days. F/u labs in AM. F/u Urine culture. 02/14/19 Patient to be monitored frequently for breathing, vitals. He had low BP last night which required fluid bolus twice. He remains on 5L oxygen and will likely need planning for swing bed rehabilitation if we are able to continue to stabilize his breathing. He is palliative care due to suspected metastatic lung carcinoma. He refuses transfer to any other facility and would like all care done here that is possible. We plan for either discharge home with home health care when he has improved or place in swing bed if he is too weak to care for himself. 02/15/19 Patient continues to have extreme shortness of breath with any movement. We will closely monitor breathing and vitals. He did require a 500mL bolus to maintain blood pressure this am. Patient requires full assistance for transfers, ambulation and getting out of bed. PT/OT f/u for his condition and ADLs. Continue supportive medications for pain management. Continue all breathing treatments scheduled. Patient will require some form of rehabilitation /swing bed care. 02/16/19 Patient is stable and maintaining on 5L NC. There has been minimal interval improvement and possibly a new decrease in his baseline. It is most likely his lung mass has progressed and his symptoms are worsening. We will continue current pain management and breathing treatments.
[2019-02-17] MEDS: Sodium Chloride 0.9% 1,000 ML IV SCH (00:06)
[2019-02-17] MEDS: Morphine Oral Concentrate 20 MG/ML 30 ML Bottle SL PRN ×8 (01:48→23:04)
[2019-02-17] MEDS: LORazepam 0.5 MG Tab PO SCH ×5 (06:45→23:06)
[2019-02-17] MEDS: methylPREDNISolone Sodium Succinate 125 MG/2 ML SDV IVPUSH SCH (07:32)
[2019-02-17] MEDS ORDERED: Menthol/Zinc Oxide Ointment 113 GM Tube TOP PRN (07:36)
[2019-02-17] MEDS: Albuterol/Ipratropium 3.0-0.5 MG/3 ML Neb Soln NEB SCH ×4 (08:35→20:01)
[2019-02-17] MEDS: Ciprofloxacin 500 MG Tab PO SCH ×2 (09:14→20:00)
[2019-02-17] MEDS: guaiFENesin 600 MG Tab.ER PO SCH ×2 (09:14→20:00)
[2019-02-17] MEDS: Simvastatin 40 MG Tab PO SCH (09:14)
[2019-02-17] MEDS: Tiotropium Inhaler 18 MCG Inhalation Powder Cap Kit of 5 INH SCH (09:17)
[2019-02-17] MEDS: Pantoprazole 40 MG Tab.CR PO SCH (09:17)
[2019-02-17] MEDS: Levothyroxine 88 MCG Tab PO SCH (09:17)
[2019-02-17] MEDS: Levofloxacin 750 MG Tab PO SCH (09:18)
[2019-02-17] MEDS: Fluticasone Propionate Nasal Spray 16 GM Bottle NASBOTH SCH (10:10)
--- NOTE | 2019-02-17 10:45 | PCM.PN ---
- General Info Date of Service: 02/17/19 Subjective Update: Patient has labored breathing with movement and anxiety. During his blood draw he gets very short of breath and it takes another 10 minutes to improve his breathing. He is maintaining on 5L oxygen and we have tried but failed weaning at this time. Functional Status: Reports: Pain Controlled, Tolerating Diet - Review of Systems General: Reports: Weakness, Fatigue HEENT: Reports: No Symptoms Pulmonary: Reports: Shortness of Breath, Cough, Wheezing Cardiovascular: Reports: Dyspnea on Exertion Gastrointestinal: Reports: No Symptoms Genitourinary: Reports: Frequency Musculoskeletal: Reports: Back Pain Skin: Reports: No Symptoms Neurological: Reports: Weakness Psychiatric: Reports: Anxiety - Patient Data Vitals - Most Recent: Last Vital Signs Temp 36.6 C 02/16/19 19:44 Pulse 104 H 02/16/19 19:44 Resp 24 H 02/16/19 19:44 BP 124/84 02/16/19 19:44 Pulse Ox 90 L 02/16/19 19:44 Weight - Most Recent: 90.265 kg I&O - Last 24 Hours: Intake & Output 02/16/19 02/17/19 02/17/19 22:59 06:59 14:59 Intake Total 600 Output Total 650 Balance -50 Lab Results Last 24 Hours: Laboratory Results - last 24 hr 02/17/19 02/17/19 Range/Units 07:10 07:10 WBC 9.6 (4.0-11.0) K/uL RBC 4.13 L (4.50-6.50) M/uL Hgb 11.0 L (13.0-18.0) g/dL Hct 35.2 L (40.0-54.0) % MCV 85 (76-96) fL MCH 26.6 L (27.0-32.0) pg MCHC 31.3 (31.0-35.0) g/dL RDW 16.5 H (11.0-16.0) % Plt Count 323 (150-400) K/uL MPV 7.9 (6.0-10.0) fL Neut % (Auto) 71.5 H (45.0-70.0) % Lymph % (Auto) 15.4 L (20.0-40.0) % [place] % (Auto) 12.6 H (3.0-10.0) % Eos % (Auto) 0.5 L (1.0-5.0) % Baso % (Auto) 0.0 (0.0-0.5) % Neut # (Auto) 6.85 (2.00-7.50) K/uL Lymph # (Auto) 1.48 L (1.50-4.00) K/uL [place] # (Auto) 1.21 H (0.20-0.80) K/uL Eos # (Auto) 0.05 (0.04-0.40) K/uL Baso # (Auto) 0.00 L (0.02-0.10) K/uL Sodium 140 (136-145) mmol/L Potassium 3.9 (3.5-5.1) mmol/L Chloride 101 (98-107) mmol/L Carbon Dioxide 32.2 H (21.0-32.0) mmol/L Anion Gap 10.7 (5.0-15.0) mmol/L BUN 22 (8-26) mg/dL Creatinine 0.78 (0.70-1.30) mg/dL Est Cr Clr Drug Dosing 75.33 mL/min Estimated GFR (MDRD) > 60 (>60) MLS/MIN BUN/Creatinine Ratio 28.2 H (6-25) Glucose 85 (74-100) mg/dL Calcium 8.4 L (8.5-10.1) mg/dL Med Orders - Current: Current Medications Albuterol/Ipratropium (Duoneb 3.0-0.5 Mg/3 Ml) 3 ml NEB Q2H PRN PRN Reason: Shortness of Breath Last Admin: 02/16/19 01:48 Dose: 3 ml Albuterol/Ipratropium (Duoneb 3.0-0.5 Mg/3 Ml) 3 ml NEB QID [facility] Last Admin: 02/17/19 08:35 Dose: 3 ml Calamine/Phenol (Calmoseptine) 1 gm TOP QID PRN PRN Reason: Other Ciprofloxacin (Ciprofloxacin Hcl) 500 mg PO BID [facility] Stop: 02/18/19 20:01 Last Admin: 02/17/19 09:14 Dose: 500 mg Fluticasone Propionate (Flonase) 1 gm NASBOTH DAILY [facility] Last Admin: 02/17/19 10:10 Dose: 1 gm Guaifenesin (Mucinex) 600 mg PO BID [facility] Last Admin: 02/17/19 09:14 Dose: 600 mg Sodium Chloride (Normal Saline) 1,000 mls @ 50 mls/hr IV ASDIRECTED [facility] Last Admin: 02/17/19 00:06 Dose: 50 mls/hr Levofloxacin (Levaquin) 750 mg PO DAILY [facility] Last Admin: 02/17/19 09:18 Dose: 750 mg Levothyroxine Sodium (Synthroid) 88 mcg PO DAILY@0700 [facility] Last Admin: 02/17/19 09:17 Dose: 88 mcg Lorazepam (Ativan) 0.5 mg PO Q6H [facility] Last Admin: 02/17/19 07:33 Dose: 0.5 mg Methylprednisolone Sodium Succinate (Solu-Medrol) 125 mg IVPUSH DAILY [facility] Last Admin: 02/17/19 07:32 Dose: 125 mg Morphine Sulfate (Morphine 20 Mg/Ml Soln) 2 mg SL Q2H PRN PRN Reason: PAIN Last Admin: 02/17/19 07:33 Dose: 0.1 ml Biofreeze Gel 1 each TOP QID PRN PRN Reason: BACK PAIN Pantoprazole Sodium (Protonix) 40 mg PO DAILY@0700 [facility] Last Admin: 02/17/19 09:17 Dose: 40 mg Senna/Docusate Sodium (Senna Plus) 1 tab PO BID [facility] Last Admin: 02/17/19 09:14 Dose: 1 tab Simvastatin (Zocor) 40 mg PO DAILY [facility] Last Admin: 02/17/19 09:14 Dose: 40 mg Tiotropium [place] (Spiriva Handihaler) 0 mcg INH DAILY [facility] Last Admin: 02/17/19 09:17 Dose: 18 mcg Discontinued Medications Sodium Chloride (Normal Saline) 500 mls @ 999 mls/hr IV .BOLUS ONE Stop: 02/14/19 00:28 Last Admin: 02/13/19 23:58 Dose: 999 mls/hr Sodium Chloride (Normal Saline) 500 mls @ 999 mls/hr IV .BOLUS ONE Stop: 02/14/19 01:05 Last Admin: 02/14/19 00:35 Dose: 999 mls/hr Lorazepam (Ativan) Confirm Administered Dose 2 mg .ROUTE .STK-MED ONE Stop: 02/13/19 15:07 Last Admin: 02/13/19 20:04 Dose: Not Given Lorazepam (Ativan) 0.5 mg PO ONETIME ONE Stop: 02/16/19 20:01 Lorazepam (Ativan) 0.5 mg PO ONETIME ONE Stop: 02/16/19 09:21 Last Admin: 02/16/19 09:20 Dose: 0.5 mg Methylprednisolone Sodium Succinate (Solu-Medrol) Confirm Administered Dose 125 mg .ROUTE .STK-MED ONE Stop: 02/13/19 15:52 Last Admin: 02/13/19 14:50 Dose: 125 mg Morphine Sulfate (Morphine) Confirm Administered Dose 2 mg .ROUTE .STK-MED ONE Stop: 02/13/19 15:53 Last Admin: 02/13/19 14:52 Dose: 1 mg - Exam Quality Assessment: Supplemental Oxygen General: Alert, Oriented, Cooperative HEENT: Pupils Equal, Pupils Reactive, EOMI Neck: Supple Lungs: Decreased Breath Sounds, Rhonchi, Wheezing Cardiovascular: Regular Rhythm, Tachycardia GI/Abdominal Exam: Normal Bowel Sounds, Soft, Non-Tender, No Abnormal Bruit Back Exam: Muscle Spasm, Paraspinal Tenderness Extremities: Normal Inspection, Normal Range of Motion - Problem List & Annotations (1) COPD exacerbation SNOMED Code(s): 859894362, 713499361 Code(s): J44.1 - CHRONIC OBSTRUCTIVE PULMONARY DISEASE W (ACUTE) EXACERBATION Status: Chronic Priority: High Current Visit: Yes Onset Date: 01/22/16 (2) Tachycardia SNOMED Code(s): 8135046 Code(s): R00.0 - TACHYCARDIA, UNSPECIFIED Status: Chronic Priority: High Current Visit: Yes Onset Date: 01/22/16 (3) Exertional shortness of breath SNOMED Code(s): 41923370 Code(s): R06.02 - SHORTNESS OF BREATH Status: Chronic Priority: High Current Visit: Yes Onset Date: 01/22/16 (4) Shortness of breath at rest SNOMED Code(s): 459929335 Code(s): R06.02 - SHORTNESS OF BREATH Status: Acute Priority: High Current Visit: Yes Onset Date: 01/22/16 (5) Diaphoresis SNOMED Code(s): 57416298 Code(s): R61 - GENERALIZED HYPERHIDROSIS Status: Chronic Priority: Low Current Visit: Yes Onset Date: 01/22/16 (6) Mass of lung SNOMED Code(s): 075249800 Code(s): R91.8 - OTHER NONSPECIFIC ABNORMAL FINDING OF LUNG FIELD Status: Chronic Priority: High Current Visit: Yes Annotation/Comment:: Patient refuses further workup or referral to pulmonology. (7) Respiratory failure SNOMED Code(s): 877409061 Code(s): J96.90 - RESPIRATORY FAILURE, UNSP, UNSP W HYPOXIA OR HYPERCAPNIA Status: Acute Priority: High Current Visit: Yes Qualifiers: Chronicity: acute on chronic (8) Palliative care patient SNOMED Code(s): 949138838 Code(s): Z51.5 - ENCOUNTER FOR PALLIATIVE CARE Status: Acute Priority: High Current Visit: Yes (9) UTI (urinary tract infection) SNOMED Code(s): 00840171 Code(s): N39.0 - URINARY TRACT INFECTION, SITE NOT SPECIFIED Status: Acute Current Visit: Yes Qualifiers: Urinary tract infection type: acute cystitis Hematuria presence: with hematuria Qualified Code(s): N30.01 - Acute cystitis with hematuria - Problem List Review Problem List Initiated/Reviewed/Updated: Yes - My Orders Last 24 Hours: My Active Orders 02/16/19 Dinner Mechanical Soft Diet [DIET] 02/17/19 07:36 Menthol/Zinc Oxide [Calmoseptine] 1 gm TOP QID PRN 02/17/19 07:45 OT Evaluation and Treatment [CONS] Routine PT Evaluation and Treatment [CONS] Routine 02/17/19 09:00 Fluticasone Propionate [Flonase] 1 gm NASBOTH DAILY 02/18/19 05:11 BASIC METABOLIC PANEL,BMP [CHEM] AM CBC WITH AUTO DIFF [HEME] AM 02/19/19 05:11 BASIC METABOLIC PANEL,BMP [CHEM] AM CBC WITH AUTO DIFF [HEME] AM 02/20/19 05:11 BASIC METABOLIC PANEL,BMP [CHEM] AM CBC WITH AUTO DIFF [HEME] AM - Plan Plan:: Patient will be admitted for COPD exacerbation, Respiratory failure, Weakness, UTI and deconditioning. Duoneb treatments to be scheduled. Solumedrol started. Morphine as scheduled. Oxygen 24hrs. Start on antibiotics for UTI. PT/OT for deconditioning - start when more stable in 2-3 days. F/u labs in AM. F/u Urine culture. 02/14/19 Patient to be monitored frequently for breathing, vitals. He had low BP last night which required fluid bolus twice. He remains on 5L oxygen and will likely need planning for swing bed rehabilitation if we are able to continue to stabilize his breathing. He is palliative care due to suspected metastatic lung carcinoma. He refuses transfer to any other facility and would like all care done here that is possible. We plan for either discharge home with home health care when he has improved or place in swing bed if he is too weak to care for himself. 02/15/19 Patient continues to have extreme shortness of breath with any movement. We will closely monitor breathing and vitals. He did require a 500mL bolus to maintain blood pressure this am. Patient requires full assistance for transfers, ambulation and getting out of bed. PT/OT f/u for his condition and ADLs. Continue supportive medications for pain management. Continue all breathing treatments scheduled. Patient will require some form of rehabilitation /swing bed care. 02/16/19 Patient is stable and maintaining on 5L NC. There has been minimal interval improvement and possibly a new decrease in his baseline. It is most likely his lung mass has progressed and his symptoms are worsening. We will continue current pain management and breathing treatments. 02/17/19 Patient continues to require 5L NC. We have humidified the oxygen most of his stay but it continues to dry his mucus membranes. Patient remains very short of breath at this time. Improved WBC and renal function. F/u labs in am.
[2019-02-18] MEDS: Morphine Oral Concentrate 20 MG/ML 30 ML Bottle SL PRN ×6 (01:27→22:04)
[2019-02-18] MEDS: Albuterol/Ipratropium 3.0-0.5 MG/3 ML Neb Soln NEB PRN (02:49)
[2019-02-18] MEDS: LORazepam 0.5 MG Tab PO SCH ×7 (05:15→23:27)
[2019-02-18] MEDS: Albuterol/Ipratropium 3.0-0.5 MG/3 ML Neb Soln NEB SCH ×4 (08:04→19:47)
[2019-02-18] MEDS: methylPREDNISolone Sodium Succinate 125 MG/2 ML SDV IVPUSH SCH (08:17)
[2019-02-18] MEDS: guaiFENesin 600 MG Tab.ER PO SCH ×2 (08:31→19:47)
[2019-02-18] MEDS: Pantoprazole 40 MG Tab.CR PO SCH (08:31)
[2019-02-18] MEDS: Levofloxacin 750 MG Tab PO SCH (08:31)
[2019-02-18] MEDS: Levothyroxine 88 MCG Tab PO SCH (08:33)
[2019-02-18] MEDS: Fluticasone Propionate Nasal Spray 16 GM Bottle NASBOTH SCH (08:34)
[2019-02-18] MEDS: Ciprofloxacin 500 MG Tab PO SCH ×2 (08:35→19:47)
[2019-02-18] MEDS: Tiotropium Inhaler 18 MCG Inhalation Powder Cap Kit of 5 INH SCH (08:35)
[2019-02-18] MEDS: Simvastatin 40 MG Tab PO SCH (08:38)
--- NOTE | 2019-02-18 10:45 | PN ---
DATE OF VISIT: SUBJECTIVE: I have been asked to see Mr. Uriostegui in Dr. Joseph's absence, Dr. Joseph being the primary care provider. Dr. Joseph informed me of his status and his condition last night and basically to sum things up. He is a 78-year-old man with severe end-stage COPD and a highly suspicious lesion for lung carcinoma in his right upper lung area. He has had a lot of pain, most of which is breathing related and possibly some of which might be related to tumor and there has been a delicate balance between providing him with enough palliative relief from the pain in terms of morphine as well as making sure that he is not overly narcotized so as to impair his respiratory status. According to Dr. Joseph and the nursing staff, he has expressed the desire to not ever be intubated, but CPR measures ought to be initiated should he "require a jump-start." Therefore, he is a full code except for no intubation. When I introduced myself to him this morning, he was in the process of a DuoNeb treatment. He is hard of hearing, but I asked him that the pain medication he is receiving now is adequate and he is happy with it. He does have a baseline of discomfort, but he states that he is getting adequate pain relief at the present time. OBJECTIVE: VITAL SIGNS: His blood pressure is 153/78. He is afebrile. O2 sats are running between 88 and 90. His heart rate remains in the low 100s between 106 as high as 114. His respiratory rate is the same, ranging between 20 and 24. CHEST: He has scattered rhonchi bilaterally. He does use accessory muscles. ABDOMEN: Somewhat distended, but none, but soft and nontender. IMPRESSION: It does not appear that things are changed a great deal. He has not had a bowel movement in a few days, so we will go ahead and give him some MiraLAX for that. Hopefully that will help make him a bit more comfortable. Otherwise, we will not change anything. CARLA/BERNIE /[id number]
[2019-02-18] MEDS: Polyethylene Glycol 3350 Powder 17 GM Packet PO SCH ×2 (11:08→19:49)
[2019-02-19] MEDS ORDERED: Ondansetron 4 MG Tab.DIS PO PRN (00:13)
[2019-02-19] MEDS: Albuterol/Ipratropium 3.0-0.5 MG/3 ML Neb Soln NEB PRN (00:14)
[2019-02-19] MEDS: Morphine Oral Concentrate 20 MG/ML 30 ML Bottle SL PRN ×7 (00:32→23:58)
[2019-02-19] MEDS: LORazepam 0.5 MG Tab PO SCH ×4 (05:27→23:58)
[2019-02-19] MEDS: Albuterol/Ipratropium 3.0-0.5 MG/3 ML Neb Soln NEB SCH ×4 (08:16→20:23)
[2019-02-19] MEDS: methylPREDNISolone Sodium Succinate 125 MG/2 ML SDV IVPUSH SCH (08:17)
[2019-02-19] MEDS: Levothyroxine 88 MCG Tab PO SCH (08:18)
[2019-02-19] MEDS: guaiFENesin 600 MG Tab.ER PO SCH ×2 (08:19→20:23)
[2019-02-19] MEDS: Pantoprazole 40 MG Tab.CR PO SCH (08:19)
[2019-02-19] MEDS: Simvastatin 40 MG Tab PO SCH (08:19)
[2019-02-19] MEDS: Levofloxacin 750 MG Tab PO SCH (08:20)
[2019-02-19] MEDS: Fluticasone Propionate Nasal Spray 16 GM Bottle NASBOTH SCH (08:29)
[2019-02-19] MEDS: Tiotropium Inhaler 18 MCG Inhalation Powder Cap Kit of 5 INH SCH (08:30)
[2019-02-19] MEDS: Polyethylene Glycol 3350 Powder 17 GM Packet PO SCH ×2 (08:33→20:23)
[2019-02-19] MEDS ORDERED: Morphine Oral Concentrate 20 MG/ML 30 ML Bottle SL PRN (10:00)
--- NOTE | 2019-02-19 11:18 | PN ---
DATE OF VISIT: 02/19/2019 SUBJECTIVE: Surendra had an uneventful night. He states that he is reasonably comfortable. He has been achieving reasonably good pain relief. He still has not had a bowel movement and has received MiraLAX. We might give him an enema depending on how things go today. Nursing staff have been assisting with his feedings. He offers no complaints this morning. OBJECTIVE: On examination, he does have some decreased breath sounds in the right upper lung area which is consistent with the mass that is noted on his chest x-ray. Otherwise, he has a few scattered rhonchi which is the same as what he had yesterday. His abdomen is slightly distended, but soft and nontender. 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 PLAN: Continue comfort measures and analgesics as needed for pain relief. REYES /[id number]
[2019-02-19] MEDS ORDERED: Magnesium Hydroxide 400 MG/5 ML Susp 30 ML Cup PO PRN (14:22)
[2019-02-19] MEDS: Sodium Chloride 0.9% 1,000 ML IV SCH (18:45)
[2019-02-19] MEDS ORDERED: Sodium Chloride 0.9% 10 ML Syringe FLUSH PRN (18:57)
[2019-02-19] MEDS ORDERED: MORPHINE ONE (22:26)
[2019-02-19] MEDS ORDERED: Morphine PF 30 MG/30 ML PCA Vial IV SCH (22:30)
[2019-02-20] MEDS: Morphine Oral Concentrate 20 MG/ML 30 ML Bottle SL PRN ×4 (03:20→15:20)
[2019-02-20] MEDS ORDERED: Sodium Chloride 0.9% 500 ML IV ONE (03:36)
[2019-02-20] MEDS: Sodium Chloride 0.9% 1,000 ML IV SCH (04:40)
[2019-02-20] MEDS: LORazepam 0.5 MG Tab PO SCH ×2 (04:47→11:05)
[2019-02-20] MEDS: Levothyroxine 88 MCG Tab PO SCH (07:21)
[2019-02-20] MEDS: Pantoprazole 40 MG Tab.CR PO SCH (07:21)
[2019-02-20] MEDS: Albuterol/Ipratropium 3.0-0.5 MG/3 ML Neb Soln NEB SCH ×2 (09:01→11:41)
[2019-02-20] MEDS: Simvastatin 40 MG Tab PO SCH (09:13)
[2019-02-20] MEDS: Polyethylene Glycol 3350 Powder 17 GM Packet PO SCH (09:13)
[2019-02-20] MEDS: Levofloxacin 750 MG Tab PO SCH (09:13)
[2019-02-20] MEDS: guaiFENesin 600 MG Tab.ER PO SCH (09:13)
[2019-02-20] MEDS: methylPREDNISolone Sodium Succinate 125 MG/2 ML SDV IVPUSH SCH (09:27)
[2019-02-20] MEDS: Tiotropium Inhaler 18 MCG Inhalation Powder Cap Kit of 5 INH SCH (09:45)
[2019-02-20] MEDS: Fluticasone Propionate Nasal Spray 16 GM Bottle NASBOTH SCH (09:45)
[2019-02-20 12:28] VITALS: BP 110/68; PULSE 128
--- NOTE | 2019-02-20 12:48 | DISCH ---
HISTORY OF PRESENT ILLNESS: Surendra overall had a restful night, although in the dowel pin man hours, his blood pressure did dip down to low 80s systolic for which he received 500 mL normal saline bolus. His blood pressures since there have run between the 90s and low 100s, and that is the way he has been running now for the past few days. Overall, he feels that his pain control is good, and he offers no complaints apart from the fact that he has still not had a bowel movement and requests that he would be allowed to sit up in a chair and thinks that would help matters. He remains on nasal O2 per nasal cannula, and his O2 sats have ranged between 90 and 95. PHYSICAL EXAMINATION: GENERAL: He is alert and talkative. His chest is examination is unchanged. LUNGS: He has decreased breath sounds in the right upper lung field, and he has scattered rhonchi. ABDOMEN: His abdomen remained soft, but mildly distended. LABORATORY DATA: He no longer has any leukocytosis. His hemoglobin is stable at 11. His renal function is stable. His electrolytes are normal. His CO2 content is mildly elevated as has been the case all along. IMPRESSION: Chronic obstructive pulmonary disease, end-stage with suspected malignant neoplasm, right lung. PLAN: Continue comfort measures. We will try to get him up in a chair. I even suggested maybe seeing about getting him outside for a brief while hopefully to lift his spirits some. I have been having a few chats with him reminiscing about his experiences with restoring old cars, etcetera, and that seems to elevate his mood quite a bit. Continue with supportive and comfort measures. REYES /[id number]
[2019-02-20] MEDS ORDERED: Sodium Phosphate,Monobasic/Sodium Phosphate,Dibasic Enema 133 ML Bottle RECTAL ONE (15:33)
== END 2019-02-20 15:24 | disposition swing bed (61) | DRG 190 ==
LOC: LB.ED 14:48 → LB.MS 16:13 → UNDOADMIN 16:13 → LB.MS 16:37
PROVIDERS: ADMIT Family Medicine; ATTEND Family Medicine
DX: R06.02 Shortness of breath (principal); J44.9 Chronic obstructive pulmonary disease, unspecified; J44.1 Chronic obstructive pulmonary disease with (acute) exacerbation; N36.8 Other specified disorders of urethra; Z85.118 Personal history of other malignant neoplasm of bronchus and lung; J96.20 Acute and chronic respiratory failure, unspecified whether with hypoxia or hypercapnia; N30.01 Acute cystitis with hematuria; C34.90 Malignant neoplasm of unspecified part of unspecified bronchus or lung; C79.9 Secondary malignant neoplasm of unspecified site; Z99.81 Dependence on supplemental oxygen; R91.8 Other nonspecific abnormal finding of lung field; R00.0 Tachycardia, unspecified; R61 Generalized hyperhidrosis; Z53.29 Procedure and treatment not carried out because of patient's decision for other reasons; I10 Essential (primary) hypertension; R53.1 Weakness; M54.9 Dorsalgia, unspecified; G89.29 Other chronic pain; M19.90 Unspecified osteoarthritis, unspecified site; E03.9 Hypothyroidism, unspecified; E78.00 Pure hypercholesterolemia, unspecified; Z87.01 Personal history of pneumonia (recurrent); H91.90 Unspecified hearing loss, unspecified ear; H54.7 Unspecified visual loss; F41.9 Anxiety disorder, unspecified; Z79.52 Long term (current) use of systemic steroids; I95.9 Hypotension, unspecified; K59.00 Constipation, unspecified
CPT/HCPCS: 36415; 51702; 71045; 80053; 85025; 99285; A0425; A0429; J2270; J2930; 51701; 80048; 81001; A9270-GY; J2274; J7030; J7040; J7620-GY

== ENCOUNTER 2019-02-20 12:57 | Inpatient (IN) | payer MEDICARE ==
[2019-02-20] MEDS ORDERED: Tuberculin, PPD 5 Units/0.1 ML 1 ML MDV IDERM ONE (15:28)
[2019-02-20] MEDS ORDERED: Menthol/Zinc Oxide Ointment 113 GM Tube TOP PRN (15:33)
[2019-02-20] MEDS ORDERED: MENTHOL TOP PRN (15:33)
[2019-02-20] MEDS ORDERED: Non-Formulary Medication 1 Each (Ondansetron Hcl [Zofran] 4 MG) PO PRN (15:33)
[2019-02-20] MEDS ORDERED: MORPHINE SULFATE 4 MG SL PRN (15:33)
[2019-02-20] MEDS: Albuterol/Ipratropium 3.0-0.5 MG/3 ML Neb Soln NEB SCH ×2 (16:19→20:20)
[2019-02-20] MEDS: LORazepam 0.5 MG Tab PO SCH ×2 (17:29→23:45)
[2019-02-20] MEDS ORDERED: Non-Formulary Medication 1 Each (Polyethylene Glycol [Polyox Wsr-301] 17 GM) PO SCH (20:00)
[2019-02-20] MEDS: guaiFENesin 600 MG Tab.ER PO SCH (20:05)
[2019-02-20] MEDS: Morphine Oral Concentrate 20 MG/ML 30 ML Bottle SL PRN ×2 (21:00→23:44)
[2019-02-20] MEDS: Polyethylene Glycol 3350 Powder 17 GM Packet PO SCH (21:39)
[2019-02-20] MEDS: Simvastatin 40 MG Tab PO SCH (21:41)
[2019-02-20] MEDS: Sodium Chloride 0.9% 1,000 ML IV SCH (23:12)
[2019-02-21] MEDS: Morphine Oral Concentrate 20 MG/ML 30 ML Bottle SL PRN ×3 (02:00→07:02)
[2019-02-21] MEDS: Albuterol/Ipratropium 3.0-0.5 MG/3 ML Neb Soln NEB PRN (03:03)
[2019-02-21] MEDS: Levothyroxine 88 MCG Tab PO SCH (06:07)
[2019-02-21] MEDS: LORazepam 0.5 MG Tab PO SCH ×4 (06:08→23:40)
[2019-02-21] MEDS: Pantoprazole 40 MG Tab.CR PO SCH (06:25)
[2019-02-21] MEDS: Albuterol/Ipratropium 3.0-0.5 MG/3 ML Neb Soln NEB SCH ×4 (07:55→20:08)
[2019-02-21] MEDS: Levofloxacin 750 MG Tab PO SCH (07:55)
[2019-02-21] MEDS: Fluticasone Propionate Nasal Spray 16 GM Bottle NASBOTH SCH (07:55)
[2019-02-21] MEDS: guaiFENesin 600 MG Tab.ER PO SCH ×2 (07:56→20:08)
[2019-02-21] MEDS: Tiotropium Inhaler 18 MCG Inhalation Powder Cap Kit of 5 INH SCH (07:56)
[2019-02-21] MEDS: methylPREDNISolone Sodium Succinate 125 MG/2 ML SDV IVPUSH SCH (07:56)
[2019-02-21] MEDS: Magnesium Hydroxide 400 MG/5 ML Susp 30 ML Cup PO PRN (07:57)
[2019-02-21] MEDS: Polyethylene Glycol 3350 Powder 17 GM Packet PO SCH ×2 (08:00→20:20)
[2019-02-21] MEDS: Morphine PF 30 MG/30 ML PCA Vial IV SCH (12:39)
[2019-02-21] MEDS ORDERED: Tiotropium Inhaler 18 MCG Inhalation Powder Cap Kit of 5 ONE (13:17)
[2019-02-21] MEDS: Sodium Chloride 0.9% 1,000 ML IV SCH (19:15)
[2019-02-21] MEDS: Simvastatin 40 MG Tab PO SCH (20:08)
[2019-02-22] MEDS: LORazepam 0.5 MG Tab PO SCH ×4 (06:49→23:38)
[2019-02-22] MEDS: Pantoprazole 40 MG Tab.CR PO SCH (06:50)
[2019-02-22] MEDS: Levothyroxine 88 MCG Tab PO SCH (06:50)
[2019-02-22] MEDS: methylPREDNISolone Sodium Succinate 125 MG/2 ML SDV IVPUSH SCH (07:28)
[2019-02-22] MEDS: Albuterol/Ipratropium 3.0-0.5 MG/3 ML Neb Soln NEB SCH ×4 (07:32→22:27)
[2019-02-22] MEDS: Fluticasone Propionate Nasal Spray 16 GM Bottle NASBOTH SCH (07:46)
[2019-02-22] MEDS: Levofloxacin 750 MG Tab PO SCH (07:47)
[2019-02-22] MEDS: guaiFENesin 600 MG Tab.ER PO SCH ×2 (07:47→19:49)
[2019-02-22] MEDS: Tiotropium Inhaler 18 MCG Inhalation Powder Cap Kit of 5 INH SCH (07:48)
[2019-02-22] MEDS: Polyethylene Glycol 3350 Powder 17 GM Packet PO SCH ×2 (08:00→19:50)
--- NOTE | 2019-02-22 08:58 | PN ---
DATE OF VISIT: 02/21/2019 SUBJECTIVE: Surendra remains reasonably comfortable and very little has changed regarding his overall status. He is still experiencing pain that tends to wax and wane with periods of relative comfort followed by periods of more extreme pain and he is still on his oral morphine. He still has not had a bowel movement and we will try another enema regarding this. He states that his appetite is "good," which is a good sign. He was up in a chair more than usual yesterday and it played him out. OBJECTIVE: VITAL SIGNS: His vital signs remained stable. Blood pressure 108/67. He is afebrile. His respiratory rate remains elevated at 20 to 22 respirations per minute. His O2 sats continued to vary quite a bit from 89 up to 94. He is on O2 at 5 L/minute per nasal cannula. CHEST: On physical exam, nothing has changed. He has decreased breath sounds in his right upper lung field and scattered rhonchi otherwise. ABDOMEN: His abdomen is distended, but soft and nontender. IMPRESSION: The main concern at this point is to get more consistent pain control and to avoid the peaks in values that he has been experiencing. Therefore, after discussing with him, we decided a reasonable approach would be to start him on a morphine THICKENER OPERATOR and adjust accordingly. He thought this was a wonderful idea and was willing to give this a try. I think it will give him more consistent pain relief, but time will tell. He is on day 8 of his levofloxacin, and I informed the nurses we should probably continue this at least until day 10, if not longer. He knows that I will be gone beginning tomorrow. Dr. Penn will assume his call, as Dr. Joseph is going to be gone for another 10 days or so. 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 That seem to boost his spirits considerably. I will stop in and have a visit with him tonight. He has been transferred to a swing bed and does will be requiring his IV for continuous morphine infusion for pain control, which is a reasonable goal. CARLA/BERNIE /[id number]
[2019-02-22] MEDS: Sodium Chloride 0.9% 1,000 ML IV SCH (15:03)
[2019-02-22] MEDS: Morphine PF 30 MG/30 ML PCA Vial IV SCH (17:45)
[2019-02-22] MEDS: Albuterol/Ipratropium 3.0-0.5 MG/3 ML Neb Soln NEB PRN (18:31)
[2019-02-22] MEDS: Simvastatin 40 MG Tab PO SCH (19:49)
[2019-02-22] MEDS: Magnesium Hydroxide 400 MG/5 ML Susp 30 ML Cup PO PRN (19:49)
[2019-02-23] MEDS: Albuterol/Ipratropium 3.0-0.5 MG/3 ML Neb Soln NEB PRN ×3 (02:31→23:53)
[2019-02-23] MEDS: LORazepam 0.5 MG Tab PO SCH ×5 (05:41→23:42)
[2019-02-23] MEDS: Pantoprazole 40 MG Tab.CR PO SCH (06:00)
[2019-02-23] MEDS: Levothyroxine 88 MCG Tab PO SCH (06:00)
[2019-02-23] MEDS: Tiotropium Inhaler 18 MCG Inhalation Powder Cap Kit of 5 INH SCH (08:05)
[2019-02-23] MEDS: Fluticasone Propionate Nasal Spray 16 GM Bottle NASBOTH SCH (08:05)
[2019-02-23] MEDS: guaiFENesin 600 MG Tab.ER PO SCH ×2 (08:05→19:59)
[2019-02-23] MEDS: Levofloxacin 750 MG Tab PO SCH (08:05)
[2019-02-23] MEDS: Polyethylene Glycol 3350 Powder 17 GM Packet PO SCH ×2 (08:06→20:08)
[2019-02-23] MEDS: methylPREDNISolone Sodium Succinate 125 MG/2 ML SDV IVPUSH SCH (08:21)
[2019-02-23] MEDS: Albuterol/Ipratropium 3.0-0.5 MG/3 ML Neb Soln NEB SCH ×4 (08:40→19:59)
[2019-02-23] MEDS ORDERED: Morphine 2 MG/ML Syringe ONE (09:07)
[2019-02-23] MEDS ORDERED: Morphine 2 MG/ML Syringe IVPUSH ONE ×2 (09:08→09:53)
[2019-02-23] MEDS: Sodium Chloride 0.9% 1,000 ML IV SCH (10:53)
[2019-02-23] MEDS: Simvastatin 40 MG Tab PO SCH (19:59)
[2019-02-23] MEDS: Magnesium Hydroxide 400 MG/5 ML Susp 30 ML Cup PO PRN (20:00)
[2019-02-23] MEDS: Morphine PF 30 MG/30 ML PCA Vial IV SCH (23:43)
[2019-02-24] MEDS: Albuterol/Ipratropium 3.0-0.5 MG/3 ML Neb Soln NEB PRN (03:47)
[2019-02-24] MEDS: Sodium Chloride 0.9% 1,000 ML IV SCH ×2 (03:48→23:19)
[2019-02-24] MEDS: LORazepam 0.5 MG Tab PO SCH ×4 (05:59→23:18)
[2019-02-24] MEDS: Levothyroxine 88 MCG Tab PO SCH (05:59)
[2019-02-24] MEDS: Pantoprazole 40 MG Tab.CR PO SCH (05:59)
[2019-02-24] MEDS: guaiFENesin 600 MG Tab.ER PO SCH ×2 (08:34→20:17)
[2019-02-24] MEDS: Fluticasone Propionate Nasal Spray 16 GM Bottle NASBOTH SCH (08:34)
[2019-02-24] MEDS: Levofloxacin 750 MG Tab PO SCH (08:34)
[2019-02-24] MEDS: methylPREDNISolone Sodium Succinate 125 MG/2 ML SDV IVPUSH SCH (08:34)
[2019-02-24] MEDS: Albuterol/Ipratropium 3.0-0.5 MG/3 ML Neb Soln NEB SCH ×4 (08:34→20:17)
[2019-02-24] MEDS: Polyethylene Glycol 3350 Powder 17 GM Packet PO SCH ×2 (08:34→20:29)
[2019-02-24] MEDS: Tiotropium Inhaler 18 MCG Inhalation Powder Cap Kit of 5 INH SCH (08:42)
--- NOTE | 2019-02-24 17:54 | CR ---
DATE OF SERVICE: 02/24/19 CLINICAL DATA: No BM for several days UPRIGHT ABDOMEN: There is a large amount of stool present throughout the colon. Stomach is gas- filled and moderately distended. There are gas-filled loops of small bowel throughout the abdomen. They do not appear distended. No free air. No other significant findings. [id number] MTDD
[2019-02-24] MEDS: Simvastatin 40 MG Tab PO SCH (20:17)
[2019-02-24] MEDS: Magnesium Hydroxide 400 MG/5 ML Susp 30 ML Cup PO PRN (20:30)
[2019-02-25] MEDS: Albuterol/Ipratropium 3.0-0.5 MG/3 ML Neb Soln NEB PRN ×4 (01:21→23:02)
[2019-02-25] MEDS: Morphine PF 30 MG/30 ML PCA Vial IV SCH (02:59)
[2019-02-25] MEDS: LORazepam 0.5 MG Tab PO SCH ×4 (05:13→23:02)
[2019-02-25] MEDS: Pantoprazole 40 MG Tab.CR PO SCH (05:13)
[2019-02-25] MEDS: Levothyroxine 88 MCG Tab PO SCH (05:13)
[2019-02-25] MEDS: Albuterol/Ipratropium 3.0-0.5 MG/3 ML Neb Soln NEB SCH ×4 (08:04→20:33)
[2019-02-25] MEDS: Fluticasone Propionate Nasal Spray 16 GM Bottle NASBOTH SCH (08:04)
[2019-02-25] MEDS: methylPREDNISolone Sodium Succinate 125 MG/2 ML SDV IVPUSH SCH (08:11)
[2019-02-25] MEDS: Tiotropium Inhaler 18 MCG Inhalation Powder Cap Kit of 5 INH SCH (08:11)
[2019-02-25] MEDS: guaiFENesin 600 MG Tab.ER PO SCH ×2 (08:13→20:33)
[2019-02-25] MEDS: Levofloxacin 750 MG Tab PO SCH (08:13)
[2019-02-25] MEDS ORDERED: LORazepam 0.5 MG Tab PO ONE (08:21)
[2019-02-25] MEDS: Polyethylene Glycol 3350 Powder 17 GM Packet PO SCH ×2 (08:31→20:33)
[2019-02-25] MEDS ORDERED: LORazepam 1 MG Tab PO PRN (08:42)
--- NOTE | 2019-02-25 14:09 | PCM.PN ---
- General Info Date of Service: 02/25/19 Subjective Update: Apparently patient claims he feels better now. today morning he did have some worsen right chest pain and needed extra morphine 2mg to get his pain controlled. HE gets short of breath with very minimal activities like repositioning in bed. Pt does have frequent episodes of feeling of shortness of breath. Staff claims he has not had bowel movement since his admission this time, that is for more then 2 wks. Patient claims he has good appetite. No abdominal pain or distension. No nausea or vomiting. Functional Status: Reports: Pain Controlled, Tolerating Diet, Urinating - Review of Systems General: Reports: Weakness. Denies: Fever HEENT: Denies: Headaches, Sinus Congestion, Rhinitis Pulmonary: Reports: Shortness of Breath, Cough, Sputum. Denies: Hemoptysis Cardiovascular: Denies: Chest Pain, Lightheadedness Gastrointestinal: Reports: Constipation. Denies: Abdominal Pain, Diarrhea, Nausea, Vomiting Genitourinary: Denies: Frequency, Urgency Musculoskeletal: Denies: Joint Pain, Joint Swelling Skin: Denies: Bruising, Pruritis, Rash Neurological: Denies: Confusion, Dizziness, Headache, Numbness, Tingling - Patient Data Vitals - Most Recent: Last Vital Signs Temp 97.5 F 02/25/19 13:50 Pulse 106 H 02/25/19 13:50 Resp 20 02/25/19 13:50 BP 127/87 02/25/19 08:00 Pulse Ox 96 02/25/19 13:50 Weight - Most Recent: 88.269 kg I&O - Last 24 Hours: Intake & Output 02/24/19 02/25/19 02/25/19 22:59 06:59 14:59 Intake Total 1320 1200 Output Total 1275 575 Balance 45 625 Med Orders - Current: Current Medications Albuterol/Ipratropium (Duoneb 3.0-0.5 Mg/3 Ml) 3 ml NEB QID [facility] Last Admin: 02/25/19 11:12 Dose: 3 ml Albuterol/Ipratropium (Duoneb 3.0-0.5 Mg/3 Ml) 3 ml NEB Q2H PRN PRN Reason: Other Last Admin: 02/25/19 05:11 Dose: 3 ml Calamine/Phenol (Calmoseptine) 0 gm TOP QID PRN PRN Reason: Rash Fluticasone Propionate (Flonase) 0 gm NASBOTH DAILY [facility] Last Admin: 02/25/19 08:04 Dose: 1 spray Guaifenesin (Mucinex) 600 mg PO BID [facility] Last Admin: 02/25/19 08:13 Dose: 600 mg Sodium Chloride (Normal Saline) 1,000 mls @ 50 mls/hr IV ASDIRECTED [facility] Last Admin: 02/24/19 23:19 Dose: 50 mls/hr Levofloxacin (Levaquin) 750 mg PO DAILY [facility] Last Admin: 02/25/19 08:13 Dose: 750 mg Levothyroxine Sodium (Synthroid) 88 mcg PO ACBREAKFAST [facility] Last Admin: 02/25/19 05:13 Dose: 88 mcg Lorazepam (Ativan) 0.5 mg PO Q6H [facility] Last Admin: 02/25/19 12:30 Dose: Not Given Lorazepam (Ativan) 1 mg PO ONETIME PRN PRN Reason: Anxiety Last Admin: 02/25/19 12:29 Dose: 1 mg Magnesium Hydroxide (Milk Of Magnesia) 30 ml PO DAILY PRN PRN Reason: Constipation Last Admin: 02/24/19 20:30 Dose: 30 ml Methylprednisolone Sodium Succinate (Solu-Medrol) 125 mg IVPUSH DAILY [facility] Last Admin: 02/25/19 08:11 Dose: 125 mg Morphine Sulfate (Morphine Fish Conservationist 30 Mg In 30 Ml) 1 mg IV ASDIRECTED [facility]; Protocol Last Admin: 02/25/19 02:59 Dose: 1 mg Menthol [Biofreeze] (1 Applic Own Med) 1 applic TOP QID PRN PRN Reason: Pain Ondansetron HCl (Zofran Odt) 4 mg PO Q4H PRN PRN Reason: Nausea/Vomiting Pantoprazole Sodium (Protonix) 40 mg PO DAILY@0700 [facility] Last Admin: 02/25/19 05:13 Dose: 40 mg Polyethylene Glycol (Miralax) 17 gm PO BID [facility] Last Admin: 02/25/19 08:31 Dose: Not Given Senna/Docusate Sodium (Senna Plus) 1 tab PO BID [facility] Last Admin: 02/25/19 08:13 Dose: 1 tab Simvastatin (Zocor) 40 mg PO BEDTIME [facility] Last Admin: 02/24/19 20:17 Dose: 40 mg Tiotropium [place] (Spiriva Handihaler) 18 mcg INH DAILY [facility] Last Admin: 02/25/19 08:11 Dose: 18 mcg Discontinued Medications Lorazepam (Ativan) 0.5 mg PO ONETIME ONE Stop: 02/25/19 08:22 Last Admin: 02/25/19 08:25 Dose: 0.5 mg Morphine Sulfate (Morphine 20 Mg/Ml Soln) 4 mg SL Q2H PRN PRN Reason: Pain Last Admin: 02/21/19 07:02 Dose: 4 mg Morphine Sulfate (Morphine Fish Conservationist 30 Mg In 30 Ml) 0 mg IV ASDIRECTED [facility]; Protocol Last Admin: 02/23/19 23:43 Dose: 1 mg Morphine Sulfate (Morphine) Confirm Administered Dose 2 mg .ROUTE .STK-MED ONE Stop: 02/23/19 09:08 Last Admin: 02/23/19 09:20 Dose: Not Given Morphine Sulfate (Morphine) 2 mg IVPUSH ONETIME ONE Stop: 02/23/19 09:09 Last Admin: 02/23/19 09:10 Dose: 2 mg Morphine Sulfate (Morphine) 2 mg IVPUSH ONETIME ONE Stop: 02/23/19 09:54 Last Admin: 02/23/19 09:54 Dose: 2 mg Non-Formulary Medication (Morphine Sulfate [Morphine Sulfate]) 4 mg SL Q2H PRN PRN Reason: Pain Non-Formulary Medication (Ondansetron Hcl [Zofran]) 4 mg PO Q4H PRN PRN Reason: Nausea Non-Formulary Medication (Polyethylene Glycol [Polyox [id number]]) 17 gm PO BID [facility] Tiotropium [place] (Spiriva Handihaler) 18 mcg .ROUTE .STK-MED ONE Stop: 02/21/19 13:18 Tuberculin PPD (Aplisol) 5 unit IDERM ONETIME ONE Stop: 02/20/19 15:29 Last Admin: 02/21/19 16:36 Dose: 5 unit - Exam General: Alert, Oriented, Cooperative HEENT: Pupils Equal, Pupils Reactive, EOMI, Mucous Membr. Moist/[place] Neck: Supple Lungs: Normal Respiratory Effort, Decreased Breath Sounds (significantly decreased breath sound in the right hemithorax.), Rhonchi (scatterred rhnochi over the left lung field) Cardiovascular: Regular Rate, Regular Rhythm GI/Abdominal Exam: Normal Bowel Sounds, Soft, Non-Tender, Distended (globular with stool) Extremities: Normal Inspection, Normal Range of Motion, Non-Tender, No Pedal Edema, Normal Capillary Refill Skin: Warm, Intact - Problem List & Annotations (1) Palliative care patient SNOMED Code(s): 618809248 Code(s): Z51.5 - ENCOUNTER FOR PALLIATIVE CARE Status: Acute Priority: High Current Visit: No (2) COPD (chronic obstructive pulmonary disease) SNOMED Code(s): 06928724 Code(s): J44.9 - CHRONIC OBSTRUCTIVE PULMONARY DISEASE, UNSPECIFIED Status : Chronic Current Visit: No - Problem List Review Problem List Initiated/Reviewed/Updated: Yes - My Orders Last 24 Hours: My Active Orders 02/25/19 08:42 LORazepam [Ativan] 1 mg PO ONETIME PRN 02/25/19 09:00 Enema [RC] ONETIME - Assessment Assessment:: Palliative care for right lung mass Severe O2 dependent COPD Constipation - Plan Plan:: Pt has had a slowly progressive right lung mass. He has decided not to have any workup and presently on palliative care. He is on IV Morphine MANAGER UNIVERSITY at 1mg per hour basal. HE has been having frequent episodes of shortness of breath and also chest wall pain and requiring more morphine. I have started him on 0.2mg every 20 minutes on demand morphine for pain along with basal. Pt apparently is in end stage COPD, with almost no air entry in his right hemithorax secondary to the growing lung mass. He has been having more frequent episodes of shortness of breath some time with minimal activities and some times at rest.There is undue anxiety. Also he has had no bowel movement since this admission. He has been on stool softeners and miralax daily. Abdominal Xray does show large amount of stool in the colon. Presently he is not obstructed, but he might develop mechanical obstruction form stool impaction. Offered soap prema enema and patient has declined several time in the past 2 days. I have discussed today with patient very clearly, that if the stool is not extracted from the colon with enema, there is chance of stool obstructing the colon and causing bowel obstruction, which will cause more pain and discomfort, and with his very poor general health condition could have disastrous complications, including . Pt today has agreed to have soap prema enema. Will try and followup. Pt is not in any situation to be discharged. He is not able to work much with OT or PT for general strengthening due to his respiratory situation. I do not think home health can manage patient at home, as it was tried and has failed.
[2019-02-25] MEDS: Sodium Chloride 0.9% 1,000 ML IV SCH (18:04)
[2019-02-25] MEDS: Simvastatin 40 MG Tab PO SCH (20:33)
[2019-02-26] MEDS: Albuterol/Ipratropium 3.0-0.5 MG/3 ML Neb Soln NEB PRN ×2 (02:27→05:37)
[2019-02-26] MEDS: Morphine PF 30 MG/30 ML PCA Vial IV SCH (03:43)
[2019-02-26] MEDS: LORazepam 0.5 MG Tab PO SCH (05:38)
[2019-02-26] MEDS ORDERED: LORazepam 0.5 MG Tab ONE (07:15)
[2019-02-26] MEDS: Albuterol/Ipratropium 3.0-0.5 MG/3 ML Neb Soln NEB SCH ×4 (07:18→20:05)
[2019-02-26] MEDS: Tiotropium Inhaler 18 MCG Inhalation Powder Cap Kit of 5 INH SCH (07:21)
[2019-02-26] MEDS: Pantoprazole 40 MG Tab.CR PO SCH (07:22)
[2019-02-26] MEDS: Levothyroxine 88 MCG Tab PO SCH (07:22)
[2019-02-26] MEDS: methylPREDNISolone Sodium Succinate 125 MG/2 ML SDV IVPUSH SCH (07:23)
[2019-02-26] MEDS: guaiFENesin 600 MG Tab.ER PO SCH ×2 (07:23→20:05)
[2019-02-26] MEDS: Levofloxacin 750 MG Tab PO SCH (07:23)
[2019-02-26] MEDS: Fluticasone Propionate Nasal Spray 16 GM Bottle NASBOTH SCH (07:24)
[2019-02-26] MEDS ORDERED: LORazepam 0.5 MG Tab PO ONE (07:25)
[2019-02-26] MEDS: Magnesium Hydroxide 400 MG/5 ML Susp 30 ML Cup PO PRN (08:04)
[2019-02-26] MEDS: Polyethylene Glycol 3350 Powder 17 GM Packet PO SCH (08:07)
[2019-02-26] MEDS: Sodium Chloride 0.9% 1,000 ML IV SCH (12:08)
[2019-02-26] MEDS: LORazepam 1 MG Tab PO SCH ×3 (12:12→23:21)
[2019-02-26] MEDS: Simvastatin 40 MG Tab PO SCH (20:05)
[2019-02-27] MEDS: Albuterol/Ipratropium 3.0-0.5 MG/3 ML Neb Soln NEB PRN ×2 (01:53→04:50)
[2019-02-27] MEDS: Morphine PF 30 MG/30 ML PCA Vial IV SCH (02:50)
[2019-02-27] MEDS: LORazepam 1 MG Tab PO SCH ×4 (05:35→23:32)
[2019-02-27] MEDS: Levothyroxine 88 MCG Tab PO SCH (06:36)
[2019-02-27] MEDS: Pantoprazole 40 MG Tab.CR PO SCH (06:36)
[2019-02-27] MEDS: Sodium Chloride 0.9% 1,000 ML IV SCH (07:46)
[2019-02-27] MEDS: Albuterol/Ipratropium 3.0-0.5 MG/3 ML Neb Soln NEB SCH ×4 (07:49→20:55)
[2019-02-27] MEDS: Levofloxacin 750 MG Tab PO SCH (07:49)
[2019-02-27] MEDS: guaiFENesin 600 MG Tab.ER PO SCH ×2 (07:49→20:58)
[2019-02-27] MEDS: Fluticasone Propionate Nasal Spray 16 GM Bottle NASBOTH SCH (07:50)
[2019-02-27] MEDS: methylPREDNISolone Sodium Succinate 125 MG/2 ML SDV IVPUSH SCH (07:50)
[2019-02-27] MEDS: Tiotropium Inhaler 18 MCG Inhalation Powder Cap Kit of 5 INH SCH (07:50)
[2019-02-27] MEDS: Simvastatin 40 MG Tab PO SCH (20:58)
[2019-02-27] MEDS ORDERED: Magnesium Hydroxide 400 MG/5 ML Susp 30 ML Cup PO ONE (21:10)
[2019-02-27] MEDS: Magnesium Hydroxide 400 MG/5 ML Susp 30 ML Cup PO PRN (21:11)
[2019-02-28] MEDS: Albuterol/Ipratropium 3.0-0.5 MG/3 ML Neb Soln NEB PRN ×2 (01:50→05:10)
[2019-02-28] MEDS: Sodium Chloride 0.9% 1,000 ML IV SCH ×2 (02:03→20:37)
[2019-02-28] MEDS: Morphine PF 30 MG/30 ML PCA Vial IV SCH (03:22)
[2019-02-28] MEDS: LORazepam 1 MG Tab PO SCH ×5 (05:57→23:42)
[2019-02-28] MEDS: Levothyroxine 88 MCG Tab PO SCH ×2 (05:57→15:47)
[2019-02-28] MEDS: Pantoprazole 40 MG Tab.CR PO SCH ×2 (05:58→15:46)
[2019-02-28] MEDS: Albuterol/Ipratropium 3.0-0.5 MG/3 ML Neb Soln NEB SCH ×4 (08:47→20:16)
[2019-02-28] MEDS: methylPREDNISolone Sodium Succinate 125 MG/2 ML SDV IVPUSH SCH (08:49)
[2019-02-28] MEDS ORDERED: LORazepam 1 MG Tab ONE (08:53)
[2019-02-28] MEDS: guaiFENesin 600 MG Tab.ER PO SCH ×2 (08:55→20:16)
[2019-02-28] MEDS: Levofloxacin 750 MG Tab PO SCH (08:56)
[2019-02-28] MEDS: Fluticasone Propionate Nasal Spray 16 GM Bottle NASBOTH SCH (09:04)
[2019-02-28] MEDS: Tiotropium Inhaler 18 MCG Inhalation Powder Cap Kit of 5 INH SCH (09:05)
[2019-02-28] MEDS: Simvastatin 40 MG Tab PO SCH (20:16)
[2019-02-28] MEDS ORDERED: Calcium Carbonate 500 MG Tab.Chew ONE (20:20)
[2019-02-28] MEDS ORDERED: Calcium Carbonate 500 MG Tab.Chew PO PRN (20:31)
[2019-02-28] MEDS ORDERED: Calcium Carbonate 500 MG Tab.Chew PO ONE (20:34)
[2019-03-01] MEDS: Albuterol/Ipratropium 3.0-0.5 MG/3 ML Neb Soln NEB PRN ×3 (00:39→06:00)
[2019-03-01] MEDS: Magnesium Hydroxide 400 MG/5 ML Susp 30 ML Cup PO PRN (04:05)
[2019-03-01] MEDS: Levothyroxine 88 MCG Tab PO SCH (06:00)
[2019-03-01] MEDS: LORazepam 1 MG Tab PO SCH ×4 (06:00→23:49)
[2019-03-01] MEDS: Pantoprazole 40 MG Tab.CR PO SCH (06:00)
[2019-03-01] MEDS: methylPREDNISolone Sodium Succinate 125 MG/2 ML SDV IVPUSH SCH (08:32)
[2019-03-01] MEDS: Fluticasone Propionate Nasal Spray 16 GM Bottle NASBOTH SCH (08:32)
[2019-03-01] MEDS: Albuterol/Ipratropium 3.0-0.5 MG/3 ML Neb Soln NEB SCH ×4 (08:32→20:01)
[2019-03-01] MEDS: guaiFENesin 600 MG Tab.ER PO SCH ×2 (08:33→20:02)
[2019-03-01] MEDS: Levofloxacin 750 MG Tab PO SCH (08:33)
[2019-03-01] MEDS: Tiotropium Inhaler 18 MCG Inhalation Powder Cap Kit of 5 INH SCH (08:33)
[2019-03-01] MEDS: Sodium Chloride 0.9% 1,000 ML IV SCH (15:31)
[2019-03-01] MEDS: Simvastatin 40 MG Tab PO SCH (20:01)
[2019-03-01] MEDS: Ondansetron 4 MG Tab.DIS PO PRN (21:57)
[2019-03-02] MEDS: Albuterol/Ipratropium 3.0-0.5 MG/3 ML Neb Soln NEB PRN ×2 (05:10→13:51)
[2019-03-02] MEDS: LORazepam 1 MG Tab PO SCH ×5 (06:30→23:32)
[2019-03-02] MEDS: Pantoprazole 40 MG Tab.CR PO SCH (06:30)
[2019-03-02] MEDS: Levothyroxine 88 MCG Tab PO SCH (06:30)
[2019-03-02] MEDS ORDERED: Tiotropium Inhaler 18 MCG Inhalation Powder Cap Kit of 5 ONE (08:00)
[2019-03-02] MEDS: Albuterol/Ipratropium 3.0-0.5 MG/3 ML Neb Soln NEB SCH ×4 (08:25→19:58)
[2019-03-02] MEDS: Tiotropium Inhaler 18 MCG Inhalation Powder Cap Kit of 5 INH SCH (08:29)
[2019-03-02] MEDS: Levofloxacin 750 MG Tab PO SCH (08:29)
[2019-03-02] MEDS: Fluticasone Propionate Nasal Spray 16 GM Bottle NASBOTH SCH (08:29)
[2019-03-02] MEDS: guaiFENesin 600 MG Tab.ER PO SCH ×2 (08:29→19:58)
[2019-03-02] MEDS: methylPREDNISolone Sodium Succinate 125 MG/2 ML SDV IVPUSH SCH (08:30)
[2019-03-02] MEDS: Sodium Chloride 0.9% 1,000 ML IV SCH (08:32)
--- NOTE | 2019-03-02 19:06 | CR ---
DATE OF SERVICE: 03/02/2019 CLINICAL DATA: Abdominal distention. SUPINE AND LEFT LATERAL DECUBITUS ABDOMEN: There is a large amount of stool noted within the colon, consistent with constipation. No definite evidence for obstruction or ileus. No free air. Job: [id number] MTDD
[2019-03-02] MEDS: Simvastatin 40 MG Tab PO SCH (19:58)
[2019-03-03] MEDS: Pantoprazole 40 MG Tab.CR PO SCH (06:15)
[2019-03-03] MEDS: Levothyroxine 88 MCG Tab PO SCH (06:15)
[2019-03-03] MEDS: LORazepam 1 MG Tab PO SCH ×4 (06:16→23:42)
[2019-03-03] MEDS: methylPREDNISolone Sodium Succinate 125 MG/2 ML SDV IVPUSH SCH (09:56)
[2019-03-03] MEDS: Albuterol/Ipratropium 3.0-0.5 MG/3 ML Neb Soln NEB SCH ×4 (09:56→20:12)
[2019-03-03] MEDS: Fluticasone Propionate Nasal Spray 16 GM Bottle NASBOTH SCH (09:56)
[2019-03-03] MEDS: Levofloxacin 750 MG Tab PO SCH (09:57)
[2019-03-03] MEDS: Tiotropium Inhaler 18 MCG Inhalation Powder Cap Kit of 5 INH SCH (09:57)
[2019-03-03] MEDS: guaiFENesin 600 MG Tab.ER PO SCH ×2 (09:57→20:11)
[2019-03-03] MEDS ORDERED: fentaNYL 12 MCG/HR Transdermal Patch TRDERM SCH (10:00)
--- NOTE | 2019-03-03 11:54 | PCM.PN ---
- General Info Date of Service: 03/03/19 Subjective Update: Pt claims that he feels fine, his pain is controlled on present pain regime. He has been having pain on and off in his right cheat. pain can get sever some time. She also gets wheezing and shortness of breath some times with minimal activity as rolling in the bed, and some times not. He has not had bowel movement since last Wednesday again. He did have Soap prema enema last Wednesday twice. Pt has been offered daily, but he declines enema. I did talk to him yesterday and he had agreed to have the enema and apparently after I left he has declined it per staff.He gets upset with staff. He refuses MOM and miralax. Pt and his daughter want to go home. He claims he can take care of himself with the help of his daughter and does want to go home. Functional Status: Reports: Pain Controlled, Tolerating Diet, Ambulating, Urinating - Review of Systems General: Denies: Fever, Weakness HEENT: Denies: Headaches, Sinus Congestion, Sore Throat, Rhinitis Pulmonary: Reports: Shortness of Breath (even with minimal activity in the bed. ), Pleuritic Chest Pain, Cough, Hemoptysis. Denies: Sputum Cardiovascular: Denies: Chest Pain, Lightheadedness Gastrointestinal: Reports: Constipation, Flatus. Denies: Abdominal Pain, Diarrhea, Nausea, Vomiting Genitourinary: Denies: Dysuria, Frequency Musculoskeletal: Denies: Joint Pain, Joint Swelling Skin: Denies: Bruising Neurological: Denies: Confusion, Dizziness, Headache, Numbness, Tingling - Patient Data Vitals - Most Recent: Last Vital Signs Temp 97.9 F 03/03/19 08:00 Pulse 115 H 03/03/19 08:00 Resp 18 03/03/19 08:00 BP 94/55 L 03/03/19 08:00 Pulse Ox 89 L 03/03/19 08:00 Weight - Most Recent: 88.269 kg I&O - Last 24 Hours: Intake & Output 03/02/19 03/03/19 03/03/19 22:59 06:59 14:59 Intake Total 900 750 Output Total 1200 2150 Balance -300 -1400 Med Orders - Current: Current Medications Albuterol/Ipratropium (Duoneb 3.0-0.5 Mg/3 Ml) 3 ml NEB QID [facility] Last Admin: 03/03/19 09:56 Dose: 3 ml Albuterol/Ipratropium (Duoneb 3.0-0.5 Mg/3 Ml) 3 ml NEB Q2H PRN PRN Reason: Other Last Admin: 03/02/19 13:51 Dose: 3 ml Calamine/Phenol (Calmoseptine) 0 gm TOP QID PRN PRN Reason: Rash Calcium Carbonate/Glycine (Tums) 500 mg PO Q6HR PRN PRN Reason: Indigestion Fentanyl (Duragesic) 12 mcg TRDERM Q72H [facility] Fluticasone Propionate (Flonase) 0 gm NASBOTH DAILY [facility] Last Admin: 03/03/19 09:56 Dose: 1 spray Guaifenesin (Mucinex) 600 mg PO BID [facility] Last Admin: 03/03/19 09:57 Dose: 600 mg Sodium Chloride (Normal Saline) 1,000 mls @ 50 mls/hr IV ASDIRECTED [facility] Last Admin: 03/02/19 08:32 Dose: 50 mls/hr Levofloxacin (Levaquin) 750 mg PO DAILY [facility] Last Admin: 03/03/19 09:57 Dose: 750 mg Levothyroxine Sodium (Synthroid) 88 mcg PO ACBREAKFAST [facility] Last Admin: 03/03/19 06:15 Dose: 88 mcg Lorazepam (Ativan) 1 mg PO Q6H [facility] Last Admin: 03/03/19 11:03 Dose: 1 mg Magnesium Hydroxide (Milk Of Magnesia) 30 ml PO DAILY PRN PRN Reason: Constipation Last Admin: 03/01/19 04:05 Dose: 30 ml Methylprednisolone Sodium Succinate (Solu-Medrol) 125 mg IVPUSH DAILY [facility] Last Admin: 03/03/19 09:56 Dose: 125 mg Morphine Sulfate (Morphine [employer] Director 30 Mg In 30 Ml) 1 mg IV ASDIRECTED [facility]; Protocol Last Admin: 02/28/19 03:22 Dose: 1 mg Morphine Sulfate (Morphine 20 Mg/Ml Soln) 1 mg PO Q1H PRN PRN Reason: Pain Morphine Sulfate (Morphine 20 Mg/Ml Soln) 2 mg PO Q4H PRN PRN Reason: Severe Agitation Menthol [Biofreeze] (1 Applic Own Med) 1 applic TOP QID PRN PRN Reason: Pain Last Admin: 02/26/19 07:30 Dose: 1 applic Ondansetron HCl (Zofran Odt) 4 mg PO Q4H PRN PRN Reason: Nausea/Vomiting Last Admin: 03/01/19 21:57 Dose: 4 mg Pantoprazole Sodium (Protonix) 40 mg PO DAILY@0700 [facility] Last Admin: 03/03/19 06:15 Dose: 40 mg Senna/Docusate Sodium (Senna Plus) 2 tab PO BEDTIME [facility] Last Admin: 03/02/19 19:58 Dose: 2 tab Senna/Docusate Sodium (Senna Plus) 1 tab PO DAILY [facility] Last Admin: 03/03/19 09:57 Dose: 1 tab Simvastatin (Zocor) 40 mg PO BEDTIME [facility] Last Admin: 03/02/19 19:58 Dose: 40 mg Tiotropium [place] (Spiriva Handihaler) 18 mcg INH DAILY [facility] Last Admin: 03/03/19 09:57 Dose: 18 mcg Discontinued Medications Calcium Carbonate/Glycine (Tums) Confirm Administered Dose 500 mg .ROUTE .STK- MED ONE Stop: 02/28/19 20:21 Last Admin: 02/28/19 20:40 Dose: Not Given Calcium Carbonate/Glycine (Tums) 500 mg PO ONETIME ONE Stop: 02/28/19 20:35 Last Admin: 02/28/19 20:39 Dose: 500 mg Lorazepam (Ativan) 0.5 mg PO Q6H [facility] Last Admin: 02/26/19 05:38 Dose: 0.5 mg Lorazepam (Ativan) 0.5 mg PO ONETIME ONE Stop: 02/25/19 08:22 Last Admin: 02/25/19 08:25 Dose: 0.5 mg Lorazepam (Ativan) 1 mg PO ONETIME PRN PRN Reason: Anxiety Last Admin: 02/25/19 12:29 Dose: 1 mg Lorazepam (Ativan) Confirm Administered Dose 0.5 mg .ROUTE .STK-MED ONE Stop: 02/26/19 07:16 Last Admin: 02/26/19 07:26 Dose: 0.5 mg Lorazepam (Ativan) 0.5 mg PO ONETIME ONE Stop: 02/26/19 07:26 Last Admin: 02/26/19 08:08 Dose: Not Given Lorazepam (Ativan) Confirm Administered Dose 1 mg .ROUTE .STK-MED ONE Stop: 02/28/19 08:54 Last Admin: 02/28/19 14:55 Dose: Not Given Magnesium Hydroxide (Milk Of Magnesia) 30 ml PO ONETIME ONE Stop: 02/27/19 21:11 Last Admin: 02/27/19 23:33 Dose: Not Given Morphine Sulfate (Morphine 20 Mg/Ml Soln) 4 mg SL Q2H PRN PRN Reason: Pain Last Admin: 02/21/19 07:02 Dose: 4 mg Morphine Sulfate (Morphine [employer] Director 30 Mg In 30 Ml) 0 mg IV ASDIRECTED [facility]; Protocol Last Admin: 02/23/19 23:43 Dose: 1 mg Morphine Sulfate (Morphine) Confirm Administered Dose 2 mg .ROUTE .STK-MED ONE Stop: 02/23/19 09:08 Last Admin: 02/23/19 09:20 Dose: Not Given Morphine Sulfate (Morphine) 2 mg IVPUSH ONETIME ONE Stop: 02/23/19 09:09 Last Admin: 02/23/19 09:10 Dose: 2 mg Morphine Sulfate (Morphine) 2 mg IVPUSH ONETIME ONE Stop: 02/23/19 09:54 Last Admin: 02/23/19 09:54 Dose: 2 mg Non-Formulary Medication (Morphine Sulfate [Morphine Sulfate]) 4 mg SL Q2H PRN PRN Reason: Pain Non-Formulary Medication (Ondansetron Hcl [Zofran]) 4 mg PO Q4H PRN PRN Reason: Nausea Non-Formulary Medication (Polyethylene Glycol [Polyox [id number]]) 17 gm PO BID [facility] Polyethylene Glycol (Miralax) 17 gm PO BID [facility] Last Admin: 02/26/19 08:07 Dose: Not Given Senna/Docusate Sodium (Senna Plus) 1 tab PO BID [facility] Last Admin: 02/26/19 07:23 Dose: 1 tab Tiotropium [place] (Spiriva Handihaler) 18 mcg .ROUTE .STK-MED ONE Stop: 02/21/19 13:18 Tiotropium [place] (Spiriva Handihaler) 18 mcg .ROUTE .STK-MED ONE Stop: 03/02/19 08:01 Tuberculin PPD (Aplisol) 5 unit IDERM ONETIME ONE Stop: 02/20/19 15:29 Last Admin: 02/21/19 16:36 Dose: 5 unit - Exam General: Alert, Oriented, Cooperative HEENT: Pupils Equal, Pupils Reactive, EOMI, Mucous Membr. Moist/[place] Neck: Supple Lungs: Decreased Breath Sounds (absnet air entery in the right hemithorax. good airentery in the left hemithorax), Rhonchi (scatterred) Cardiovascular: Regular Rate, Regular Rhythm GI/Abdominal Exam: Normal Bowel Sounds, No Organomegaly, Pelvis Stable, Distended (secondary to stool impaction from chronic constipation) Back Exam: Normal Inspection Extremities: Normal Inspection, Normal Range of Motion, Non-Tender, No Pedal Edema, Normal Capillary Refill Skin: Warm, Intact Neurological: No New Focal Deficit - Problem List & Annotations (1) Palliative care patient SNOMED Code(s): 847209509 Code(s): Z51.5 - ENCOUNTER FOR PALLIATIVE CARE Status: Acute Priority: High Current Visit: No (2) COPD (chronic obstructive pulmonary disease) SNOMED Code(s): 18180778 Code(s): J44.9 - CHRONIC OBSTRUCTIVE PULMONARY DISEASE, UNSPECIFIED Status : Chronic Current Visit: No (3) Chronic constipation SNOMED Code(s): 944611479 Code(s): K59.09 - OTHER CONSTIPATION Status: Acute Current Visit: Yes - Problem List Review Problem List Initiated/Reviewed/Updated: Yes - My Orders Last 24 Hours: My Active Orders 03/03/19 10:00 fentaNYL [Duragesic] 12 mcg TRDERM Q72H 03/03/19 10:05 Morphine [Morphine 20 MG/ML Soln] 1 mg PO Q1H PRN Morphine [Morphine 20 MG/ML Soln] 2 mg PO Q4H PRN - Assessment Assessment:: Palliative care for right lung mass Severe O2 dependent COPD Constipation - Plan Plan:: Pt has had a slowly progressive right lung mass. He has decided not to have any workup and presently on palliative care. He is on IV Morphine [employer] at 1mg per hour basal. HE has been having frequent episodes of shortness of breath and also chest wall pain and requiring more morphine. I have started him on 0.2mg every 20 minutes on demand morphine for pain along with basal. Pt apparently is in end stage COPD, with almost no air entry in his right hemithorax secondary to the growing lung mass. He has been having more frequent episodes of shortness of breath some time with minimal activities and some times at rest.There is undue anxiety. Also he has had no bowel movement since this admission. He has been on stool softeners and miralax daily. Abdominal Xray does show large amount of stool in the colon. Presently he is not obstructed, but he might develop mechanical obstruction form stool impaction. Offered soap prema enema and patient has declined several time in the past 2 days. I have discussed today with patient very clearly, that if the stool is not extracted from the colon with enema, there is chance of stool obstructing the colon and causing bowel obstruction, which will cause more pain and discomfort, and with his very poor general health condition could have disastrous complications, including . Pt today has agreed to have soap prema enema. Will try and followup. Pt is not in any situation to be discharged. He is not able to work much with OT or PT for general strengthening due to his respiratory situation. I do not think home health can manage patient at home, as it was tried and has failed. 03/03/19 There has not been much improvement in patient status, or not a severe deterioration. He is on Morphine [employer], which is helping with his pain and does get break through morphine. HE seem comfortable now. But some times does get tachypneic and hypoxic from respiratory distress. He is on Oxygen which maintains his SPO2 above 92%. My concern is his chronic constipation. On Abdominal xray today he has large collection of stool in the ascending colon. He has not had a good amount of stool for 2-3 weeks now. With last week soap prema he had some results, but not a large results. He has continued to decline enemas and also oral therapy for constipation. At some point he is going to develop mechanical obstruction which with his poor general condition will be disastrous and could cause secondary sepsis and . HE agreed to have soap prema enema to me, but when staff went to do it, he has declined again yesterday. Pt and his daughter are very keen on taking patient home. Home health nurse has evaluated and decided that it will be a very hard for them to give 24 hrs one on one service at home. But patient and his daughter are adamant about it. I still respect their opinion and intention. They do understand all the risks associated If he is going home, patient cannot be on [employer] pump. Hence I have stopped the [employer] pump today and placed him on fentanyl patch 12 mcg and morphine s/l 1mg every hr and 2mg every 4 hrs for acute respiratory distress or anxiety. Rest of the medications will be continued.
[2019-03-03] MEDS: Simvastatin 40 MG Tab PO SCH (20:12)
[2019-03-03] MEDS ORDERED: Morphine Oral Concentrate 20 MG/ML 30 ML Bottle ONE (23:04)
[2019-03-04] MEDS: Albuterol/Ipratropium 3.0-0.5 MG/3 ML Neb Soln NEB PRN ×4 (01:00→17:57)
[2019-03-04] MEDS: Sodium Chloride 0.9% 1,000 ML IV SCH (01:16)
[2019-03-04] MEDS: Morphine Oral Concentrate 20 MG/ML 30 ML Bottle PO PRN ×6 (05:03→21:44)
[2019-03-04] MEDS: LORazepam 1 MG Tab PO SCH ×3 (06:18→17:57)
[2019-03-04] MEDS: Pantoprazole 40 MG Tab.CR PO SCH (06:19)
[2019-03-04] MEDS: Levothyroxine 88 MCG Tab PO SCH (06:20)
[2019-03-04] MEDS: methylPREDNISolone Sodium Succinate 125 MG/2 ML SDV IVPUSH SCH (07:15)
[2019-03-04] MEDS: Levofloxacin 750 MG Tab PO SCH (07:16)
[2019-03-04] MEDS: guaiFENesin 600 MG Tab.ER PO SCH ×2 (07:16→20:09)
[2019-03-04] MEDS: Fluticasone Propionate Nasal Spray 16 GM Bottle NASBOTH SCH (08:54)
[2019-03-04] MEDS: Tiotropium Inhaler 18 MCG Inhalation Powder Cap Kit of 5 INH SCH (08:56)
[2019-03-04] MEDS: Albuterol/Ipratropium 3.0-0.5 MG/3 ML Neb Soln NEB SCH ×4 (09:13→21:00)
[2019-03-04] MEDS: Simvastatin 40 MG Tab PO SCH (20:09)
[2019-03-05] MEDS: LORazepam 1 MG Tab PO SCH ×4 (00:51→18:44)
[2019-03-05] MEDS: Morphine Oral Concentrate 20 MG/ML 30 ML Bottle PO PRN ×6 (03:43→16:24)
[2019-03-05] MEDS: Albuterol/Ipratropium 3.0-0.5 MG/3 ML Neb Soln NEB PRN ×2 (03:44→23:32)
[2019-03-05] MEDS: Pantoprazole 40 MG Tab.CR PO SCH (06:40)
[2019-03-05] MEDS: Levothyroxine 88 MCG Tab PO SCH (06:40)
[2019-03-05] MEDS: guaiFENesin 600 MG Tab.ER PO SCH ×2 (07:49→22:46)
[2019-03-05] MEDS: Levofloxacin 750 MG Tab PO SCH (07:49)
[2019-03-05] MEDS: Albuterol/Ipratropium 3.0-0.5 MG/3 ML Neb Soln NEB SCH ×4 (07:49→22:45)
[2019-03-05] MEDS: Fluticasone Propionate Nasal Spray 16 GM Bottle NASBOTH SCH (07:49)
[2019-03-05] MEDS: Tiotropium Inhaler 18 MCG Inhalation Powder Cap Kit of 5 INH SCH (07:50)
[2019-03-05] MEDS: methylPREDNISolone Sodium Succinate 125 MG/2 ML SDV IVPUSH SCH (08:33)
[2019-03-05] MEDS: predniSONE 20 MG Tab PO SCH (11:37)
--- NOTE | 2019-03-05 12:22 | PCM.PN ---
- General Info Date of Service: 03/05/19 Subjective Update: I did get call form the nurse, to evaluate patient. Nurse was trying to reposition patient in the bed, when he had a episode of cough and had ludy bloody drainage. HE has been coughing on and off and short of breath since then. On visiting the patient, he is sitting up and leaning forward, having cough, but is not vomiting blood. Has episodes of cough which have settled down. Pt claims he is short of breath and can make sentence with 2-3 words. Anxious. Functional Status: Reports: Pain Controlled, Urinating - Review of Systems General: Denies: Fever, Weakness, Fatigue HEENT: Denies: Headaches, Sinus Congestion Pulmonary: Reports: Shortness of Breath, Cough, Sputum, Hemoptysis Cardiovascular: Denies: Chest Pain, Lightheadedness Gastrointestinal: Denies: Abdominal Pain, Nausea, Vomiting Genitourinary: Denies: Frequency, Burning Musculoskeletal: Denies: Joint Pain, Joint Swelling Skin: Denies: Bruising, Pruritis, Rash Neurological: Denies: Confusion, Dizziness, Headache, Numbness, Tingling Psychiatric: Reports: Anxiety - Patient Data Vitals - Most Recent: Last Vital Signs Temp 97.0 F 03/04/19 08:00 Pulse 117 H 03/04/19 08:00 Resp 22 H 03/04/19 08:00 BP 115/71 03/04/19 08:00 Pulse Ox 90 L 03/04/19 08:00 Weight - Most Recent: 88.269 kg I&O - Last 24 Hours: Intake & Output 03/04/19 03/05/19 03/05/19 22:59 06:59 14:59 Intake Total 400 200 Output Total 300 850 Balance 100 -650 Med Orders - Current: Current Medications Albuterol/Ipratropium (Duoneb 3.0-0.5 Mg/3 Ml) 3 ml NEB QID SAMMY Last Admin: 03/05/19 11:37 Dose: 3 ml Albuterol/Ipratropium (Duoneb 3.0-0.5 Mg/3 Ml) 3 ml NEB Q2H PRN PRN Reason: Other Last Admin: 03/05/19 03:44 Dose: 3 ml Calamine/Phenol (Calmoseptine) 0 gm TOP QID PRN PRN Reason: Rash Calcium Carbonate/Glycine (Tums) 500 mg PO Q6HR PRN PRN Reason: Indigestion Fentanyl (Duragesic) 12 mcg TRDERM Q72H [facility] Last Admin: 03/03/19 14:48 Dose: 12 mcg Fluticasone Propionate (Flonase) 0 gm NASBOTH DAILY [facility] Last Admin: 03/05/19 07:49 Dose: 1 spray Guaifenesin (Mucinex) 600 mg PO BID [facility] Last Admin: 03/05/19 07:49 Dose: 600 mg Sodium Chloride (Normal Saline) 1,000 mls @ 50 mls/hr IV ASDIRECTED [facility] Last Admin: 03/04/19 01:16 Dose: 50 mls/hr Levothyroxine Sodium (Synthroid) 88 mcg PO ACBREAKFAST [facility] Last Admin: 03/05/19 06:40 Dose: 88 mcg Lorazepam (Ativan) 1 mg PO Q6H [facility] Last Admin: 03/05/19 11:37 Dose: 1 mg Lorazepam (Ativan) 1 mg IVPUSH Q4H PRN PRN Reason: Respiratory Distress/Agitation Magnesium Hydroxide (Milk Of Magnesia) 30 ml PO DAILY PRN PRN Reason: Constipation Last Admin: 03/01/19 04:05 Dose: 30 ml Morphine Sulfate (Morphine 20 Mg/Ml Soln) 1 mg PO Q1H PRN PRN Reason: Pain Last Admin: 03/05/19 07:50 Dose: 1 mg Morphine Sulfate (Morphine 20 Mg/Ml Soln) 2 mg PO Q4H PRN PRN Reason: Severe Agitation Last Admin: 03/05/19 03:43 Dose: 2 mg Menthol [Biofreeze] (1 Applic Own Med) 1 applic TOP QID PRN PRN Reason: Pain Last Admin: 02/26/19 07:30 Dose: 1 applic Ondansetron HCl (Zofran Odt) 4 mg PO Q4H PRN PRN Reason: Nausea/Vomiting Last Admin: 03/01/19 21:57 Dose: 4 mg Pantoprazole Sodium (Protonix) 40 mg PO DAILY@0700 [facility] Last Admin: 03/05/19 06:40 Dose: 40 mg Prednisone (Prednisone) 20 mg PO DAILY [facility] Last Admin: 03/05/19 11:37 Dose: 20 mg Senna/Docusate Sodium (Senna Plus) 2 tab PO BEDTIME [facility] Last Admin: 03/04/19 20:09 Dose: 2 tab Senna/Docusate Sodium (Senna Plus) 1 tab PO DAILY [facility] Last Admin: 03/05/19 07:49 Dose: 1 tab Simvastatin (Zocor) 40 mg PO BEDTIME [facility] Last Admin: 03/04/19 20:09 Dose: 40 mg Tiotropium [place] (Spiriva Handihaler) 18 mcg INH DAILY [facility] Last Admin: 03/05/19 07:50 Dose: 18 mcg Discontinued Medications Calcium Carbonate/Glycine (Tums) Confirm Administered Dose 500 mg .ROUTE .STK- MED ONE Stop: 02/28/19 20:21 Last Admin: 02/28/19 20:40 Dose: Not Given Calcium Carbonate/Glycine (Tums) 500 mg PO ONETIME ONE Stop: 02/28/19 20:35 Last Admin: 02/28/19 20:39 Dose: 500 mg Levofloxacin (Levaquin) 750 mg PO DAILY [facility] Last Admin: 03/05/19 07:49 Dose: 750 mg Lorazepam (Ativan) 0.5 mg PO Q6H [facility] Last Admin: 02/26/19 05:38 Dose: 0.5 mg Lorazepam (Ativan) 0.5 mg PO ONETIME ONE Stop: 02/25/19 08:22 Last Admin: 02/25/19 08:25 Dose: 0.5 mg Lorazepam (Ativan) 1 mg PO ONETIME PRN PRN Reason: Anxiety Last Admin: 02/25/19 12:29 Dose: 1 mg Lorazepam (Ativan) Confirm Administered Dose 0.5 mg .ROUTE .STK-MED ONE Stop: 02/26/19 07:16 Last Admin: 02/26/19 07:26 Dose: 0.5 mg Lorazepam (Ativan) 0.5 mg PO ONETIME ONE Stop: 02/26/19 07:26 Last Admin: 02/26/19 08:08 Dose: Not Given Lorazepam (Ativan) Confirm Administered Dose 1 mg .ROUTE .STK-MED ONE Stop: 02/28/19 08:54 Last Admin: 02/28/19 14:55 Dose: Not Given Magnesium Hydroxide (Milk Of Magnesia) 30 ml PO ONETIME ONE Stop: 02/27/19 21:11 Last Admin: 02/27/19 23:33 Dose: Not Given Methylprednisolone Sodium Succinate (Solu-Medrol) 125 mg IVPUSH DAILY [facility] Last Admin: 03/05/19 08:33 Dose: Not Given Morphine Sulfate (Morphine 20 Mg/Ml Soln) 4 mg SL Q2H PRN PRN Reason: Pain Last Admin: 02/21/19 07:02 Dose: 4 mg Morphine Sulfate (Morphine Liquor Bridge Operator 30 Mg In 30 Ml) 0 mg IV ASDIRECTED [facility]; Protocol Last Admin: 02/23/19 23:43 Dose: 1 mg Morphine Sulfate (Morphine) Confirm Administered Dose 2 mg .ROUTE .STK-MED ONE Stop: 02/23/19 09:08 Last Admin: 02/23/19 09:20 Dose: Not Given Morphine Sulfate (Morphine) 2 mg IVPUSH ONETIME ONE Stop: 02/23/19 09:09 Last Admin: 02/23/19 09:10 Dose: 2 mg Morphine Sulfate (Morphine) 2 mg IVPUSH ONETIME ONE Stop: 02/23/19 09:54 Last Admin: 02/23/19 09:54 Dose: 2 mg Morphine Sulfate (Morphine Liquor Bridge Operator 30 Mg In 30 Ml) 1 mg IV ASDIRECTED [facility]; Protocol Last Admin: 02/28/19 03:22 Dose: 1 mg Non-Formulary Medication (Morphine Sulfate [Morphine Sulfate]) 4 mg SL Q2H PRN PRN Reason: Pain Non-Formulary Medication (Ondansetron Hcl [Zofran]) 4 mg PO Q4H PRN PRN Reason: Nausea Non-Formulary Medication (Polyethylene Glycol [Polyox [id number]]) 17 gm PO BID [facility] Polyethylene Glycol (Miralax) 17 gm PO BID [facility] Last Admin: 02/26/19 08:07 Dose: Not Given Senna/Docusate Sodium (Senna Plus) 1 tab PO BID [facility] Last Admin: 02/26/19 07:23 Dose: 1 tab Tiotropium [place] (Spiriva Handihaler) 18 mcg .ROUTE .STK-MED ONE Stop: 02/21/19 13:18 Tiotropium [place] (Spiriva Handihaler) 18 mcg .ROUTE .STK-MED ONE Stop: 03/02/19 08:01 Tuberculin PPD (Aplisol) 5 unit IDERM ONETIME ONE Stop: 02/20/19 15:29 Last Admin: 02/21/19 16:36 Dose: 5 unit - Exam Quality Assessment: Supplemental Oxygen General: Alert, Oriented, Other (anxious and having recurrent coughing spells) HEENT: Pupils Equal, Pupils Reactive, EOMI, Mucous Membr. Moist/[place] Neck: Supple Lungs: Decreased Breath Sounds (absent breath sounds in the right hemithorax, loud expiratory rattling heard and coarse crackles in the left hemithorax), Crackles (corase in left hemothorax) Cardiovascular: Regular Rate, Tachycardia GI/Abdominal Exam: Normal Bowel Sounds, Soft, Non-Tender, No Organomegaly, No Distention, No Abnormal Bruit, No Mass, Pelvis Stable Skin: Warm - Problem List & Annotations (1) Palliative care patient SNOMED Code(s): 551144450 Code(s): Z51.5 - ENCOUNTER FOR PALLIATIVE CARE Status: Acute Priority: High Current Visit: No (2) COPD (chronic obstructive pulmonary disease) SNOMED Code(s): 32753040 Code(s): J44.9 - CHRONIC OBSTRUCTIVE PULMONARY DISEASE, UNSPECIFIED Status : Chronic Current Visit: No (3) Chronic constipation SNOMED Code(s): 120016048 Code(s): K59.09 - OTHER CONSTIPATION Status: Acute Current Visit: Yes - Problem List Review Problem List Initiated/Reviewed/Updated: Yes - My Orders Last 24 Hours: My Active Orders 03/05/19 08:45 predniSONE 20 mg PO DAILY 03/05/19 11:32 CXR [Chest 1V Frontal] [CR] Routine 03/05/19 12:13 LORazepam [Ativan] 1 mg IVPUSH Q4H PRN - Assessment Assessment:: Palliative care for right lung mass with hemoptysis Severe O2 dependent COPD Constipation - Plan Plan:: Pt has had a slowly progressive right lung mass. He has decided not to have any workup and presently on palliative care. He is on IV Morphine [employer] at 1mg per hour basal. HE has been having frequent episodes of shortness of breath and also chest wall pain and requiring more morphine. I have started him on 0.2mg every 20 minutes on demand morphine for pain along with basal. Pt apparently is in end stage COPD, with almost no air entry in his right hemithorax secondary to the growing lung mass. He has been having more frequent episodes of shortness of breath some time with minimal activities and some times at rest.There is undue anxiety. Also he has had no bowel movement since this admission. He has been on stool softeners and miralax daily. Abdominal Xray does show large amount of stool in the colon. Presently he is not obstructed, but he might develop mechanical obstruction form stool impaction. Offered soap prema enema and patient has declined several time in the past 2 days. I have discussed today with patient very clearly, that if the stool is not extracted from the colon with enema, there is chance of stool obstructing the colon and causing bowel obstruction, which will cause more pain and discomfort, and with his very poor general health condition could have disastrous complications, including . Pt today has agreed to have soap prema enema. Will try and followup. Pt is not in any situation to be discharged. He is not able to work much with OT or PT for general strengthening due to his respiratory situation. I do not think home health can manage patient at home, as it was tried and has failed. 03/03/19 There has not been much improvement in patient status, or not a severe deterioration. He is on Morphine [employer], which is helping with his pain and does get break through morphine. HE seem comfortable now. But some times does get tachypneic and hypoxic from respiratory distress. He is on Oxygen which maintains his SPO2 above 92%. My concern is his chronic constipation. On Abdominal xray today he has large collection of stool in the ascending colon. He has not had a good amount of stool for 2-3 weeks now. With last week soap prema he had some results, but not a large results. He has continued to decline enemas and also oral therapy for constipation. At some point he is going to develop mechanical obstruction which with his poor general condition will be disastrous and could cause secondary sepsis and . HE agreed to have soap prema enema to me, but when staff went to do it, he has declined again yesterday. Pt and his daughter are very keen on taking patient home. Home health nurse has evaluated and decided that it will be a very hard for them to give 24 hrs one on one service at home. But patient and his daughter are adamant about it. I still respect their opinion and intention. They do understand all the risks associated If he is going home, patient cannot be on [employer] pump. Hence I have stopped the [employer] pump today and placed him on fentanyl patch 12 mcg and morphine s/l 1mg every hr and 2mg every 4 hrs for acute respiratory distress or anxiety. Rest of the medications will be continued. 03/05/19 Pt is having hemoptysis with recurrent cough. he is not having ludy out pouring of blood or vomiting large clotted blood. Patient does have cavitary right lung mass. There might be some blood vessels with in the cavity which might have broke open from the negative pressure from the cough episode and bleeding. His Chest xray portable was done, does show complete opacity of the right lung,which is basically to progression of disease. Pt is on palliative care. Pt's pain is controlled on present regime, which we will continue. We will have IV line in place, IF he gets obtunded and might need IV medications. He has anxiety of , hence I have changed his Ativan to IV Ativan every 4 hrs as needed for severe anxiety. I have discussed the findings in detail with patient's daughter who is his caregiver and also with patient. They do understand and agree with the plan. I do not think patient can go home with his deteriorating condition. I do not think daughter will be able to handle the situation with out medical help.Daughter agree to keep him in the hospital for now.
[2019-03-05] MEDS ORDERED: Morphine 2 MG/ML Syringe ONE (12:25)
[2019-03-05] MEDS: LORazepam 2 MG/ML SDV IVPUSH PRN ×3 (13:01→23:40)
[2019-03-05] MEDS: Morphine PF 30 MG/30 ML PCA Vial IV SCH (14:46)
[2019-03-05] MEDS: Simvastatin 40 MG Tab PO SCH (22:46)
--- NOTE | 2019-03-06 07:23 | CR ---
DATE OF SERVICE: 03/05/19 CLINICAL DATA: Coughing Blood/Fluid in Lungs AP PORTABLE CHEST: Comparison is made to a prior exam dated 02/13/19. The right lower lungs are cut off. 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 It does appear larger than on the prior exam. There is progressive atelectasis and consolidation in the right since the prior study. The left lung appears clear. No other interval changes. [id number] [facility]
[2019-03-06] MEDS: guaiFENesin 600 MG Tab.ER PO SCH ×2 (09:16→19:50)
[2019-03-06] MEDS: Levothyroxine 88 MCG Tab PO SCH (09:16)
[2019-03-06] MEDS: LORazepam 1 MG Tab PO SCH ×4 (09:16→17:51)
[2019-03-06] MEDS: Pantoprazole 40 MG Tab.CR PO SCH (09:16)
[2019-03-06] MEDS: predniSONE 20 MG Tab PO SCH (09:16)
[2019-03-06] MEDS: Albuterol/Ipratropium 3.0-0.5 MG/3 ML Neb Soln NEB SCH ×4 (09:17→19:50)
[2019-03-06] MEDS: Fluticasone Propionate Nasal Spray 16 GM Bottle NASBOTH SCH (09:29)
[2019-03-06] MEDS: Tiotropium Inhaler 18 MCG Inhalation Powder Cap Kit of 5 INH SCH (09:29)
[2019-03-06] MEDS: Sodium Chloride 0.9% 1,000 ML IV SCH (09:40)
[2019-03-06] MEDS: Morphine PF 30 MG/30 ML PCA Vial IV SCH (11:52)
[2019-03-06] MEDS: Simvastatin 40 MG Tab PO SCH (19:49)
[2019-03-06] MEDS: LORazepam 2 MG/ML SDV IVPUSH PRN (21:15)
[2019-03-06] MEDS: Albuterol/Ipratropium 3.0-0.5 MG/3 ML Neb Soln NEB PRN (23:06)
[2019-03-07] MEDS: LORazepam 1 MG Tab PO SCH ×4 (00:01→16:21)
[2019-03-07] MEDS: Albuterol/Ipratropium 3.0-0.5 MG/3 ML Neb Soln NEB PRN (02:35)
[2019-03-07] MEDS: Sodium Chloride 0.9% 1,000 ML IV SCH ×2 (03:56→22:14)
[2019-03-07] MEDS: Morphine Oral Concentrate 20 MG/ML 30 ML Bottle PO PRN ×2 (03:56→16:21)
[2019-03-07] MEDS: LORazepam 2 MG/ML SDV IVPUSH PRN (03:58)
[2019-03-07] MEDS: Pantoprazole 40 MG Tab.CR PO SCH (06:00)
[2019-03-07] MEDS: Levothyroxine 88 MCG Tab PO SCH (06:00)
[2019-03-07] MEDS: Albuterol/Ipratropium 3.0-0.5 MG/3 ML Neb Soln NEB SCH ×4 (07:53→20:07)
[2019-03-07] MEDS: Fluticasone Propionate Nasal Spray 16 GM Bottle NASBOTH SCH (07:53)
[2019-03-07] MEDS: Tiotropium Inhaler 18 MCG Inhalation Powder Cap Kit of 5 INH SCH (07:54)
[2019-03-07] MEDS: guaiFENesin 600 MG Tab.ER PO SCH ×2 (07:55→20:08)
[2019-03-07] MEDS: predniSONE 20 MG Tab PO SCH (07:57)
[2019-03-07] MEDS: Morphine PF 30 MG/30 ML PCA Vial IV SCH (11:29)
[2019-03-07] MEDS: Simvastatin 40 MG Tab PO SCH (20:09)
[2019-03-08] MEDS: Albuterol/Ipratropium 3.0-0.5 MG/3 ML Neb Soln NEB PRN ×5 (00:14→23:55)
[2019-03-08] MEDS: LORazepam 1 MG Tab PO SCH ×5 (00:15→23:55)
[2019-03-08] MEDS: LORazepam 2 MG/ML SDV IVPUSH PRN (02:12)
[2019-03-08] MEDS: Calcium Carbonate 500 MG Tab.Chew PO PRN (02:13)
[2019-03-08] MEDS: Levothyroxine 88 MCG Tab PO SCH (06:15)
[2019-03-08] MEDS: Pantoprazole 40 MG Tab.CR PO SCH (06:15)
[2019-03-08] MEDS: predniSONE 20 MG Tab PO SCH (08:16)
[2019-03-08] MEDS: guaiFENesin 600 MG Tab.ER PO SCH ×2 (08:16→19:37)
[2019-03-08] MEDS: Tiotropium Inhaler 18 MCG Inhalation Powder Cap Kit of 5 INH SCH (08:18)
[2019-03-08] MEDS: Fluticasone Propionate Nasal Spray 16 GM Bottle NASBOTH SCH (08:18)
[2019-03-08] MEDS: Morphine Oral Concentrate 20 MG/ML 30 ML Bottle PO PRN ×4 (09:25→23:54)
[2019-03-08] MEDS: Albuterol/Ipratropium 3.0-0.5 MG/3 ML Neb Soln NEB SCH ×5 (10:00→19:38)
[2019-03-08] MEDS: Morphine PF 30 MG/30 ML PCA Vial IV SCH (12:22)
[2019-03-08] MEDS: Sodium Chloride 0.9% 1,000 ML IV SCH (17:14)
[2019-03-08] MEDS: Simvastatin 40 MG Tab PO SCH (19:37)
[2019-03-09] MEDS: LORazepam 1 MG Tab PO SCH ×4 (00:37→18:16)
[2019-03-09] MEDS: Albuterol/Ipratropium 3.0-0.5 MG/3 ML Neb Soln NEB PRN ×3 (03:54→15:56)
[2019-03-09] MEDS: Morphine Oral Concentrate 20 MG/ML 30 ML Bottle PO PRN ×6 (03:54→19:50)
[2019-03-09] MEDS: Levothyroxine 88 MCG Tab PO SCH (06:02)
[2019-03-09] MEDS: Pantoprazole 40 MG Tab.CR PO SCH (06:03)
[2019-03-09] MEDS: Morphine PF 30 MG/30 ML PCA Vial IV SCH ×2 (07:03→19:56)
[2019-03-09] MEDS: Albuterol/Ipratropium 3.0-0.5 MG/3 ML Neb Soln NEB SCH ×4 (07:33→21:07)
[2019-03-09] MEDS: guaiFENesin 600 MG Tab.ER PO SCH ×2 (07:34→20:30)
[2019-03-09] MEDS: predniSONE 20 MG Tab PO SCH (07:34)
[2019-03-09] MEDS: Tiotropium Inhaler 18 MCG Inhalation Powder Cap Kit of 5 INH SCH (07:35)
[2019-03-09] MEDS: Fluticasone Propionate Nasal Spray 16 GM Bottle NASBOTH SCH (07:36)
[2019-03-09] MEDS: LORazepam 2 MG/ML SDV IVPUSH PRN ×3 (08:02→20:02)
[2019-03-09] MEDS: Sodium Chloride 0.9% 1,000 ML IV SCH (13:14)
[2019-03-09] MEDS: Simvastatin 40 MG Tab PO SCH (20:30)
[2019-03-10] MEDS: Morphine Oral Concentrate 20 MG/ML 30 ML Bottle PO PRN ×2 (00:23→03:41)
[2019-03-10] MEDS: LORazepam 1 MG Tab PO SCH ×4 (00:28→17:57)
[2019-03-10] MEDS: Albuterol/Ipratropium 3.0-0.5 MG/3 ML Neb Soln NEB PRN ×3 (00:28→22:37)
[2019-03-10] MEDS: Morphine PF 30 MG/30 ML PCA Vial IV SCH ×2 (07:18→19:30)
[2019-03-10] MEDS: Albuterol/Ipratropium 3.0-0.5 MG/3 ML Neb Soln NEB SCH ×4 (07:32→20:29)
[2019-03-10] MEDS: Levothyroxine 88 MCG Tab PO SCH (07:34)
[2019-03-10] MEDS: Pantoprazole 40 MG Tab.CR PO SCH (07:34)
[2019-03-10] MEDS: Fluticasone Propionate Nasal Spray 16 GM Bottle NASBOTH SCH (07:35)
[2019-03-10] MEDS: predniSONE 20 MG Tab PO SCH (07:35)
[2019-03-10] MEDS: guaiFENesin 600 MG Tab.ER PO SCH ×2 (07:35→20:32)
[2019-03-10] MEDS: Tiotropium Inhaler 18 MCG Inhalation Powder Cap Kit of 5 INH SCH (07:36)
[2019-03-10] MEDS: Sodium Chloride 0.9% 1,000 ML IV SCH (09:11)
[2019-03-10] MEDS: LORazepam 2 MG/ML SDV IVPUSH PRN (16:12)
--- NOTE | 2019-03-10 17:56 | PCM.PN ---
- General Info Date of Service: 03/10/19 Subjective Update: Patient has increased shortness of breath. He requires a [employer] morphine pump for his pain. He was weaned in the past but was unable to control his pain with oral medications. He continues to cough up blood and this is happening more frequently with more blood as well. His breathing is more labored without increases in his basal and bumps of morphine. The patient did agree with DNR/ DNI after discussion of prognosis. - Review of Systems General: Reports: Weakness, Fatigue HEENT: Reports: Headaches Pulmonary: Reports: Shortness of Breath, Pleuritic Chest Pain, Cough, Hemoptysis Cardiovascular: Reports: Dyspnea on Exertion, Orthopnea Gastrointestinal: Reports: Decreased Appetite Genitourinary: Reports: Frequency Musculoskeletal: Reports: Back Pain, Joint Pain Skin: Reports: Diaphoresis Neurological: Reports: Trouble Speaking, Weakness Psychiatric: Reports: Depression - Patient Data Vitals - Most Recent: Last Vital Signs Temp 36.7 C 03/10/19 08:00 Pulse 113 H 03/10/19 08:00 Resp 22 H 03/10/19 08:00 BP 129/77 03/10/19 08:00 Pulse Ox 86 L 03/10/19 08:00 Weight - Most Recent: 88.269 kg I&O - Last 24 Hours: Intake & Output 03/10/19 03/10/19 03/10/19 06:59 14:59 22:59 Intake Total 150 Output Total 900 Balance -750 Med Orders - Current: Current Medications Albuterol/Ipratropium (Duoneb 3.0-0.5 Mg/3 Ml) 3 ml NEB QID [facility] Last Admin: 03/10/19 16:16 Dose: 3 ml Albuterol/Ipratropium (Duoneb 3.0-0.5 Mg/3 Ml) 3 ml NEB Q2H PRN PRN Reason: Other Last Admin: 03/10/19 05:14 Dose: 3 ml Calamine/Phenol (Calmoseptine) 0 gm TOP QID PRN PRN Reason: Rash Calcium Carbonate/Glycine (Tums) 500 mg PO Q6HR PRN PRN Reason: Indigestion Last Admin: 03/08/19 02:13 Dose: 500 mg Fluticasone Propionate (Flonase) 0 gm NASBOTH DAILY [facility] Last Admin: 03/10/19 07:35 Dose: 1 spray Guaifenesin (Mucinex) 600 mg PO BID [facility] Last Admin: 03/10/19 07:35 Dose: 600 mg Sodium Chloride (Normal Saline) 1,000 mls @ 50 mls/hr IV ASDIRECTED [facility] Last Admin: 03/10/19 09:11 Dose: 50 mls/hr Levothyroxine Sodium (Synthroid) 88 mcg PO ACBREAKFAST [facility] Last Admin: 03/10/19 07:34 Dose: 88 mcg Lorazepam (Ativan) 1 mg PO Q6H [facility] Last Admin: 03/10/19 11:59 Dose: 1 mg Lorazepam (Ativan) 1 mg IVPUSH Q4H PRN PRN Reason: Respiratory Distress/Agitation Last Admin: 03/10/19 16:12 Dose: 1 mg Magnesium Hydroxide (Milk Of Magnesia) 30 ml PO DAILY PRN PRN Reason: Constipation Last Admin: 03/01/19 04:05 Dose: 30 ml Morphine Sulfate (Morphine 20 Mg/Ml Soln) 1 mg PO Q1H PRN PRN Reason: Pain Last Admin: 03/10/19 03:41 Dose: 1 mg Morphine Sulfate (Morphine 20 Mg/Ml Soln) 2 mg PO Q4H PRN PRN Reason: Severe Agitation Last Admin: 03/09/19 15:53 Dose: 2 mg Morphine Sulfate (Morphine Sliver Cutter 30 Mg In 30 Ml) 30 mg IV ASDIRECTED [facility]; Protocol Last Admin: 03/10/19 07:18 Dose: 30 mg Menthol [Biofreeze] (1 Applic Own Med) 1 applic TOP QID PRN PRN Reason: Pain Last Admin: 02/26/19 07:30 Dose: 1 applic Ondansetron HCl (Zofran Odt) 4 mg PO Q4H PRN PRN Reason: Nausea/Vomiting Last Admin: 03/01/19 21:57 Dose: 4 mg Pantoprazole Sodium (Protonix) 40 mg PO DAILY@0700 [facility] Last Admin: 03/10/19 07:34 Dose: 40 mg Prednisone (Prednisone) 20 mg PO DAILY [facility] Last Admin: 03/10/19 07:35 Dose: 20 mg Senna/Docusate Sodium (Senna Plus) 2 tab PO BEDTIME [facility] Last Admin: 03/09/19 20:30 Dose: 2 tab Senna/Docusate Sodium (Senna Plus) 1 tab PO DAILY [facility] Last Admin: 03/10/19 07:35 Dose: 1 tab Simvastatin (Zocor) 40 mg PO BEDTIME [facility] Last Admin: 03/09/19 20:30 Dose: 40 mg Tiotropium [place] (Spiriva Handihaler) 18 mcg INH DAILY [facility] Last Admin: 03/10/19 07:36 Dose: 18 mcg Discontinued Medications Calcium Carbonate/Glycine (Tums) Confirm Administered Dose 500 mg .ROUTE .STK- MED ONE Stop: 02/28/19 20:21 Last Admin: 02/28/19 20:40 Dose: Not Given Calcium Carbonate/Glycine (Tums) 500 mg PO ONETIME ONE Stop: 02/28/19 20:35 Last Admin: 02/28/19 20:39 Dose: 500 mg Fentanyl (Duragesic) 12 mcg TRDERM Q72H [facility] Last Admin: 03/03/19 14:48 Dose: 12 mcg Levofloxacin (Levaquin) 750 mg PO DAILY [facility] Last Admin: 03/05/19 07:49 Dose: 750 mg Lorazepam (Ativan) 0.5 mg PO Q6H [facility] Last Admin: 02/26/19 05:38 Dose: 0.5 mg Lorazepam (Ativan) 0.5 mg PO ONETIME ONE Stop: 02/25/19 08:22 Last Admin: 02/25/19 08:25 Dose: 0.5 mg Lorazepam (Ativan) 1 mg PO ONETIME PRN PRN Reason: Anxiety Last Admin: 02/25/19 12:29 Dose: 1 mg Lorazepam (Ativan) Confirm Administered Dose 0.5 mg .ROUTE .STK-MED ONE Stop: 02/26/19 07:16 Last Admin: 02/26/19 07:26 Dose: 0.5 mg Lorazepam (Ativan) 0.5 mg PO ONETIME ONE Stop: 02/26/19 07:26 Last Admin: 02/26/19 08:08 Dose: Not Given Lorazepam (Ativan) Confirm Administered Dose 1 mg .ROUTE .STK-MED ONE Stop: 02/28/19 08:54 Last Admin: 02/28/19 14:55 Dose: Not Given Magnesium Hydroxide (Milk Of Magnesia) 30 ml PO ONETIME ONE Stop: 02/27/19 21:11 Last Admin: 02/27/19 23:33 Dose: Not Given Methylprednisolone Sodium Succinate (Solu-Medrol) 125 mg IVPUSH DAILY [facility] Last Admin: 03/05/19 08:33 Dose: Not Given Morphine Sulfate (Morphine 20 Mg/Ml Soln) 4 mg SL Q2H PRN PRN Reason: Pain Last Admin: 02/21/19 07:02 Dose: 4 mg Morphine Sulfate (Morphine Sliver Cutter 30 Mg In 30 Ml) 0 mg IV ASDIRECTED [facility]; Protocol Last Admin: 02/23/19 23:43 Dose: 1 mg Morphine Sulfate (Morphine) Confirm Administered Dose 2 mg .ROUTE .STK-MED ONE Stop: 02/23/19 09:08 Last Admin: 02/23/19 09:20 Dose: Not Given Morphine Sulfate (Morphine) 2 mg IVPUSH ONETIME ONE Stop: 02/23/19 09:09 Last Admin: 02/23/19 09:10 Dose: 2 mg Morphine Sulfate (Morphine) 2 mg IVPUSH ONETIME ONE Stop: 02/23/19 09:54 Last Admin: 02/23/19 09:54 Dose: 2 mg Morphine Sulfate (Morphine Sliver Cutter 30 Mg In 30 Ml) 1 mg IV ASDIRECTED [facility]; Protocol Last Admin: 02/28/19 03:22 Dose: 1 mg Morphine Sulfate (Morphine) Confirm Administered Dose 2 mg .ROUTE .STK-MED ONE Stop: 03/05/19 12:26 Last Admin: 03/05/19 12:55 Dose: 2 mg Morphine Sulfate (Morphine Sliver Cutter 30 Mg In 30 Ml) 0 mg IV ASDIRECTED [facility]; Protocol Last Admin: 03/06/19 11:52 Dose: 1 mg Non-Formulary Medication (Morphine Sulfate [Morphine Sulfate]) 4 mg SL Q2H PRN PRN Reason: Pain Non-Formulary Medication (Ondansetron Hcl [Zofran]) 4 mg PO Q4H PRN PRN Reason: Nausea Non-Formulary Medication (Polyethylene Glycol [Polyox [id number]]) 17 gm PO BID [facility] Polyethylene Glycol (Miralax) 17 gm PO BID [facility] Last Admin: 02/26/19 08:07 Dose: Not Given Senna/Docusate Sodium (Senna Plus) 1 tab PO BID [facility] Last Admin: 02/26/19 07:23 Dose: 1 tab Tiotropium [place] (Spiriva Handihaler) 18 mcg .ROUTE .STK-MED ONE Stop: 02/21/19 13:18 Tiotropium [place] (Spiriva Handihaler) 18 mcg .ROUTE .STK-MED ONE Stop: 03/02/19 08:01 Tuberculin PPD (Aplisol) 5 unit IDERM ONETIME ONE Stop: 02/20/19 15:29 Last Admin: 02/21/19 16:36 Dose: 5 unit - Exam Quality Assessment: Supplemental Oxygen General: Alert, Cooperative, Mild Distress (at rest) HEENT: Pupils Equal, Pupils Reactive, EOMI Neck: Supple Lungs: Decreased Breath Sounds, Rales, Rhonchi Cardiovascular: Regular Rhythm, Tachycardia GI/Abdominal Exam: Abnormal Bowel Sounds (decreased) Back Exam: Paraspinal Tenderness Extremities: Normal Inspection, Other (weakness of extremities) - Problem List & Annotations (1) Lung cancer SNOMED Code(s): 837084365 Code(s): C34.90 - MALIGNANT NEOPLASM OF UNSP PART OF UNSP BRONCHUS OR LUNG Status: Acute Current Visit: Yes Qualifiers: Laterality: right Lung location: overlapping sites Qualified Code(s): C34.81 - Malignant neoplasm of overlapping sites of right bronchus and lung (2) Palliative care patient SNOMED Code(s): 085809430 Code(s): Z51.5 - ENCOUNTER FOR PALLIATIVE CARE Status: Acute Priority: High Current Visit: Yes (3) Respiratory failure SNOMED Code(s): 515611016 Code(s): J96.90 - RESPIRATORY FAILURE, UNSP, UNSP W HYPOXIA OR HYPERCAPNIA Status: Acute Priority: High Current Visit: Yes Qualifiers: Chronicity: acute on chronic (4) Shortness of breath at rest SNOMED Code(s): 744011307 Code(s): R06.02 - SHORTNESS OF BREATH Status: Chronic Priority: High Current Visit: Yes Onset Date: 01/22/16 (5) Weakness SNOMED Code(s): 08918682 Code(s): R53.1 - WEAKNESS Status: Acute Priority: High Current Visit: Yes (6) COPD (chronic obstructive pulmonary disease) SNOMED Code(s): 84330155 Code(s): J44.9 - CHRONIC OBSTRUCTIVE PULMONARY DISEASE, UNSPECIFIED Status : Chronic Priority: High Current Visit: Yes (7) Hemoptysis SNOMED Code(s): 54795413 Code(s): R04.2 - HEMOPTYSIS Status: Chronic Priority: High Current Visit: Yes (8) Mass of right lung SNOMED Code(s): 532717048 Code(s): R91.8 - OTHER NONSPECIFIC ABNORMAL FINDING OF LUNG FIELD Status: Chronic Priority: High Current Visit: Yes - Problem List Review Problem List Initiated/Reviewed/Updated: Yes - Assessment Assessment:: Palliative care for right lung mass with hemoptysis Severe O2 dependent COPD Constipation - Plan Plan:: Pt has had a slowly progressive right lung mass. He has decided not to have any workup and presently on palliative care. He is on IV Morphine [employer] at 1mg per hour basal. HE has been having frequent episodes of shortness of breath and also chest wall pain and requiring more morphine. I have started him on 0.2mg every 20 minutes on demand morphine for pain along with basal. Pt apparently is in end stage COPD, with almost no air entry in his right hemithorax secondary to the growing lung mass. He has been having more frequent episodes of shortness of breath some time with minimal activities and some times at rest.There is undue anxiety. Also he has had no bowel movement since this admission. He has been on stool softeners and miralax daily. Abdominal Xray does show large amount of stool in the colon. Presently he is not obstructed, but he might develop mechanical obstruction form stool impaction. Offered soap prema enema and patient has declined several time in the past 2 days. I have discussed today with patient very clearly, that if the stool is not extracted from the colon with enema, there is chance of stool obstructing the colon and causing bowel obstruction, which will cause more pain and discomfort, and with his very poor general health condition could have disastrous complications, including . Pt today has agreed to have soap prema enema. Will try and followup. Pt is not in any situation to be discharged. He is not able to work much with OT or PT for general strengthening due to his respiratory situation. I do not think home health can manage patient at home, as it was tried and has failed. 03/03/19 There has not been much improvement in patient status, or not a severe deterioration. He is on Morphine [employer], which is helping with his pain and does get break through morphine. HE seem comfortable now. But some times does get tachypneic and hypoxic from respiratory distress. He is on Oxygen which maintains his SPO2 above 92%. My concern is his chronic constipation. On Abdominal xray today he has large collection of stool in the ascending colon. He has not had a good amount of stool for 2-3 weeks now. With last week soap prema he had some results, but not a large results. He has continued to decline enemas and also oral therapy for constipation. At some point he is going to develop mechanical obstruction which with his poor general condition will be disastrous and could cause secondary sepsis and . HE agreed to have soap prema enema to me, but when staff went to do it, he has declined again yesterday. Pt and his daughter are very keen on taking patient home. Home health nurse has evaluated and decided that it will be a very hard for them to give 24 hrs one on one service at home. But patient and his daughter are adamant about it. I still respect their opinion and intention. They do understand all the risks associated If he is going home, patient cannot be on WORK [employer]CE [employer]OR pump. Hence I have stopped the [employer]OR pump today and placed him on fentanyl patch 12 mcg and morphine s/l 1mg every hr and 2mg every 4 hrs for acute respiratory distress or anxiety. Rest of the medications will be continued. 03/05/19 Pt is having hemoptysis with recurrent cough. he is not having ludy out pouring of blood or vomiting large clotted blood. Patient does have cavitary right lung mass. There might be some blood vessels with in the cavity which might have broke open from the negative pressure from the cough episode and bleeding. His Chest xray portable was done, does show complete opacity of the right lung,which is basically to progression of disease. Pt is on palliative care. Pt's pain is controlled on present regime, which we will continue. We will have IV line in place, IF he gets obtunded and might need IV medications. He has anxiety of , hence I have changed his Ativan to IV Ativan every 4 hrs as needed for severe anxiety. I have discussed the findings in detail with patient's daughter who is his caregiver and also with patient. They do understand and agree with the plan. I do not think patient can go home with his deteriorating condition. I do not think daughter will be able to handle the situation with out medical help.Daughter agree to keep him in the hospital for now. 03/10/19 Patient continues to be on palliative care. His condition is deteriorating and requiring more pain medications to maintain his comfort level of breathing. He is bed ridden and requires full support to get out of bed. He requires the [employer]OR pump for pain. We will continue to manage his pain as needed. Counseled daughter and patient on DNR/DNI status and they are in agreement with DNR/DNI.
[2019-03-10] MEDS: Simvastatin 40 MG Tab PO SCH (20:32)
[2019-03-11] MEDS: LORazepam 2 MG/ML SDV IVPUSH PRN ×2 (00:13→10:28)
[2019-03-11] MEDS: LORazepam 1 MG Tab PO SCH ×5 (01:52→23:53)
[2019-03-11] MEDS: Albuterol/Ipratropium 3.0-0.5 MG/3 ML Neb Soln NEB PRN ×3 (01:52→14:06)
[2019-03-11] MEDS: Sodium Chloride 0.9% 1,000 ML IV SCH (04:12)
[2019-03-11] MEDS: Levothyroxine 88 MCG Tab PO SCH (06:09)
[2019-03-11] MEDS: Pantoprazole 40 MG Tab.CR PO SCH (06:09)
[2019-03-11] MEDS: Morphine PF 30 MG/30 ML PCA Vial IV SCH ×3 (06:11→23:49)
[2019-03-11] MEDS: Albuterol/Ipratropium 3.0-0.5 MG/3 ML Neb Soln NEB SCH ×4 (08:02→20:12)
[2019-03-11] MEDS: predniSONE 20 MG Tab PO SCH (08:02)
[2019-03-11] MEDS: Fluticasone Propionate Nasal Spray 16 GM Bottle NASBOTH SCH (08:02)
[2019-03-11] MEDS: Tiotropium Inhaler 18 MCG Inhalation Powder Cap Kit of 5 INH SCH (08:02)
[2019-03-11] MEDS: guaiFENesin 600 MG Tab.ER PO SCH ×2 (08:02→19:35)
[2019-03-11] MEDS: Sodium Chloride 0.9% 500 ML IV SCH (16:00)
[2019-03-11] MEDS: Simvastatin 40 MG Tab PO SCH (19:35)
[2019-03-12] MEDS: Morphine Oral Concentrate 20 MG/ML 30 ML Bottle PO PRN ×3 (00:01→15:44)
[2019-03-12] MEDS: Pantoprazole 40 MG Tab.CR PO SCH (06:00)
[2019-03-12] MEDS: Levothyroxine 88 MCG Tab PO SCH (06:00)
[2019-03-12] MEDS: LORazepam 1 MG Tab PO SCH ×4 (06:00→23:47)
[2019-03-12] MEDS: Albuterol/Ipratropium 3.0-0.5 MG/3 ML Neb Soln NEB PRN ×2 (06:13→23:48)
[2019-03-12] MEDS: predniSONE 20 MG Tab PO SCH (07:56)
[2019-03-12] MEDS: Fluticasone Propionate Nasal Spray 16 GM Bottle NASBOTH SCH (07:56)
[2019-03-12] MEDS: guaiFENesin 600 MG Tab.ER PO SCH ×2 (07:56→19:35)
[2019-03-12] MEDS: Tiotropium Inhaler 18 MCG Inhalation Powder Cap Kit of 5 INH SCH (07:56)
[2019-03-12] MEDS: Morphine PF 30 MG/30 ML PCA Vial IV SCH ×2 (08:08→16:35)
[2019-03-12] MEDS: Sodium Chloride 0.9% 500 ML IV SCH (12:00)
[2019-03-12] MEDS: Albuterol/Ipratropium 3.0-0.5 MG/3 ML Neb Soln NEB SCH ×4 (12:44→19:39)
[2019-03-12] MEDS: Simvastatin 40 MG Tab PO SCH (19:35)
[2019-03-12] MEDS: LORazepam 2 MG/ML SDV IVPUSH PRN (19:55)
[2019-03-13] MEDS: Ondansetron 4 MG Tab.DIS PO PRN (03:16)
[2019-03-13] MEDS: Albuterol/Ipratropium 3.0-0.5 MG/3 ML Neb Soln NEB PRN ×2 (03:19→06:04)
[2019-03-13] MEDS: LORazepam 2 MG/ML SDV IVPUSH PRN ×2 (03:24→19:39)
[2019-03-13] MEDS: LORazepam 1 MG Tab PO SCH ×3 (06:00→18:06)
[2019-03-13] MEDS: Pantoprazole 40 MG Tab.CR PO SCH (06:01)
[2019-03-13] MEDS: Levothyroxine 88 MCG Tab PO SCH (06:01)
[2019-03-13] MEDS: Albuterol/Ipratropium 3.0-0.5 MG/3 ML Neb Soln NEB SCH ×4 (09:14→20:01)
[2019-03-13] MEDS: predniSONE 20 MG Tab PO SCH (09:15)
[2019-03-13] MEDS: guaiFENesin 600 MG Tab.ER PO SCH ×2 (09:15→20:01)
[2019-03-13] MEDS: Tiotropium Inhaler 18 MCG Inhalation Powder Cap Kit of 5 INH SCH (09:15)
[2019-03-13] MEDS: Fluticasone Propionate Nasal Spray 16 GM Bottle NASBOTH SCH (09:15)
[2019-03-13] MEDS: Morphine PF 30 MG/30 ML PCA Vial IV SCH ×2 (11:32→20:52)
[2019-03-13] MEDS: Simvastatin 40 MG Tab PO SCH (20:01)
[2019-03-14] MEDS: LORazepam 1 MG Tab PO SCH ×4 (01:09→18:41)
[2019-03-14] MEDS: Sodium Chloride 0.9% 500 ML IV SCH (01:39)
[2019-03-14] MEDS: Morphine PF 30 MG/30 ML PCA Vial IV SCH ×2 (06:42→15:42)
[2019-03-14] MEDS: Pantoprazole 40 MG Tab.CR PO SCH (06:45)
[2019-03-14] MEDS: Levothyroxine 88 MCG Tab PO SCH (06:45)
[2019-03-14] MEDS: guaiFENesin 600 MG Tab.ER PO SCH ×2 (09:01→20:00)
[2019-03-14] MEDS: predniSONE 20 MG Tab PO SCH (09:01)
[2019-03-14] MEDS: Fluticasone Propionate Nasal Spray 16 GM Bottle NASBOTH SCH (09:02)
[2019-03-14] MEDS: Albuterol/Ipratropium 3.0-0.5 MG/3 ML Neb Soln NEB SCH ×4 (09:02→20:00)
[2019-03-14] MEDS: Tiotropium Inhaler 18 MCG Inhalation Powder Cap Kit of 5 INH SCH (09:02)
[2019-03-14] MEDS: Simvastatin 40 MG Tab PO SCH (20:00)
[2019-03-15] MEDS: Ondansetron 4 MG Tab.DIS PO PRN (05:04)
[2019-03-15] MEDS: LORazepam 1 MG Tab PO SCH ×5 (05:04→23:08)
[2019-03-15] MEDS: Pantoprazole 40 MG Tab.CR PO SCH (06:41)
[2019-03-15] MEDS: Levothyroxine 88 MCG Tab PO SCH (06:41)
[2019-03-15] MEDS: Fluticasone Propionate Nasal Spray 16 GM Bottle NASBOTH SCH (07:45)
[2019-03-15] MEDS: guaiFENesin 600 MG Tab.ER PO SCH ×3 (07:45→23:08)
[2019-03-15] MEDS: Tiotropium Inhaler 18 MCG Inhalation Powder Cap Kit of 5 INH SCH (07:45)
[2019-03-15] MEDS: predniSONE 20 MG Tab PO SCH (07:45)
[2019-03-15] MEDS: Albuterol/Ipratropium 3.0-0.5 MG/3 ML Neb Soln NEB SCH ×4 (07:45→23:06)
[2019-03-15] MEDS: Morphine PF 30 MG/30 ML PCA Vial IV SCH (10:35)
[2019-03-15] MEDS: Morphine PF 150 MG/30 ML PCA Syringe IV SCH (11:42)
[2019-03-15] MEDS: Sodium Chloride 0.9% 500 ML IV SCH (18:47)
[2019-03-15] MEDS: Simvastatin 40 MG Tab PO SCH ×2 (19:36→23:08)
[2019-03-15] MEDS: Albuterol/Ipratropium 3.0-0.5 MG/3 ML Neb Soln NEB PRN (23:08)
[2019-03-16] MEDS: LORazepam 1 MG Tab PO SCH ×3 (05:33→17:16)
[2019-03-16] MEDS: Pantoprazole 40 MG Tab.CR PO SCH (06:09)
[2019-03-16] MEDS: Levothyroxine 88 MCG Tab PO SCH (06:10)
[2019-03-16] MEDS: Albuterol/Ipratropium 3.0-0.5 MG/3 ML Neb Soln NEB SCH ×4 (08:23→21:09)
[2019-03-16] MEDS: guaiFENesin 600 MG Tab.ER PO SCH ×2 (08:23→21:09)
[2019-03-16] MEDS: predniSONE 20 MG Tab PO SCH (08:24)
[2019-03-16] MEDS: Fluticasone Propionate Nasal Spray 16 GM Bottle NASBOTH SCH (08:24)
[2019-03-16] MEDS: Tiotropium Inhaler 18 MCG Inhalation Powder Cap Kit of 5 INH SCH (08:25)
[2019-03-16] MEDS: LORazepam 2 MG/ML SDV IVPUSH PRN ×2 (08:55→19:27)
[2019-03-16] MEDS: Calcium Carbonate 500 MG Tab.Chew PO PRN (09:01)
[2019-03-16] MEDS: Morphine Oral Concentrate 20 MG/ML 30 ML Bottle PO PRN (20:15)
[2019-03-16] MEDS: Simvastatin 40 MG Tab PO SCH (21:09)
[2019-03-17] MEDS: LORazepam 1 MG Tab PO SCH ×5 (00:21→23:57)
[2019-03-17] MEDS: LORazepam 2 MG/ML SDV IVPUSH PRN ×2 (03:18→19:57)
[2019-03-17] MEDS: Levothyroxine 88 MCG Tab PO SCH (06:16)
[2019-03-17] MEDS: Pantoprazole 40 MG Tab.CR PO SCH (06:16)
[2019-03-17] MEDS: Albuterol/Ipratropium 3.0-0.5 MG/3 ML Neb Soln NEB SCH ×4 (08:30→19:56)
[2019-03-17] MEDS: guaiFENesin 600 MG Tab.ER PO SCH ×2 (08:54→19:55)
[2019-03-17] MEDS: predniSONE 20 MG Tab PO SCH (08:54)
[2019-03-17] MEDS: Fluticasone Propionate Nasal Spray 16 GM Bottle NASBOTH SCH (08:54)
[2019-03-17] MEDS: Tiotropium Inhaler 18 MCG Inhalation Powder Cap Kit of 5 INH SCH (08:54)
[2019-03-17] MEDS: Calcium Carbonate 500 MG Tab.Chew PO PRN (11:36)
[2019-03-17] MEDS: Simvastatin 40 MG Tab PO SCH (19:55)
[2019-03-18] MEDS: Sodium Chloride 0.9% 500 ML IV SCH (02:00)
[2019-03-18] MEDS: Pantoprazole 40 MG Tab.CR PO SCH (07:43)
[2019-03-18] MEDS: Levothyroxine 88 MCG Tab PO SCH (07:43)
[2019-03-18] MEDS: LORazepam 1 MG Tab PO SCH ×3 (07:44→16:59)
[2019-03-18] MEDS: guaiFENesin 600 MG Tab.ER PO SCH ×2 (07:44→19:15)
[2019-03-18] MEDS: predniSONE 20 MG Tab PO SCH (07:44)
[2019-03-18] MEDS: Albuterol/Ipratropium 3.0-0.5 MG/3 ML Neb Soln NEB SCH ×4 (07:45→19:16)
[2019-03-18] MEDS: Tiotropium Inhaler 18 MCG Inhalation Powder Cap Kit of 5 INH SCH (07:45)
[2019-03-18] MEDS: Fluticasone Propionate Nasal Spray 16 GM Bottle NASBOTH SCH (07:46)
[2019-03-18] MEDS: LORazepam 2 MG/ML SDV IVPUSH PRN ×2 (14:25→22:37)
[2019-03-18] MEDS ORDERED: Simvastatin 20 MG Tab ONE (19:01)
[2019-03-18] MEDS: Simvastatin 40 MG Tab PO SCH (19:05)
[2019-03-18] MEDS: Calcium Carbonate 500 MG Tab.Chew PO PRN (19:08)
[2019-03-19] MEDS: LORazepam 1 MG Tab PO SCH ×4 (00:20→18:30)
[2019-03-19] MEDS: Albuterol/Ipratropium 3.0-0.5 MG/3 ML Neb Soln NEB PRN ×3 (03:05→18:32)
[2019-03-19] MEDS: Morphine PF 150 MG/30 ML PCA Syringe IV SCH (05:42)
[2019-03-19] MEDS: Levothyroxine 88 MCG Tab PO SCH (06:00)
[2019-03-19] MEDS: Pantoprazole 40 MG Tab.CR PO SCH (06:00)
[2019-03-19] MEDS: guaiFENesin 600 MG Tab.ER PO SCH ×2 (07:25→20:39)
[2019-03-19] MEDS: Albuterol/Ipratropium 3.0-0.5 MG/3 ML Neb Soln NEB SCH ×4 (07:25→20:40)
[2019-03-19] MEDS: Fluticasone Propionate Nasal Spray 16 GM Bottle NASBOTH SCH (07:25)
[2019-03-19] MEDS: Tiotropium Inhaler 18 MCG Inhalation Powder Cap Kit of 5 INH SCH (07:25)
[2019-03-19] MEDS: predniSONE 20 MG Tab PO SCH (07:25)
[2019-03-19] MEDS: LORazepam 2 MG/ML SDV IVPUSH PRN (09:07)
[2019-03-19] MEDS: Simvastatin 40 MG Tab PO SCH (20:38)
[2019-03-20] MEDS: LORazepam 1 MG Tab PO SCH ×4 (01:25→19:49)
[2019-03-20] MEDS: Albuterol/Ipratropium 3.0-0.5 MG/3 ML Neb Soln NEB PRN (03:18)
[2019-03-20] MEDS: LORazepam 2 MG/ML SDV IVPUSH PRN ×2 (03:32→21:55)
[2019-03-20] MEDS: Pantoprazole 40 MG Tab.CR PO SCH (06:56)
[2019-03-20] MEDS: Levothyroxine 88 MCG Tab PO SCH (06:56)
[2019-03-20] MEDS: Fluticasone Propionate Nasal Spray 16 GM Bottle NASBOTH SCH (08:22)
[2019-03-20] MEDS: guaiFENesin 600 MG Tab.ER PO SCH ×2 (08:22→19:46)
[2019-03-20] MEDS: Tiotropium Inhaler 18 MCG Inhalation Powder Cap Kit of 5 INH SCH (08:23)
[2019-03-20] MEDS: predniSONE 20 MG Tab PO SCH (08:23)
[2019-03-20] MEDS: Albuterol/Ipratropium 3.0-0.5 MG/3 ML Neb Soln NEB SCH ×4 (08:24→19:45)
[2019-03-20] MEDS: Sodium Chloride 0.9% 500 ML IV SCH (10:19)
--- NOTE | 2019-03-20 15:03 | PCM.PN ---
- General Info Date of Service: 03/20/19 Subjective Update: Patient remains very short of breath. He is stable on the MATTRESS F[employer]ING MACHINE TENDER pump but requiring slightly more weekly and sooner as his condition deteriorates. He has shorter breaths and his symptoms worsen daily. Functional Status: Reports: Pain Controlled - Review of Systems General: Reports: Weakness HEENT: Reports: No Symptoms Pulmonary: Reports: Shortness of Breath, Hemoptysis Cardiovascular: Reports: Dyspnea on Exertion Gastrointestinal: Reports: Decreased Appetite Genitourinary: Reports: No Symptoms Musculoskeletal: Reports: Back Pain Neurological: Reports: Weakness Psychiatric: Reports: No Symptoms - Patient Data Vitals - Most Recent: Last Vital Signs Temp 36.1 C 03/20/19 08:00 Pulse 110 H 03/20/19 08:00 Resp 18 03/20/19 08:00 BP 133/81 03/20/19 08:00 Pulse Ox 93 L 03/20/19 08:00 Weight - Most Recent: 88.269 kg I&O - Last 24 Hours: Intake & Output 03/20/19 03/20/19 03/20/19 06:59 14:59 22:59 Output Total 975 Balance -975 Med Orders - Current: Current Medications Albuterol/Ipratropium (Duoneb 3.0-0.5 Mg/3 Ml) 3 ml NEB QID [facility] Last Admin: 03/20/19 12:53 Dose: 3 ml Albuterol/Ipratropium (Duoneb 3.0-0.5 Mg/3 Ml) 3 ml NEB Q2H PRN PRN Reason: Other Last Admin: 03/20/19 03:18 Dose: 3 ml Calamine/Phenol (Calmoseptine) 0 gm TOP QID PRN PRN Reason: Rash Calcium Carbonate/Glycine (Tums) 500 mg PO Q6HR PRN PRN Reason: Indigestion Last Admin: 03/18/19 19:08 Dose: 500 mg Fluticasone Propionate (Flonase) 0 gm NASBOTH DAILY [facility] Last Admin: 03/20/19 08:22 Dose: 1 spray Guaifenesin (Mucinex) 600 mg PO BID [facility] Last Admin: 03/20/19 08:22 Dose: 600 mg Sodium Chloride (Normal Saline) 500 mls @ 25 mls/hr IV ASDIRECTED [facility] Last Admin: 03/20/19 10:19 Dose: 25 mls/hr Levothyroxine Sodium (Synthroid) 88 mcg PO ACBREAKFAST [facility] Last Admin: 03/20/19 06:56 Dose: 88 mcg Lorazepam (Ativan) 1 mg PO Q6H [facility] Last Admin: 03/20/19 12:49 Dose: 1 mg Lorazepam (Ativan) 1 mg IVPUSH Q4H PRN PRN Reason: Respiratory Distress/Agitation Last Admin: 03/20/19 03:32 Dose: 1 mg Magnesium Hydroxide (Milk Of Magnesia) 30 ml PO DAILY PRN PRN Reason: Constipation Last Admin: 03/01/19 04:05 Dose: 30 ml Morphine Sulfate (Morphine 20 Mg/Ml Soln) 1 mg PO Q1H PRN PRN Reason: Pain Last Admin: 03/12/19 06:07 Dose: 1 mg Morphine Sulfate (Morphine 20 Mg/Ml Soln) 2 mg PO Q4H PRN PRN Reason: Severe Agitation Last Admin: 03/16/19 20:15 Dose: 2 mg Morphine Sulfate (Morphine Television Servicer 150 Mg In 30 Ml) 150 mg IV ASDIRECTED [facility]; Protocol Last Admin: 03/19/19 05:42 Dose: 150 mg Menthol [Biofreeze] (1 Applic Own Med) 1 applic TOP QID PRN PRN Reason: Pain Last Admin: 02/26/19 07:30 Dose: 1 applic Ondansetron HCl (Zofran Odt) 4 mg PO Q4H PRN PRN Reason: Nausea/Vomiting Last Admin: 03/15/19 05:04 Dose: 4 mg Pantoprazole Sodium (Protonix) 40 mg PO DAILY@0700 [facility] Last Admin: 03/20/19 06:56 Dose: 40 mg Prednisone (Prednisone) 20 mg PO DAILY [facility] Last Admin: 03/20/19 08:23 Dose: 20 mg Senna/Docusate Sodium (Senna Plus) 2 tab PO BEDTIME [facility] Last Admin: 03/19/19 20:39 Dose: 2 tab Senna/Docusate Sodium (Senna Plus) 1 tab PO DAILY [facility] Last Admin: 03/20/19 08:23 Dose: 1 tab Simvastatin (Zocor) 40 mg PO BEDTIME [facility] Last Admin: 03/19/19 20:38 Dose: 40 mg Tiotropium [place] (Spiriva Handihaler) 18 mcg INH DAILY [facility] Last Admin: 03/20/19 08:23 Dose: 18 mcg Discontinued Medications Calcium Carbonate/Glycine (Tums) Confirm Administered Dose 500 mg .ROUTE .STK- MED ONE Stop: 02/28/19 20:21 Last Admin: 02/28/19 20:40 Dose: Not Given Calcium Carbonate/Glycine (Tums) 500 mg PO ONETIME ONE Stop: 02/28/19 20:35 Last Admin: 02/28/19 20:39 Dose: 500 mg Fentanyl (Duragesic) 12 mcg TRDERM Q72H [facility] Last Admin: 03/03/19 14:48 Dose: 12 mcg Sodium Chloride (Normal Saline) 1,000 mls @ 50 mls/hr IV ASDIRECTED [facility] Last Infusion: 03/11/19 13:06 Dose: 25 mls/hr Levofloxacin (Levaquin) 750 mg PO DAILY [facility] Last Admin: 03/05/19 07:49 Dose: 750 mg Lorazepam (Ativan) 0.5 mg PO Q6H [facility] Last Admin: 02/26/19 05:38 Dose: 0.5 mg Lorazepam (Ativan) 0.5 mg PO ONETIME ONE Stop: 02/25/19 08:22 Last Admin: 02/25/19 08:25 Dose: 0.5 mg Lorazepam (Ativan) 1 mg PO ONETIME PRN PRN Reason: Anxiety Last Admin: 02/25/19 12:29 Dose: 1 mg Lorazepam (Ativan) Confirm Administered Dose 0.5 mg .ROUTE .STK-MED ONE Stop: 02/26/19 07:16 Last Admin: 02/26/19 07:26 Dose: 0.5 mg Lorazepam (Ativan) 0.5 mg PO ONETIME ONE Stop: 02/26/19 07:26 Last Admin: 02/26/19 08:08 Dose: Not Given Lorazepam (Ativan) Confirm Administered Dose 1 mg .ROUTE .STK-MED ONE Stop: 02/28/19 08:54 Last Admin: 02/28/19 14:55 Dose: Not Given Magnesium Hydroxide (Milk Of Magnesia) 30 ml PO ONETIME ONE Stop: 02/27/19 21:11 Last Admin: 02/27/19 23:33 Dose: Not Given Methylprednisolone Sodium Succinate (Solu-Medrol) 125 mg IVPUSH DAILY [facility] Last Admin: 03/05/19 08:33 Dose: Not Given Morphine Sulfate (Morphine 20 Mg/Ml Soln) 4 mg SL Q2H PRN PRN Reason: Pain Last Admin: 02/21/19 07:02 Dose: 4 mg Morphine Sulfate (Morphine Television Servicer 30 Mg In 30 Ml) 0 mg IV ASDIRECTED [facility]; Protocol Last Admin: 02/23/19 23:43 Dose: 1 mg Morphine Sulfate (Morphine) Confirm Administered Dose 2 mg .ROUTE .STK-MED ONE Stop: 02/23/19 09:08 Last Admin: 02/23/19 09:20 Dose: Not Given Morphine Sulfate (Morphine) 2 mg IVPUSH ONETIME ONE Stop: 02/23/19 09:09 Last Admin: 02/23/19 09:10 Dose: 2 mg Morphine Sulfate (Morphine) 2 mg IVPUSH ONETIME ONE Stop: 02/23/19 09:54 Last Admin: 02/23/19 09:54 Dose: 2 mg Morphine Sulfate (Morphine Television Servicer 30 Mg In 30 Ml) 1 mg IV ASDIRECTED [facility]; Protocol Last Admin: 02/28/19 03:22 Dose: 1 mg Morphine Sulfate (Morphine) Confirm Administered Dose 2 mg .ROUTE .STK-MED ONE Stop: 03/05/19 12:26 Last Admin: 03/05/19 12:55 Dose: 2 mg Morphine Sulfate (Morphine Television Servicer 30 Mg In 30 Ml) 0 mg IV ASDIRECTED [facility]; Protocol Last Admin: 03/06/19 11:52 Dose: 1 mg Morphine Sulfate (Morphine Television Servicer 30 Mg In 30 Ml) 30 mg IV ASDIRECTED [facility]; Protocol Last Admin: 03/15/19 10:35 Dose: 30 mg Morphine Sulfate (Morphine 20 Mg/Ml Soln) 600 mg .ROUTE .STK-MED ONE Stop: 03/03/19 23:05 Non-Formulary Medication (Morphine Sulfate [Morphine Sulfate]) 4 mg SL Q2H PRN PRN Reason: Pain Non-Formulary Medication (Ondansetron Hcl [Zofran]) 4 mg PO Q4H PRN PRN Reason: Nausea Non-Formulary Medication (Polyethylene Glycol [Polyox [id number]]) 17 gm PO BID [facility] Polyethylene Glycol (Miralax) 17 gm PO BID [facility] Last Admin: 02/26/19 08:07 Dose: Not Given Senna/Docusate Sodium (Senna Plus) 1 tab PO BID [facility] Last Admin: 02/26/19 07:23 Dose: 1 tab Simvastatin (Zocor) Confirm Administered Dose 40 mg .ROUTE .STK-MED ONE Stop: 03/18/19 19:02 Last Admin: 03/18/19 19:03 Dose: 40 mg Tiotropium [place] (Spiriva Handihaler) 18 mcg .ROUTE .STK-MED ONE Stop: 02/21/19 13:18 Tiotropium [place] (Spiriva Handihaler) 18 mcg .ROUTE .STK-MED ONE Stop: 03/02/19 08:01 Tuberculin PPD (Aplisol) 5 unit IDERM ONETIME ONE Stop: 02/20/19 15:29 Last Admin: 02/21/19 16:36 Dose: 5 unit - Exam Quality Assessment: Supplemental Oxygen General: Alert, Oriented, Cooperative HEENT: Pupils Equal, Pupils Reactive, EOMI Neck: Supple Lungs: Decreased Breath Sounds, Crackles, Rhonchi Cardiovascular: Regular Rhythm, Tachycardia GI/Abdominal Exam: Abnormal Bowel Sounds (decreased breath sounds) Back Exam: Normal Inspection Extremities: Normal Inspection - Problem List & Annotations (1) Lung cancer SNOMED Code(s): 922897059 Code(s): C34.90 - MALIGNANT NEOPLASM OF UNSP PART OF UNSP BRONCHUS OR LUNG Status: Acute Current Visit: Yes Qualifiers: Laterality: right Lung location: overlapping sites Qualified Code(s): C34.81 - Malignant neoplasm of overlapping sites of right bronchus and lung (2) Palliative care patient SNOMED Code(s): 076548782 Code(s): Z51.5 - ENCOUNTER FOR PALLIATIVE CARE Status: Acute Priority: High Current Visit: Yes (3) Respiratory failure SNOMED Code(s): 399588572 Code(s): J96.90 - RESPIRATORY FAILURE, UNSP, UNSP W HYPOXIA OR HYPERCAPNIA Status: Acute Priority: High Current Visit: Yes Qualifiers: Chronicity: acute on chronic (4) Shortness of breath at rest SNOMED Code(s): 549299337 Code(s): R06.02 - SHORTNESS OF BREATH Status: Chronic Priority: High Current Visit: Yes Onset Date: 01/22/16 (5) Weakness SNOMED Code(s): 83887628 Code(s): R53.1 - WEAKNESS Status: Acute Priority: High Current Visit: Yes (6) COPD (chronic obstructive pulmonary disease) SNOMED Code(s): 40238723 Code(s): J44.9 - CHRONIC OBSTRUCTIVE PULMONARY DISEASE, UNSPECIFIED Status : Chronic Priority: High Current Visit: Yes (7) Hemoptysis SNOMED Code(s): 56704191 Code(s): R04.2 - HEMOPTYSIS Status: Chronic Priority: High Current Visit: Yes (8) Mass of right lung SNOMED Code(s): 565143002 Code(s): R91.8 - OTHER NONSPECIFIC ABNORMAL FINDING OF LUNG FIELD Status: Chronic Priority: High Current Visit: Yes - Problem List Review Problem List Initiated/Reviewed/Updated: Yes - Assessment Assessment:: Palliative care for right lung mass with hemoptysis Severe O2 dependent COPD Constipation - Plan Plan:: Pt has had a slowly progressive right lung mass. He has decided not to have any workup and presently on palliative care. He is on IV Morphine [employer]ER at 1mg per hour basal. HE has been having frequent episodes of shortness of breath and also chest wall pain and requiring more morphine. I have started him on 0.2mg every 20 minutes on demand morphine for pain along with basal. Pt apparently is in end stage COPD, with almost no air entry in his right hemithorax secondary to the growing lung mass. He has been having more frequent episodes of shortness of breath some time with minimal activities and some times at rest.There is undue anxiety. Also he has had no bowel movement since this admission. He has been on stool softeners and miralax daily. Abdominal Xray does show large amount of stool in the colon. Presently he is not obstructed, but he might develop mechanical obstruction form stool impaction. Offered soap prema enema and patient has declined several time in the past 2 days. I have discussed today with patient very clearly, that if the stool is not extracted from the colon with enema, there is chance of stool obstructing the colon and causing bowel obstruction, which will cause more pain and discomfort, and with his very poor general health condition could have disastrous complications, including . Pt today has agreed to have soap prema enema. Will try and followup. Pt is not in any situation to be discharged. He is not able to work much with OT or PT for general strengthening due to his respiratory situation. I do not think home health can manage patient at home, as it was tried and has failed. 03/03/19 There has not been much improvement in patient status, or not a severe deterioration. He is on Morphine [employer]ACH[employer] TENDER, which is helping with his pain and does get break through morphine. HE seem comfortable now. But some times does get tachypneic and hypoxic from respiratory distress. He is on Oxygen which maintains his SPO2 above 92%. My concern is his chronic constipation. On Abdominal xray today he has large collection of stool in the ascending colon. He has not had a good amount of stool for 2-3 weeks now. With last week soap prema he had some results, but not a large results. He has continued to decline enemas and also oral therapy for constipation. At some point he is going to develop mechanical obstruction which with his poor general condition will be disastrous and could cause secondary sepsis and . HE agreed to have soap prema enema to me, but when staff went to do it, he has declined again yesterday. Pt and his daughter are very keen on taking patient home. Home health nurse has evaluated and decided that it will be a very hard for them to give 24 hrs one on one service at home. But patient and his daughter are adamant about it. I still respect their opinion and intention. They do understand all the risks associated If he is going home, patient cannot be on M[employer]ESS F[employer]ING MACH[employer] TENDER pump. Hence I have stopped the M[employer]ESS F[employer] MACH[employer]ENDER pump today and placed him on fentanyl patch 12 mcg and morphine s/l 1mg every hr and 2mg every 4 hrs for acute respiratory distress or anxiety. Rest of the medications will be continued. 03/05/19 Pt is having hemoptysis with recurrent cough. he is not having ludy out pouring of blood or vomiting large clotted blood. Patient does have cavitary right lung mass. There might be some blood vessels with in the cavity which might have broke open from the negative pressure from the cough episode and bleeding. His Chest xray portable was done, does show complete opacity of the right lung,which is basically to progression of disease. Pt is on palliative care. Pt's pain is controlled on present regime, which we will continue. We will have IV line in place, IF he gets obtunded and might need IV medications. He has anxiety of , hence I have changed his Ativan to IV Ativan every 4 hrs as needed for severe anxiety. I have discussed the findings in detail with patient's daughter who is his caregiver and also with patient. They do understand and agree with the plan. I do not think patient can go home with his deteriorating condition. I do not think daughter will be able to handle the situation with out medical help.Daughter agree to keep him in the hospital for now. 03/10/19 Patient continues to be on palliative care. His condition is deteriorating and requiring more pain medications to maintain his comfort level of breathing. He is bed ridden and requires full support to get out of bed. He requires the M[employer]ESS F[employer]ING MACH[employer] TENDER pump for pain. We will continue to manage his pain as needed. Counseled daughter and patient on DNR/DNI status and they are in agreement with DNR/DNI. 03/20/19 Patient's condition has deteriorated slightly. He continues to cough up blood and feels short of breath all the time. He remains palliative. He requires a MATTRESS FILLING MACHINE TENDER pump to manage his pain and breathing and unable to go home. We do not have home hospice or home health to care for his conditions. He requires morphine and ativan IV and unable to be weaned. We will continue current management and pain management.
[2019-03-20] MEDS: Simvastatin 40 MG Tab PO SCH (19:46)
[2019-03-20] MEDS: Morphine PF 150 MG/30 ML PCA Syringe IV SCH (23:31)
[2019-03-21] MEDS: LORazepam 1 MG Tab PO SCH ×7 (02:31→23:28)
[2019-03-21] MEDS: Pantoprazole 40 MG Tab.CR PO SCH (06:30)
[2019-03-21] MEDS: Levothyroxine 88 MCG Tab PO SCH (06:30)
[2019-03-21] MEDS: Sodium Chloride 0.9% 500 ML IV SCH (06:31)
[2019-03-21] MEDS: Fluticasone Propionate Nasal Spray 16 GM Bottle NASBOTH SCH (08:14)
[2019-03-21] MEDS: Tiotropium Inhaler 18 MCG Inhalation Powder Cap Kit of 5 INH SCH (08:14)
[2019-03-21] MEDS: predniSONE 20 MG Tab PO SCH (08:14)
[2019-03-21] MEDS: guaiFENesin 600 MG Tab.ER PO SCH ×2 (08:15→19:44)
[2019-03-21] MEDS: Albuterol/Ipratropium 3.0-0.5 MG/3 ML Neb Soln NEB SCH ×4 (08:15→19:44)
[2019-03-21] MEDS: Albuterol/Ipratropium 3.0-0.5 MG/3 ML Neb Soln NEB PRN (16:13)
[2019-03-21] MEDS: Simvastatin 40 MG Tab PO SCH (19:44)
[2019-03-21] MEDS ORDERED: LORazepam 2 MG/ML SDV ONE (20:15)
[2019-03-21] MEDS: LORazepam 2 MG/ML SDV IVPUSH PRN (20:20)
[2019-03-22] MEDS: Sodium Chloride 0.9% 500 ML IV SCH ×2 (02:35→22:06)
[2019-03-22] MEDS: Albuterol/Ipratropium 3.0-0.5 MG/3 ML Neb Soln NEB PRN (03:59)
[2019-03-22] MEDS: LORazepam 2 MG/ML SDV IVPUSH PRN ×4 (05:00→18:17)
[2019-03-22] MEDS ORDERED: LORazepam 2 MG/ML SDV ONE (05:07)
[2019-03-22] MEDS: guaiFENesin 600 MG Tab.ER PO SCH ×2 (08:52→22:04)
[2019-03-22] MEDS: Pantoprazole 40 MG Tab.CR PO SCH (08:52)
[2019-03-22] MEDS: Levothyroxine 88 MCG Tab PO SCH (08:52)
[2019-03-22] MEDS: predniSONE 20 MG Tab PO SCH (08:53)
[2019-03-22] MEDS: Albuterol/Ipratropium 3.0-0.5 MG/3 ML Neb Soln NEB SCH ×4 (08:53→22:03)
[2019-03-22] MEDS: Fluticasone Propionate Nasal Spray 16 GM Bottle NASBOTH SCH (08:53)
[2019-03-22] MEDS: Tiotropium Inhaler 18 MCG Inhalation Powder Cap Kit of 5 INH SCH (08:54)
[2019-03-22] MEDS: LORazepam 1 MG Tab PO SCH ×3 (10:10→18:17)
[2019-03-22] MEDS: Morphine PF 150 MG/30 ML PCA Syringe IV SCH (16:29)
[2019-03-22] MEDS: Simvastatin 40 MG Tab PO SCH (22:04)
[2019-03-23] MEDS: LORazepam 1 MG Tab PO SCH ×5 (00:30→18:34)
[2019-03-23] MEDS: Morphine PF 150 MG/30 ML PCA Syringe IV SCH (01:18)
[2019-03-23] MEDS: LORazepam 2 MG/ML SDV IVPUSH PRN (03:08)
[2019-03-23] MEDS: Pantoprazole 40 MG Tab.CR PO SCH (06:16)
[2019-03-23] MEDS: Levothyroxine 88 MCG Tab PO SCH (06:16)
[2019-03-23] MEDS: Fluticasone Propionate Nasal Spray 16 GM Bottle NASBOTH SCH (07:21)
[2019-03-23] MEDS: Albuterol/Ipratropium 3.0-0.5 MG/3 ML Neb Soln NEB SCH ×5 (07:21→19:54)
[2019-03-23] MEDS: guaiFENesin 600 MG Tab.ER PO SCH ×2 (07:21→19:53)
[2019-03-23] MEDS: Tiotropium Inhaler 18 MCG Inhalation Powder Cap Kit of 5 INH SCH (07:22)
[2019-03-23] MEDS: predniSONE 20 MG Tab PO SCH (07:22)
[2019-03-23] MEDS: Simvastatin 40 MG Tab PO SCH (19:53)
[2019-03-24] MEDS: LORazepam 1 MG Tab PO SCH ×4 (01:27→20:47)
[2019-03-24] MEDS: Ondansetron 4 MG Tab.DIS PO PRN (05:05)
[2019-03-24] MEDS: Levothyroxine 88 MCG Tab PO SCH (06:01)
[2019-03-24] MEDS: Pantoprazole 40 MG Tab.CR PO SCH (06:01)
[2019-03-24] MEDS: LORazepam 2 MG/ML SDV IVPUSH PRN ×2 (07:40→22:16)
[2019-03-24] MEDS: Albuterol/Ipratropium 3.0-0.5 MG/3 ML Neb Soln NEB SCH ×4 (07:40→20:47)
[2019-03-24] MEDS: predniSONE 20 MG Tab PO SCH (07:41)
[2019-03-24] MEDS: guaiFENesin 600 MG Tab.ER PO SCH ×2 (07:41→20:47)
[2019-03-24] MEDS: Fluticasone Propionate Nasal Spray 16 GM Bottle NASBOTH SCH (07:43)
[2019-03-24] MEDS: Tiotropium Inhaler 18 MCG Inhalation Powder Cap Kit of 5 INH SCH (07:43)
--- NOTE | 2019-03-24 08:34 | PCM.PN ---
- General Info Date of Service: 03/24/19 Subjective Update: Patient has increased weakness. He continues to cough up blood occasionally. His breathing remains labored and he remains tachycardic. He has decreased diet and appetite. He is DNR/DNI at this time. Functional Status: Reports: Pain Controlled, Tolerating Diet - Review of Systems General: Reports: Weakness HEENT: Reports: No Symptoms Pulmonary: Reports: Shortness of Breath, Hemoptysis Cardiovascular: Reports: No Symptoms Gastrointestinal: Reports: No Symptoms Genitourinary: Reports: No Symptoms Musculoskeletal: Reports: Back Pain Skin: Reports: Diaphoresis Neurological: Reports: Weakness Psychiatric: Reports: Anxiety - Patient Data Vitals - Most Recent: Last Vital Signs Temp 36.8 C 03/24/19 07:51 Pulse 104 H 03/24/19 05:17 Resp 19 03/24/19 07:51 BP 125/84 03/24/19 07:51 Pulse Ox 94 L 03/24/19 07:55 Weight - Most Recent: 88.269 kg I&O - Last 24 Hours: Intake & Output 03/23/19 03/24/19 03/24/19 22:59 06:59 14:59 Output Total 550 Balance -550 Med Orders - Current: Current Medications Albuterol/Ipratropium (Duoneb 3.0-0.5 Mg/3 Ml) 3 ml NEB QID [facility] Last Admin: 03/24/19 07:40 Dose: 3 ml Albuterol/Ipratropium (Duoneb 3.0-0.5 Mg/3 Ml) 3 ml NEB Q2H PRN PRN Reason: Other Last Admin: 03/22/19 03:59 Dose: 3 ml Calamine/Phenol (Calmoseptine) 0 gm TOP QID PRN PRN Reason: Rash Calcium Carbonate/Glycine (Tums) 500 mg PO Q6HR PRN PRN Reason: Indigestion Last Admin: 03/18/19 19:08 Dose: 500 mg Fluticasone Propionate (Flonase) 0 gm NASBOTH DAILY [facility] Last Admin: 03/24/19 07:43 Dose: 1 spray Guaifenesin (Mucinex) 600 mg PO BID [facility] Last Admin: 03/24/19 07:41 Dose: 600 mg Sodium Chloride (Normal Saline) 500 mls @ 25 mls/hr IV ASDIRECTED [facility] Last Infusion: 03/23/19 19:08 Dose: Infused Levothyroxine Sodium (Synthroid) 88 mcg PO ACBREAKFAST [facility] Last Admin: 03/24/19 06:01 Dose: 88 mcg Lorazepam (Ativan) 1 mg PO Q6H [facility] Last Admin: 03/24/19 06:01 Dose: 1 mg Lorazepam (Ativan) 1 mg IVPUSH Q4H PRN PRN Reason: Respiratory Distress/Agitation Last Admin: 03/24/19 07:40 Dose: 1 mg Magnesium Hydroxide (Milk Of Magnesia) 30 ml PO DAILY PRN PRN Reason: Constipation Last Admin: 03/01/19 04:05 Dose: 30 ml Meclizine HCl (Antivert) 25 mg PO DAILY PRN PRN Reason: Dizziness Last Admin: 03/24/19 06:11 Dose: 25 mg Morphine Sulfate (Morphine 20 Mg/Ml Soln) 1 mg PO Q1H PRN PRN Reason: Pain Last Admin: 03/12/19 06:07 Dose: 1 mg Morphine Sulfate (Morphine 20 Mg/Ml Soln) 2 mg PO Q4H PRN PRN Reason: Severe Agitation Last Admin: 03/16/19 20:15 Dose: 2 mg Morphine Sulfate (Morphine Access Clinician 150 Mg In 30 Ml) 150 mg IV ASDIRECTED [facility]; Protocol Last Admin: 03/23/19 01:18 Dose: 150 mg Menthol [Biofreeze] (1 Applic Own Med) 1 applic TOP QID PRN PRN Reason: Pain Last Admin: 02/26/19 07:30 Dose: 1 applic Ondansetron HCl (Zofran Odt) 4 mg PO Q4H PRN PRN Reason: Nausea/Vomiting Last Admin: 03/24/19 05:05 Dose: 4 mg Pantoprazole Sodium (Protonix) 40 mg PO DAILY@0700 [facility] Last Admin: 03/24/19 06:01 Dose: 40 mg Prednisone (Prednisone) 20 mg PO DAILY [facility] Last Admin: 03/24/19 07:41 Dose: 20 mg Senna/Docusate Sodium (Senna Plus) 2 tab PO BEDTIME [facility] Last Admin: 03/23/19 19:54 Dose: 2 tab Senna/Docusate Sodium (Senna Plus) 1 tab PO DAILY [facility] Last Admin: 03/24/19 07:41 Dose: 1 tab Simvastatin (Zocor) 40 mg PO BEDTIME [facility] Last Admin: 03/23/19 19:53 Dose: 40 mg Tiotropium [place] (Spiriva Handihaler) 18 mcg INH DAILY [facility] Last Admin: 03/24/19 07:43 Dose: 18 mcg Discontinued Medications Calcium Carbonate/Glycine (Tums) Confirm Administered Dose 500 mg .ROUTE .STK- MED ONE Stop: 02/28/19 20:21 Last Admin: 02/28/19 20:40 Dose: Not Given Calcium Carbonate/Glycine (Tums) 500 mg PO ONETIME ONE Stop: 02/28/19 20:35 Last Admin: 02/28/19 20:39 Dose: 500 mg Fentanyl (Duragesic) 12 mcg TRDERM Q72H [facility] Last Admin: 03/03/19 14:48 Dose: 12 mcg Sodium Chloride (Normal Saline) 1,000 mls @ 50 mls/hr IV ASDIRECTED [facility] Last Infusion: 03/11/19 13:06 Dose: 25 mls/hr Levofloxacin (Levaquin) 750 mg PO DAILY [facility] Last Admin: 03/05/19 07:49 Dose: 750 mg Lorazepam (Ativan) 0.5 mg PO Q6H [facility] Last Admin: 02/26/19 05:38 Dose: 0.5 mg Lorazepam (Ativan) 0.5 mg PO ONETIME ONE Stop: 02/25/19 08:22 Last Admin: 02/25/19 08:25 Dose: 0.5 mg Lorazepam (Ativan) 1 mg PO ONETIME PRN PRN Reason: Anxiety Last Admin: 02/25/19 12:29 Dose: 1 mg Lorazepam (Ativan) Confirm Administered Dose 0.5 mg .ROUTE .STK-MED ONE Stop: 02/26/19 07:16 Last Admin: 02/26/19 07:26 Dose: 0.5 mg Lorazepam (Ativan) 0.5 mg PO ONETIME ONE Stop: 02/26/19 07:26 Last Admin: 02/26/19 08:08 Dose: Not Given Lorazepam (Ativan) Confirm Administered Dose 1 mg .ROUTE .STK-MED ONE Stop: 02/28/19 08:54 Last Admin: 02/28/19 14:55 Dose: Not Given Lorazepam (Ativan) Confirm Administered Dose 2 mg .ROUTE .STK-MED ONE Stop: 03/21/19 20:16 Last Admin: 03/21/19 22:56 Dose: Not Given Lorazepam (Ativan) Confirm Administered Dose 2 mg .ROUTE .STK-MED ONE Stop: 03/22/19 05:08 Last Admin: 03/22/19 08:41 Dose: Not Given Magnesium Hydroxide (Milk Of Magnesia) 30 ml PO ONETIME ONE Stop: 02/27/19 21:11 Last Admin: 02/27/19 23:33 Dose: Not Given Methylprednisolone Sodium Succinate (Solu-Medrol) 125 mg IVPUSH DAILY [facility] Last Admin: 03/05/19 08:33 Dose: Not Given Morphine Sulfate (Morphine 20 Mg/Ml Soln) 4 mg SL Q2H PRN PRN Reason: Pain Last Admin: 02/21/19 07:02 Dose: 4 mg Morphine Sulfate (Morphine Access Clinician 30 Mg In 30 Ml) 0 mg IV ASDIRECTED [facility]; Protocol Last Admin: 02/23/19 23:43 Dose: 1 mg Morphine Sulfate (Morphine) Confirm Administered Dose 2 mg .ROUTE .STK-MED ONE Stop: 02/23/19 09:08 Last Admin: 02/23/19 09:20 Dose: Not Given Morphine Sulfate (Morphine) 2 mg IVPUSH ONETIME ONE Stop: 02/23/19 09:09 Last Admin: 02/23/19 09:10 Dose: 2 mg Morphine Sulfate (Morphine) 2 mg IVPUSH ONETIME ONE Stop: 02/23/19 09:54 Last Admin: 02/23/19 09:54 Dose: 2 mg Morphine Sulfate (Morphine Access Clinician 30 Mg In 30 Ml) 1 mg IV ASDIRECTED [facility]; Protocol Last Admin: 02/28/19 03:22 Dose: 1 mg Morphine Sulfate (Morphine) Confirm Administered Dose 2 mg .ROUTE .STK-MED ONE Stop: 03/05/19 12:26 Last Admin: 03/05/19 12:55 Dose: 2 mg Morphine Sulfate (Morphine Access Clinician 30 Mg In 30 Ml) 0 mg IV ASDIRECTED [facility]; Protocol Last Admin: 03/06/19 11:52 Dose: 1 mg Morphine Sulfate (Morphine Access Clinician 30 Mg In 30 Ml) 30 mg IV ASDIRECTED [facility]; Protocol Last Admin: 03/15/19 10:35 Dose: 30 mg Morphine Sulfate (Morphine 20 Mg/Ml Soln) 600 mg .ROUTE .STK-MED ONE Stop: 03/03/19 23:05 Non-Formulary Medication (Morphine Sulfate [Morphine Sulfate]) 4 mg SL Q2H PRN PRN Reason: Pain Non-Formulary Medication (Ondansetron Hcl [Zofran]) 4 mg PO Q4H PRN PRN Reason: Nausea Non-Formulary Medication (Polyethylene Glycol [Polyox [id number]]) 17 gm PO BID [facility] Polyethylene Glycol (Miralax) 17 gm PO BID [facility] Last Admin: 02/26/19 08:07 Dose: Not Given Senna/Docusate Sodium (Senna Plus) 1 tab PO BID [facility] Last Admin: 02/26/19 07:23 Dose: 1 tab Simvastatin (Zocor) Confirm Administered Dose 40 mg .ROUTE .STK-MED ONE Stop: 03/18/19 19:02 Last Admin: 03/18/19 19:03 Dose: 40 mg Tiotropium [place] (Spiriva Handihaler) 18 mcg .ROUTE .STK-MED ONE Stop: 02/21/19 13:18 Tiotropium [place] (Spiriva Handihaler) 18 mcg .ROUTE .STK-MED ONE Stop: 03/02/19 08:01 Tuberculin PPD (Aplisol) 5 unit IDERM ONETIME ONE Stop: 02/20/19 15:29 Last Admin: 02/21/19 16:36 Dose: 5 unit - Exam Quality Assessment: Supplemental Oxygen General: Alert, Oriented, Cooperative, Mild Distress HEENT: Pupils Equal, Pupils Reactive, EOMI Neck: Supple Lungs: Decreased Breath Sounds (no breath sounds on right), Rhonchi Cardiovascular: Tachycardia GI/Abdominal Exam: Abnormal Bowel Sounds (decreased bowel sounds) Back Exam: Paraspinal Tenderness - Problem List & Annotations (1) Lung cancer SNOMED Code(s): 861877787 Code(s): C34.90 - MALIGNANT NEOPLASM OF UNSP PART OF UNSP BRONCHUS OR LUNG Status: Acute Current Visit: Yes Qualifiers: Laterality: right Lung location: overlapping sites Qualified Code(s): C34.81 - Malignant neoplasm of overlapping sites of right bronchus and lung (2) Palliative care patient SNOMED Code(s): 866499650 Code(s): Z51.5 - ENCOUNTER FOR PALLIATIVE CARE Status: Acute Priority: High Current Visit: Yes (3) Respiratory failure SNOMED Code(s): 185069752 Code(s): J96.90 - RESPIRATORY FAILURE, UNSP, UNSP W HYPOXIA OR HYPERCAPNIA Status: Acute Priority: High Current Visit: Yes Qualifiers: Chronicity: acute on chronic (4) Shortness of breath at rest SNOMED Code(s): 553017033 Code(s): R06.02 - SHORTNESS OF BREATH Status: Chronic Priority: High Current Visit: Yes Onset Date: 01/22/16 (5) Weakness SNOMED Code(s): 11742591 Code(s): R53.1 - WEAKNESS Status: Acute Priority: High Current Visit: Yes (6) COPD (chronic obstructive pulmonary disease) SNOMED Code(s): 59699199 Code(s): J44.9 - CHRONIC OBSTRUCTIVE PULMONARY DISEASE, UNSPECIFIED Status : Chronic Priority: High Current Visit: Yes (7) Hemoptysis SNOMED Code(s): 67594170 Code(s): R04.2 - HEMOPTYSIS Status: Chronic Priority: High Current Visit: Yes (8) Mass of right lung SNOMED Code(s): 604107803 Code(s): R91.8 - OTHER NONSPECIFIC ABNORMAL FINDING OF LUNG FIELD Status: Chronic Priority: High Current Visit: Yes - Problem List Review Problem List Initiated/Reviewed/Updated: Yes - Assessment Assessment:: Palliative care for right lung mass with hemoptysis Severe O2 dependent COPD Constipation - Plan Plan:: Pt has had a slowly progressive right lung mass. He has decided not to have any workup and presently on palliative care. He is on IV Morphine NURSERY NURSE at 1mg per hour basal. HE has been having frequent episodes of shortness of breath and also chest wall pain and requiring more morphine. I have started him on 0.2mg every 20 minutes on demand morphine for pain along with basal. Pt apparently is in end stage COPD, with almost no air entry in his right hemithorax secondary to the growing lung mass. He has been having more frequent episodes of shortness of breath some time with minimal activities and some times at rest.There is undue anxiety. Also he has had no bowel movement since this admission. He has been on stool softeners and miralax daily. Abdominal Xray does show large amount of stool in the colon. Presently he is not obstructed, but he might develop mechanical obstruction form stool impaction. Offered soap prema enema and patient has declined several time in the past 2 days. I have discussed today with patient very clearly, that if the stool is not extracted from the colon with enema, there is chance of stool obstructing the colon and causing bowel obstruction, which will cause more pain and discomfort, and with his very poor general health condition could have disastrous complications, including . Pt today has agreed to have soap prema enema. Will try and followup. Pt is not in any situation to be discharged. He is not able to work much with OT or PT for general strengthening due to his respiratory situation. I do not think home health can manage patient at home, as it was tried and has failed. 03/03/19 There has not been much improvement in patient status, or not a severe deterioration. He is on Morphine NURSERY NURSE, which is helping with his pain and does get break through morphine. HE seem comfortable now. But some times does get tachypneic and hypoxic from respiratory distress. He is on Oxygen which maintains his SPO2 above 92%. My concern is his chronic constipation. On Abdominal xray today he has large collection of stool in the ascending colon. He has not had a good amount of stool for 2-3 weeks now. With last week soap prema he had some results, but not a large results. He has continued to decline enemas and also oral therapy for constipation. At some point he is going to develop mechanical obstruction which with his poor general condition will be disastrous and could cause secondary sepsis and . HE agreed to have soap prema enema to me, but when staff went to do it, he has declined again yesterday. Pt and his daughter are very keen on taking patient home. Home health nurse has evaluated and decided that it will be a very hard for them to give 24 hrs one on one service at home. But patient and his daughter are adamant about it. I still respect their opinion and intention. They do understand all the risks associated If he is going home, patient cannot be on NURSERY NURSE pump. Hence I have stopped the NURSERY NURSE pump today and placed him on fentanyl patch 12 mcg and morphine s/l 1mg every hr and 2mg every 4 hrs for acute respiratory distress or anxiety. Rest of the medications will be continued. 03/05/19 Pt is having hemoptysis with recurrent cough. he is not having ludy out pouring of blood or vomiting large clotted blood. Patient does have cavitary right lung mass. There might be some blood vessels with in the cavity which might have broke open from the negative pressure from the cough episode and bleeding. His Chest xray portable was done, does show complete opacity of the right lung,which is basically to progression of disease. Pt is on palliative care. Pt's pain is controlled on present regime, which we will continue. We will have IV line in place, IF he gets obtunded and might need IV medications. He has anxiety of , hence I have changed his Ativan to IV Ativan every 4 hrs as needed for severe anxiety. I have discussed the findings in detail with patient's daughter who is his caregiver and also with patient. They do understand and agree with the plan. I do not think patient can go home with his deteriorating condition. I do not think daughter will be able to handle the situation with out medical help.Daughter agree to keep him in the hospital for now. 03/10/19 Patient continues to be on palliative care. His condition is deteriorating and requiring more pain medications to maintain his comfort level of breathing. He is bed ridden and requires full support to get out of bed. He requires the NURSERY NURSE pump for pain. We will continue to manage his pain as needed. Counseled daughter and patient on DNR/DNI status and they are in agreement with DNR/DNI. 03/20/19 Patient's condition has deteriorated slightly. He continues to cough up blood and feels short of breath all the time. He remains palliative. He requires a NURSERY NURSE pump to manage his pain and breathing and unable to go home. We do not have home hospice or home health to care for his conditions. He requires morphine and ativan IV and unable to be weaned. We will continue current management and pain management. 03/24/19 Patient continues to cough up blood. His pain is under control and we have had to slightly increase his basal rate and bump. Continue DNR/DNI status.
[2019-03-24] MEDS: Simvastatin 40 MG Tab PO SCH (20:47)
[2019-03-24] MEDS: Morphine PF 150 MG/30 ML PCA Syringe IV SCH (23:24)
[2019-03-25] MEDS: LORazepam 1 MG Tab PO SCH ×4 (00:48→18:17)
[2019-03-25] MEDS: Albuterol/Ipratropium 3.0-0.5 MG/3 ML Neb Soln NEB PRN (05:49)
[2019-03-25] MEDS: Sodium Chloride 0.9% 500 ML IV SCH (05:50)
[2019-03-25] MEDS: Pantoprazole 40 MG Tab.CR PO SCH (06:00)
[2019-03-25] MEDS: Levothyroxine 88 MCG Tab PO SCH (06:00)
[2019-03-25] MEDS: Tiotropium Inhaler 18 MCG Inhalation Powder Cap Kit of 5 INH SCH (08:07)
[2019-03-25] MEDS: guaiFENesin 600 MG Tab.ER PO SCH ×2 (08:07→19:38)
[2019-03-25] MEDS: predniSONE 20 MG Tab PO SCH (08:07)
[2019-03-25] MEDS: Albuterol/Ipratropium 3.0-0.5 MG/3 ML Neb Soln NEB SCH ×4 (08:09→19:38)
[2019-03-25] MEDS: Fluticasone Propionate Nasal Spray 16 GM Bottle NASBOTH SCH (08:10)
[2019-03-25] MEDS: Simvastatin 40 MG Tab PO SCH (19:38)
[2019-03-26] MEDS: LORazepam 1 MG Tab PO SCH ×4 (00:27→18:06)
[2019-03-26] MEDS: Albuterol/Ipratropium 3.0-0.5 MG/3 ML Neb Soln NEB PRN (00:29)
[2019-03-26] MEDS: Levothyroxine 88 MCG Tab PO SCH (06:06)
[2019-03-26] MEDS: Pantoprazole 40 MG Tab.CR PO SCH (06:06)
[2019-03-26] MEDS: guaiFENesin 600 MG Tab.ER PO SCH ×2 (07:49→20:12)
[2019-03-26] MEDS: Tiotropium Inhaler 18 MCG Inhalation Powder Cap Kit of 5 INH SCH (07:49)
[2019-03-26] MEDS: predniSONE 20 MG Tab PO SCH (07:49)
[2019-03-26] MEDS: Albuterol/Ipratropium 3.0-0.5 MG/3 ML Neb Soln NEB SCH ×4 (07:51→20:11)
[2019-03-26] MEDS: Fluticasone Propionate Nasal Spray 16 GM Bottle NASBOTH SCH (07:51)
[2019-03-26] MEDS: Morphine PF 150 MG/30 ML PCA Syringe IV SCH (19:11)
[2019-03-26] MEDS: Sodium Chloride 0.9% 500 ML IV SCH (20:10)
[2019-03-26] MEDS: Simvastatin 40 MG Tab PO SCH (20:11)
[2019-03-27] MEDS: LORazepam 1 MG Tab PO SCH ×5 (00:02→23:44)
[2019-03-27] MEDS: LORazepam 2 MG/ML SDV IVPUSH PRN (01:37)
[2019-03-27] MEDS: Levothyroxine 88 MCG Tab PO SCH (06:00)
[2019-03-27] MEDS: Pantoprazole 40 MG Tab.CR PO SCH (06:00)
[2019-03-27] MEDS: Fluticasone Propionate Nasal Spray 16 GM Bottle NASBOTH SCH (07:32)
[2019-03-27] MEDS: Albuterol/Ipratropium 3.0-0.5 MG/3 ML Neb Soln NEB SCH ×4 (07:32→20:08)
[2019-03-27] MEDS: Tiotropium Inhaler 18 MCG Inhalation Powder Cap Kit of 5 INH SCH (07:32)
[2019-03-27] MEDS: predniSONE 20 MG Tab PO SCH (07:33)
[2019-03-27] MEDS: guaiFENesin 600 MG Tab.ER PO SCH ×2 (07:33→20:08)
[2019-03-27] MEDS: Albuterol/Ipratropium 3.0-0.5 MG/3 ML Neb Soln NEB PRN ×2 (10:44→22:27)
[2019-03-27] MEDS: Simvastatin 40 MG Tab PO SCH (20:08)
[2019-03-28] MEDS: Albuterol/Ipratropium 3.0-0.5 MG/3 ML Neb Soln NEB PRN ×2 (03:25→05:54)
[2019-03-28] MEDS: LORazepam 2 MG/ML SDV IVPUSH PRN ×2 (03:43→12:33)
[2019-03-28] MEDS: LORazepam 1 MG Tab PO SCH ×3 (05:54→19:41)
[2019-03-28] MEDS: Levothyroxine 88 MCG Tab PO SCH (06:01)
[2019-03-28] MEDS: Pantoprazole 40 MG Tab.CR PO SCH (06:01)
[2019-03-28] MEDS: Tiotropium Inhaler 18 MCG Inhalation Powder Cap Kit of 5 INH SCH (08:05)
[2019-03-28] MEDS: Fluticasone Propionate Nasal Spray 16 GM Bottle NASBOTH SCH (08:05)
[2019-03-28] MEDS: guaiFENesin 600 MG Tab.ER PO SCH ×2 (08:06→19:41)
[2019-03-28] MEDS: predniSONE 20 MG Tab PO SCH (08:06)
[2019-03-28] MEDS: Albuterol/Ipratropium 3.0-0.5 MG/3 ML Neb Soln NEB SCH ×4 (08:08→22:36)
[2019-03-28] MEDS: Sodium Chloride 0.9% 500 ML IV SCH (10:30)
[2019-03-28] MEDS: Morphine PF 150 MG/30 ML PCA Syringe IV SCH (14:07)
[2019-03-28] MEDS: Simvastatin 40 MG Tab PO SCH (19:40)
[2019-03-29] MEDS: Albuterol/Ipratropium 3.0-0.5 MG/3 ML Neb Soln NEB PRN (01:14)
[2019-03-29] MEDS: LORazepam 2 MG/ML SDV IVPUSH PRN ×3 (01:14→13:36)
[2019-03-29] MEDS: Levothyroxine 88 MCG Tab PO SCH (06:08)
[2019-03-29] MEDS: LORazepam 1 MG Tab PO SCH ×4 (06:08→20:56)
[2019-03-29] MEDS: Pantoprazole 40 MG Tab.CR PO SCH (06:09)
[2019-03-29] MEDS: guaiFENesin 600 MG Tab.ER PO SCH ×2 (07:40→20:55)
[2019-03-29] MEDS: predniSONE 20 MG Tab PO SCH (07:40)
[2019-03-29] MEDS: Albuterol/Ipratropium 3.0-0.5 MG/3 ML Neb Soln NEB SCH ×5 (07:40→21:05)
[2019-03-29] MEDS: Tiotropium Inhaler 18 MCG Inhalation Powder Cap Kit of 5 INH SCH (07:40)
[2019-03-29] MEDS: Fluticasone Propionate Nasal Spray 16 GM Bottle NASBOTH SCH (07:40)
[2019-03-29] MEDS: Simvastatin 40 MG Tab PO SCH (20:55)
[2019-03-29] MEDS: Sodium Chloride 0.9% 500 ML IV SCH (21:16)
[2019-03-30] MEDS: LORazepam 1 MG Tab PO SCH ×4 (00:30→20:18)
[2019-03-30] MEDS: LORazepam 2 MG/ML SDV IVPUSH PRN ×3 (03:01→22:32)
[2019-03-30] MEDS: Albuterol/Ipratropium 3.0-0.5 MG/3 ML Neb Soln NEB PRN ×2 (03:05→11:16)
[2019-03-30] MEDS: Morphine PF 150 MG/30 ML PCA Syringe IV SCH (06:31)
[2019-03-30] MEDS: Levothyroxine 88 MCG Tab PO SCH (06:35)
[2019-03-30] MEDS: Pantoprazole 40 MG Tab.CR PO SCH (06:36)
[2019-03-30] MEDS: guaiFENesin 600 MG Tab.ER PO SCH ×2 (07:25→20:19)
[2019-03-30] MEDS: Albuterol/Ipratropium 3.0-0.5 MG/3 ML Neb Soln NEB SCH ×4 (07:25→20:18)
[2019-03-30] MEDS: Fluticasone Propionate Nasal Spray 16 GM Bottle NASBOTH SCH (07:25)
[2019-03-30] MEDS: Tiotropium Inhaler 18 MCG Inhalation Powder Cap Kit of 5 INH SCH (07:26)
[2019-03-30] MEDS: predniSONE 20 MG Tab PO SCH (07:26)
[2019-03-30] MEDS: Simvastatin 40 MG Tab PO SCH (20:19)
[2019-03-30] MEDS: Calcium Carbonate 500 MG Tab.Chew PO PRN (20:44)
[2019-03-31] MEDS: LORazepam 1 MG Tab PO SCH ×4 (00:55→18:02)
[2019-03-31] MEDS: Albuterol/Ipratropium 3.0-0.5 MG/3 ML Neb Soln NEB PRN (05:02)
[2019-03-31] MEDS: Pantoprazole 40 MG Tab.CR PO SCH (06:42)
[2019-03-31] MEDS: Levothyroxine 88 MCG Tab PO SCH (07:11)
[2019-03-31] MEDS: guaiFENesin 600 MG Tab.ER PO SCH (07:11)
[2019-03-31] MEDS: Albuterol/Ipratropium 3.0-0.5 MG/3 ML Neb Soln NEB SCH ×3 (07:12→16:30)
[2019-03-31] MEDS: predniSONE 20 MG Tab PO SCH (07:12)
[2019-03-31] MEDS: Tiotropium Inhaler 18 MCG Inhalation Powder Cap Kit of 5 INH SCH (07:43)
[2019-03-31] MEDS: Fluticasone Propionate Nasal Spray 16 GM Bottle NASBOTH SCH (07:43)
[2019-03-31] MEDS: LORazepam 2 MG/ML SDV IVPUSH PRN ×2 (09:03→13:07)
--- NOTE | 2019-03-31 15:55 | PCM.PN ---
- General Info Date of Service: 03/31/19 Subjective Update: Patient is stable. He continues to have hemoptysis and shortness of breath. He feels that the shortness of breath is slightly worse. He denies any worsening pain at this time. The last time we tried to wean his pain was much worse and uncontrollable without the PROOFER PREPRESS pump. Functional Status: Reports: Pain Controlled - Review of Systems General: Reports: Weakness HEENT: Reports: No Symptoms Pulmonary: Reports: Shortness of Breath Cardiovascular: Reports: No Symptoms Gastrointestinal: Reports: No Symptoms Genitourinary: Reports: Frequency Musculoskeletal: Reports: Back Pain Skin: Reports: No Symptoms Neurological: Reports: Weakness Psychiatric: Reports: Depression - Patient Data Vitals - Most Recent: Last Vital Signs Temp 36.8 C 03/30/19 07:31 Pulse 116 H 03/30/19 11:18 Resp 30 H 03/30/19 11:18 BP 151/82 H 03/30/19 11:18 Pulse Ox 88 L 03/30/19 11:18 Weight - Most Recent: 83.234 kg I&O - Last 24 Hours: Intake & Output 03/31/19 03/31/19 03/31/19 06:59 14:59 22:59 Output Total 550 Balance -550 Med Orders - Current: Current Medications Albuterol/Ipratropium (Duoneb 3.0-0.5 Mg/3 Ml) 3 ml NEB QID [facility] Last Admin: 03/31/19 12:08 Dose: 3 ml Albuterol/Ipratropium (Duoneb 3.0-0.5 Mg/3 Ml) 3 ml NEB Q2H PRN PRN Reason: Other Last Admin: 03/31/19 05:02 Dose: 3 ml Calamine/Phenol (Calmoseptine) 0 gm TOP QID PRN PRN Reason: Rash Calcium Carbonate/Glycine (Tums) 500 mg PO Q6HR PRN PRN Reason: Indigestion Last Admin: 03/30/19 20:44 Dose: 500 mg Fluticasone Propionate (Flonase) 0 gm NASBOTH DAILY [facility] Last Admin: 03/31/19 07:43 Dose: 1 spray Guaifenesin (Mucinex) 600 mg PO BID [facility] Last Admin: 03/31/19 07:11 Dose: 600 mg Sodium Chloride (Normal Saline) 500 mls @ 25 mls/hr IV ASDIRECTED [facility] Last Admin: 03/29/19 21:16 Dose: 25 mls/hr Levothyroxine Sodium (Synthroid) 88 mcg PO ACBREAKFAST [facility] Last Admin: 03/31/19 07:11 Dose: 88 mcg Lorazepam (Ativan) 1 mg PO Q6H [facility] Last Admin: 03/31/19 12:08 Dose: 1 mg Lorazepam (Ativan) 1 mg IVPUSH Q4H PRN PRN Reason: Respiratory Distress/Agitation Last Admin: 03/31/19 13:07 Dose: 1 mg Magnesium Hydroxide (Milk Of Magnesia) 30 ml PO DAILY PRN PRN Reason: Constipation Last Admin: 03/01/19 04:05 Dose: 30 ml Meclizine HCl (Antivert) 25 mg PO DAILY PRN PRN Reason: Dizziness Last Admin: 03/28/19 11:58 Dose: 25 mg Morphine Sulfate (Morphine 20 Mg/Ml Soln) 1 mg PO Q1H PRN PRN Reason: Pain Last Admin: 03/12/19 06:07 Dose: 1 mg Morphine Sulfate (Morphine 20 Mg/Ml Soln) 2 mg PO Q4H PRN PRN Reason: Severe Agitation Last Admin: 03/16/19 20:15 Dose: 2 mg Morphine Sulfate (Morphine Rural Carrier 150 Mg In 30 Ml) 150 mg IV ASDIRECTED [facility]; Protocol Last Admin: 03/30/19 06:31 Dose: 150 mg Menthol [Biofreeze] (1 Applic Own Med) 1 applic TOP QID PRN PRN Reason: Pain Last Admin: 02/26/19 07:30 Dose: 1 applic Ondansetron HCl (Zofran Odt) 4 mg PO Q4H PRN PRN Reason: Nausea/Vomiting Last Admin: 03/24/19 05:05 Dose: 4 mg Pantoprazole Sodium (Protonix) 40 mg PO DAILY@0700 [facility] Last Admin: 03/31/19 06:42 Dose: 40 mg Prednisone (Prednisone) 20 mg PO DAILY [facility] Last Admin: 03/31/19 07:12 Dose: 20 mg Senna/Docusate Sodium (Senna Plus) 2 tab PO BEDTIME [facility] Last Admin: 03/30/19 20:19 Dose: 2 tab Senna/Docusate Sodium (Senna Plus) 1 tab PO DAILY [facility] Last Admin: 03/31/19 07:43 Dose: 1 tab Simvastatin (Zocor) 40 mg PO BEDTIME [facility] Last Admin: 03/30/19 20:19 Dose: 40 mg Tiotropium [place] (Spiriva Handihaler) 18 mcg INH DAILY [facility] Last Admin: 03/31/19 07:43 Dose: 18 mcg Discontinued Medications Calcium Carbonate/Glycine (Tums) Confirm Administered Dose 500 mg .ROUTE .STK- MED ONE Stop: 02/28/19 20:21 Last Admin: 02/28/19 20:40 Dose: Not Given Calcium Carbonate/Glycine (Tums) 500 mg PO ONETIME ONE Stop: 02/28/19 20:35 Last Admin: 02/28/19 20:39 Dose: 500 mg Fentanyl (Duragesic) 12 mcg TRDERM Q72H [facility] Last Admin: 03/03/19 14:48 Dose: 12 mcg Sodium Chloride (Normal Saline) 1,000 mls @ 50 mls/hr IV ASDIRECTED [facility] Last Infusion: 03/11/19 13:06 Dose: 25 mls/hr Levofloxacin (Levaquin) 750 mg PO DAILY [facility] Last Admin: 03/05/19 07:49 Dose: 750 mg Lorazepam (Ativan) 0.5 mg PO Q6H [facility] Last Admin: 02/26/19 05:38 Dose: 0.5 mg Lorazepam (Ativan) 0.5 mg PO ONETIME ONE Stop: 02/25/19 08:22 Last Admin: 02/25/19 08:25 Dose: 0.5 mg Lorazepam (Ativan) 1 mg PO ONETIME PRN PRN Reason: Anxiety Last Admin: 02/25/19 12:29 Dose: 1 mg Lorazepam (Ativan) Confirm Administered Dose 0.5 mg .ROUTE .STK-MED ONE Stop: 02/26/19 07:16 Last Admin: 02/26/19 07:26 Dose: 0.5 mg Lorazepam (Ativan) 0.5 mg PO ONETIME ONE Stop: 02/26/19 07:26 Last Admin: 02/26/19 08:08 Dose: Not Given Lorazepam (Ativan) Confirm Administered Dose 1 mg .ROUTE .STK-MED ONE Stop: 02/28/19 08:54 Last Admin: 02/28/19 14:55 Dose: Not Given Lorazepam (Ativan) Confirm Administered Dose 2 mg .ROUTE .STK-MED ONE Stop: 03/21/19 20:16 Last Admin: 03/21/19 22:56 Dose: Not Given Lorazepam (Ativan) Confirm Administered Dose 2 mg .ROUTE .STK-MED ONE Stop: 03/22/19 05:08 Last Admin: 03/22/19 08:41 Dose: Not Given Magnesium Hydroxide (Milk Of Magnesia) 30 ml PO ONETIME ONE Stop: 02/27/19 21:11 Last Admin: 02/27/19 23:33 Dose: Not Given Methylprednisolone Sodium Succinate (Solu-Medrol) 125 mg IVPUSH DAILY [facility] Last Admin: 03/05/19 08:33 Dose: Not Given Morphine Sulfate (Morphine 20 Mg/Ml Soln) 4 mg SL Q2H PRN PRN Reason: Pain Last Admin: 02/21/19 07:02 Dose: 4 mg Morphine Sulfate (Morphine Rural Carrier 30 Mg In 30 Ml) 0 mg IV ASDIRECTED [facility]; Protocol Last Admin: 02/23/19 23:43 Dose: 1 mg Morphine Sulfate (Morphine) Confirm Administered Dose 2 mg .ROUTE .STK-MED ONE Stop: 02/23/19 09:08 Last Admin: 02/23/19 09:20 Dose: Not Given Morphine Sulfate (Morphine) 2 mg IVPUSH ONETIME ONE Stop: 02/23/19 09:09 Last Admin: 02/23/19 09:10 Dose: 2 mg Morphine Sulfate (Morphine) 2 mg IVPUSH ONETIME ONE Stop: 02/23/19 09:54 Last Admin: 02/23/19 09:54 Dose: 2 mg Morphine Sulfate (Morphine Rural Carrier 30 Mg In 30 Ml) 1 mg IV ASDIRECTED [facility]; Protocol Last Admin: 02/28/19 03:22 Dose: 1 mg Morphine Sulfate (Morphine) Confirm Administered Dose 2 mg .ROUTE .STK-MED ONE Stop: 03/05/19 12:26 Last Admin: 03/05/19 12:55 Dose: 2 mg Morphine Sulfate (Morphine Rural Carrier 30 Mg In 30 Ml) 0 mg IV ASDIRECTED [facility]; Protocol Last Admin: 03/06/19 11:52 Dose: 1 mg Morphine Sulfate (Morphine Rural Carrier 30 Mg In 30 Ml) 30 mg IV ASDIRECTED [facility]; Protocol Last Admin: 03/15/19 10:35 Dose: 30 mg Morphine Sulfate (Morphine 20 Mg/Ml Soln) 600 mg .ROUTE .STK-MED ONE Stop: 03/03/19 23:05 Non-Formulary Medication (Morphine Sulfate [Morphine Sulfate]) 4 mg SL Q2H PRN PRN Reason: Pain Non-Formulary Medication (Ondansetron Hcl [Zofran]) 4 mg PO Q4H PRN PRN Reason: Nausea Non-Formulary Medication (Polyethylene Glycol [Polyox [id number]]) 17 gm PO BID [facility] Polyethylene Glycol (Miralax) 17 gm PO BID [facility] Last Admin: 02/26/19 08:07 Dose: Not Given Senna/Docusate Sodium (Senna Plus) 1 tab PO BID [facility] Last Admin: 02/26/19 07:23 Dose: 1 tab Senna/Docusate Sodium (Senna Plus) Confirm Administered Dose 1 tab .ROUTE .STK- MED ONE Stop: 03/31/19 07:40 Last Admin: 03/31/19 07:44 Dose: Not Given Simvastatin (Zocor) Confirm Administered Dose 40 mg .ROUTE .STK-MED ONE Stop: 03/18/19 19:02 Last Admin: 03/18/19 19:03 Dose: 40 mg Tiotropium [place] (Spiriva Handihaler) 18 mcg .ROUTE .STK-MED ONE Stop: 02/21/19 13:18 Tiotropium [place] (Spiriva Handihaler) 18 mcg .ROUTE .STK-MED ONE Stop: 03/02/19 08:01 Tuberculin PPD (Aplisol) 5 unit IDERM ONETIME ONE Stop: 02/20/19 15:29 Last Admin: 02/21/19 16:36 Dose: 5 unit - Exam Quality Assessment: Supplemental Oxygen General: Alert, Oriented, Cooperative HEENT: Pupils Equal, Pupils Reactive, EOMI Neck: Supple Lungs: Decreased Breath Sounds, Crackles (left base), Rales, Other (no breath sounds on right) Cardiovascular: Regular Rhythm, Tachycardia GI/Abdominal Exam: Normal Bowel Sounds, Distended (obese) - Problem List & Annotations (1) Lung cancer SNOMED Code(s): 280960706 Code(s): C34.90 - MALIGNANT NEOPLASM OF UNSP PART OF UNSP BRONCHUS OR LUNG Status: Acute Current Visit: Yes Qualifiers: Laterality: right Lung location: overlapping sites Qualified Code(s): C34.81 - Malignant neoplasm of overlapping sites of right bronchus and lung (2) Palliative care patient SNOMED Code(s): 899304546 Code(s): Z51.5 - ENCOUNTER FOR PALLIATIVE CARE Status: Acute Priority: High Current Visit: Yes (3) Respiratory failure SNOMED Code(s): 240282232 Code(s): J96.90 - RESPIRATORY FAILURE, UNSP, UNSP W HYPOXIA OR HYPERCAPNIA Status: Acute Priority: High Current Visit: Yes Qualifiers: Chronicity: acute on chronic (4) Shortness of breath at rest SNOMED Code(s): 933417033 Code(s): R06.02 - SHORTNESS OF BREATH Status: Chronic Priority: High Current Visit: Yes Onset Date: 01/22/16 (5) Weakness SNOMED Code(s): 02257296 Code(s): R53.1 - WEAKNESS Status: Acute Priority: High Current Visit: Yes (6) COPD (chronic obstructive pulmonary disease) SNOMED Code(s): 54832722 Code(s): J44.9 - CHRONIC OBSTRUCTIVE PULMONARY DISEASE, UNSPECIFIED Status : Chronic Priority: High Current Visit: Yes (7) Hemoptysis SNOMED Code(s): 12850114 Code(s): R04.2 - HEMOPTYSIS Status: Chronic Priority: High Current Visit: Yes (8) Mass of right lung SNOMED Code(s): 969499600 Code(s): R91.8 - OTHER NONSPECIFIC ABNORMAL FINDING OF LUNG FIELD Status: Chronic Priority: High Current Visit: Yes - Problem List Review Problem List Initiated/Reviewed/Updated: Yes - Assessment Assessment:: Palliative care for right lung mass with hemoptysis Severe O2 dependent COPD Constipation - Plan Plan:: Pt has had a slowly progressive right lung mass. He has decided not to have any workup and presently on palliative care. He is on IV Morphine PROOFER PREPRESS at 1mg per hour basal. HE has been having frequent episodes of shortness of breath and also chest wall pain and requiring more morphine. I have started him on 0.2mg every 20 minutes on demand morphine for pain along with basal. Pt apparently is in end stage COPD, with almost no air entry in his right hemithorax secondary to the growing lung mass. He has been having more frequent episodes of shortness of breath some time with minimal activities and some times at rest.There is undue anxiety. Also he has had no bowel movement since this admission. He has been on stool softeners and miralax daily. Abdominal Xray does show large amount of stool in the colon. Presently he is not obstructed, but he might develop mechanical obstruction form stool impaction. Offered soap prema enema and patient has declined several time in the past 2 days. I have discussed today with patient very clearly, that if the stool is not extracted from the colon with enema, there is chance of stool obstructing the colon and causing bowel obstruction, which will cause more pain and discomfort, and with his very poor general health condition could have disastrous complications, including . Pt today has agreed to have soap prema enema. Will try and followup. Pt is not in any situation to be discharged. He is not able to work much with OT or PT for general strengthening due to his respiratory situation. I do not think home health can manage patient at home, as it was tried and has failed. 03/03/19 There has not been much improvement in patient status, or not a severe deterioration. He is on Morphine PROOFER PREPRESS, which is helping with his pain and does get break through morphine. HE seem comfortable now. But some times does get tachypneic and hypoxic from respiratory distress. He is on Oxygen which maintains his SPO2 above 92%. My concern is his chronic constipation. On Abdominal xray today he has large collection of stool in the ascending colon. He has not had a good amount of stool for 2-3 weeks now. With last week soap prema he had some results, but not a large results. He has continued to decline enemas and also oral therapy for constipation. At some point he is going to develop mechanical obstruction which with his poor general condition will be disastrous and could cause secondary sepsis and . HE agreed to have soap prema enema to me, but when staff went to do it, he has declined again yesterday. Pt and his daughter are very keen on taking patient home. Home health nurse has evaluated and decided that it will be a very hard for them to give 24 hrs one on one service at home. But patient and his daughter are adamant about it. I still respect their opinion and intention. They do understand all the risks associated If he is going home, patient cannot be on PROOFER PREPRESS pump. Hence I have stopped the PROOFER PREPRESS pump today and placed him on fentanyl patch 12 mcg and morphine s/l 1mg every hr and 2mg every 4 hrs for acute respiratory distress or anxiety. Rest of the medications will be continued. 03/05/19 Pt is having hemoptysis with recurrent cough. he is not having ludy out pouring of blood or vomiting large clotted blood. Patient does have cavitary right lung mass. There might be some blood vessels with in the cavity which might have broke open from the negative pressure from the cough episode and bleeding. His Chest xray portable was done, does show complete opacity of the right lung,which is basically to progression of disease. Pt is on palliative care. Pt's pain is controlled on present regime, which we will continue. We will have IV line in place, IF he gets obtunded and might need IV medications. He has anxiety of , hence I have changed his Ativan to IV Ativan every 4 hrs as needed for severe anxiety. I have discussed the findings in detail with patient's daughter who is his caregiver and also with patient. They do understand and agree with the plan. I do not think patient can go home with his deteriorating condition. I do not think daughter will be able to handle the situation with out medical help.Daughter agree to keep him in the hospital for now. 03/10/19 Patient continues to be on palliative care. His condition is deteriorating and requiring more pain medications to maintain his comfort level of breathing. He is bed ridden and requires full support to get out of bed. He requires the PROOFER PREPRESS pump for pain. We will continue to manage his pain as needed. Counseled daughter and patient on DNR/DNI status and they are in agreement with DNR/DNI. 03/20/19 Patient's condition has deteriorated slightly. He continues to cough up blood and feels short of breath all the time. He remains palliative. He requires a PROOFER PREPRESS pump to manage his pain and breathing and unable to go home. We do not have home hospice or home health to care for his conditions. He requires morphine and ativan IV and unable to be weaned. We will continue current management and pain management. 03/24/19 Patient continues to cough up blood. His pain is under control and we have had to slightly increase his basal rate and bump. Continue DNR/DNI status. 03/31/19 Patient has coughed up copious amounts of blood and it varies from a handful to small cupful. His pain is controlled with the PROOFER PREPRESS. We will continue palliative care for this patient.
[2019-04-01] MEDS: guaiFENesin 600 MG Tab.ER PO SCH ×3 (00:02→19:24)
[2019-04-01] MEDS: Simvastatin 40 MG Tab PO SCH ×2 (00:02→19:24)
[2019-04-01] MEDS: LORazepam 2 MG/ML SDV IVPUSH PRN (02:08)
[2019-04-01] MEDS: LORazepam 1 MG Tab PO SCH ×5 (05:49→23:18)
[2019-04-01] MEDS: Albuterol/Ipratropium 3.0-0.5 MG/3 ML Neb Soln NEB PRN (05:50)
[2019-04-01] MEDS: Pantoprazole 40 MG Tab.CR PO SCH (06:02)
[2019-04-01] MEDS: Levothyroxine 88 MCG Tab PO SCH (06:02)
[2019-04-01] MEDS: Albuterol/Ipratropium 3.0-0.5 MG/3 ML Neb Soln NEB SCH ×5 (07:41→19:24)
[2019-04-01] MEDS: Fluticasone Propionate Nasal Spray 16 GM Bottle NASBOTH SCH (07:42)
[2019-04-01] MEDS: Tiotropium Inhaler 18 MCG Inhalation Powder Cap Kit of 5 INH SCH (07:43)
[2019-04-01] MEDS: predniSONE 20 MG Tab PO SCH (07:43)
[2019-04-01] MEDS ORDERED: Fluticasone Propionate Nasal Spray 16 GM Bottle ONE (10:00)
[2019-04-01] MEDS: Calcium Carbonate 500 MG Tab.Chew PO PRN (19:50)
[2019-04-02] MEDS: LORazepam 2 MG/ML SDV IVPUSH PRN ×4 (00:14→15:40)
[2019-04-02] MEDS: Albuterol/Ipratropium 3.0-0.5 MG/3 ML Neb Soln NEB PRN (04:55)
[2019-04-02] MEDS ORDERED: Tiotropium Inhaler 18 MCG Inhalation Powder Cap Kit of 5 ONE (07:15)
[2019-04-02] MEDS: Pantoprazole 40 MG Tab.CR PO SCH (07:59)
[2019-04-02] MEDS: LORazepam 1 MG Tab PO SCH ×3 (07:59→18:52)
[2019-04-02] MEDS: Levothyroxine 88 MCG Tab PO SCH (07:59)
[2019-04-02] MEDS: Fluticasone Propionate Nasal Spray 16 GM Bottle NASBOTH SCH (08:00)
[2019-04-02] MEDS: predniSONE 20 MG Tab PO SCH (08:00)
[2019-04-02] MEDS: Albuterol/Ipratropium 3.0-0.5 MG/3 ML Neb Soln NEB SCH ×3 (08:00→15:21)
[2019-04-02] MEDS: guaiFENesin 600 MG Tab.ER PO SCH (08:00)
[2019-04-02] MEDS: Tiotropium Inhaler 18 MCG Inhalation Powder Cap Kit of 5 INH SCH (08:01)
[2019-04-02] MEDS: Morphine PF 150 MG/30 ML PCA Syringe IV SCH (08:39)
[2019-04-02] MEDS ORDERED: Naloxone 2 MG/2 ML Syringe IVPUSH PRN (13:59)
[2019-04-02] MEDS ORDERED: Ondansetron 4 MG/2 ML SDV IVPUSH PRN (13:59)
[2019-04-02] MEDS ORDERED: diphenhydrAMINE 25 MG Cap PO PRN (13:59)
[2019-04-02] MEDS ORDERED: diphenhydrAMINE 50 MG/ML SDV IVPUSH PRN (13:59)
[2019-04-02] MEDS ORDERED: Morphine PF 150 MG/30 ML PCA Syringe IV SCH (14:00)
[2019-04-03] MEDS: LORazepam 2 MG/ML SDV IVPUSH PRN ×4 (00:55→23:11)
[2019-04-03] MEDS: guaiFENesin 600 MG Tab.ER PO SCH ×2 (01:40→07:47)
[2019-04-03] MEDS: LORazepam 1 MG Tab PO SCH ×4 (01:41→18:52)
[2019-04-03] MEDS: Albuterol/Ipratropium 3.0-0.5 MG/3 ML Neb Soln NEB PRN ×2 (01:42→10:44)
[2019-04-03] MEDS: Albuterol/Ipratropium 3.0-0.5 MG/3 ML Neb Soln NEB SCH ×5 (01:42→20:00)
[2019-04-03] MEDS: Tiotropium Inhaler 18 MCG Inhalation Powder Cap Kit of 5 INH SCH (10:44)
[2019-04-03] MEDS: Fluticasone Propionate Nasal Spray 16 GM Bottle NASBOTH SCH (10:44)
[2019-04-03] MEDS: Levothyroxine 88 MCG Tab PO SCH (10:45)
[2019-04-03] MEDS: Pantoprazole 40 MG Tab.CR PO SCH (10:45)
[2019-04-03] MEDS: predniSONE 20 MG Tab PO SCH (10:46)
[2019-04-03] MEDS: Morphine PF 150 MG/30 ML PCA Syringe IV SCH (15:17)
[2019-04-03] MEDS: Sodium Chloride 0.9% 500 ML IV SCH (16:30)
[2019-04-04] MEDS: LORazepam 2 MG/ML SDV IVPUSH PRN ×3 (03:00→18:43)
[2019-04-04] MEDS: LORazepam 1 MG Tab PO SCH ×5 (05:22→22:11)
[2019-04-04] MEDS: Albuterol/Ipratropium 3.0-0.5 MG/3 ML Neb Soln NEB SCH ×4 (08:00→22:11)
[2019-04-04] MEDS: Tiotropium Inhaler 18 MCG Inhalation Powder Cap Kit of 5 INH SCH (08:00)
[2019-04-04] MEDS: Fluticasone Propionate Nasal Spray 16 GM Bottle NASBOTH SCH (08:00)
[2019-04-04] MEDS: Sodium Chloride 0.9% 500 ML IV SCH (12:26)
[2019-04-04] MEDS: Morphine PF 150 MG/30 ML PCA Syringe IV SCH (17:58)
[2019-04-04] MEDS ORDERED: LORazepam 2 MG/ML SDV IVPUSH ONE (19:35)
[2019-04-05] MEDS: LORazepam 1 MG Tab PO SCH ×5 (00:06→18:00)
[2019-04-05] MEDS ORDERED: Albuterol/Ipratropium 3.0-0.5 MG/3 ML Neb Soln ONE (02:52)
[2019-04-05] MEDS: LORazepam 2 MG/ML SDV IVPUSH PRN ×2 (02:59→18:00)
--- NOTE | 2019-04-05 09:19 | PCM.PN ---
- General Info Date of Service: 04/05/19 Subjective Update: Patient remains comfortable on CEO pump. Patient is not able to be weaned. He remains short of breath and continues with coughing up copious amounts of blood on and off. He has become weaker but maintaining his weight the past week. Overall he has lost weight slowly. He denies any pain but states he feels very weak and tired. Functional Status: Reports: Pain Controlled, Other (decreased appetite). Denies : Ambulating - Review of Systems General: Reports: Weakness, Fatigue. Denies: Appetite HEENT: Reports: No Symptoms Pulmonary: Reports: Shortness of Breath, Hemoptysis Cardiovascular: Reports: Dyspnea on Exertion Gastrointestinal: Reports: Decreased Appetite Genitourinary: Reports: Frequency Musculoskeletal: Reports: Back Pain Skin: Reports: Pallor, Diaphoresis Neurological: Reports: Weakness - Patient Data Vitals - Most Recent: Last Vital Signs Temp 36.1 C 04/04/19 13:25 Pulse 114 H 04/04/19 13:25 Resp 20 04/04/19 13:25 BP 117/74 04/04/19 13:25 Pulse Ox 94 L 04/04/19 13:25 Weight - Most Recent: 83.234 kg Med Orders - Current: Current Medications Albuterol/Ipratropium (Duoneb 3.0-0.5 Mg/3 Ml) 3 ml NEB QID [facility] Last Admin: 04/04/19 22:11 Dose: Not Given Albuterol/Ipratropium (Duoneb 3.0-0.5 Mg/3 Ml) 3 ml NEB Q2H PRN PRN Reason: Other Last Admin: 04/03/19 10:44 Dose: 3 ml Calamine/Phenol (Calmoseptine) 0 gm TOP QID PRN PRN Reason: Rash Calcium Carbonate/Glycine (Tums) 500 mg PO Q6HR PRN PRN Reason: Indigestion Last Admin: 04/01/19 19:50 Dose: 500 mg Diphenhydramine HCl (Benadryl) 25 mg IVPUSH Q6H PRN PRN Reason: Itching Diphenhydramine HCl (Benadryl) 25 mg PO Q6H PRN PRN Reason: Itching Fluticasone Propionate (Flonase) 0 gm NASBOTH DAILY [facility] Last Admin: 04/04/19 08:00 Dose: Not Given Sodium Chloride (Normal Saline) 500 mls @ 25 mls/hr IV ASDIRECTED [facility] Last Admin: 04/04/19 12:26 Dose: 25 mls/hr Lorazepam (Ativan) 1 mg PO Q6H [facility] Last Admin: 04/05/19 06:45 Dose: Not Given Lorazepam (Ativan) 1 mg IVPUSH Q4H PRN PRN Reason: Respiratory Distress/Agitation Last Admin: 04/05/19 02:59 Dose: 1 mg Magnesium Hydroxide (Milk Of Magnesia) 30 ml PO DAILY PRN PRN Reason: Constipation Last Admin: 03/01/19 04:05 Dose: 30 ml Morphine Sulfate (Morphine Highway Design Engineer 150 Mg In 30 Ml) 150 mg IV ASDIRECTED [facility]; Protocol Last Admin: 04/04/19 17:58 Dose: 150 mg Menthol [Biofreeze] (1 Applic Own Med) 1 applic TOP QID PRN PRN Reason: Pain Last Admin: 02/26/19 07:30 Dose: 1 applic Ondansetron HCl (Zofran Odt) 4 mg PO Q4H PRN PRN Reason: Nausea/Vomiting Last Admin: 03/24/19 05:05 Dose: 4 mg Ondansetron HCl (Zofran) 4 mg IVPUSH Q6H PRN PRN Reason: Nausea/Vomiting Senna/Docusate Sodium (Senna Plus) 2 tab PO BEDTIME [facility] Last Admin: 04/04/19 22:11 Dose: Not Given Senna/Docusate Sodium (Senna Plus) 1 tab PO DAILY [facility] Last Admin: 04/04/19 08:00 Dose: Not Given Tiotropium [place] (Spiriva Handihaler) 18 mcg INH DAILY [facility] Last Admin: 04/04/19 08:00 Dose: Not Given Discontinued Medications Albuterol/Ipratropium (Duoneb 3.0-0.5 Mg/3 Ml) Confirm Administered Dose 3 ml .ROUTE .STK-MED ONE Stop: 04/05/19 02:53 Last Admin: 04/05/19 02:59 Dose: Not Given Calcium Carbonate/Glycine (Tums) Confirm Administered Dose 500 mg .ROUTE .STK- MED ONE Stop: 02/28/19 20:21 Last Admin: 02/28/19 20:40 Dose: Not Given Calcium Carbonate/Glycine (Tums) 500 mg PO ONETIME ONE Stop: 02/28/19 20:35 Last Admin: 02/28/19 20:39 Dose: 500 mg Fentanyl (Duragesic) 12 mcg TRDERM Q72H [facility] Last Admin: 03/03/19 14:48 Dose: 12 mcg Fluticasone Propionate (Flonase) 16 gm .ROUTE .STK-MED ONE Stop: 04/01/19 10:01 Guaifenesin (Mucinex) 600 mg PO BID [facility] Last Admin: 04/03/19 07:47 Dose: 600 mg Sodium Chloride (Normal Saline) 1,000 mls @ 50 mls/hr IV ASDIRECTED [facility] Last Infusion: 03/11/19 13:06 Dose: 25 mls/hr Levofloxacin (Levaquin) 750 mg PO DAILY [facility] Last Admin: 03/05/19 07:49 Dose: 750 mg Levothyroxine Sodium (Synthroid) 88 mcg PO ACBREAKFAST [facility] Last Admin: 04/03/19 10:45 Dose: Not Given Lorazepam (Ativan) 0.5 mg PO Q6H [facility] Last Admin: 02/26/19 05:38 Dose: 0.5 mg Lorazepam (Ativan) 0.5 mg PO ONETIME ONE Stop: 02/25/19 08:22 Last Admin: 02/25/19 08:25 Dose: 0.5 mg Lorazepam (Ativan) 1 mg PO ONETIME PRN PRN Reason: Anxiety Last Admin: 02/25/19 12:29 Dose: 1 mg Lorazepam (Ativan) Confirm Administered Dose 0.5 mg .ROUTE .STK-MED ONE Stop: 02/26/19 07:16 Last Admin: 02/26/19 07:26 Dose: 0.5 mg Lorazepam (Ativan) 0.5 mg PO ONETIME ONE Stop: 02/26/19 07:26 Last Admin: 02/26/19 08:08 Dose: Not Given Lorazepam (Ativan) Confirm Administered Dose 1 mg .ROUTE .STK-MED ONE Stop: 02/28/19 08:54 Last Admin: 02/28/19 14:55 Dose: Not Given Lorazepam (Ativan) Confirm Administered Dose 2 mg .ROUTE .STK-MED ONE Stop: 03/21/19 20:16 Last Admin: 03/21/19 22:56 Dose: Not Given Lorazepam (Ativan) Confirm Administered Dose 2 mg .ROUTE .STK-MED ONE Stop: 03/22/19 05:08 Last Admin: 03/22/19 08:41 Dose: Not Given Lorazepam (Ativan) 1 mg IVPUSH ONETIME ONE Stop: 04/04/19 19:36 Last Admin: 04/04/19 19:35 Dose: 1 mg Magnesium Hydroxide (Milk Of Magnesia) 30 ml PO ONETIME ONE Stop: 02/27/19 21:11 Last Admin: 02/27/19 23:33 Dose: Not Given Meclizine HCl (Antivert) 25 mg PO DAILY PRN PRN Reason: Dizziness Last Admin: 03/28/19 11:58 Dose: 25 mg Methylprednisolone Sodium Succinate (Solu-Medrol) 125 mg IVPUSH DAILY [facility] Last Admin: 03/05/19 08:33 Dose: Not Given Morphine Sulfate (Morphine 20 Mg/Ml Soln) 4 mg SL Q2H PRN PRN Reason: Pain Last Admin: 02/21/19 07:02 Dose: 4 mg Morphine Sulfate (Morphine Highway Design Engineer 30 Mg In 30 Ml) 0 mg IV ASDIRECTED [facility]; Protocol Last Admin: 02/23/19 23:43 Dose: 1 mg Morphine Sulfate (Morphine) Confirm Administered Dose 2 mg .ROUTE .STK-MED ONE Stop: 02/23/19 09:08 Last Admin: 02/23/19 09:20 Dose: Not Given Morphine Sulfate (Morphine) 2 mg IVPUSH ONETIME ONE Stop: 02/23/19 09:09 Last Admin: 02/23/19 09:10 Dose: 2 mg Morphine Sulfate (Morphine) 2 mg IVPUSH ONETIME ONE Stop: 02/23/19 09:54 Last Admin: 02/23/19 09:54 Dose: 2 mg Morphine Sulfate (Morphine Highway Design Engineer 30 Mg In 30 Ml) 1 mg IV ASDIRECTED [facility]; Protocol Last Admin: 02/28/19 03:22 Dose: 1 mg Morphine Sulfate (Morphine 20 Mg/Ml Soln) 1 mg PO Q1H PRN PRN Reason: Pain Last Admin: 03/12/19 06:07 Dose: 1 mg Morphine Sulfate (Morphine 20 Mg/Ml Soln) 2 mg PO Q4H PRN PRN Reason: Severe Agitation Last Admin: 03/16/19 20:15 Dose: 2 mg Morphine Sulfate (Morphine) Confirm Administered Dose 2 mg .ROUTE .STK-MED ONE Stop: 03/05/19 12:26 Last Admin: 03/05/19 12:55 Dose: 2 mg Morphine Sulfate (Morphine Highway Design Engineer 30 Mg In 30 Ml) 0 mg IV ASDIRECTED [facility]; Protocol Last Admin: 03/06/19 11:52 Dose: 1 mg Morphine Sulfate (Morphine Highway Design Engineer 30 Mg In 30 Ml) 30 mg IV ASDIRECTED [facility]; Protocol Last Admin: 03/15/19 10:35 Dose: 30 mg Morphine Sulfate (Morphine 20 Mg/Ml Soln) 600 mg .ROUTE .STK-MED ONE Stop: 03/03/19 23:05 Naloxone HCl (Narcan) 0.04 mg IVPUSH Q3M PRN PRN Reason: Respiratory Depression Non-Formulary Medication (Morphine Sulfate [Morphine Sulfate]) 4 mg SL Q2H PRN PRN Reason: Pain Non-Formulary Medication (Ondansetron Hcl [Zofran]) 4 mg PO Q4H PRN PRN Reason: Nausea Non-Formulary Medication (Polyethylene Glycol [Polyox [id number]]) 17 gm PO BID [facility] Pantoprazole Sodium (Protonix) 40 mg PO DAILY@0700 [facility] Last Admin: 04/03/19 10:45 Dose: Not Given Polyethylene Glycol (Miralax) 17 gm PO BID [facility] Last Admin: 02/26/19 08:07 Dose: Not Given Prednisone (Prednisone) 20 mg PO DAILY [facility] Last Admin: 04/03/19 10:46 Dose: Not Given Senna/Docusate Sodium (Senna Plus) 1 tab PO BID [facility] Last Admin: 02/26/19 07:23 Dose: 1 tab Senna/Docusate Sodium (Senna Plus) Confirm Administered Dose 1 tab .ROUTE .STK- MED ONE Stop: 03/31/19 07:40 Last Admin: 03/31/19 07:44 Dose: Not Given Simvastatin (Zocor) 40 mg PO BEDTIME [facility] Last Admin: 04/01/19 19:24 Dose: 40 mg Simvastatin (Zocor) Confirm Administered Dose 40 mg .ROUTE .STK-MED ONE Stop: 03/18/19 19:02 Last Admin: 03/18/19 19:03 Dose: 40 mg Tiotropium [place] (Spiriva Handihaler) 18 mcg .ROUTE .STK-MED ONE Stop: 02/21/19 13:18 Tiotropium [place] (Spiriva Handihaler) 18 mcg .ROUTE .STK-MED ONE Stop: 03/02/19 08:01 Tiotropium [place] (Spiriva Handihaler) 18 mcg .ROUTE .STK-MED ONE Stop: 04/02/19 07:16 Tuberculin PPD (Aplisol) 5 unit IDERM ONETIME ONE Stop: 02/20/19 15:29 Last Admin: 02/21/19 16:36 Dose: 5 unit - Exam Quality Assessment: Supplemental Oxygen General: Alert, Oriented, Cooperative, Mild Distress HEENT: Pupils Equal, Pupils Reactive, EOMI Neck: Supple Lungs: Decreased Breath Sounds, Rhonchi, Other (no breath sounds on right) Cardiovascular: Regular Rhythm, Tachycardia GI/Abdominal Exam: Abnormal Bowel Sounds (decreased bowel sounds) Back Exam: Full Range of Motion, Paraspinal Tenderness Extremities: Normal Inspection - Problem List & Annotations (1) Lung cancer SNOMED Code(s): 101142513 Code(s): C34.90 - MALIGNANT NEOPLASM OF UNSP PART OF UNSP BRONCHUS OR LUNG Status: Acute Current Visit: Yes Qualifiers: Laterality: right Lung location: overlapping sites Qualified Code(s): C34.81 - Malignant neoplasm of overlapping sites of right bronchus and lung (2) Palliative care patient SNOMED Code(s): 476547930 Code(s): Z51.5 - ENCOUNTER FOR PALLIATIVE CARE Status: Acute Priority: High Current Visit: Yes (3) Respiratory failure SNOMED Code(s): 144905640 Code(s): J96.90 - RESPIRATORY FAILURE, UNSP, UNSP W HYPOXIA OR HYPERCAPNIA Status: Acute Priority: High Current Visit: Yes Qualifiers: Chronicity: acute on chronic (4) Shortness of breath at rest SNOMED Code(s): 738229770 Code(s): R06.02 - SHORTNESS OF BREATH Status: Chronic Priority: High Current Visit: Yes Onset Date: 01/22/16 (5) Weakness SNOMED Code(s): 57996862 Code(s): R53.1 - WEAKNESS Status: Acute Priority: High Current Visit: Yes (6) COPD (chronic obstructive pulmonary disease) SNOMED Code(s): 73422508 Code(s): J44.9 - CHRONIC OBSTRUCTIVE PULMONARY DISEASE, UNSPECIFIED Status : Chronic Priority: High Current Visit: Yes (7) Hemoptysis SNOMED Code(s): 65110115 Code(s): R04.2 - HEMOPTYSIS Status: Chronic Priority: High Current Visit: Yes (8) Mass of right lung SNOMED Code(s): 190916846 Code(s): R91.8 - OTHER NONSPECIFIC ABNORMAL FINDING OF LUNG FIELD Status: Chronic Priority: High Current Visit: Yes - Problem List Review Problem List Initiated/Reviewed/Updated: Yes - Assessment Assessment:: Palliative care for right lung mass with hemoptysis Severe O2 dependent COPD Constipation - Plan Plan:: Pt has had a slowly progressive right lung mass. He has decided not to have any workup and presently on palliative care. He is on IV Morphine CEO at 1mg per hour basal. HE has been having frequent episodes of shortness of breath and also chest wall pain and requiring more morphine. I have started him on 0.2mg every 20 minutes on demand morphine for pain along with basal. Pt apparently is in end stage COPD, with almost no air entry in his right hemithorax secondary to the growing lung mass. He has been having more frequent episodes of shortness of breath some time with minimal activities and some times at rest.There is undue anxiety. Also he has had no bowel movement since this admission. He has been on stool softeners and miralax daily. Abdominal Xray does show large amount of stool in the colon. Presently he is not obstructed, but he might develop mechanical obstruction form stool impaction. Offered soap prema enema and patient has declined several time in the past 2 days. I have discussed today with patient very clearly, that if the stool is not extracted from the colon with enema, there is chance of stool obstructing the colon and causing bowel obstruction, which will cause more pain and discomfort, and with his very poor general health condition could have disastrous complications, including . Pt today has agreed to have soap prema enema. Will try and followup. Pt is not in any situation to be discharged. He is not able to work much with OT or PT for general strengthening due to his respiratory situation. I do not think home health can manage patient at home, as it was tried and has failed. 03/03/19 There has not been much improvement in patient status, or not a severe deterioration. He is on Morphine CEO, which is helping with his pain and does get break through morphine. HE seem comfortable now. But some times does get tachypneic and hypoxic from respiratory distress. He is on Oxygen which maintains his SPO2 above 92%. My concern is his chronic constipation. On Abdominal xray today he has large collection of stool in the ascending colon. He has not had a good amount of stool for 2-3 weeks now. With last week soap prema he had some results, but not a large results. He has continued to decline enemas and also oral therapy for constipation. At some point he is going to develop mechanical obstruction which with his poor general condition will be disastrous and could cause secondary sepsis and . HE agreed to have soap prema enema to me, but when staff went to do it, he has declined again yesterday. Pt and his daughter are very keen on taking patient home. Home health nurse has evaluated and decided that it will be a very hard for them to give 24 hrs one on one service at home. But patient and his daughter are adamant about it. I still respect their opinion and intention. They do understand all the risks associated If he is going home, patient cannot be on CEO pump. Hence I have stopped the CEO pump today and placed him on fentanyl patch 12 mcg and morphine s/l 1mg every hr and 2mg every 4 hrs for acute respiratory distress or anxiety. Rest of the medications will be continued. 03/05/19 Pt is having hemoptysis with recurrent cough. he is not having ludy out pouring of blood or vomiting large clotted blood. Patient does have cavitary right lung mass. There might be some blood vessels with in the cavity which might have broke open from the negative pressure from the cough episode and bleeding. His Chest xray portable was done, does show complete opacity of the right lung,which is basically to progression of disease. Pt is on palliative care. Pt's pain is controlled on present regime, which we will continue. We will have IV line in place, IF he gets obtunded and might need IV medications. He has anxiety of , hence I have changed his Ativan to IV Ativan every 4 hrs as needed for severe anxiety. I have discussed the findings in detail with patient's daughter who is his caregiver and also with patient. They do understand and agree with the plan. I do not think patient can go home with his deteriorating condition. I do not think daughter will be able to handle the situation with out medical help.Daughter agree to keep him in the hospital for now. 03/10/19 Patient continues to be on palliative care. His condition is deteriorating and requiring more pain medications to maintain his comfort level of breathing. He is bed ridden and requires full support to get out of bed. He requires the CEO pump for pain. We will continue to manage his pain as needed. Counseled daughter and patient on DNR/DNI status and they are in agreement with DNR/DNI. 03/20/19 Patient's condition has deteriorated slightly. He continues to cough up blood and feels short of breath all the time. He remains palliative. He requires a CEO pump to manage his pain and breathing and unable to go home. We do not have home hospice or home health to care for his conditions. He requires morphine and ativan IV and unable to be weaned. We will continue current management and pain management. 03/24/19 Patient continues to cough up blood. His pain is under control and we have had to slightly increase his basal rate and bump. Continue DNR/DNI status. 03/31/19 Patient has coughed up copious amounts of blood and it varies from a handful to small cupful. His pain is controlled with the CEO. We will continue palliative care for this patient. 04/05/19 Patient is unable to be converted to oral meds. He requires a CEO pump for comfort and will likely require more as his infiltrating carcinoma of the lung worsens. He requires oxygen 24hrs and has slowly deteriorated. Patient's life expectancy is less than 6 months. He continues to cough up blood and we are continuing his comfort cares. Without the CEO pump for pain control patient would be in excruciating pain from the metastatic carcinoma.
[2019-04-05] MEDS: Albuterol/Ipratropium 3.0-0.5 MG/3 ML Neb Soln NEB SCH ×4 (11:56→20:29)
[2019-04-05] MEDS: Fluticasone Propionate Nasal Spray 16 GM Bottle NASBOTH SCH (11:56)
[2019-04-05] MEDS: Tiotropium Inhaler 18 MCG Inhalation Powder Cap Kit of 5 INH SCH (11:56)
[2019-04-05] MEDS ORDERED: Morphine PF 150 MG/30 ML PCA Syringe ONE (19:38)
[2019-04-05] MEDS: Morphine PF 150 MG/30 ML PCA Syringe IV SCH (20:27)
[2019-04-06] MEDS: LORazepam 1 MG Tab PO SCH ×5 (01:34→18:14)
[2019-04-06] MEDS: Albuterol/Ipratropium 3.0-0.5 MG/3 ML Neb Soln NEB SCH ×4 (07:25→20:00)
[2019-04-06] MEDS: Fluticasone Propionate Nasal Spray 16 GM Bottle NASBOTH SCH (07:27)
[2019-04-06] MEDS: Tiotropium Inhaler 18 MCG Inhalation Powder Cap Kit of 5 INH SCH (07:27)
[2019-04-06] MEDS: LORazepam 2 MG/ML SDV IVPUSH PRN ×3 (11:07→20:01)
[2019-04-06] MEDS ORDERED: Scopolamine 1.5 MG Transdermal Patch ONE (15:20)
[2019-04-06] MEDS: Scopolamine 1.5 MG Transdermal Patch TRDERM PRN (15:37)
[2019-04-06] MEDS: Morphine PF 150 MG/30 ML PCA Syringe IV SCH (22:43)
[2019-04-06] MEDS: Sodium Chloride 0.9% 500 ML IV SCH (22:53)
[2019-04-07] MEDS: LORazepam 2 MG/ML SDV IVPUSH PRN ×2 (02:18→13:07)
[2019-04-07] MEDS: LORazepam 1 MG Tab PO SCH ×2 (06:10)
[2019-04-07] MEDS: Albuterol/Ipratropium 3.0-0.5 MG/3 ML Neb Soln NEB SCH ×3 (10:37→21:03)
[2019-04-07] MEDS: Fluticasone Propionate Nasal Spray 16 GM Bottle NASBOTH SCH (10:38)
[2019-04-07] MEDS: Tiotropium Inhaler 18 MCG Inhalation Powder Cap Kit of 5 INH SCH (10:38)
[2019-04-07] MEDS: Morphine PF 150 MG/30 ML PCA Syringe IV SCH (22:44)
[2019-04-08] MEDS: Albuterol/Ipratropium 3.0-0.5 MG/3 ML Neb Soln NEB SCH ×5 (07:57→20:27)
[2019-04-08] MEDS: Fluticasone Propionate Nasal Spray 16 GM Bottle NASBOTH SCH (08:14)
[2019-04-08] MEDS: Tiotropium Inhaler 18 MCG Inhalation Powder Cap Kit of 5 INH SCH (08:14)
[2019-04-08] MEDS: Sodium Chloride 0.9% 500 ML IV SCH (11:51)
[2019-04-08] MEDS: LORazepam 2 MG/ML SDV IVPUSH PRN ×2 (12:08→20:00)
[2019-04-08] MEDS: Albuterol/Ipratropium 3.0-0.5 MG/3 ML Neb Soln NEB PRN (14:31)
[2019-04-09] MEDS: Sodium Chloride 0.9% 500 ML IV SCH (06:52)
[2019-04-09] MEDS: LORazepam 2 MG/ML SDV IVPUSH PRN ×3 (07:10→20:15)
[2019-04-09] MEDS: Fluticasone Propionate Nasal Spray 16 GM Bottle NASBOTH SCH (09:29)
[2019-04-09] MEDS: Albuterol/Ipratropium 3.0-0.5 MG/3 ML Neb Soln NEB SCH ×4 (09:29→20:35)
[2019-04-09] MEDS: Tiotropium Inhaler 18 MCG Inhalation Powder Cap Kit of 5 INH SCH (09:29)
[2019-04-09] MEDS: Morphine PF 150 MG/30 ML PCA Syringe IV SCH (14:55)
[2019-04-09] MEDS: Scopolamine 1.5 MG Transdermal Patch TRDERM PRN (18:20)
[2019-04-10] MEDS: Sodium Chloride 0.9% 500 ML IV SCH (00:33)
[2019-04-10] MEDS: LORazepam 2 MG/ML SDV IVPUSH PRN (07:31)
[2019-04-10] MEDS ORDERED: Atropine 1% Ophth Soln 5 ML BOTTLE SL SCH (07:45)
[2019-04-10 08:05] VITALS: BP 106/71; PULSE 173
--- NOTE | 2019-04-12 15:37 | PCM.DCSUM1 ---
Discharge Summary - Discharge Data Discharge Date: 04/10/19 Discharge Disposition: 20 Condition: - Discharge Diagnosis/Problem(s) (1) Lung cancer SNOMED Code(s): 282303789 ICD Code: C34.90 - MALIGNANT NEOPLASM OF UNSP PART OF UNSP BRONCHUS OR LUNG Status: Acute Qualifiers: Laterality: right Lung location: overlapping sites Qualified Code(s): C34.81 - Malignant neoplasm of overlapping sites of right bronchus and lung (2) Palliative care patient SNOMED Code(s): 062926086 ICD Code: Z51.5 - ENCOUNTER FOR PALLIATIVE CARE Status: Acute Priority: High (3) Respiratory failure SNOMED Code(s): 910934302 ICD Code: J96.90 - RESPIRATORY FAILURE, UNSP, UNSP W HYPOXIA OR HYPERCAPNIA Status: Acute Priority: High Qualifiers: Chronicity: acute on chronic (4) Shortness of breath at rest SNOMED Code(s): 029069729 ICD Code: R06.02 - SHORTNESS OF BREATH Status: Chronic Priority: High Onset Date: 01/22/16 (5) Weakness SNOMED Code(s): 19131033 ICD Code: R53.1 - WEAKNESS Status: Acute Priority: High (6) COPD (chronic obstructive pulmonary disease) SNOMED Code(s): 95102786 ICD Code: J44.9 - CHRONIC OBSTRUCTIVE PULMONARY DISEASE, UNSPECIFIED Status : Chronic Priority: High (7) Hemoptysis SNOMED Code(s): 20746696 ICD Code: R04.2 - HEMOPTYSIS Status: Chronic Priority: High (8) Mass of right lung SNOMED Code(s): 094966194 ICD Code: R91.8 - OTHER NONSPECIFIC ABNORMAL FINDING OF LUNG FIELD Status: Chronic Priority: High - Patient Summary/Data Consults: Consultations 02/20/19 15:28 OT Evaluation and Treatment [CONS] Routine Please Evaluate and Treat. OT Reason for Consult: Strengthening This query below is only for informational purposes and is not editable. PT Evaluation and Treatment [CONS] Routine Please Evaluate and Treat. PT Reason for Consult: Strengthening This query below is only for informational purposes and is not editable. - Discharge Plan Home Medications: Home Meds Simvastatin 40 mg PO DAILY 01/22/16 [History] Levothyroxine Sodium 88 mcg PO DAILY #90 tablet 05/24/18 [Rx] Tiotropium [Spiriva Handihaler] 1 puff INH DAILY 01/15/19 [History] guaiFENesin [Mucinex] 600 mg PO BID tab.er 01/23/19 [Rx] Albuterol/Ipratropium [DuoNeb 3.0-0.5 MG/3 ML] 3 ml NEB QID 02/02/19 [History] Levofloxacin [Levaquin] 750 mg PO DAILY #14 tablet 02/02/19 [Rx] Pantoprazole [ProTONIX] 40 mg PO DAILY@0700 tab.cr 02/02/19 [Rx] Albuterol/Ipratropium [DuoNeb 3.0-0.5 MG/3 ML] 1 vial NEB Q2H 02/20/19 [History] Fluticasone Propionate [Flonase] 1 spray NASBOTH DAILY 02/20/19 [History] LORazepam 0.5 mg PO Q6H 02/20/19 [History] Magnesium Hydroxide [Milk of Magnesia] 30 ml PO DAILY PRN 02/20/19 [History] Menthol [Biofreeze] 1 applic TOP QID PRN 02/20/19 [History] Menthol/Zinc Oxide [Calmoseptine] 1 applic TOP QID PRN 02/20/19 [History] Morphine Sulfate 4 mg SL Q2H PRN 02/20/19 [History] Ondansetron HCl [Zofran] 4 mg PO Q4H PRN 02/20/19 [History] Polyethylene Glycol [Polyox Wsr-301] 17 gm PO BID 02/20/19 [History] Sennosides/Docusate Sodium [Senna-S Laxative Tablet] 1 tab PO BID 02/20/19 [ History] - Discharge Summary/Plan Comment DC Time >30 min.: No Discharge Summary/Plan Comment: Patient passed 0845am. Daughter notified family members. home notified. - Patient Data Vitals - Most Recent: Last Vital Signs Temp 37.5 C 04/10/19 07:56 Pulse 173 H 04/10/19 07:56 Resp 28 H 04/10/19 07:56 BP 106/71 04/10/19 07:56 Pulse Ox 54 L 04/10/19 07:56 Weight - Most Recent: 83.234 kg Med Orders - Current: Current Medications Discontinued Medications Albuterol/Ipratropium (Duoneb 3.0-0.5 Mg/3 Ml) 3 ml NEB QID [facility] Last Admin: 04/09/19 20:35 Dose: Not Given Albuterol/Ipratropium (Duoneb 3.0-0.5 Mg/3 Ml) 3 ml NEB Q2H PRN PRN Reason: Other Last Admin: 04/08/19 14:31 Dose: 3 ml Albuterol/Ipratropium (Duoneb 3.0-0.5 Mg/3 Ml) Confirm Administered Dose 3 ml .ROUTE .STK-MED ONE Stop: 04/05/19 02:53 Last Admin: 04/05/19 02:59 Dose: Not Given Atropine Sulfate (Atropine 1% Oph Soln) 0 ml SL Q2H [facility] Last Admin: 04/10/19 08:22 Dose: 0.2 ml Calamine/Phenol (Calmoseptine) 0 gm TOP QID PRN PRN Reason: Rash Calcium Carbonate/Glycine (Tums) Confirm Administered Dose 500 mg .ROUTE .STK- MED ONE Stop: 02/28/19 20:21 Last Admin: 02/28/19 20:40 Dose: Not Given Calcium Carbonate/Glycine (Tums) 500 mg PO ONETIME ONE Stop: 02/28/19 20:35 Last Admin: 02/28/19 20:39 Dose: 500 mg Calcium Carbonate/Glycine (Tums) 500 mg PO Q6HR PRN PRN Reason: Indigestion Last Admin: 04/01/19 19:50 Dose: 500 mg Diphenhydramine HCl (Benadryl) 25 mg IVPUSH Q6H PRN PRN Reason: Itching Diphenhydramine HCl (Benadryl) 25 mg PO Q6H PRN PRN Reason: Itching Fentanyl (Duragesic) 12 mcg TRDERM Q72H [facility] Last Admin: 03/03/19 14:48 Dose: 12 mcg Fluticasone Propionate (Flonase) 0 gm NASBOTH DAILY [facility] Last Admin: 04/09/19 09:29 Dose: Not Given Fluticasone Propionate (Flonase) 16 gm .ROUTE .STK-MED ONE Stop: 04/01/19 10:01 Guaifenesin (Mucinex) 600 mg PO BID [facility] Last Admin: 04/03/19 07:47 Dose: 600 mg Sodium Chloride (Normal Saline) 1,000 mls @ 50 mls/hr IV ASDIRECTED [facility] Last Infusion: 03/11/19 13:06 Dose: 25 mls/hr Sodium Chloride (Normal Saline) 500 mls @ 25 mls/hr IV ASDIRECTED [facility] Last Admin: 04/10/19 00:33 Dose: 25 mls/hr Levofloxacin (Levaquin) 750 mg PO DAILY [facility] Last Admin: 03/05/19 07:49 Dose: 750 mg Levothyroxine Sodium (Synthroid) 88 mcg PO ACBREAKFAST [facility] Last Admin: 04/03/19 10:45 Dose: Not Given Lorazepam (Ativan) 0.5 mg PO Q6H [facility] Last Admin: 02/26/19 05:38 Dose: 0.5 mg Lorazepam (Ativan) 0.5 mg PO ONETIME ONE Stop: 02/25/19 08:22 Last Admin: 02/25/19 08:25 Dose: 0.5 mg Lorazepam (Ativan) 1 mg PO ONETIME PRN PRN Reason: Anxiety Last Admin: 02/25/19 12:29 Dose: 1 mg Lorazepam (Ativan) 1 mg PO Q6H [facility] Last Admin: 04/07/19 06:10 Dose: Not Given Lorazepam (Ativan) Confirm Administered Dose 0.5 mg .ROUTE .STK-MED ONE Stop: 02/26/19 07:16 Last Admin: 02/26/19 07:26 Dose: 0.5 mg Lorazepam (Ativan) 0.5 mg PO ONETIME ONE Stop: 02/26/19 07:26 Last Admin: 02/26/19 08:08 Dose: Not Given Lorazepam (Ativan) Confirm Administered Dose 1 mg .ROUTE .STK-MED ONE Stop: 02/28/19 08:54 Last Admin: 02/28/19 14:55 Dose: Not Given Lorazepam (Ativan) 1 mg IVPUSH Q4H PRN PRN Reason: Respiratory Distress/Agitation Last Admin: 04/10/19 07:31 Dose: 1 mg Lorazepam (Ativan) Confirm Administered Dose 2 mg .ROUTE .STK-MED ONE Stop: 03/21/19 20:16 Last Admin: 03/21/19 22:56 Dose: Not Given Lorazepam (Ativan) Confirm Administered Dose 2 mg .ROUTE .STK-MED ONE Stop: 03/22/19 05:08 Last Admin: 03/22/19 08:41 Dose: Not Given Lorazepam (Ativan) 1 mg IVPUSH ONETIME ONE Stop: 04/04/19 19:36 Last Admin: 04/04/19 19:35 Dose: 1 mg Magnesium Hydroxide (Milk Of Magnesia) 30 ml PO DAILY PRN PRN Reason: Constipation Last Admin: 03/01/19 04:05 Dose: 30 ml Magnesium Hydroxide (Milk Of Magnesia) 30 ml PO ONETIME ONE Stop: 02/27/19 21:11 Last Admin: 02/27/19 23:33 Dose: Not Given Meclizine HCl (Antivert) 25 mg PO DAILY PRN PRN Reason: Dizziness Last Admin: 03/28/19 11:58 Dose: 25 mg Methylprednisolone Sodium Succinate (Solu-Medrol) 125 mg IVPUSH DAILY [facility] Last Admin: 03/05/19 08:33 Dose: Not Given Morphine Sulfate (Morphine 20 Mg/Ml Soln) 4 mg SL Q2H PRN PRN Reason: Pain Last Admin: 02/21/19 07:02 Dose: 4 mg Morphine Sulfate (Morphine [employer] 30 Mg In 30 Ml) 0 mg IV ASDIRECTED [facility]; Protocol Last Admin: 02/23/19 23:43 Dose: 1 mg Morphine Sulfate (Morphine) Confirm Administered Dose 2 mg .ROUTE .STK-MED ONE Stop: 02/23/19 09:08 Last Admin: 02/23/19 09:20 Dose: Not Given Morphine Sulfate (Morphine) 2 mg IVPUSH ONETIME ONE Stop: 02/23/19 09:09 Last Admin: 02/23/19 09:10 Dose: 2 mg Morphine Sulfate (Morphine) 2 mg IVPUSH ONETIME ONE Stop: 02/23/19 09:54 Last Admin: 02/23/19 09:54 Dose: 2 mg Morphine Sulfate (Morphine [employer] 30 Mg In 30 Ml) 1 mg IV ASDIRECTED [facility]; Protocol Last Admin: 02/28/19 03:22 Dose: 1 mg Morphine Sulfate (Morphine 20 Mg/Ml Soln) 1 mg PO Q1H PRN PRN Reason: Pain Last Admin: 03/12/19 06:07 Dose: 1 mg Morphine Sulfate (Morphine 20 Mg/Ml Soln) 2 mg PO Q4H PRN PRN Reason: Severe Agitation Last Admin: 03/16/19 20:15 Dose: 2 mg Morphine Sulfate (Morphine) Confirm Administered Dose 2 mg .ROUTE .STK-MED ONE Stop: 03/05/19 12:26 Last Admin: 03/05/19 12:55 Dose: 2 mg Morphine Sulfate (Morphine [employer] 30 Mg In 30 Ml) 0 mg IV ASDIRECTED [facility]; Protocol Last Admin: 03/06/19 11:52 Dose: 1 mg Morphine Sulfate (Morphine [employer] Clerk 30 Mg In 30 Ml) 30 mg IV ASDIRECTED [facility]; Protocol Last Admin: 03/15/19 10:35 Dose: 30 mg Morphine Sulfate (Morphine 20 Mg/Ml Soln) 600 mg .ROUTE .STK-MED ONE Stop: 03/03/19 23:05 Morphine Sulfate (Morphine [employer] 150 Mg In 30 Ml) 150 mg IV ASDIRECTED [facility]; Protocol Last Admin: 04/09/19 14:55 Dose: 150 mg Morphine Sulfate (Morphine [employer]ing Clerk 150 Mg In 30 Ml) Confirm Administered Dose 150 mg .ROUTE .STK-MED ONE Stop: 04/05/19 19:39 Last Admin: 04/05/19 20:26 Dose: Not Given Naloxone HCl (Narcan) 0.04 mg IVPUSH Q3M PRN PRN Reason: Respiratory Depression Menthol [Biofreeze] (1 Applic Own Med) 1 applic TOP QID PRN PRN Reason: Pain Last Admin: 02/26/19 07:30 Dose: 1 applic Non-Formulary Medication (Morphine Sulfate [Morphine Sulfate]) 4 mg SL Q2H PRN PRN Reason: Pain Non-Formulary Medication (Ondansetron Hcl [Zofran]) 4 mg PO Q4H PRN PRN Reason: Nausea Non-Formulary Medication (Polyethylene Glycol [Polyox Wsr-301]) 17 gm PO BID [facility] Ondansetron HCl (Zofran Odt) 4 mg PO Q4H PRN PRN Reason: Nausea/Vomiting Last Admin: 03/24/19 05:05 Dose: 4 mg Ondansetron HCl (Zofran) 4 mg IVPUSH Q6H PRN PRN Reason: Nausea/Vomiting Pantoprazole Sodium (Protonix) 40 mg PO DAILY@0700 [facility] Last Admin: 04/03/19 10:45 Dose: Not Given Polyethylene Glycol (Miralax) 17 gm PO BID [facility] Last Admin: 02/26/19 08:07 Dose: Not Given Prednisone (Prednisone) 20 mg PO DAILY [facility] Last Admin: 04/03/19 10:46 Dose: Not Given Scopolamine (Transderm-Scop) 1.5 mg TRDERM Q72H PRN PRN Reason: Agitation Last Admin: 04/09/19 18:20 Dose: 1.5 mg Scopolamine (Transderm-Scop) Confirm Administered Dose 1.5 mg .ROUTE .STK-MED ONE Stop: 04/06/19 15:21 Last Admin: 04/06/19 19:08 Dose: Not Given Scopolamine (Transderm-Scop) 1.5 mg TRDERM Q72H [facility] Senna/Docusate Sodium (Senna Plus) 1 tab PO BID [facility] Last Admin: 02/26/19 07:23 Dose: 1 tab Senna/Docusate Sodium (Senna Plus) 2 tab PO BEDTIME [facility] Last Admin: 04/06/19 20:00 Dose: Not Given Senna/Docusate Sodium (Senna Plus) 1 tab PO DAILY [facility] Last Admin: 04/09/19 01:16 Dose: Not Given Senna/Docusate Sodium (Senna Plus) Confirm Administered Dose 1 tab .ROUTE .STK- MED ONE Stop: 03/31/19 07:40 Last Admin: 03/31/19 07:44 Dose: Not Given Simvastatin (Zocor) 40 mg PO BEDTIME [facility] Last Admin: 04/01/19 19:24 Dose: 40 mg Simvastatin (Zocor) Confirm Administered Dose 40 mg .ROUTE .STK-MED ONE Stop: 03/18/19 19:02 Last Admin: 03/18/19 19:03 Dose: 40 mg Tiotropium [place] (Spiriva Handihaler) 18 mcg INH DAILY [facility] Last Admin: 04/09/19 09:29 Dose: Not Given Tiotropium [place] (Spiriva Handihaler) 18 mcg .ROUTE .STK-MED ONE Stop: 02/21/19 13:18 Tiotropium [place] (Spiriva Handihaler) 18 mcg .ROUTE .STK-MED ONE Stop: 03/02/19 08:01 Tiotropium [place] (Spiriva Handihaler) 18 mcg .ROUTE .STK-MED ONE Stop: 04/02/19 07:16 Tuberculin PPD (Aplisol) 5 unit IDERM ONETIME ONE Stop: 02/20/19 15:29 Last Admin: 02/21/19 16:36 Dose: 5 unit
[2019-04-12] MEDS ORDERED: Scopolamine 1.5 MG Transdermal Patch TRDERM SCH (18:30)
== END 2019-04-10 11:45 | disposition expired | DRG 951 ==
LOC: LB.MS 15:28
PROVIDERS: ADMIT Surgery; ATTEND Family Medicine
DX: Z51.5 Encounter for palliative care (principal); J96.21 Acute and chronic respiratory failure with hypoxia; G89.3 Neoplasm related pain (acute) (chronic); C34.81 Malignant neoplasm of overlapping sites of right bronchus and lung; J44.9 Chronic obstructive pulmonary disease, unspecified; Z66 Do not resuscitate; F41.9 Anxiety disorder, unspecified; K59.09 Other constipation; Z99.81 Dependence on supplemental oxygen; Z79.51 Long term (current) use of inhaled steroids; Z79.899 Other long term (current) drug therapy
CPT/HCPCS: 51702; 71045; 74018; 86580; A9270-GY; J2060; J2270; J2274; J2930; J7030; J7620-GY